=== PATIENT | female | born 1945 | race Caucasian/White ===

== ENCOUNTER 2023-04-07 12:11 | Emergency (ER) | payer OTHER, SELFPAY ==
[2023-04-07 12:13] VITALS: BP 185/74
[2023-04-07 12:50] VITALS: BMI 31.7
[2023-04-07 13:19] VITALS: BP 148/55
--- NOTE | 2023-04-07 13:20 | ED.GENMED ---
History of Present Illness
General
Chief Complaint: Breathing Problem
Source: patient, records and family
Time Seen by Provider: 04/07/23 13:03
Travel History
Have you had any contact with someone who has COVID-19?: No
Do you have any symptoms of coronavirus? Fever > 100 degrees, chills, cough, shortness of breath, sore throat, loss of taste or smell, muscle aches, or headache?: No
History of Present Illness
History of Present Illness:
77-year-old female with past medical history of hypertension, hyperlipidemia, diabetes, CAD status post drug-eluting stent placement proximal LAD as well as pacemaker placement for complete heart block in early February presenting to the emergency
department for evaluation after she developed transient shortness of breath last night that awoke her from sleep and lasted around 1 hour, was able to go back to sleep and awoke again this morning feeling persistently short of breath with symptoms
continuing vomiting her to come to the ER for further evaluation. Patient still endorses shortness of breath at rest, worsens with exertion, no other symptoms including chest pain, peripheral edema, cough, pleurisy, hemoptysis, lightheadedness,
headache, fevers or upper respiratory symptoms or any other concerns. Patient had follow-up visit at her ticket writer office on March 23 and reports that all her tests then were good and her ticket writer was happy with how she was recovering from
her recent hospitalization/treatments. Patient notes she has a Medtronic pacemaker. No other concerns at this time.
Past History
Past History
ED Past Medical History: CAD, HTN, Hypercholesterolemia, IDDM and Other (Diabetes, reflux, cataracts)
ED Past Surgical History: Cardiac and Gynecological
Social History
Tobacco: Non-smoker
Alcohol: Occasional
Drug: None
Personal:
Living: with family
Review of Systems
Review of Systems
All Other Systems: ROS reviewed and negative except as documented in HPI and ROS
Phy Exam
Physical Exam
Physical Exam:
GENERAL: Alert , in no apparent distress
EYE: conjunctiva clear
NECK: Supple
ENT: o/p clr, mmm.
CARDIAC: Regular rate and rhythm
LUNGS: Clear breath sounds bilaterally, occasional pursed lip breathing noted but no tachypnea, no wheezes/rales/rhonchi
Chest wall: Well-healed incision from pacemaker placement without any surrounding cellulitic changes
NEUROLOGICAL: Alert and oriented
SKIN: Warm and dry, skin intact.
MUSCULOSKELETAL: well perfused. No edema
PSYCH: Normal and appropriate interaction.
Scores
Heart Failure Risk
Heart Failure Risk Score: Not Applicable
Heart Score for Chest Pain Patients
STEMI patient?: Not applicable
Withdrawal Assessment of Alcohol
Withdrawal Assessment Completed?: Not applicable
Course
Orders/Labs/Results
Orders:
Orders
04/07/23 12:18
Electrocardiogram (*1) Urgent
Reason for Study: Chest Pain
EKG- Treatment ONCE
04/07/23 13:11
CR Chest - 2 Views Urgent
Comment:
Reason For Exam: SOB, recent NSTEMI, recent pacemaker
04/07/23 13:21
Complete Blood Count/With Diff Urgent
Comprehensive Metabolic Panel Urgent
D-Dimer Urgent
Magnesium Urgent
NT-proBNP Urgent
Troponin I Urgent
Abnormal Lab Results
04/07/23
13:21
RBC 3.97 L 10^6/uL
(4.20-5.40)
Hgb 11.8 L g/dL
(12.0-16.0)
Hct 35.1 L %
(37.0-47.0)
Absolute Monos (auto) 1.0 H 10^3/uL
(0.1-0.6)
Monocytes % 10.2 H %
(1.7-9.3)
D-Dimer 0.65 H ug/mlFEU
(0.00-0.50)
Sodium 133 L mmol/L
(135-145)
BUN 22 H mg/dl
(7-17)
Creatinine 1.1 H mg/dL
(0.6-1.0)
Glucose 157 H mg/dl
(70-99)
Magnesium 1.5 L mg/dl
(1.6-2.3)
04/07/23 13:21
04/07/23 13:21
Vital Signs
Initial and Last Documented VS:
Initial Vital Signs
Temp Pulse Resp BP Pulse Ox
98.1 F 71 20 185/74 98
04/07/23 12:13 04/07/23 12:13 04/07/23 12:13 04/07/23 12:13 04/07/23 12:13
Last Documented Vital Signs
Temp Pulse Resp BP Pulse Ox
98.1 F 74 14 147/109 97
04/07/23 12:13 04/07/23 15:08 04/07/23 15:08 04/07/23 15:08 04/07/23 15:08
Color Consultant consulted with Physician
Color Consultant consulted with physician?: Yes
Name of Physician Consulted: Noh
MDM/Problems Addressed
Differential Diagnosis Includes:
Cardiac dysrhythmia, CHF, valvular dysfunction, ACS, pleural effusion, less likely infectious etiology
MDM/Problems Addressed:
77-year-old female presenting to the emergency department for evaluation after an episode of orthopnea last night, resolved after 1 hour but then upon awakening today has had persistent symptoms this morning which continue. She is in no acute
respiratory distress however during exam will occasionally have some pursed lip breathing and appear little bit short of breath following completion of sentences. Will interrogate patient's Medtronic pacemaker device, labs and chest x-ray ordered.
Will discuss case with cardiology given recent hospitalization and cardiac treatments. Disposition pending.
Chronic conditions affecting care: CAD and Arrhythmia
Acute Exacerbation and/or Progression of Chronic Illness: CAD and Arrhythmia
*Pulse Oximetry
Patient hypoxic: no
*EKG
Interpreted by ED Provider?: Yes
Comparison EKG: no changes
Heart Rate: 63
Rate: normal
Rhythm: av sequential
*Manager Unit Interpretation
Rate: normal
Rhythm: av sequential
*Critical Care Note
Total Time (30-74mins, 75-104mins- exclusive of procedures): Not Applicable
Data Reviewed
Review of Other/Old Records Reveals: Labs, Records and Discharge Summary
Source: patient, records and family
Patient Management
Discussion with other providers: Labor Economics Professor
Escalation/DeEscalation of care consider admission/obs:
Patient's D-dimer was slightly elevated at 0.65 however when age-adjusted this D-dimer is within normal limits. Patient was seen by cardiology who does not feel there are any acute emergent pathologies ongoing at this time. Will attempt to
ambulate patient with pulse ox on to see if she becomes hypoxic. If patient is significantly symptomatic or has drop in her O2 sats will still order CTA to further evaluate.
Patient was able to ambulate around the emergency department without difficulty or symptoms. Her pulse ox remained 96% on room air during this time. She feels comfortable being discharged home. Aware of return precautions emergency department and
otherwise stable for discharge home.
ED Attending Note
-
Portions of this chart may have been created with voice recognition software.� Occasional wrong word or��sound alike� substitutions may have occurred due to the inherent limitations of voice recognition software.
Discharge Plan
Departure
Patient Disposition: Home (Routine Discharge)
Date of Disposition: 04/07/23
Time of Disposition: 15:00
Patient with high blood pressure during this ER visit?: Yes
Discharge Problem:
Shortness of breath
Instructions: Shortness of Breath (Dyspnea) (DC)
Prescriptions:
No Action
atorvastatin 20 mg Tablet
40 mg PO QPM Qty: 30 0RF
metoprolol succinate 50 mg Tablet Extended Release 24 Hr
50 mg PO BID Qty: 60 0RF
cyanocobalamin (vitamin B-12) 1,000 mcg Tablet
1,000 mcg PO DAILY Qty: 60 0RF
thiamine HCl (vitamin B1) 100 mg Tablet
100 mg PO BID Qty: 20 0RF
amlodipine 5 mg Tablet
5 mg PO BID Qty: 60 0RF
spironolactone 25 mg Tablet
12.5 mg PO DAILY Qty: 30 0RF
cetirizine [Zyrtec] 10 mg Tablet
10 mg PO QPM Qty: 0 0RF
aspirin 81 mg Tablet,Delayed Release (Dr/Ec)
81 mg PO QPM Qty: 0 0RF
pramipexole 0.5 mg tablet
0.5 mg PO HS Qty: 0 0RF
lysine [L-Lysine] 500 mg Tablet
500 mg PO QPM Qty: 0 0RF
insulin degludec [Tresiba FlexTouch U-100] 100 unit/mL (3 mL) Insulin Pen
24 unit SC HS Qty: 0 0RF
calcium carbonate-vitamin D3 [Calcium 500 + D] 500 mg-10 mcg (400 unit) Tablet
1 tab PO BID
ferrous sulfate 325 mg (65 mg iron) tablet
325 mg PO MOWEFR
metformin 500 mg tablet extended release 24 hr
1,000 mg PO BID@0800,1700
insulin aspart U-100 [Novolog PenFill U-100 Insulin] 100 unit/mL cartridge
1 sliding scale dose SC AC
furosemide 20 mg Tablet
20 mg PO DAILY Qty: 90 3RF
clopidogrel 75 mg Tablet
75 mg PO DAILY Qty: 90 3RF
hydralazine 25 mg Tablet
25 mg PO TID Qty: 270 3RF
Rx Instructions:
Take with 50mg for total of 75mg TID
hydralazine 50 mg tablet
50 mg PO TID Qty: 270 3RF
Rx Instructions:
Take with 25mg for a total of 75mg TID
Referrals:
Lino Stapleton MD [Active] -
Park Marley DO [Family Provider] -
Interventions
Interventions:
*Risk Screen - Suicide Last Done: 04/07/23 12:13
*General Assessment Last Done: 04/07/23 12:13
*Neglect/Abuse Screening Last Done: 04/07/23 12:13
ED- Fall Risk Assessment Last Done: 04/07/23 12:58
*ED COVID-19 Vaccine History Last Done: 04/07/23 12:50
*Nursing Disposition Last Done: 04/07/23 15:12
ED- Cardiac Assessment Last Done: 04/07/23 12:56
ED- Pulmonary Assessment Last Done: 04/07/23 12:57
Discharge Date and Time
Discharge Date/Time: 04/07/23 15:12
[2023-04-07 13:36] LABS: % Basophils 0.5 % (0-2); % Immature Granulocytes 0.3 % (0-0.5); % Lymphocytes 28.6 % (20.5-51.1); % Monocytes 10.2 % (1.7-9.3); % Neutrophils 58.4 % (42.2-75.2); Absolute Basophils 0.1 10^3/uL (0-0.2); Absolute Eosinophils 0.2 10^3/uL (0-0.7); Absolute Lymphocytes 2.7 10^3/uL (1.2-3.4); Absolute Neutrophils 5.6 10^3/uL (1.4-6.5); Hematocrit 35.1 % (37.0-47.0); Hemoglobin 11.8 g/dL (12.0-16.0); Mean Corp Hgb Conc. 33.6 g/dL (33.0-37.0); Mean Corpuscular Hgb 29.7 pg (27.0-31.0); Mean Corpuscular Volume 88.4 fL (81.0-99.0); Mean Platelet Volume 10.3 fL (7.4-10.4); Nucleated Red Blood Cells % 0 %; Platelet Count 355 10^3/uL (130-400); Red Blood Cell Count 3.97 10^6/uL (4.20-5.40); Red Cell Dist. Width 13.2 % (11.5-14.5); White Blood Cell Count 9.6 10^3/uL (4.8-10.8)
[2023-04-07 13:49] LABS: ALT (SGPT) 16 U/L (0-35); AST (SGOT) 31 U/L (14-36); Albumin 4.1 g/dl (3.5-5.0); Alkaline Phosphatase 89 U/L (38-126); Blood Urea Nitrogen 22 mg/dl (7-17); Calcium 9.2 mg/dl (8.4-10.2); Carbon Dioxide 27 mmol/L (22-30); Chloride 101 mmol/L (98-107); Estimated Creatinine Clearance 41 ml/min; Glucose 157 mg/dl (70-99); Magnesium 1.5 mg/dl (1.6-2.3); Potassium 4.2 mmol/L (3.5-5.1); Sodium 133 mmol/L (135-145); Total Bilirubin 0.4 mg/dl (0.2-1.3); Total Protein 6.9 g/dl (6.3-8.2); eGFR 51.43
[2023-04-07 13:59] LABS: NT-proBNP 1160 pg/ml; Troponin I < 0.012 ng/ml
[2023-04-07 14:33] LABS: D-Dimer 0.65 ug/mlFEU (0.00-0.50)
[2023-04-07 15:08] VITALS: BP 147/109
== END 2023-04-07 15:12 | disposition home or self-care (01) ==
LOC: EMR 12:11
PROVIDERS: Physician Assistant Medical; EMERGENCY PHYSICIAN Emergency Medicine; FAMILY PHYSICIAN Family Medicine
DX: R06.02 Shortness of breath (principal); I11.0 Hypertensive heart disease with heart failure; E78.00 Pure hypercholesterolemia, unspecified; I25.10 Atherosclerotic heart disease of native coronary artery without angina pectoris; Z95.0 Presence of cardiac pacemaker
CPT/HCPCS: 99285; 93288; 71046; 80053; 83735; 83880; 84484; 85025; 85379; 93005

== ENCOUNTER 2023-09-11 11:27 | Inpatient (IN) | payer OTHER, SELFPAY ==
[2023-09-08 20:57] VITALS: BP 166/61
[2023-09-08 21:08] VITALS: BMI 31.7
[2023-09-08 21:28] LABS: % Basophils 0.8 % (0-2); % Eosinophils 5.4 % (0-6); % Immature Granulocytes 0.5 % (0-0.5); % Lymphocytes 29.9 % (20.5-51.1); % Monocytes 8.9 % (1.7-9.3); % Neutrophils 54.5 % (42.2-75.2); Absolute Basophils 0.1 10^3/uL (0-0.2); Absolute Eosinophils 0.8 10^3/uL (0-0.7); Absolute Immature Granulocytes 0.1 10^3/uL (0-0.05); Absolute Lymphocytes 4.6 10^3/uL (1.2-3.4); Absolute Monocytes 1.4 10^3/uL (0.1-0.6); Absolute Neutrophils 8.4 10^3/uL (1.4-6.5); Hematocrit 33.9 % (37.0-47.0); Hemoglobin 11.8 g/dL (12.0-16.0); Mean Corp Hgb Conc. 34.8 g/dL (33.0-37.0); Mean Corpuscular Hgb 29.3 pg (27.0-31.0); Mean Corpuscular Volume 84.1 fL (81.0-99.0); Mean Platelet Volume 10.3 fL (7.4-10.4); Nucleated Red Blood Cells % 0 %; Platelet Count 362 10^3/uL (130-400); Red Blood Cell Count 4.03 10^6/uL (4.20-5.40); Red Cell Dist. Width 14.2 % (11.5-14.5); White Blood Cell Count 15.4 10^3/uL (4.8-10.8)
--- NOTE | 2023-09-08 21:33 | ED.GENMED ---
History of Present Illness
General
Chief Complaint: Chest Pain
Source: patient, spouse and family
Exam Limitations: none
Time Seen by Provider: 09/08/23 21:20
Nursing documentation reviewed up to this point in time: agreed with
History of Present Illness
History of Present Illness:
78-year-old female presents emergency department pain complaining of chest and jaw pain that began at 6 PM tonight. She took nitro and it relieved the pain. She went upstairs at 8:30 PM and the pain returned along with jaw pain. Nitroglycerin
again relieve the pain.
Past History
Past History
ED Past Medical History: CAD, HTN, Hypercholesterolemia, IDDM and Other (Diabetes, reflux, cataracts)
ED Past Surgical History: Cardiac (Pacemaker, cardiac stent) and Gynecological
Social History
Tobacco: Non-smoker
Alcohol: Occasional
Drug: None
Personal:
Living: with family
Review of Systems
Review of Systems
Allergies reviewed?: Yes
All Other Systems: Not applicable
Constitutional: Reports no symptoms
EENT: Reports mouth pain
Respiratory: Reports no symptoms
Cardiac: Reports chest pain
ABD/GI: Reports no symptoms
: Reports no symptoms
Musculoskeletal: Reports no symptoms
Skin: Reports no symptoms
Neurological: Reports no symptoms
Endocrine: Reports no symptoms
Hematologic/Lymphatic: Reports no symptoms
Psychiatric: Reports no symptoms
Phy Exam
Physical Exam
Physical Exam:
Physical Exam
General: no apparent distress, not acutely ill
Neck: supple. no meningeal signs. normal posterior pharynx
Heart: s1/s2 regular rate and rhythm, no murmur. equal radial
pulses. Pacemaker left upper chest
HEENT: Pupils equal round reactive to light, EOMI
Lungs: no acute respiratory distress. clear bilaterally
Abdomen: normal bowel sounds. not tender. no CVAT
Neuro: alert and oriented. no focal neurological deficits cranial nerves II through XII intact
Skin: no rash
Psychiatric: well kept. interactive and cooperative
Extremities: no edema. no calf tenderness. negative homans. good distal pulses
Scores
Heart Score for Chest Pain Patients
STEMI patient?: Yes
History: Moderately Suspicious
ECG: Nonspecific Repolarization
Age: >/= 65 years
Risk Factors: >/= 3 Risk Factors or History of CAD
Troponin: </= Normal Limit
Heart Score for Chest Pain Patients: 6
Heart Score Risk: 20.3% MACE over next 6 weeks
Course
Orders/Labs/Results
Orders:
Orders
09/08/23 20:53
Electrocardiogram (*1) Urgent
Reason for Study: Chest Pain
09/08/23 20:54
EKG- Treatment ONCE
09/08/23 21:05
Comprehensive Metabolic Panel Urgent
Troponin I Urgent
09/08/23 21:07
Complete Blood Count/With Diff Urgent
09/09/23 00:00
Troponin I Urgent
Abnormal Lab Results
09/08/23 09/08/23
21:05 21:07
WBC 15.4 H 10^3/uL
(4.8-10.8)
RBC 4.03 L 10^6/uL
(4.20-5.40)
Hgb 11.8 L g/dL
(12.0-16.0)
Hct 33.9 L %
(37.0-47.0)
Abs Immat Gran (auto) 0.1 H 10^3/uL
(0-0.05)
Absolute Neuts (auto) 8.4 H 10^3/uL
(1.4-6.5)
Absolute Lymphs (auto) 4.6 H 10^3/uL
(1.2-3.4)
Absolute Monos (auto) 1.4 H 10^3/uL
(0.1-0.6)
Absolute Eos (auto) 0.8 H 10^3/uL
(0-0.7)
BUN 21 H mg/dl
(7-17)
Glucose 155 H mg/dl
(70-99)
09/08/23 21:07
09/08/23 21:05
Vital Signs
Initial and Last Documented VS:
Initial Vital Signs
Temp Pulse Resp BP Pulse Ox
98.5 F 63 16 166/61 97
09/08/23 20:57 09/08/23 20:57 09/08/23 20:57 09/08/23 20:57 09/08/23 20:57
Last Documented Vital Signs
Temp Pulse Resp BP Pulse Ox
98.5 F 60 16 156/60 98
09/08/23 20:57 09/08/23 22:00 09/08/23 22:00 09/08/23 22:00 09/08/23 22:00
MDM/Problems Addressed
Differential Diagnosis Includes:
ACS, PE
MDM/Problems Addressed:
78-year-old female with chest pain rating to the jaw, relieved with nitroglycerin. Troponin negative. Concern for unstable angina. Troponin negative initially. Patient pain-free at this time.
Chronic conditions affecting care: CAD
Acute Exacerbation and/or Progression of Chronic Illness: CAD
*Pulse Oximetry
Patient hypoxic: no
*EKG
Interpreted by ED Provider?: Yes
EKG Intrepretation Date: 09/08/23
EKG Intrepretation Time: 20:58
Interpretation: abnormal
Comparison EKG: changes noted
Heart Rate: 71
Rate: normal
Rhythm: sinus and PVC's
[place]: normal axis
Interval: normal interval
QRS Pattern: normal QRS
Ischemia: no ischemia
*Bilingual Recruiter Interpretation
Rate: normal
Interpretation: abnormal
Heart Rate: 70
Rhythm: sinus
*Critical Care Note
Total Time (30-74mins, 75-104mins- exclusive of procedures): Not Applicable
Data Reviewed
Review of Other/Old Records Reveals: Operative Reports (Cardiac catheterization February 2023 LAD stent for 80% lesion by Dr. Lopez, pacemaker placed by Dr. Bauman)
Source: records
Patient Management
Social determinants of health affecting care: Living situation
Escalation/DeEscalation of care consider admission/obs:
admit indicated
ED Attending Note
-
Portions of this chart may have been created with voice recognition software.� Occasional wrong word or��sound alike� substitutions may have occurred due to the inherent limitations of voice recognition software.
Discharge Plan
Departure
Patient Disposition: Admit
Date of Disposition: 09/08/23
Time of Disposition: 22:20
Admit to: IVU
Presentation/result/management discussed w/ accepting MD/DO: Hospitalist
Patient with high blood pressure during this ER visit?: Yes
Condition: Good
Discharge Problem:
Unstable angina
Prescriptions:
No Action
metoprolol succinate 50 mg Tablet Extended Release 24 Hr
50 mg PO BID Qty: 60 0RF
cyanocobalamin (vitamin B-12) 1,000 mcg Tablet
1,000 mcg PO DAILY Qty: 60 0RF
thiamine HCl (vitamin B1) 100 mg Tablet
100 mg PO BID Qty: 20 0RF
amlodipine 5 mg Tablet
5 mg PO BID Qty: 60 0RF
spironolactone 25 mg Tablet
12.5 mg PO DAILY Qty: 30 0RF
cetirizine [Zyrtec] 10 mg Tablet
10 mg PO QPM Qty: 0 0RF
pramipexole 0.5 mg tablet
0.5 mg PO HS Qty: 0 0RF
lysine [L-Lysine] 500 mg Tablet
500 mg PO QPM Qty: 0 0RF
insulin degludec [Tresiba FlexTouch U-100] 100 unit/mL (3 mL) Insulin Pen
24 unit SC HS Qty: 0 0RF
calcium carbonate-vitamin D3 [Calcium 500 + D] 500 mg-10 mcg (400 unit) Tablet
1 tab PO BID
ferrous sulfate 325 mg (65 mg iron) tablet
325 mg PO MOWEFR
metformin 500 mg tablet extended release 24 hr
1,000 mg PO BID@0800,1700
insulin aspart U-100 [Novolog PenFill U-100 Insulin] 100 unit/mL cartridge
1 sliding scale dose SC AC
furosemide 20 mg Tablet
20 mg PO DAILY Qty: 90 3RF
clopidogrel 75 mg Tablet
75 mg PO DAILY Qty: 90 3RF
hydralazine 25 mg Tablet
25 mg PO TID Qty: 270 3RF
Rx Instructions:
Take with 50mg for total of 75mg TID
hydralazine 50 mg tablet
50 mg PO TID Qty: 270 3RF
Rx Instructions:
Take with 25mg for a total of 75mg TID
atorvastatin 40 mg tablet
40 mg PO QPM
betamethasone valerate 0.1 % ointment
1 applic TOPICAL WEEKLY PRN (Reason: itching)
Patient Comments:
09/08/2023: apply to vagina
isosorbide mononitrate 30 mg tablet extended release 24 hr
30 mg PO DAILY
nitroglycerin 0.4 mg tablet, sublingual
0.4 mg sublingual [id number] PRN (Reason: jaw pain)
aspirin 81 mg tablet,delayed release (DR/EC)
81 mg PO DAILY
Theragen Tablet
1 tab PO DAILY
Visbiome 112.5 billion cell Capsule
1 cap PO DAILY
omeprazole 20 mg Tablet,Delayed Release (Dr/Ec)
20 mg PO DAILY
Referrals:
Park Marley DO [Family Provider] -
Interventions
Interventions:
*Risk Screen - Suicide Last Done: 09/08/23 20:57
*General Assessment Last Done: 09/08/23 20:57
*Neglect/Abuse Screening Last Done: 09/08/23 20:57
ED- Fall Risk Assessment Last Done: 09/08/23 21:34
ED- Cardiac Assessment Last Done: 09/08/23 21:34
Discharge Date and Time
Print Language: ITALIAN
[2023-09-08 21:39] VITALS: BP 150/61
[2023-09-08 21:48] LABS: ALT (SGPT) 17 U/L (0-35); AST (SGOT) 35 U/L (14-36); Albumin 4.3 g/dl (3.5-5.0); Alkaline Phosphatase 113 U/L (38-126); Blood Urea Nitrogen 21 mg/dl (7-17); Calcium 9.8 mg/dl (8.4-10.2); Carbon Dioxide 22 mmol/L (22-30); Chloride 101 mmol/L (98-107); Estimated Creatinine Clearance 47 ml/min; Glucose 155 mg/dl (70-99); Potassium 4.1 mmol/L (3.5-5.1); Sodium 135 mmol/L (135-145); Total Bilirubin 0.4 mg/dl (0.2-1.3); Total Protein 7.1 g/dl (6.3-8.2); eGFR > 60.00
[2023-09-08 21:58] LABS: Troponin I < 0.012 ng/ml
[2023-09-08 22:00] VITALS: BP 156/60
--- NOTE | 2023-09-08 22:00 | EDRN ---
Updated patient on labs and plan to repeat troponin level at 0000, resting with family at bedside with no complaints will continue to monitor
--- NOTE | 2023-09-08 22:53 | HPS.HSE ---
Family Physician
-
Family Physician: Park Marley,
Chief Complaint
-
chest pain
History of Present Illness
78-year-old female past medical history of CAD with history of LAD stent in February, complete heart block status post dual-chamber permanent pacemaker February, chronic HFpEF, hypertension, hyperlipidemia, diabetes, GERD, chronic leukocytosis, CKD 3,
arthritis, obesity, presenting with chest pressure and jaw pain with radiation to left arm and shortness of breath that started at 6 PM today. She took nitro with resolution of pain. She went upstairs at 8:30 PM and the pain returned and took
nitroglycerin again with resolution of pain once again. Denies nausea or sweating.
She denies any pain at the current time.
She has been having intermittent jaw pain over the past few weeks intermittently even without exertion. She saw her assistant store manager sales 2 weeks ago and was started on nitroglycerin. She is scheduled for stress test in the near future.
She drinks alcohol occasionally but has not drank any recently. She denies smoking.
Medical History
Past Medical History
Past Medical History: Reports Other (CAD with history of LAD stent in February, complete heart block status post dual-chamber permanent pacemaker February, chronic HFpEF, hypertension, hyperlipidemia, diabetes, GERD, chronic leukocytosis, CKD 3,
arthritis, obesity,)
Past Surgical History: Reports Other (Cardiac (Pacemaker, cardiac stent) and Gynecological)
Social History
Tobacco: Non-smoker
Alcohol: Occasional
Drug: None
Family History
Family History: Not pertinent
Allergies / Home Medications
Allergies reflects when Allergies were last updated in [facility].
Home Medications with original date entered in [facility]
Allergy/Medication List:
Allergies
Allergy/AdvReac Type Severity Reaction Status Date / Time
lisinopril Allergy Unknown Verified 04/07/23 12:13
valsartan [From Diovan] Allergy Unknown Verified 04/07/23 12:13
Home Medications
amlodipine 5 mg tablet 5 mg PO BID Blood pressure #60 tabs 03/01/23
cetirizine 10 mg tablet (Zyrtec) 10 mg PO QPM Allergies #0 tabs 03/01/23
cyanocobalamin (vitamin B-12) 1,000 mcg tablet 1,000 mcg PO DAILY b12 defeciency #60 tabs 03/01/23
insulin degludec 100 unit/mL (3 mL) subcutaneous pen (Tresiba FlexTouch U-100 insulin) 24 unit (0.24 mL) SC HS Diabetes #0 mL 03/01/23
lysine 500 mg tablet (L-Lysine) 500 mg PO QPM Supplement #0 tabs 03/01/23
metoprolol succinate 50 mg tablet,extended release 24 hr 50 mg PO BID Blood pressure #60 tabs 03/01/23
pramipexole 0.5 mg tablet 0.5 mg PO HS other #0 tabs 03/01/23
spironolactone 25 mg tablet 12.5 mg (1/2 x 25 mg) PO DAILY Blood pressure #30 tabs 03/01/23
thiamine HCl (vitamin B1) 100 mg tablet 100 mg PO BID Supplement #20 tabs 03/01/23
calcium carbonate 500 mg-vitamin D3 10 mcg (400 unit) tablet (Calcium 500 + D) 1 tab PO BID 03/05/23
ferrous sulfate 325 mg (65 mg iron) tablet 325 mg PO MOWEFR anemia 03/05/23
insulin aspart U-100 100 unit/mL subcutaneous cartridge (Novolog PenFill U-100 Insulin aspart) 1 sliding scale dose SC AC 03/05/23
metformin 500 mg tablet,extended release 24 hr 1,000 mg PO BID@0800,1700 Diabetes 03/05/23
clopidogrel 75 mg tablet 75 mg PO DAILY #90 tabs 03/06/23
furosemide 20 mg tablet 20 mg PO DAILY #90 tabs 03/06/23
hydralazine 25 mg tablet 25 mg PO TID #270 tabs 03/06/23
hydralazine 50 mg tablet 50 mg PO TID #270 tabs 03/06/23
Lactobac no.2-Bifidobac no.1-S. thermo 112.5 billion cell capsule (Visbiome) 1 cap PO DAILY 09/08/23
aspirin 81 mg tablet,delayed release 81 mg PO DAILY Blood clot prevention/tx 09/08/23
atorvastatin 40 mg tablet 40 mg PO QPM 09/08/23
betamethasone valerate 0.1 % topical ointment 1 applic topical WEEKLY PRN itching 09/08/23
isosorbide mononitrate 30 mg tablet,extended release 24 hr 30 mg PO DAILY 09/08/23
nitroglycerin 0.4 mg sublingual tablet 0.4 mg sublingual [id number] PRN jaw pain 09/08/23
omeprazole 20 mg tablet,delayed release 20 mg PO DAILY 09/08/23
therapeutic multivitamin 1 tab PO DAILY 09/08/23
Review of Systems
-
History Source: Patient
A 12 point ROS was completed and negative except as noted: Yes
Constitutional: Reports No Symptoms
EENT: Reports No Symptoms
Respiratory: Reports No Symptoms
Cardiac: Reports See HPI
Abdomen/GI: Reports No Symptoms
: Reports No Symptoms
Musculoskeletal: Reports No Symptoms
Skin: Reports No Symptoms
Neurological: Reports No Symptoms
Endocrine: Reports No Symptoms
Hematologic/Lymphatic: Reports No Symptoms
Psych: Reports No Symptoms
Physical Exam
Vital Signs
Vital Signs
Temp Pulse Resp BP Pulse Ox
98.5 F 60 16 156/60 98
09/08/23 20:57 09/08/23 22:00 09/08/23 22:00 09/08/23 22:00 09/08/23 22:00
Physical Exam
General: Well Developed, Well Nourished and No Apparent Distress
HEENT: NormoCephalic, Moist mucous membranes and Atraumatic
Respiratory: Clear
Cardiac: S1/S2 and Regular Rhythm; No Murmur or Rub
GI: Soft, Non Tender, Non Distended and Normal Bowel Sounds; No Organomegaly
Rectal: Deferred by Provider
Musculoskeletal: No Clubbing, No Cyanosis and No Edema
Skin: No Rash
Neuro: Nonfocal/grossly intact
Laboratory Results
-
09/08/23 21:07
09/08/23 21:05
Laboratory Results
Total Bilirubin 0.4 mg/dl (0.2-1.3) 09/08/23 21:05
AST 35 U/L (14-36) 09/08/23 21:05
ALT 17 U/L (0-35) 09/08/23 21:05
Alkaline Phosphatase 113 U/L (38-126) 09/08/23 21:05
Troponin I < 0.012 ng/ml 09/08/23 21:05
Data Reviewed
-
Lab Data: Labs Reviewed by me
Old Records: Reviewed
Impression/Plan
-
IMPRESSION:
PLAN:
# Unstable angina
# History of CAD with history of LAD stent in February
-Currently no chest pain
-EKG shows sinus rhythm, paced rhythm, bifascicular block
-Troponin negative, continue to trend
-Continue aspirin, Plavix
-Continue isosorbide mononitrate
-Heparin drip if troponins rise
-N.p.o. postmidnight for potential stress test
-Cardiology consulted
Complete heart block status post dual-chamber pacemaker in February
Chronic HFpEF
-Continue Lasix
-Continue spironolactone
Essential hypertension
-Continue amlodipine, hydralazine
-Continue metoprolol
CKD 3
-Renal function at baseline
Hyperlipidemia
-Continue statin
Type 2 diabetes
-Continue Tresiba but decrease from 24 to 12 units
-Insulin sliding scale
-Hold metformin
GERD
-Continue omeprazole
Chronic leukocytosis
Chronic anemia
-Continue iron sulfate
Arthritis
Obesity
Former alcohol use disorder
-Continue thiamine
Possible restless leg syndrome
-Continue pramipexole
Full code
DVT prophylaxis�heparin
N.p.o. past midnight
[2023-09-08 23:00] VITALS: BP 167/64
[2023-09-08 23:34] LABS: Glucose - Point of Care 139 mg/dl (70-99)
[2023-09-08 23:55] VITALS: BP 158/43; BMI 32.7
--- NOTE | 2023-09-09 00:02 | PTCARENOTE ---
Patient received from the ED via stretcher. Patient ambulated into the room. No reports of any pain. No reports of SOB. AAOx3, VSS. Patient oriented to the room. Educated on medications. Call arreola is within reach.
[2023-09-09 00:34] LABS: Troponin I < 0.012 ng/ml
--- NOTE | 2023-09-09 02:58 | DOWNTIME ---
There was a [employer] Client Chair Maker Downtime on 09/09/2023 from 0100 to 09/09/2023 at 0255. Downtime documentation of patient's care, including medication administrations, has been reconciled in the electronic record per guidelines. Refer to the
patient's paper chart under the miscellaneous tab to see printed paper medication records and downtime forms.
[2023-09-09 03:40] VITALS: BP 150/55
[2023-09-09 06:13] LABS: Glucose - Point of Care 152 mg/dl (70-99)
[2023-09-09 07:45] VITALS: BP 135/59
[2023-09-09 07:45] LABS: ALT (SGPT) 16 U/L (0-35); AST (SGOT) 33 U/L (14-36); Alkaline Phosphatase 106 U/L (38-126); Blood Urea Nitrogen 18 mg/dl (7-17); Calcium 9.7 mg/dl (8.4-10.2); Carbon Dioxide 25 mmol/L (22-30); Chloride 102 mmol/L (98-107); Estimated Creatinine Clearance 54 ml/min; Glucose 140 mg/dl (70-99); Potassium 4.1 mmol/L (3.5-5.1); Sodium 137 mmol/L (135-145); Total Bilirubin 0.5 mg/dl (0.2-1.3); Total Protein 6.7 g/dl (6.3-8.2); Troponin I < 0.012 ng/ml; eGFR > 60.00
[2023-09-09 07:50] LABS: % Basophils 0.8 % (0-2); % Eosinophils 5.6 % (0-6); % Immature Granulocytes 0.3 % (0-0.5); % Lymphocytes 29.1 % (20.5-51.1); % Monocytes 10.1 % (1.7-9.3); % Neutrophils 54.1 % (42.2-75.2); Absolute Basophils 0.1 10^3/uL (0-0.2); Absolute Eosinophils 0.6 10^3/uL (0-0.7); Absolute Lymphocytes 3.3 10^3/uL (1.2-3.4); Absolute Monocytes 1.2 10^3/uL (0.1-0.6); Absolute Neutrophils 6.2 10^3/uL (1.4-6.5); Hematocrit 33.4 % (37.0-47.0); Hemoglobin 11.2 g/dL (12.0-16.0); Mean Corp Hgb Conc. 33.5 g/dL (33.0-37.0); Mean Corpuscular Hgb 29.2 pg (27.0-31.0); Mean Corpuscular Volume 87.2 fL (81.0-99.0); Mean Platelet Volume 10.9 fL (7.4-10.4); Nucleated Red Blood Cells % 0 %; Platelet Count 317 10^3/uL (130-400); Red Blood Cell Count 3.83 10^6/uL (4.20-5.40); Red Cell Dist. Width 14.2 % (11.5-14.5); White Blood Cell Count 11.5 10^3/uL (4.8-10.8)
[2023-09-09] MEDS: NOVOLOG FLEXPEN-LOW RESISTANCE SC ×2 (08:40→12:39)
[2023-09-09] MEDS: VITAMIN B1 100 MG PO ×2 (08:46→20:19)
[2023-09-09] MEDS: APRESOLINE 25 MG PO ×3 (08:46→22:29)
[2023-09-09] MEDS: PROTONIX 40 MG PO (08:46)
[2023-09-09] MEDS: VISBIOME 1 CAP PO (08:47)
[2023-09-09] MEDS: OSCAL 500 + D 500 MG PO ×2 (08:47→20:19)
[2023-09-09] MEDS: ASPIR LOW (ENTERIC COATED) 81 MG PO (08:47)
[2023-09-09] MEDS: APRESOLINE 50 MG PO ×3 (08:47→22:30)
[2023-09-09] MEDS: ALDACTONE 12.5 MG PO (08:47)
[2023-09-09] MEDS: VITAMIN B-12 1000 MCG PO (08:48)
[2023-09-09] MEDS: HEPARIN 5000 UNITS SC ×2 (08:50→20:19)
[2023-09-09] MEDS: THERAGRAN 1 TABLET PO (08:50)
[2023-09-09] MEDS: TOPROL XL 50 MG PO ×2 (08:50→20:21)
[2023-09-09] MEDS: LASIX 20 MG PO (08:50)
[2023-09-09] MEDS: PLAVIX 75 MG PO (08:50)
[2023-09-09] MEDS: IMDUR (EXTENDED RELEASE) 30 MG PO (08:50)
[2023-09-09] MEDS: FEOSOL 325 MG PO (08:51)
[2023-09-09] MEDS: NORVASC 5 MG PO ×2 (08:52→20:21)
--- NOTE | 2023-09-09 09:46 | CON.CAR ---
Addendum entered and electronically signed by Gordo Salter DO 09/09/23 13:04:
I saw and examined the patient.
The [employer]'s note was reviewed and I agree with the note.
Comment:
Plan:
Discussed with interventional cardiology. Lexiscan MIBI in AM to eval for ischemia to help better determine course of action with regards to cath pending ischemic burden.
Echo pending
Trop negative.
Discussed with primary service and nursing.
Fam has been updated
Original Note:
Consultation
Consultation Request
Date/Time Consultation Performed: 09/09/23
Requesting Provider: Dr. Taylor
Performing Provider: Shavon Sánchez PA-C for Dr. Salter
Reason for Consultation: CP
Medical History
-
Chief Complaint: CP
History of Present Illness:
Patient was admitted from 02/25 - 03/01 for complete heart block, acute CHF and bronchitis. She also complained of jaw pain and underwent cardiac catheterization showing 70 to 80% mid LAD lesion, but no lesion consistent with etiology of her CHB. She
underwent pacemaker placement on 02/27/2023. She then presented back with left upper extremity pain and underwent LAD PCI 03/05/23. She was noted to have residual 50 to 60% prox RCA disease and circ disease which were medically managed. She presented
back to office 08/25/23 with complaints of jaw pain and chest pressure, with L arm heaviness, mostly with exertion. She was started on imdur 30mg daily, prescribed SL nitro, and ordered a lexiscan stress test scheduled for 09/16. She has continued with
discomfort, occasionally taking a SL nitro with resolution of pain until last evening. She states she had pain with walking from 1 room to another and took a SL nitro x1 which eased the pain but it did not resolve. She then recurred with pain 2
hours later and took another SL nitro and came to ER. trops serially negative.
PMH:
CAD s/p LAD PCI 03/05/23, residual RCA and circ disease
CHB s/p Medtronic DC PPM 02/27/23
HTN, multidrug resistant
Dyslipidemia
Type 2 diabetes mellitus on insulin and metformin with freestyle noelle CGM
Chronic elevated white blood cell count, followed by Dr. Garrison, oncology
Past Medical History
Past Medical History: Other (in HPI)
Past Surgical History: Cardiac (s/p Medtronic DC PPM 02/27/23), Gynecological (hysterectomy) and Orthopedic
Social History
Tobacco: Non-Smoker
Alcohol: None
Drug: None
Personal:
Living: With Family
Family History
Family History: Reviewed & Not Pertinent
Allergies / Home Medications
Allergy/AdvReac Type Severity Reaction Status Date / Time
lisinopril Allergy Unknown Verified 04/07/23 12:13
valsartan [From Diovan] Allergy Unknown Verified 04/07/23 12:13
�Medication �Instructions �Recorded �Confirmed �Type
amlodipine 5 mg tablet 5 mg PO BID Blood pressure #60 tabs 03/01/23 09/08/23 Rx
cetirizine 10 mg tablet (Zyrtec) 10 mg PO QPM Allergies #0 tabs 03/01/23 09/08/23 Rx
cyanocobalamin (vitamin B-12) 1,000 mcg PO DAILY b12 defeciency 03/01/23 09/08/23 Rx
1,000 mcg tablet #60 tabs
insulin degludec 100 unit/mL (3 24 unit (0.24 mL) SC HS Diabetes 03/01/23 09/08/23 Rx
mL) subcutaneous pen (Tresiba #0 mL
FlexTouch U-100 insulin)
lysine 500 mg tablet (L-Lysine) 500 mg PO QPM Supplement #0 tabs 03/01/23 09/08/23 Rx
metoprolol succinate 50 mg 50 mg PO BID Blood pressure #60 03/01/23 09/08/23 Rx
tablet,extended release 24 hr tabs
pramipexole 0.5 mg tablet 0.5 mg PO HS other #0 tabs 03/01/23 09/08/23 Rx
spironolactone 25 mg tablet 12.5 mg (1/2 x 25 mg) PO DAILY 03/01/23 09/08/23 Rx
Blood pressure #30 tabs
thiamine HCl (vitamin B1) 100 mg 100 mg PO BID Supplement #20 tabs 03/01/23 09/08/23 Rx
tablet
calcium carbonate 500 mg-vitamin 1 tab PO BID 03/05/23 09/08/23 History
D3 10 mcg (400 unit) tablet
(Calcium 500 + D)
ferrous sulfate 325 mg (65 mg 325 mg PO MOWEFR anemia 03/05/23 09/08/23 History
iron) tablet
insulin aspart U-100 100 unit/mL 1 sliding scale dose SC AC 03/05/23 09/08/23 History
subcutaneous cartridge (Novolog
PenFill U-100 Insulin aspart)
metformin 500 mg tablet,extended 1,000 mg PO BID@0800,1700 Diabetes 03/05/23 09/08/23 History
release 24 hr
clopidogrel 75 mg tablet 75 mg PO DAILY #90 tabs 03/06/23 09/08/23 Rx
furosemide 20 mg tablet 20 mg PO DAILY #90 tabs 03/06/23 09/08/23 Rx
hydralazine 25 mg tablet 25 mg PO TID #270 tabs 03/06/23 09/08/23 Rx
hydralazine 50 mg tablet 50 mg PO TID #270 tabs 03/06/23 09/08/23 Rx
Lactobac no.2-Bifidobac no.1-S. 1 cap PO DAILY 09/08/23 09/08/23 History
thermo 112.5 billion cell capsule
(Visbiome)
aspirin 81 mg tablet,delayed 81 mg PO DAILY Blood clot 09/08/23 09/08/23 History
release prevention/tx
atorvastatin 40 mg tablet 40 mg PO QPM 09/08/23 09/08/23 History
betamethasone valerate 0.1 % 1 applic topical WEEKLY PRN itching 09/08/23 09/08/23 History
topical ointment
isosorbide mononitrate 30 mg 30 mg PO DAILY 09/08/23 09/08/23 History
tablet,extended release 24 hr
nitroglycerin 0.4 mg sublingual 0.4 mg sublingual [id number] PRN jaw 09/08/23 09/08/23 History
tablet pain
omeprazole 20 mg tablet,delayed 20 mg PO DAILY 09/08/23 09/08/23 History
release
therapeutic multivitamin 1 tab PO DAILY 09/08/23 09/08/23 History
Review of Systems
-
History Source: Patient and Family
All other systems: Negative unless noted
Physical Exam
Vital Signs
Temp Pulse Resp BP Pulse Ox
97.8 F 64 18 135/59 97
09/09/23 07:45 09/09/23 08:46 09/09/23 07:45 09/09/23 08:46 09/09/23 07:45
Lab Results
09/09/23 07:00
09/09/23 07:00
Troponin I < 0.012 ng/ml 09/09/23 07:00
Physical Exam
General: No Apparent Distress and Comfortable
HEENT: Normocephalic, Anicteric and Moist Mucous Membranes
Respiratory: Clear and Non Labored Respirations
Cardiac: S1/S2 and Regular Rhythm
GI: Soft, Non Tender, Non Distended and Normal Bowel Sounds
Musculoskeletal: No Clubbing, No Cyanosis and No Edema
Skin: Warm and Dry
Neuro: AO x 3
Impression / Plan
-
Primary Pants Presser: Dr. Stapleton
Assessment:
Presentation with CP, concern for USA
Serially negative troponins
CAD s/p LAD PCI 03/05/23, residual RCA and circ disease
CHB s/p Medtronic DC PPM 02/27/23
HTN, multidrug resistant
Dyslipidemia
Type 2 diabetes mellitus on insulin and metformin with freestyle noelle CGM
Chronic elevated white blood cell count, followed by Dr. Garrison, oncology
ECHO 01/01/23: EF 55-60%, stage 2 diastolic dysfunction, mod cLVH, MAC, mild MR, dilated LA, aortic sclerosis, normal right heart with mild pulm HTN
Plan:
-Patient presents with symptoms concerning for USA, although trops serially negative
-cath from 02/2023 resulting in LAD PCI with residual RCA and circ disease
-no present discomfort
-plan for lexiscan nuclear stress test in AM to determine area of active ischemia. for possible cath to follow tomorrow afternoon, will be groin access
-holding imdur and toprol tomorrow in preparation for stress in AM
-continue antianginal therapy including asa, statin, toprol, norvasc
-remains on OP lasix, hydralazine
-last echo from 12/2022 as above. will repeat
-she did not complete cardiac rehab post stent 02/2023. we discussed importance moving forward if she were to require additional stent.
-discussed with patient and family at bedside
Data Reviewed
-
EKG: Tracing Personally Visualized and interpreted
Medical Tests (Nuc Med, Echo etc): Report Reviewed by me
Labs: Labs Reviewed by me
Old Records: Reviewed
[2023-09-09 10:24] LABS: Glycohemoglobin (HgbA1c) 6.9 % (4.0-5.6)
[2023-09-09 11:20] VITALS: BP 130/59
[2023-09-09 11:52] LABS: Glucose - Point of Care 138 mg/dl (70-99)
[2023-09-09 11:52] LABS: Troponin I < 0.012 ng/ml
--- NOTE | 2023-09-09 13:36 | W.PN.HOSP.TC ---
Today's Communication/Plan
-
[facility] tomorrow
Assessment / Plan
Assessment / Plan
Physical Exam
General: Well Developed, Well Nourished and No Apparent Distress
HEENT: NormoCephalic, Moist mucous membranes and Atraumatic
Respiratory: Clear
Cardiac: S1/S2 and Regular Rhythm; No Murmur or Rub
GI: Soft, Non Tender, Non Distended and Normal Bowel Sounds; No Organomegaly
Rectal: Deferred by Provider
Musculoskeletal: No Clubbing, No Cyanosis and No Edema
Skin: No Rash
Neuro: Nonfocal/grossly intact
# Unstable angina
# History of CAD with history of LAD stent in February 24
-Currently no chest pain
-EKG shows sinus rhythm, paced rhythm, bifascicular block
-Troponin negatives
-Continue aspirin, Plavix
-Continue isosorbide mononitrate
-[facility] tomorrow
-Cardiology consulted
Complete heart block status post dual-chamber pacemaker in February
Chronic HFpEF
-Continue Lasix
-Continue spironolactone
Essential hypertension
-Continue amlodipine, hydralazine
-Continue metoprolol
CKD 3
-Renal function at baseline
Hyperlipidemia
-Continue statin
Type 2 diabetes
-Continue Tresiba but decrease from 24 to 12 units
-Insulin sliding scale
-Hold metformin
GERD
-Continue omeprazole
Chronic leukocytosis
Chronic anemia
-Continue iron sulfate
Arthritis
Obesity
Former alcohol use disorder
-Continue thiamine
Possible restless leg syndrome
-Continue pramipexole
Full code
DVT prophylaxis�heparin
N.p.o. past midnight
Anticipated Discharge: 24 - 48 hours
Subjective/Interval History
-
Date of Service: September 09, 2023
no acute events; anginal symptoms improved although still present
Objective Data
-
Labs:
Laboratory Results
09/09/23
07:00
WBC 11.5 H
Hgb 11.2 L
Hct 33.4 L
Plt Count 317
Sodium 137
Potassium 4.1
Chloride 102
Carbon Dioxide 25
BUN 18 H
Creatinine 0.8
Glucose 140 H
Calcium 9.7
Total Bilirubin 0.5
AST 33
ALT 16
Alkaline Phosphatase 106
Vital Signs:
Vital Signs
Temp Pulse Resp BP Pulse Ox
97.8 F 61 16 130/59 94
09/09/23 11:20 09/09/23 11:20 09/09/23 11:20 09/09/23 11:20 09/09/23 11:20
I&O
09/08/23 09/09/23 09/10/23
06:59 06:59 06:59
Intake Total 0 / 0
Balance 0 / 0
Review of Systems
-
History Source: Patient
All other systems: Not reviewed unless documented
Data Reviewed
-
Labs: Labs Reviewed by me
--- NOTE | 2023-09-09 15:08 | CM ---
Patient seen bedside, initial assessment completed. Patient resides with her in a multiple story home, five steps to enter. Patient denies the use of DME, VN, or SNF history. Patient confirms PCP [facility], pharmacy [facility],
confirms prescription coverage. Patient denies food, housing/utility, and transportation insecurities at home. SAMUEL reviewed, signed, placed in chart. Patient for [facility] tomorrow. CM will continue to follow for all discharge planning needs.
Plan; home no needs, watch for VN needs.
[2023-09-09 15:10] VITALS: BP 146/60
[2023-09-09 16:46] LABS: Glucose - Point of Care 217 mg/dl (70-99)
[2023-09-09] MEDS: LIPITOR 40 MG PO (16:46)
[2023-09-09] MEDS: ZYRTEC 10 MG PO (16:46)
[2023-09-09] MEDS: NOVOLOG FLEXPEN-LOW RESISTANCE 2 UNITS SC (16:47)
[2023-09-09 19:00] VITALS: BP 105/62
[2023-09-09 22:28] LABS: Glucose - Point of Care 183 mg/dl (70-99)
[2023-09-09] MEDS: MIRAPEX, GENERIC 0.5 MG PO (22:29)
[2023-09-09] MEDS: LANTUS 0.12 UNITS SC (22:30)
[2023-09-09] MEDS: MELATONIN 5 MG PO (22:48)
[2023-09-09 23:00] VITALS: BP 121/59
[2023-09-10] VITALS (13 sets, daily range): BP systolic 92–158; BP diastolic 40–86; BMI 32.0
[2023-09-10] MEDS: LEXISCAN 0.4 MG IV (09:30)
[2023-09-10] MEDS: NOVOLOG FLEXPEN-LOW RESISTANCE SC ×3 (11:01→18:06)
[2023-09-10] MEDS: PLAVIX 75 MG PO (11:35)
[2023-09-10] MEDS: PROTONIX 40 MG PO (11:35)
[2023-09-10] MEDS: HEPARIN 5000 UNITS SC ×2 (11:36→20:18)
[2023-09-10] MEDS: ASPIR LOW (ENTERIC COATED) 81 MG PO (11:36)
[2023-09-10] MEDS: OSCAL 500 + D 500 MG PO ×2 (11:36→20:18)
[2023-09-10] MEDS: THERAGRAN 1 TABLET PO (11:36)
[2023-09-10] MEDS: APRESOLINE 50 MG PO ×3 (11:36→22:11)
[2023-09-10] MEDS: VISBIOME 1 CAP PO (11:36)
[2023-09-10] MEDS: ALDACTONE 12.5 MG PO (11:36)
[2023-09-10] MEDS: VITAMIN B-12 1000 MCG PO (11:36)
[2023-09-10] MEDS: VITAMIN B1 100 MG PO ×2 (11:36→20:18)
[2023-09-10] MEDS: NORVASC 5 MG PO ×2 (11:36→20:18)
[2023-09-10] MEDS: LASIX 20 MG PO (11:36)
[2023-09-10] MEDS: APRESOLINE 25 MG PO ×2 (11:36→22:10)
[2023-09-10 11:38] LABS: Glucose - Point of Care 247 mg/dl (70-99)
[2023-09-10 12:27] LABS: Hemoglobin 12.1 g/dL (12.0-16.0); Mean Corp Hgb Conc. 32.7 g/dL (33.0-37.0); Mean Corpuscular Hgb 28.9 pg (27.0-31.0); Mean Corpuscular Volume 88.5 fL (81.0-99.0); Mean Platelet Volume 10.7 fL (7.4-10.4); Platelet Count 341 10^3/uL (130-400); Red Blood Cell Count 4.18 10^6/uL (4.20-5.40); Red Cell Dist. Width 14.3 % (11.5-14.5); White Blood Cell Count 11.8 10^3/uL (4.8-10.8)
--- NOTE | 2023-09-10 12:39 | W.PN.CARDCBS ---
Today's Communication / Plan
-
Stress test w/ inferior ischemia
Cath this afternoon
Impression / Plan
-
Primary Fruit Preserver: Dr. Stapleton
Assessment:
Presentation with CP, concern for USA
Serially negative troponins
CAD s/p LAD PCI 03/05/23, residual RCA and circ disease
CHB s/p Medtronic DC PPM 02/27/23
HTN, multidrug resistant
Dyslipidemia
Type 2 diabetes mellitus on insulin and metformin with Eqalixe CGM
Chronic elevated white blood cell count, followed by Dr. Garrison, oncology
ECHO 01/01/23: EF 55-60%, stage 2 diastolic dysfunction, mod cLVH, MAC, mild MR, dilated LA, aortic sclerosis, normal right heart with mild pulm HTN
Echo 09/09/2023: EF 55-*60%, mild cLVH, no RWMA, mild MR, mild AI
Nuclear stress test 09/10/2023: moderate inferior and inferoapical ischemia. EF 67%
[facility] 09/10/2023: Pending
Plan:
-Patient presented with symptoms concerning for USA. Troponin negative x4.
-Known CAD s/p LAD PCI 02/2023 w/ residual RCA and circ disease
-Echo 09/08 with preserved EF and no RWMA as noted above.
-s/p nuclear stress test 09/09 with inferior and inferoapical ischemia as noted above.
-Plan is for [facility] this afternoon for further evaluation.
-Continue aspirin, plavix. Continue lipitor 40mg daily
-Continue medical therapy with Imdur, norvasc, toprol, spironolactone, hydralazine, and lasix
-She did not complete cardiac rehab post stent 02/2023. we discussed importance moving forward if she were to require additional stent.
-Further recommendations to be made post cath
Progress Note - Fruit Preserver
Subjective
Date of Service: September 10, 2023
Feeling well currently.
Objective
Labs:
09/10/23 11:55
Labs
Hgb 12.1 g/dL (12.0-16.0) 09/10/23 11:55
Hct 37.0 % (37.0-47.0) 09/10/23 11:55
Plt Count 341 10^3/uL (130-400) 09/10/23 11:55
Sodium 137 mmol/L (135-145) 09/09/23 07:00
Potassium 4.1 mmol/L (3.5-5.1) 09/09/23 07:00
BUN 18 mg/dl (7-17) H 09/09/23 07:00
Creatinine 0.8 mg/dL (0.6-1.0) 09/09/23 07:00
Glucose 140 mg/dl (70-99) H 09/09/23 07:00
Troponins
09/08/23 09/09/23 09/09/23
21:05 00:00 07:00
Troponin I < 0.012 < 0.012 < 0.012
09/09/23
11:10
Troponin I < 0.012
Vital Signs and I&O:
Vital Signs
Temp Pulse Resp BP Pulse Ox
98 F 66 18 142/64 95
09/10/23 11:33 09/10/23 11:33 09/10/23 11:33 09/10/23 11:33 09/10/23 11:33
Vital Signs
Temp Pulse Resp BP Pulse Ox
98 F 66 18 142/64 95
09/10/23 11:33 09/10/23 11:33 09/10/23 11:33 09/10/23 11:33 09/10/23 11:33
Intake & Output
09/08/23 09/09/23 09/10/23 09/11/23
06:59 06:59 06:59 06:59
Intake Total 0 / 0 1440 / 1440
Balance 0 / 0 1440 / 1440
Physical Exam
Physical Exam
GEN: No distress, awake, alert, oriented x3
HEENT: supple, anicteric, mmm
LUNGS: CTA b/l, no wheezes/rales
CV: Reg, S1/S2, no murmur
EXT: No clubbing, cyanosis, or edema
NEURO: Gross non-focal
SKIN: Warm, dry, no rash
[2023-09-10 12:54] LABS: ALT (SGPT) 17 U/L (0-35); AST (SGOT) 32 U/L (14-36); Albumin 4.3 g/dl (3.5-5.0); Alkaline Phosphatase 121 U/L (38-126); Blood Urea Nitrogen 19 mg/dl (7-17); Calcium 9.8 mg/dl (8.4-10.2); Carbon Dioxide 28 mmol/L (22-30); Chloride 97 mmol/L (98-107); Estimated Creatinine Clearance 43 ml/min; Glucose 206 mg/dl (70-99); Potassium 4.5 mmol/L (3.5-5.1); Sodium 134 mmol/L (135-145); Total Bilirubin 0.6 mg/dl (0.2-1.3); Total Protein 7.2 g/dl (6.3-8.2); eGFR 57.31
--- NOTE | 2023-09-10 13:03 | W.PN.HOSP.TC ---
Today's Communication/Plan
-
[facility] today
asa, plavix
Assessment / Plan
Assessment / Plan
Physical Exam
General: Well Developed, Well Nourished and No Apparent Distress
HEENT: NormoCephalic, Moist mucous membranes and Atraumatic
Respiratory: Clear
Cardiac: S1/S2 and Regular Rhythm; No Murmur or Rub
GI: Soft, Non Tender, Non Distended and Normal Bowel Sounds; No Organomegaly
Rectal: Deferred by Provider
Musculoskeletal: No Clubbing, No Cyanosis and No Edema
Skin: No Rash
Neuro: Nonfocal/grossly intact
# Unstable angina
# History of CAD with history of LAD stent in February 24
--Positive stress test
-[facility] today
-Trops neg
-Continue aspirin, Plavix, statin
-Cardiology consulted
- Imdur, norvasc, toprol, spironolactone, hydralazine, and lasix
#Complete heart block status post dual-chamber pacemaker in February
#Hyponatremia
-mild
-ctm
Chronic HFpEF
-Continue Lasix
-Continue spironolactone
Essential hypertension
-Continue amlodipine, hydralazine
-Continue metoprolol
CKD 3
-Renal function at baseline
Hyperlipidemia
-Continue statin
Type 2 diabetes
-Continue Tresiba but decrease from 24 to 12 units
-Insulin sliding scale
-Hold metformin
GERD
-Continue omeprazole
Chronic leukocytosis
Chronic anemia
-Continue iron sulfate
Arthritis
Obesity
Former alcohol use disorder
-Continue thiamine
Possible restless leg syndrome
-Continue pramipexole
Full code
DVT prophylaxis�heparin
Total time spent on today's encounter was 50 minutes which included time spent in counseling the patient/family regarding diagnosis and treatment plan as listed above, goals of care, and symptom management. Case was discussed with nursing staff,
specialists, and care coordinators/case management. All labs and imaging personally reviewed by me. Remainder the time spent in detailed review of previous records, lab data, imaging, and other medical provider documentation.
Anticipated Discharge: Within 24 hours
Subjective/Interval History
-
Date of Service: September 10, 2023
angina this am
Objective Data
-
Labs:
Laboratory Results
09/10/23
11:55
WBC 11.8 H
Hgb 12.1
Hct 37.0
Plt Count 341
Sodium 134 L
Potassium 4.5
Chloride 97 L
Carbon Dioxide 28
BUN 19 H
Creatinine 1.0
Glucose 206 H
Calcium 9.8
Total Bilirubin 0.6
AST 32
ALT 17
Alkaline Phosphatase 121
Vital Signs:
Vital Signs
Temp Pulse Resp BP Pulse Ox
98 F 66 18 142/64 95
09/10/23 11:33 09/10/23 11:33 09/10/23 11:33 09/10/23 11:33 09/10/23 11:33
I&O
09/09/23 09/10/23 09/11/23
06:59 06:59 06:59
Intake Total 0 / 0 1440 / 1440
Balance 0 / 0 1440 / 1440
Review of Systems
-
History Source: Patient
All other systems: Not reviewed unless documented
Data Reviewed
-
Labs: Labs Reviewed by me
--- NOTE | 2023-09-10 14:53 | CM ---
Patient seen with spouse, reports no needs to CM at this time. Patient inquiring about inpatient status. Patient reports per [facility] CM, patient remains OBS appropriate at this time. CM will continue to follow for all discharge planning needs.
Plan; home no needs likely.
[2023-09-10 15:37] LABS: ACT-LR - POC 252 Seconds (116-155)
[2023-09-10 15:51] LABS: ACT-LR - POC 316 Seconds (116-155)
[2023-09-10 16:50] LABS: ACT-LR - POC 305 Seconds (116-155)
[2023-09-10] MEDS: NSS 1000 IV (17:15)
--- NOTE | 2023-09-10 17:17 | ITS.CL.CATH ---
[facility] - Catheterization
Cardiac Catheterization
Procedure Report:
LEFT HEART CATHETERIZATION
Date of Procedure: September 10, 2023
Referring: aMrco Garcia
PROCEDURES:
1. Left heart catheterization, coronary angiogram.
2. Ultrasound-guided access
3. Successful percutaneous coronary artery intervention of a 80 to 90% heavily calcified ostial to proximal RCA stenosis with a 3.5 x 15 mm Medtronic [place] regulating stent, postdilated using a 3.5 x 15 mm NC trek balloon at 18 hanna distally and 20
hanna ostially with an excellent angiographic result.
INDICATION: Ms Carter is a 77-year-old female with morbid obesity, poorly controlled hypertension, hyperlipidemia, insulin-dependent type 2 diabetes mellitus who presented this admission with progressively worsening dyspnea found to be in
high-grade AV block/complete heart block with junctional escape, was awaiting AV gio dre washout prior to getting her permanent pacemaker at which point she had sudden onset right-sided jaw pain in the setting of a coughing fit with more
pronounced ST-T wave changes concerning for global ischemia on EKG in the setting of LVH and is now being referred for a left heart catheterization prior to a permanent pacemaker. She had no associated chest discomfort and her jaw discomfort has
now resolved though she did get 1 sublingual nitroglycerin. Her outpatient nuclear stress test on December 23, 2022 showed a small, mild fixed apical and distal anterior perfusion defect likely represents breast attenuation.� EF by gated SPECT 65%.�
Patient had intermittent episodes of high degree AV block with escape beats during Lexiscan study that resolved following Lexiscan.her outpatient transthoracic echocardiogram was in January 01, 2023 showing normal LV size and systolic function with
moderate concentric left ventricular hypertrophy and grade 2 diastolic dysfunction with a EF 55-60%.� Mitral valve sclerosis with mean mitral valve gradient 4 mmHg and mild MR.� Calcified sclerotic aortic valve with mild AI.� Mean aortic valve
gradient 8 mmHg.� Mild tricuspid regurgitation.� Estimated pulmonary artery pressure 41 mmHg.� No pericardial effusion. Detailed informed consent reviewing the risk and benefits was obtained at bedside with her family around as well.
ACCESS: Right common femoral artery, 6 [place] sheath, under ultrasound guidance using a micropuncture kit.
HEMODYNAMICS : (mmHg)
AO (s/d) : 136/47
LV (s/d) : 137/9
LVEDP : 12
CORONARY FINDINGS
DOMINANCE: Right
LEFT MAIN: The left main artery is a large-caliber, short vessel which gives rise to the left anterior descending artery and the left circumflex artery. There is minimal luminal irregularities.
LEFT ANTERIOR DESCENDING: The left into descending artery is a medium to large caliber vessel which gives rise to 1 major diagonal branch as it courses through the anterior interventricular groove towards the apex. Previously placed LAD stents are
widely patent. Distal to apical LAD has diffuse atherosclerotic plaque.
CIRCUMFLEX: The left circumflex artery is a medium to large caliber vessel which gives rise to 1 major diagonal branch. OM1 has diffuse up to 23-30% stenosis. Just distal to the OM1 takeoff there is a 50% stenosis in the mid left circumflex
artery, where it becomes a small to medium caliber vessel.
RIGHT CORONARY ARTERY: The right coronary artery is a large-caliber, dominant vessel which has a high anterior takeoff and gives rise to a right posterior descending artery and the right posterolateral branch. It was extremely challenging
selectively engaging this vessel. There is a heavily calcified 80 to 90% ostial to proximal stenosis which has progressed compared to prior cath in February 2023. This lesion was intervened on as noted below.
CORONARY INTERVENTION:
SEDATION: 160 minutes of procedural sedation was utilized. An independent medical videographer was present to assist with and help manage the patient's level of consciousness and physiologic status.
RADIATION SUMMARY: Fluoro Time (min): 52.6 Dose (mGy): 1478.9, DAP (Gy.cm2) : 102.6
Closure Device: 6 [place] Angio-Seal over the right common femoral arterial access with successful hemostasis.
CONCLUSIONS
1. Successful percutaneous coronary artery intervention of a 80 to 90% heavily calcified ostial to proximal RCA stenosis with a 3.5 x 15 mm Medtronic [place] regulating stent, postdilated using a 3.5 x 15 mm NC trek balloon at 18 hanna distally and 20
hanna ostially with an excellent angiographic result.
2. Previously placed LAD stents are widely patent.
3. Significantly elevated LVEDP at 25 mmHg.
RECOMMENDATIONS
1. Continued uninterrupted dual antiplatelet therapy with daily baby aspirin and Plavix 75 mg along with high intensity statin and beta-dre as tolerated.
2. Bedrest per protocol post groin access.
3. Aggressive management of cardiovascular risk factors and nutrition consult.
4. Referral for outpatient cardiac rehab.
Elisabet Lopez MD, FACC, [facility]
[2023-09-10 18:04] LABS: Glucose - Point of Care 144 mg/dl (70-99)
[2023-09-10] MEDS: LIPITOR 80 MG PO (18:15)
[2023-09-10] MEDS: APRESOLINE PO (18:16)
[2023-09-10] MEDS: ZYRTEC 10 MG PO (18:16)
--- NOTE | 2023-09-10 18:35 | PTCARENOTE ---
Pt received post cardiac cath done via right femoral artery, dressing dry and intact, no sign of bleeding or hematoma. Pt denies any discomfort, quite tearful post procedure. Pt states she is worried jaw pain will return but none currently. Pt
voiding via purewick device. Telemetry shows AV paced rhythm with SBP @130's. Hydralazine 50mgs only given once post cardiac cath per . Will resume higher dose tonight of 75mg.
--- NOTE | 2023-09-10 19:14 | PTCARENOTE ---
At @19:00 pt reported new low back pain going up to her right shoulder, BP 92/61, right femoral site with small new drainage but no hematoma noted. Pt repositioned slightly, notified of new back pain. Will watch closely.
[2023-09-10 22:07] LABS: Glucose - Point of Care 190 mg/dl (70-99)
[2023-09-10] MEDS: MIRAPEX, GENERIC 0.5 MG PO (22:10)
[2023-09-10] MEDS: LANTUS 0.12 UNITS SC (22:11)
--- NOTE | 2023-09-10 22:56 | PTCARENOTE ---
Pt received start of shift, HR v-paced. R groin site soft, no hematoma. Dressing saturated w/ sanguineous drainage - dressing changed. Pt c/o back pain radiating into L shoulder, relieved entirely by repositioning. After ordered bedrest completed,
Pt ambulating to bathroom. New light pink drainage noted on new dressing - circled on dressing for future assessment. Pt denies any SOB, CP, jaw pain, or lightheadedness/dizziness. Informed to notify RN if any changes, call arreola within reach.
--- NOTE | 2023-09-10 23:30 | PTCARENOTE ---
2325 dressing saturated w/ sanguineous drainage. redressed w/ hemostat + new gauze + tegaderm. site soft, R dorsalis pedis pulse normal.
[2023-09-11 02:34] VITALS: BP 101/46
[2023-09-11 05:58] LABS: Blood Urea Nitrogen 20 mg/dl (7-17); Calcium 8.9 mg/dl (8.4-10.2); Carbon Dioxide 25 mmol/L (22-30); Chloride 99 mmol/L (98-107); Estimated Creatinine Clearance 39 ml/min; Glucose 161 mg/dl (70-99); Potassium 3.9 mmol/L (3.5-5.1); Sodium 132 mmol/L (135-145); eGFR 51.11
[2023-09-11 06:35] LABS: Hematocrit 33.4 % (37.0-47.0); Mean Corp Hgb Conc. 32.9 g/dL (33.0-37.0); Mean Corpuscular Hgb 28.9 pg (27.0-31.0); Mean Corpuscular Volume 87.9 fL (81.0-99.0); Platelet Count 338 10^3/uL (130-400); Red Cell Dist. Width 14.5 % (11.5-14.5); White Blood Cell Count 16.1 10^3/uL (4.8-10.8)
[2023-09-11 07:25] LABS: Glucose - Point of Care 181 mg/dl (70-99)
[2023-09-11 07:40] VITALS: BMI 32.3
[2023-09-11 07:43] VITALS: BP 146/46
--- NOTE | 2023-09-11 08:35 | W.PN.CARDCBS ---
Addendum entered and electronically signed by Lino Stapleton MD 09/11/23 13:29:
I saw and examined the patient.
The [employer] LABEL DESIGNER or PA's note was reviewed and I agree with the note.
Comment: General: Well developed, well nourished in NAD.
stable for d/c to home. d/w pt and questions answered. f/u arranged. d/w primary service
Original Note:
Today's Communication / Plan
-
Continue DAPT with aspirin and plavix
Lipitor increased
Cardiac Rehab consult
Follow up arranged
Impression / Plan
-
Primary Doctor Of Osteopathy: Dr. Stapleton
Assessment:
Presentation with CP, concern for USA
Serially negative troponins
CAD s/p LAD PCI 03/05/23, residual RCA and circ disease
CHB s/p Medtronic DC PPM 02/27/23
HTN, multidrug resistant
Dyslipidemia
Type 2 diabetes mellitus on insulin and metformin with freestyle noelle CGM
Chronic elevated white blood cell count, followed by Dr. Garrison, oncology
ECHO 01/01/23: EF 55-60%, stage 2 diastolic dysfunction, mod cLVH, MAC, mild MR, dilated LA, aortic sclerosis, normal right heart with mild pulm HTN
Echo 09/09/2023: EF 55-60%, mild cLVH, no RWMA, mild MR, mild AI
Nuclear stress test 09/10/2023: moderate inferior and inferoapical ischemia. EF 67%
LHC 09/10/2023:LM: Minimal luminal irregularities. LAD: Previously placed LAD stents widely patent. Distal to apical LAD has diffuse atherosclerotic plaque. LCx: OM1 has diffuse up to 23-30% stenosis. Just distal to the OM1 takeoff there is a 50%
stenosis in the mid LCx. RCA: Heavily calcified 80% to 90% proximal stenosis. Successful PCI of the RCA stenosis with a 3.5 x 15 mm Medtronic Riley stent. Significantly elevated LVEDP at 25 mmHg.
Plan:
-Patient presented with symptoms concerning for USA. Troponin negative x4, however patient had known CAD w/ residual RCA disease as noted on prior cath, so underwent stress testing to evaluate for ischemia.
-Stress test noted inferior and inferoapical ischemia, therefore referred for cardiac catheterization 09/10/2023.
-LHC 09/09 showed 80% to 90% stenosis of the RCA which was successfully stented.
-Echo 09/08 noted preserved EF.
-Continue aspirin 81mg daily, plavix 75mg daily.
-Continue Lipitor, dose increased to 80mg daily.
-Continue medical therapy with Imdur, Norvasc, Toprol, spironolactone, hydralazine, and Lasix.
-She did not complete cardiac rehab post stent 02/2023. We discussed importance moving forward.
-Follow up arranged.
Progress Note - Doctor Of Osteopathy
Subjective
Date of Service: September 11, 2023
Feeling well this AM. No further chest pain.
Objective
Labs:
09/11/23 02:25
09/11/23 02:25
Labs
Hgb 11.0 g/dL (12.0-16.0) L 09/11/23 02:25
Hct 33.4 % (37.0-47.0) L 09/11/23 02:25
Plt Count 338 10^3/uL (130-400) 09/11/23 02:25
Sodium 132 mmol/L (135-145) L 09/11/23 02:25
Potassium 3.9 mmol/L (3.5-5.1) 09/11/23 02:25
BUN 20 mg/dl (7-17) H 09/11/23 02:25
Creatinine 1.1 mg/dL (0.6-1.0) H 09/11/23 02:25
Glucose 161 mg/dl (70-99) H 09/11/23 02:25
Troponins
0709/09/23 09/09/23
21:05 00:00 07:00
Troponin I < 0.012 < 0.012 < 0.012
09/09/23
11:10
Troponin I < 0.012
Vital Signs and I&O:
Vital Signs
Temp Pulse Resp BP Pulse Ox
98.9 F 62 18 101/46 95
09/11/23 07:40 09/11/23 03:15 09/11/23 07:40 09/11/23 02:34 09/11/23 07:40
Vital Signs
Temp Pulse Resp BP Pulse Ox
98.9 F 62 18 101/46 95
09/11/23 07:40 09/11/23 03:15 09/11/23 07:40 09/11/23 02:34 09/11/23 07:40
Intake & Output
09/09/23 09/10/23 09/11/23 09/12/23
06:59 06:59 06:59 06:59
Intake Total 0 / 0 1440 / 1440 675 / 675
Output Total 500 / 500
Balance 0 / 0 1440 / 1440 175 / 175
Physical Exam
Physical Exam
GEN: No distress, awake, alert, oriented x3
HEENT: supple, anicteric, mmm
LUNGS: CTA b/l, no wheezes/rales
CV: Reg, S1/S2, no murmur
EXT: No clubbing, cyanosis, or edema
NEURO: Gross non-focal
SKIN: Warm, dry, no rash
[2023-09-11] MEDS: NOVOLOG FLEXPEN-LOW RESISTANCE 1 UNITS SC (09:08)
[2023-09-11] MEDS: APRESOLINE 25 MG PO (09:10)
[2023-09-11] MEDS: ASPIR LOW (ENTERIC COATED) 81 MG PO (09:10)
[2023-09-11] MEDS: OSCAL 500 + D 500 MG PO (09:10)
[2023-09-11] MEDS: PROTONIX 40 MG PO (09:11)
[2023-09-11] MEDS: APRESOLINE 50 MG PO (09:11)
[2023-09-11] MEDS: NORVASC 5 MG PO (09:11)
[2023-09-11] MEDS: VITAMIN B-12 1000 MCG PO (09:11)
[2023-09-11] MEDS: LASIX 20 MG PO (09:11)
[2023-09-11] MEDS: THERAGRAN 1 TABLET PO (09:11)
[2023-09-11] MEDS: VITAMIN B1 100 MG PO (09:11)
[2023-09-11] MEDS: ALDACTONE 12.5 MG PO (09:12)
[2023-09-11] MEDS: PLAVIX 75 MG PO (09:12)
[2023-09-11] MEDS: VISBIOME 1 CAP PO (09:13)
[2023-09-11] MEDS: IMDUR (EXTENDED RELEASE) 30 MG PO (09:14)
[2023-09-11] MEDS: HEPARIN 5000 UNITS SC (09:15)
[2023-09-11] MEDS: FEOSOL 325 MG PO (11:24)
[2023-09-11 11:28] VITALS: BP 126/49
--- NOTE | 2023-09-11 11:37 | W.PN.HOSP.TC ---
Addendum entered and electronically signed by Pierre Waldron MD 09/12/23 14:23:
[id number]
Original Note:
Today's Communication/Plan
-
increase statin
asa, plavix
f/u bmp, cbc outpatient
Assessment / Plan
Assessment / Plan
Physical Exam
General: Well Developed, Well Nourished and No Apparent Distress
HEENT: NormoCephalic, Moist mucous membranes and Atraumatic
Respiratory: Clear
Cardiac: S1/S2 and Regular Rhythm; No Murmur or Rub
GI: Soft, Non Tender, Non Distended and Normal Bowel Sounds; No Organomegaly
Rectal: Deferred by Provider
Musculoskeletal: No Clubbing, No Cyanosis and No Edema
Skin: No Rash
Neuro: Nonfocal/grossly intact
# Unstable angina
# History of CAD with history of LAD stent in February 24
--Positive stress test
-[facility] 09/10/2023:LM: Minimal luminal irregularities. LAD: Previously placed LAD stents widely patent. Distal to apical LAD has diffuse atherosclerotic plaque. LCx: OM1 has diffuse up to 23-30% stenosis. Just distal to the OM1 takeoff there is a 50%
stenosis in the mid LCx. RCA: Heavily calcified 80% to 90% proximal stenosis. Successful PCI of the RCA stenosis with a 3.5 x 15 mm Medtronic Riley stent. Significantly elevated LVEDP at 25 mmHg.
-Continue aspirin, Plavix, and increased statin
-Cardiology consulted - f/u outpatient
- Imdur, norvasc, toprol, spironolactone, hydralazine, and lasix
#Complete heart block status post dual-chamber pacemaker in February
#Hyponatremia
-mild
-ctm
-f/u bmp outpatient
Chronic HFpEF
-Continue Lasix
-Continue spironolactone
Leukocytosis
-f/u cbc outpatient
-most likely reactive 2/2 to [facility]
-no obvious signs of infection/no fever
Essential hypertension
-Continue amlodipine, hydralazine
-Continue metoprolol
CKD 3
-Renal function at baseline
Hyperlipidemia
-Continue statin
Type 2 diabetes
-Continue Tresiba but decrease from 24 to 12 units
-Insulin sliding scale
-Hold metformin
GERD
-Continue omeprazole
Chronic leukocytosis
Chronic anemia
-Continue iron sulfate
Arthritis
Obesity
Former alcohol use disorder
-Continue thiamine
Possible restless leg syndrome
-Continue pramipexole
Full code
DVT prophylaxis�heparin
More than 30 minutes spent in discharge including
Final examination of the patient
Summarizing hospital stay
Instructions for continuing care to all relevant caregivers
Preparation of discharge records, prescriptions, and referral forms
Total time spent (35 in minutes):
Anticipated Discharge: Today
Subjective/Interval History
-
Date of Service: September 11, 2023
no acute events
Objective Data
-
Labs:
Laboratory Results
09/11/23
02:25
WBC 16.1 H
Hgb 11.0 L
Hct 33.4 L
Plt Count 338
Sodium 132 L
Potassium 3.9
Chloride 99
Carbon Dioxide 25
BUN 20 H
Creatinine 1.1 H
Glucose 161 H
Calcium 8.9
Vital Signs:
Vital Signs
Temp Pulse Resp BP Pulse Ox
98.7 F 72 18 146/46 94
09/11/23 11:32 09/11/23 09:15 09/11/23 11:32 09/11/23 07:43 09/11/23 11:32
I&O
09/10/23 09/11/23 09/12/23
06:59 06:59 06:59
Intake Total 1440 / 1440 675 / 675
Output Total 500 / 500
Balance 1440 / 1440 175 / 175
Review of Systems
-
History Source: Patient
All other systems: Not reviewed unless documented
Data Reviewed
-
Labs: Labs Reviewed by me
--- NOTE | 2023-09-11 11:44 | W.DS.TRANS ---
DC Summary - Cardiothoracic Icu Rn
-
Discharge Instructions:
Discharge Diagnosis/Procedures Angioplasty with stent to RCA
Diet Low Cholesterol,Low Fat
Activity As tolerated
Driving Restrictions No driving for 24 hours
Other Services Cardiac Rehab
Instructions:
Stand-Alone Forms: DC Instructions- Cath/EP Lab
Changes to Home Medications: Yes
Discharge Medications:
DC Medications w/original date entered in [employer]
amlodipine 5 mg tablet 5 mg PO BID Blood pressure #60 tabs 03/01/23
cetirizine 10 mg tablet (Zyrtec) 10 mg PO QPM Allergies #0 tabs 03/01/23
cyanocobalamin (vitamin B-12) 1,000 mcg tablet 1,000 mcg PO DAILY b12 defeciency #60 tabs 03/01/23
insulin degludec 100 unit/mL (3 mL) subcutaneous pen (Tresiba FlexTouch U-100 insulin) 24 unit (0.24 mL) SC HS Diabetes #0 mL 03/01/23
lysine 500 mg tablet (L-Lysine) 500 mg PO QPM Supplement #0 tabs 03/01/23
metoprolol succinate 50 mg tablet,extended release 24 hr 50 mg PO BID Blood pressure #60 tabs 03/01/23
pramipexole 0.5 mg tablet 0.5 mg PO HS other #0 tabs 03/01/23
spironolactone 25 mg tablet 12.5 mg (1/2 x 25 mg) PO DAILY Blood pressure #30 tabs 03/01/23
thiamine HCl (vitamin B1) 100 mg tablet 100 mg PO BID Supplement #20 tabs 03/01/23
calcium carbonate 500 mg-vitamin D3 10 mcg (400 unit) tablet (Calcium 500 + D) 1 tab PO BID Supplement 03/05/23
ferrous sulfate 325 mg (65 mg iron) tablet 325 mg PO MOWEFR anemia 03/05/23
insulin aspart U-100 100 unit/mL subcutaneous cartridge (Novolog PenFill U-100 Insulin aspart) 1 sliding scale dose SC AC Diabetes 03/05/23
metformin 500 mg tablet,extended release 24 hr 1,000 mg PO BID@0800,1700 Diabetes 03/05/23
clopidogrel 75 mg tablet 75 mg PO DAILY #90 tabs 03/06/23
furosemide 20 mg tablet 20 mg PO DAILY #90 tabs 03/06/23
hydralazine 25 mg tablet 25 mg PO TID #270 tabs 03/06/23
hydralazine 50 mg tablet 50 mg PO TID #270 tabs 03/06/23
Lactobac no.2-Bifidobac no.1-S. thermo 112.5 billion cell capsule (Visbiome) 1 cap PO DAILY Supplement 09/08/23
aspirin 81 mg tablet,delayed release 81 mg PO DAILY Blood clot prevention/tx 09/08/23
betamethasone valerate 0.1 % topical ointment 1 applic topical WEEKLY PRN itching 09/08/23
isosorbide mononitrate 30 mg tablet,extended release 24 hr 30 mg PO DAILY Blood Pressure 09/08/23
nitroglycerin 0.4 mg sublingual tablet 0.4 mg sublingual [id number] PRN jaw pain 09/08/23
omeprazole 20 mg tablet,delayed release 20 mg PO DAILY Gastrointestinal Issue 09/08/23
therapeutic multivitamin 1 tab PO DAILY Supplement 09/08/23
atorvastatin 80 mg tablet 80 mg PO QPM #30 tabs 09/11/23
Home Medication Changes
atorvastatin 80 mg tablet 80 mg PO QPM #30 tabs 09/11/23
Pending Results: No
[2023-09-11 11:49] LABS: Glucose - Point of Care 362 mg/dl (70-99)
[2023-09-11] MEDS: NOVOLOG FLEXPEN-LOW RESISTANCE 5 UNITS SC (12:07)
--- NOTE | 2023-09-11 14:26 | PTCARENOTE ---
Pt seen by Carlos and Daya. Pt up walking in halls without discomfort. Telemetry and IV device removed. Discharge instructions reviewed with pt and her family regarding activity and driving guidelines, wound care, medications and their
possible side effects, outpatient lab work, reporting cares and concerns and follow up appointments. Very good understanding taught back to RN. Pt escorted out via wheelchair and discharged to home.
== END 2023-09-11 14:15 | disposition home or self-care (01) | DRG 322 ==
LOC: IVU 11:27
PROVIDERS: Internal Medicine Interventional Cardiology; Physician Assistant; ADMITTING PHYSICIAN Hospitalist; ATTENDING PHYSICIAN Internal Medicine; CONSULT PHYSICIAN Nuclear Medicine Nuclear Cardiology; EMERGENCY PHYSICIAN Emergency Medicine; FAMILY PHYSICIAN Family Medicine
PROC: B2111ZZ Fluoroscopy of Multiple Coronary Arteries using Low Osmolar Contrast (ICD-10-PCS; 2023-09-10)
PROC: 4A023N7 Measurement of Cardiac Sampling and Pressure, Left Heart, Percutaneous Approach (ICD-10-PCS; 2023-09-10)
PROC: 027034Z Dilation of Coronary Artery, One Artery with Drug-eluting Intraluminal Device, Percutaneous Approach (ICD-10-PCS; 2023-09-10)
DX: I25.110 Atherosclerotic heart disease of native coronary artery with unstable angina pectoris (principal); E87.1 Hypo-osmolality and hyponatremia; I13.0 Hypertensive heart and chronic kidney disease with heart failure and stage 1 through stage 4 chronic kidney disease, or unspecified chronic kidney disease; I45.2 Bifascicular block; D72.829 Elevated white blood cell count, unspecified; E66.01 Morbid (severe) obesity due to excess calories; N18.30 Chronic kidney disease, stage 3 unspecified; E11.22 Type 2 diabetes mellitus with diabetic chronic kidney disease; E78.00 Pure hypercholesterolemia, unspecified; K21.9 Gastro-esophageal reflux disease without esophagitis; Z68.32 Body mass index [BMI] 32.0-32.9, adult; Z79.4 Long term (current) use of insulin; Z79.82 Long term (current) use of aspirin; Z79.02 Long term (current) use of antithrombotics/antiplatelets; Z95.0 Presence of cardiac pacemaker
CPT/HCPCS: 78452; 80048; 80053; 82962; 83036; 84484; 85025; 85027; 93005; 93017; 93306; 99285; A9500; J2785

== ENCOUNTER 2023-10-23 13:38 | Outpatient (RCR) | payer OTHER, SELFPAY ==
[2023-10-21 10:45] LABS: Glucose - Point of Care 141 mg/dl (70-99)
[2023-10-21 11:43] LABS: Glucose - Point of Care 109 mg/dl (70-99)
[2023-10-23 13:13] LABS: Glucose - Point of Care 160 mg/dl (70-99)
[2023-10-23 14:09] LABS: Glucose - Point of Care 97 mg/dl (70-99)
[2023-10-23 14:33] LABS: Glucose - Point of Care 128 mg/dl (70-99)
== END 2023-10-23 23:59 | disposition home or self-care (01) ==
LOC: CRHB 13:38
PROVIDERS: ATTENDING PHYSICIAN Internal Medicine Cardiovascular Disease; FAMILY PHYSICIAN Family Medicine
DX: I25.10 Atherosclerotic heart disease of native coronary artery without angina pectoris (principal); Z95.5 Presence of coronary angioplasty implant and graft
CPT/HCPCS: 82962; G0422; G0423

== ENCOUNTER 2023-11-23 13:34 | Outpatient (RCR) | payer OTHER, SELFPAY ==
[2023-10-30 13:12] LABS: Glucose - Point of Care 141 mg/dl (70-99)
[2023-10-30 13:58] LABS: Glucose - Point of Care 71 mg/dl (70-99)
[2023-10-30 14:11] LABS: Glucose - Point of Care 84 mg/dl (70-99)
[2023-10-30 14:28] LABS: Glucose - Point of Care 137 mg/dl (70-99)
[2023-11-02 13:06] LABS: Glucose - Point of Care 181 mg/dl (70-99)
[2023-11-02 13:57] LABS: Glucose - Point of Care 135 mg/dl (70-99)
[2023-11-04 13:04] LABS: Glucose - Point of Care 160 mg/dl (70-99)
[2023-11-04 13:52] LABS: Glucose - Point of Care 117 mg/dl (70-99)
[2023-11-06 13:09] LABS: Glucose - Point of Care 201 mg/dl (70-99)
[2023-11-09 13:07] LABS: Glucose - Point of Care 141 mg/dl (70-99)
[2023-11-09 14:01] LABS: Glucose - Point of Care 73 mg/dl (70-99)
[2023-11-09 14:33] LABS: Glucose - Point of Care 178 mg/dl (70-99)
[2023-11-11 13:06] LABS: Glucose - Point of Care 105 mg/dl (70-99)
[2023-11-11 14:02] LABS: Glucose - Point of Care 56 mg/dl (70-99)
[2023-11-11 14:13] LABS: Glucose - Point of Care 71 mg/dl (70-99)
[2023-11-11 14:36] LABS: Glucose - Point of Care 172 mg/dl (70-99)
[2023-11-13 13:10] LABS: Glucose - Point of Care 150 mg/dl (70-99)
[2023-11-13 14:08] LABS: Glucose - Point of Care 50 mg/dl (70-99)
[2023-11-13 14:36] LABS: Glucose - Point of Care 148 mg/dl (70-99)
[2023-11-16 13:07] LABS: Glucose - Point of Care 185 mg/dl (70-99)
[2023-11-16 14:04] LABS: Glucose - Point of Care 63 mg/dl (70-99)
[2023-11-16 14:36] LABS: Glucose - Point of Care 142 mg/dl (70-99)
[2023-11-18 13:10] LABS: Glucose - Point of Care 220 mg/dl (70-99)
[2023-11-18 14:02] LABS: Glucose - Point of Care 101 mg/dl (70-99)
[2023-11-20 13:08] LABS: Glucose - Point of Care 217 mg/dl (70-99)
[2023-11-20 14:05] LABS: Glucose - Point of Care 97 mg/dl (70-99)
[2023-11-20 14:37] LABS: Glucose - Point of Care 170 mg/dl (70-99)
[2023-11-23 13:06] LABS: Glucose - Point of Care 247 mg/dl (70-99)
[2023-11-23 14:04] LABS: Glucose - Point of Care 158 mg/dl (70-99)
== END 2023-11-23 23:59 | disposition home or self-care (01) ==
LOC: CRHB 13:34
PROVIDERS: ATTENDING PHYSICIAN Internal Medicine Cardiovascular Disease; FAMILY PHYSICIAN Family Medicine
DX: I25.10 Atherosclerotic heart disease of native coronary artery without angina pectoris (principal); Z95.5 Presence of coronary angioplasty implant and graft
CPT/HCPCS: 82962; G0422; G0423

== ENCOUNTER 2023-12-23 13:37 | Outpatient (RCR) | payer OTHER, SELFPAY ==
[2023-11-25 13:06] LABS: Glucose - Point of Care 115 mg/dl (70-99)
[2023-11-25 13:58] LABS: Glucose - Point of Care 103 mg/dl (70-99)
[2023-11-25 14:08] LABS: Glucose - Point of Care 95 mg/dl (70-99)
[2023-11-25 14:23] LABS: Glucose - Point of Care 139 mg/dl (70-99)
[2023-11-30 13:08] LABS: Glucose - Point of Care 152 mg/dl (70-99)
[2023-11-30 14:00] LABS: Glucose - Point of Care 83 mg/dl (70-99)
[2023-11-30 14:29] LABS: Glucose - Point of Care 122 mg/dl (70-99)
[2023-12-09 13:04] LABS: Glucose - Point of Care 178 mg/dl (70-99)
[2023-12-09 13:58] LABS: Glucose - Point of Care 108 mg/dl (70-99)
[2023-12-21 13:07] LABS: Glucose - Point of Care 207 mg/dl (70-99)
[2023-12-21 14:03] LABS: Glucose - Point of Care 104 mg/dl (70-99)
[2023-12-23 13:04] LABS: Glucose - Point of Care 210 mg/dl (70-99)
[2023-12-23 14:03] LABS: Glucose - Point of Care 131 mg/dl (70-99)
== END 2023-12-23 23:59 | disposition home or self-care (01) ==
LOC: CRHB 13:37
PROVIDERS: ATTENDING PHYSICIAN Internal Medicine Cardiovascular Disease; FAMILY PHYSICIAN Family Medicine
DX: I25.10 Atherosclerotic heart disease of native coronary artery without angina pectoris (principal); Z95.5 Presence of coronary angioplasty implant and graft
CPT/HCPCS: 82962; G0422; G0423

== ENCOUNTER 2023-12-28 13:59 | Emergency (ER) | payer OTHER, SELFPAY ==
[2023-12-28 14:06] VITALS: BP 136/65
--- NOTE | 2023-12-28 14:29 | ED.GENMED ---
History of Present Illness
General
Chief Complaint: Chest Pain
Source: patient
Exam Limitations: none
Time Seen by Provider: 12/28/23 14:20
Nursing documentation reviewed up to this point in time: agreed with
History of Present Illness
History of Present Illness:
78 Y/O F with h/o HTN, HLD, DM, CAD with PCI 02/2023 AND 08/2023
PRIMARY DROP WIRE OPERATOR IS DR. ALEXANDRA
was on the treadmill today for about 7 min when she started having pain in her jaw and L arm/shoulder blade
she still walked the rest of the 8 min and then stopped and it resolved after about 2 minutes of rest. she has had this happen before with exertion. she does have nitro to use as needed
she did not use it today
pt did not have much chest pain but mild pressure
the RN called dr. alexandra to inform him and he recommended ER visit
no shortness of breath, fever, leg swelling, cough, dizziness, nausea, vomiting, sweatiness
Past History
Past History
ED Past Medical History: CAD, HTN, Hypercholesterolemia, IDDM and Other (Diabetes, reflux, cataracts)
ED Past Surgical History: Cardiac (Pacemaker, cardiac stent) and Gynecological
Social History
Tobacco: Non-smoker
Alcohol: Occasional
Drug: None
Personal:
Living: with family
Review of Systems
Review of Systems
Allergies reviewed?: Yes
All Other Systems: Not applicable
Phy Exam
Physical Exam
Physical Exam:
GENERAL: Alert , in no apparent distress
EYE: pupils equal and reactive
NECK: Supple
ENT: o/p clr, mmm.
CARDIAC: Regular rate and rhythm, no murmur
LUNGS: Clear breath sounds bilaterally, no acute respiratory distress, no wheezes/rales/rhonchi
ABDOMEN: Soft, without focal tenderness, no r/g, no cvat, normal bowel sounds
NEUROLOGICAL: Alert and oriented, no focal neuro deficits
SKIN: Warm and dry, skin intact.
MUSCULOSKELETAL: No edema, well perfused. neg dov's sign
PSYCH: Normal and appropriate interaction.
Scores
Heart Score for Chest Pain Patients
STEMI patient?: No
History: Highly Suspicious
ECG: Nonspecific Repolarization
Age: >/= 65 years
Risk Factors: >/= 3 Risk Factors or History of CAD
Troponin: </= Normal Limit
Heart Score for Chest Pain Patients: 7
Heart Score Risk: 72.7 % MACE over next 6 weeks
Course
Orders/Labs/Results
Orders:
Orders
12/28/23 14:00
Electrocardiogram (*1) Urgent
Reason for Study: Chest Pain
EKG- Treatment ONCE
12/28/23 14:45
CARDIOLOGY CONSULT Urgent
Consulting Provider: Josefina Gil
Was physician already notified: Yes
12/28/23 14:54
Complete Blood Count/With Diff Urgent
Comprehensive Metabolic Panel Urgent
NT-proBNP Urgent
Troponin I Urgent
12/28/23 18:06
Troponin I Urgent
Abnormal Lab Results
12/28/23
14:54
WBC 11.6 H 10^3/uL
(4.8-10.8)
RBC 4.07 L 10^6/uL
(4.20-5.40)
Hgb 11.9 L g/dL
(12.0-16.0)
Hct 34.6 L %
(37.0-47.0)
Abs Immat Gran (auto) 0.1 H 10^3/uL
(0-0.05)
Absolute Lymphs (auto) 4.0 H 10^3/uL
(1.2-3.4)
Absolute Monos (auto) 1.0 H 10^3/uL
(0.1-0.6)
Sodium 134 L mmol/L
(135-145)
Chloride 97 L mmol/L
(98-107)
BUN 25 H mg/dl
(7-17)
Creatinine 1.1 H mg/dL
(0.6-1.0)
Glucose 63 L mg/dl
(70-99)
12/28/23 14:54
12/28/23 14:54
Vital Signs
Initial and Last Documented VS:
Initial Vital Signs
Temp Pulse Resp BP Pulse Ox
98.1 F 61 18 136/65 97
12/28/23 14:06 12/28/23 14:06 12/28/23 14:06 12/28/23 14:06 12/28/23 14:06
Last Documented Vital Signs
Temp Pulse Resp BP Pulse Ox
98.1 F 67 15 140/51 93
12/28/23 14:06 12/28/23 18:45 12/28/23 18:45 12/28/23 18:00 12/28/23 18:45
MDM/Problems Addressed
Differential Diagnosis Includes:
ANGINA, ACS
MDM/Problems Addressed:
rona viera coming from rehab with chest pain while on the treadmill, starting 7 min in and resolving with rest for about 2 min
she didn't use nitro
she has had exertional CP with walking over the past few weeks
has previous PCI in 02/2023, and 08/2023; and has a pacer;
chest pain free on arrival
EKG paced rhythm
trop neg
awaiting cardiology consult
1645 - cards recommends 2nd trop at 6 pm and if neg, d/c home and they are arranging outpatient cath
pt was offered admission and cath tomorrow but declined unless 2nd trop neg
1830 - 2ND TROP NEG, D/C HOME
*Critical Care Note
Total Time (30-74mins, 75-104mins- exclusive of procedures): Not Applicable
ED Attending Note
-
Portions of this chart may have been created with voice recognition software.� Occasional wrong word or��sound alike� substitutions may have occurred due to the inherent limitations of voice recognition software.
Discharge Plan
Departure
Patient Disposition: Home (Routine Discharge)
Date of Disposition: 12/28/23
Time of Disposition: 18:42
Patient with high blood pressure during this ER visit?: No
Condition: Fair
Discharge Problem:
Angina of effort
Instructions: Angina (DC)
Prescriptions:
No Action
metoprolol succinate 50 mg Tablet Extended Release 24 Hr
50 mg PO BID Qty: 60 0RF
cyanocobalamin (vitamin B-12) 1,000 mcg Tablet
1,000 mcg PO DAILY Qty: 60 0RF
thiamine HCl (vitamin B1) 100 mg Tablet
100 mg PO BID Qty: 20 0RF
amlodipine 5 mg Tablet
5 mg PO BID Qty: 60 0RF
spironolactone 25 mg Tablet
12.5 mg PO DAILY Qty: 30 0RF
cetirizine [Zyrtec] 10 mg Tablet
10 mg PO QPM Qty: 0 0RF
pramipexole 0.5 mg tablet
0.5 mg PO HS Qty: 0 0RF
lysine [L-Lysine] 500 mg Tablet
500 mg PO QPM Qty: 0 0RF
insulin degludec [Tresiba FlexTouch U-100] 100 unit/mL (3 mL) Insulin Pen
24 unit SC HS Qty: 0 0RF
calcium carbonate-vitamin D3 [Calcium 500 + D] 500 mg-10 mcg (400 unit) Tablet
1 tab PO BID
ferrous sulfate 325 mg (65 mg iron) tablet
325 mg PO MOWEFR
metformin 500 mg tablet extended release 24 hr
1,000 mg PO BID@0800,1700
insulin aspart U-100 [Novolog PenFill U-100 Insulin] 100 unit/mL cartridge
1 sliding scale dose SC AC
furosemide 20 mg Tablet
20 mg PO DAILY Qty: 90 3RF
clopidogrel 75 mg Tablet
75 mg PO DAILY Qty: 90 3RF
hydralazine 25 mg Tablet
25 mg PO TID Qty: 270 3RF
Rx Instructions:
Take with 50mg for total of 75mg TID
hydralazine 50 mg tablet
50 mg PO TID Qty: 270 3RF
Rx Instructions:
Take with 25mg for a total of 75mg TID
betamethasone valerate 0.1 % ointment
1 applic TOPICAL WEEKLY PRN (Reason: itching)
Patient Comments:
09/08/2023: apply to vagina
isosorbide mononitrate 30 mg tablet extended release 24 hr
30 mg PO DAILY
nitroglycerin 0.4 mg tablet, sublingual
0.4 mg sublingual [id number] PRN (Reason: jaw pain)
aspirin 81 mg tablet,delayed release (DR/EC)
81 mg PO DAILY
therapeutic multivitamin Tablet
1 tab PO DAILY
Visbiome 112.5 billion cell Capsule
1 cap PO DAILY
atorvastatin 80 mg Tablet
80 mg PO QPM Qty: 30 0RF
pantoprazole 40 mg Tablet,Delayed Release (Dr/Ec)
40 mg PO DAILY Qty: 30 11RF
Referrals:
Park Marely, [Family Provider] -
Activity Restrictions/Additional Instructions:
DR. GUTHRIE WANTS YOU TO AVOID EXERCISE
YOU WILL HAVE AN OUTPATIENT CARDIAC CATHETERIZATION
RETURN SOONER FOR ANY PROBLEMS
Interventions
Interventions:
*Risk Screen - Suicide Last Done: 12/28/23 14:09
*General Assessment Last Done: 12/28/23 14:27
*Neglect/Abuse Screening Last Done: 12/28/23 14:09
ED- Fall Risk Assessment Last Done: 12/28/23 14:27
*ED COVID-19 Vaccine History Last Done: 12/28/23 14:09
*Nursing Disposition Last Done: 12/28/23 19:03
ED- Cardiac Assessment Last Done: 12/28/23 14:26
Discharge Date and Time
Discharge Date/Time: 12/28/23 19:04
Print Language: URUGUAYAN
[2023-12-28 15:01] LABS: % Basophils 0.5 % (0-2); % Eosinophils 1.8 % (0-6); % Immature Granulocytes 0.5 % (0-0.5); % Lymphocytes 34.1 % (20.5-51.1); % Monocytes 8.3 % (1.7-9.3); % Neutrophils 54.8 % (42.2-75.2); Absolute Basophils 0.1 10^3/uL (0-0.2); Absolute Eosinophils 0.2 10^3/uL (0-0.7); Absolute Immature Granulocytes 0.1 10^3/uL (0-0.05); Absolute Neutrophils 6.4 10^3/uL (1.4-6.5); Hematocrit 34.6 % (37.0-47.0); Hemoglobin 11.9 g/dL (12.0-16.0); Mean Corp Hgb Conc. 34.4 g/dL (33.0-37.0); Mean Corpuscular Hgb 29.2 pg (27.0-31.0); Mean Platelet Volume 10.3 fL (7.4-10.4); Nucleated Red Blood Cells % 0 %; Platelet Count 347 10^3/uL (130-400); Red Blood Cell Count 4.07 10^6/uL (4.20-5.40); White Blood Cell Count 11.6 10^3/uL (4.8-10.8)
--- NOTE | 2023-12-28 15:13 | CON.CAR ---
Addendum entered and electronically signed by Aldo Nguyễn MD 12/28/23 22:34:
Attending Addendum: Patient seen and examined. PA note reviewed and findings independently confirmed by me. Briefly, this is a 78 y/o female with a prior hx of CADz and stenting of the LAD 02/2023 and RCA 08/2023. I reviewed the angiogram and the
final angiographic outcome was excellent. She has experienced substernal chest discomfort typically during periods of heavy exertion. Today in cardiac rehab she experienced substernal chest discomfort after increasing the grade that she had been
exercising.
She has never experienced chest pain at rest. Always with exertion. She has been compliant on medications. Chest pain has been occurring more consistently over the past several weeks.
Troponin below 0.012 ng/ml and ECG is stable and free of dynamic ST-T changes
PE:
Gen: Awake, alert, comfortable. NAD
HEENT: NC/AT, sclera anicteric
Lungs: Clear to bases bilaterally
CV: RRR with normal S1 and S2. No murmur
Abd: Soft, Bowel sounds are present. Nontender, Nondistended
Ext: No pretibial edema.
RECOMMENDATIONS:
-I discussed stress testing vs invasive angiography either after overnight stay or as outpatient
-Ms Carter has NOT experienced any chest pain at low levels of exertion or at rest
-She should continue dual antiplatelet therapy
-Repeat troponin and ECG
-If troponin and ECG are stable then we can discharge with instructions to return for ANY recurrent chest pain. We will call and schedule coronary angiography for later this week.
-She would like to go vote and is truly not motivated to stay in the hospital over night.
-Likely stable for outpatient procedure unless she develops resting symptoms
Original Note:
Consultation
Consultation Request
Date/Time Consultation Requested: 12/28/23
Date/Time Consultation Performed: 12/28/23
Requesting Provider: SUN Herrera in the ER
Performing Provider: Dr. Gil
Reason for Consultation: Chest pain, CAD
Medical History
-
History of Present Illness:
Patient came to [facility] today with chest pain at cardiac rehab and cardiology has been consulted. Patient was at cardiac rehab today when she started with B/L jaw and LUE pain while walking on the treadmill that resolved with rest. The cardiac rehab
therapist called the cardiology office to report chest pain and patient was referred to [facility] for evaluation. Patient has a h/o CAD with jaw and chest pain in the setting of complete heart block 02/2023. Patient was found to have LAD disease that
admission and after PPM was placed on 02/27/23 the patient had a mid LAD stent placed as well. Patient then complained of ongoing jaw pain in 08/2023 and was sent for a Lexiscan stress test that was abnormal prompting cardiac cath the same day. Patient
then had INA to prox RCA on 09/10/23. Patient has reported at outpatient cardiology visits that she still has jaw pain with activity that is only present with long walks or on the treadmill at cardiac rehab. The pain usually resolves within 10
minutes of walking or with stopping and resting. Patient never completed cardiac rehab after her 02/2023 PCI, but did go to cardiac rehab starting in 08/2023. Patient had some time off from cardiac rehab during a vacation a couple of weeks ago, but
was walking on her vacation and had more chest/jaw pain than usual prompting her to use NTG SL twice which is much more than her once a month average for NTG SL use. Patient was back at rehab last week when she started with jaw pain and cardiology
office was called 12/21/23. Outpatient dose of Imdur ER 30 mg daily was increased to 60 mg daily. Patient was able to exercise in cardiac rehab 12/23/23 and 12/25/23, but today had chest and jaw pain again and was referred to [facility]. Patient says that
on her own she increased the speed of the treadmill and then she started with chest and jaw pain again. No resting pain. Initial Troponin undetectable.
PMH:
CAD
s/p 3 mm Xience to mid LAD 03/05/23
s/p 3.5 mm Riley DS to prox RCA 09/10/23
s/p Medtronic DC PPM for complete heart block 02/27/23
HTN, multidrug resistant
ORALIA/ARB allergy
Lisinopril caused itching, Diovan caused her to hallucinate seeing clocks running up the wall
Dyslipidemia
Type 2 diabetes mellitus on insulin and metformin with freestyle noelle CGM
Chronic elevated white blood cell count, followed by Dr. Garrison, oncology
Past Medical History
Past Medical History: Other (in HPI)
Past Surgical History: Cardiac (s/p Medtronic DC PPM 02/27/23), Gynecological (hysterectomy) and Orthopedic
Social History
Tobacco: Non-Smoker
Alcohol: None
Drug: None
Personal:
Living: With Family
Family History
Family History: Reviewed & Not Pertinent
Allergies / Home Medications
Allergy/AdvReac Type Severity Reaction Status Date / Time
lisinopril Allergy Unknown Verified 12/28/23 14:06
valsartan [From Diovan] Allergy Unknown Verified 12/28/23 14:06
�Medication �Instructions �Recorded �Confirmed �Type
amlodipine 5 mg tablet 5 mg PO BID Blood pressure #60 tabs 03/01/23 09/08/23 Rx
cetirizine 10 mg tablet (Zyrtec) 10 mg PO QPM Allergies #0 tabs 03/01/23 09/08/23 Rx
cyanocobalamin (vitamin B-12) 1,000 mcg PO DAILY b12 defeciency 03/01/23 09/08/23 Rx
1,000 mcg tablet #60 tabs
insulin degludec 100 unit/mL (3 24 unit (0.24 mL) SC HS Diabetes 03/01/23 09/08/23 Rx
mL) subcutaneous pen (Tresiba #0 mL
FlexTouch U-100 insulin)
lysine 500 mg tablet (L-Lysine) 500 mg PO QPM Supplement #0 tabs 03/01/23 09/08/23 Rx
metoprolol succinate 50 mg 50 mg PO BID Blood pressure #60 03/01/23 09/08/23 Rx
tablet,extended release 24 hr tabs
pramipexole 0.5 mg tablet 0.5 mg PO HS other #0 tabs 03/01/23 09/08/23 Rx
spironolactone 25 mg tablet 12.5 mg (1/2 x 25 mg) PO DAILY 03/01/23 09/08/23 Rx
Blood pressure #30 tabs
thiamine HCl (vitamin B1) 100 mg 100 mg PO BID Supplement #20 tabs 03/01/23 09/08/23 Rx
tablet
calcium 500 mg (as 1 tab PO BID Supplement 03/05/23 09/08/23 History
carbonate)-vitamin D3 10 mcg (400
unit) tablet (Calcium 500 + D)
ferrous sulfate 325 mg (65 mg 325 mg PO MOWEFR anemia 03/05/23 09/08/23 History
iron) tablet
insulin aspart U-100 100 unit/mL 1 sliding scale dose SC AC Diabetes 03/05/23 09/08/23 History
subcutaneous cartridge (Novolog
PenFill U-100 Insulin aspart)
metformin 500 mg tablet,extended 1,000 mg PO BID@0800,1700 Diabetes 03/05/23 09/08/23 History
release 24 hr
clopidogrel 75 mg tablet 75 mg PO DAILY #90 tabs 03/06/23 09/08/23 Rx
furosemide 20 mg tablet 20 mg PO DAILY #90 tabs 03/06/23 09/08/23 Rx
hydralazine 25 mg tablet 25 mg PO TID #270 tabs 03/06/23 09/08/23 Rx
hydralazine 50 mg tablet 50 mg PO TID #270 tabs 03/06/23 09/08/23 Rx
Lactobac no.2-Bifidobac no.1-S. 1 cap PO DAILY Supplement 09/08/23 09/08/23 History
thermo 112.5 billion cell capsule
(Visbiome)
aspirin 81 mg tablet,delayed 81 mg PO DAILY Blood clot 09/08/23 09/08/23 History
release prevention/tx
betamethasone valerate 0.1 % 1 applic topical WEEKLY PRN itching 09/08/23 09/08/23 History
topical ointment
isosorbide mononitrate 30 mg 30 mg PO DAILY Blood Pressure 09/08/23 09/08/23 History
tablet,extended release 24 hr
nitroglycerin 0.4 mg sublingual 0.4 mg sublingual [id number] PRN jaw 09/08/23 09/08/23 History
tablet pain
therapeutic multivitamin 1 tab PO DAILY Supplement 09/08/23 09/08/23 History
atorvastatin 80 mg tablet 80 mg PO QPM #30 tabs 09/11/23 Rx
pantoprazole 40 mg tablet,delayed 40 mg PO DAILY #30 tabs 09/11/23 Rx
release
Review of Systems
-
History Source: Patient
All other systems: Negative unless noted
Physical Exam
Vital Signs
Temp Pulse Resp BP Pulse Ox
98.1 F 65 17 136/65 95
12/28/23 14:06 12/28/23 14:15 12/28/23 14:15 12/28/23 14:06 12/28/23 14:15
GEN: No distress, AAOx3
HEENT: EOMI, MMM
LUNGS: CTA B/L, no wheezes or rales
CV: Reg, S1/S2, no murmur
ABD: soft, BS+, NT, ND
EXT: No clubbing, cyanosis, lesions or edema B/L
NEURO: Gross non-focal
SKIN: Warm, dry and pink. No rash
Lab Results
12/28/23 14:54
Impression / Plan
-
PCP: Dr. Park Marley
Primary Architectural Sales Consultant: Dr. Stapleton
Impression:
Chest pain, crescendo angina without resting angina, no angina at baseline activity levels
CAD
s/p 3 mm Xience to mid LAD 03/05/23
s/p 3.5 mm Riley DS to prox RCA 09/10/23
s/p Medtronic DC PPM for complete heart block 02/27/23
HTN, multidrug resistant
ORALIA/ARB allergy
Lisinopril caused itching, Diovan caused her to hallucinate seeing clocks running up the wall
Dyslipidemia
Type 2 diabetes mellitus on insulin and metformin with freestyle noelle CGM
Chronic elevated white blood cell count, followed by Dr. Garrison, oncology
Nuclear stress test 09/10/2023: moderate inferior and inferoapical ischemia. EF 67%
LHC 09/10/2023:LM: Minimal luminal irregularities. LAD: Previously placed LAD stents widely patent. Distal to apical LAD has diffuse atherosclerotic plaque. LCx: OM1 has diffuse up to 23-30% stenosis. Just distal to the OM1 takeoff there is a 50%
stenosis in the mid LCx. RCA: Heavily calcified 80% to 90% proximal stenosis. Successful PCI of the RCA stenosis with a 3.5 x 15 mm Medtronic Riley stent. Significantly elevated LVEDP at 25 mmHg.
ECHO 01/01/23: EF 55-60%, stage 2 diastolic dysfunction, mod cLVH, MAC, mild MR, dilated LA, aortic sclerosis, normal right heart with mild pulm HTN
Echo 09/09/2023: EF 55-60%, mild cLVH, no RWMA, mild MR, mild AI
Plan:
-Patient came to [facility] today with chest pain at cardiac rehab and cardiology has been consulted. Patient was at cardiac rehab today when she started with B/L jaw and LUE pain while walking on the treadmill that resolved with rest. The cardiac rehab
therapist called the cardiology office to report chest pain and patient was referred to [facility] for evaluation. Patient has a h/o CAD with jaw and chest pain in the setting of complete heart block 02/2023. Patient was found to have LAD disease that
admission and after PPM was placed on 02/27/23 the patient had a mid LAD stent placed as well. Patient then complained of ongoing jaw pain in 08/2023 and was sent for a Lexiscan stress test that was abnormal prompting cardiac cath the same day. Patient
then had NIA to prox RCA on 09/10/23. Patient has reported at outpatient cardiology visits that she still has jaw pain with activity that is only present with long walks or on the treadmill at cardiac rehab. The pain usually resolves within 10
minutes of walking or with stopping and resting. Patient never completed cardiac rehab after her 02/2023 PCI, but did go to cardiac rehab starting in 08/2023. Patient had some time off from cardiac rehab during a vacation a couple of weeks ago, but
was walking on her vacation and had more chest/jaw pain than usual prompting her to use NTG SL twice which is much more than her once a month average for NTG SL use. Patient was back at rehab last week when she started with jaw pain and cardiology
office was called 12/21/23. Outpatient dose of Imdur ER 30 mg daily was increased to 60 mg daily. Patient was able to exercise in cardiac rehab 12/23/23 and 12/25/23, but today had chest and jaw pain again and was referred to [facility]. Patient says that
on her own she increased the speed of the treadmill and then she started with chest and jaw pain again. No resting pain. Initial Troponin undetectable.
-Talked with patient, and 2 sons in the room. Reviewed labs thus far and options of observation level admission with cardiac cath in AM vs d/c to home and outpatient cardiac cath pending auth and scheduling availability.
-ECG reviewed by me and is paced.
-Initial Troponin undetectable.
-Patient with a h/o multidrug resistant HTN. Patient taking amlodipine 5 mg BID, hydralazine 75 mg TID, Imdur ER 60 mg daily, spironolactone 12.5 mg daily and Toprol XL 50 mg BID.
-Patient with previous allergies to lisinopril and Diovan.
-LDL 57 at [facility] on 10/19/23. Outpatient dose of atorvastatin 80 mg daily continued.
-Patient elects to go home and return for cath. Will arrange. Patient instructed to return to ER is she has resting pain or chest pain with lower levels of activity.
[2023-12-28 15:18] LABS: ALT (SGPT) 16 U/L (0-35); AST (SGOT) 32 U/L (14-36); Albumin 4.3 g/dl (3.5-5.0); Alkaline Phosphatase 73 U/L (38-126); Blood Urea Nitrogen 25 mg/dl (7-17); Calcium 9.9 mg/dl (8.4-10.2); Carbon Dioxide 24 mmol/L (22-30); Chloride 97 mmol/L (98-107); Glucose 63 mg/dl (70-99); Potassium 4.5 mmol/L (3.5-5.1); Sodium 134 mmol/L (135-145); Total Bilirubin 0.4 mg/dl (0.2-1.3); Total Protein 7.2 g/dl (6.3-8.2); eGFR 51.11
[2023-12-28 15:20] VITALS: BP 127/51
[2023-12-28 15:29] LABS: NT-proBNP 858 pg/ml; Troponin I < 0.012 ng/ml
[2023-12-28 16:01] VITALS: BP 142/52
[2023-12-28 17:00] VITALS: BP 159/71
[2023-12-28 18:00] VITALS: BP 140/51
[2023-12-28 18:37] LABS: Troponin I < 0.012 ng/ml
== END 2023-12-28 19:04 | disposition home or self-care (01) ==
LOC: EMR 13:59
PROVIDERS: Physician Assistant; CONSULT PHYSICIAN Internal Medicine Cardiovascular Disease; EMERGENCY PHYSICIAN Emergency Medicine; FAMILY PHYSICIAN Family Medicine
DX: I25.118 Atherosclerotic heart disease of native coronary artery with other forms of angina pectoris (principal); I10 Essential (primary) hypertension; E78.00 Pure hypercholesterolemia, unspecified
CPT/HCPCS: 99284; 80053; 83880; 84484; 85025; 93005

== ENCOUNTER 2023-12-30 07:22 | Day surgery (SDC) | payer OTHER, SELFPAY ==
[2023-12-30] VITALS (12 sets, daily range): BP systolic 118–159; BP diastolic 52–119; BMI 28.4
[2023-12-30 08:24] LABS: Glucose - Point of Care 81 mg/dl (70-99)
[2023-12-30 11:32] LABS: ACT-LR - POC 245 Seconds (116-155)
[2023-12-30 11:46] LABS: ACT-LR - POC 279 Seconds (116-155)
[2023-12-30 11:59] LABS: ACT-LR - POC 300 Seconds (116-155)
[2023-12-30 12:13] LABS: ACT-LR - POC 274 Seconds (116-155)
[2023-12-30 12:39] LABS: ACT-LR - POC 314 Seconds (116-155)
[2023-12-30 13:32] LABS: Glucose - Point of Care 100 mg/dl (70-99)
--- NOTE | 2023-12-30 13:51 | ITS.CL.CATH ---
Radiotelegraph Operator - Catheterization
Cardiac Catheterization
Procedure Report:
LEFT HEART CATHETERIZATION
Date of Procedure: December 30 2023
Referring: Dr. Aldo Nguyễn
PROCEDURES:
1. Left heart catheterization, coronary angiogram.
2. Ultrasound-guided access
3. Intravascular ultrasound (IVUS)
4. Successful percutaneous coronary artery intervention of a 80 to 90% ostial to proximal RCA in-stent restenosis using IV L shockwave and IVUS guidance with a 3.5 x 23 mm Xience [place] drug-eluting stent, postdilated with a 3.5 x 15 mm NC
balloon at 20 hanna distally and a 3.75 x 12 millimeter NC balloon at 24 hanna proximally with an excellent angiographic and IVUS based result.
5. IVL Shockwave
INDICATION: Ms Carter is a 77-year-old female with morbid obesity, poorly controlled hypertension, hyperlipidemia, insulin-dependent type 2 diabetes mellitus, CAD s/p proximal to mid LAD PCI in Feb 2023 and ostial to proximal RCA PCI with 3.5x15mm
Medtronic Riley INA in August 2023 who presented to the emergency department 2 days ago with exertional chest discomfort and jaw discomfort especially when she pushed herself at cardiac rehab with negative troponins and discharged home then as patient
wanted to be able to walk yesterday and scheduled outpatient heart catheterization today to rule out obstructive CAD
ACCESS: Right radial artery, 6 Georgian sheath, under ultrasound guidance.
HEMODYNAMICS : (mmHg)
AO (s/d) : 94/40
LV (s/d) : 99/1
LVEDP : 8
CORONARY FINDINGS
DOMINANCE: Right
LEFT MAIN: The left main artery is a large-caliber, short vessel which gives rise to the left anterior descending artery and the left circumflex artery. There is minimal luminal irregularities.
LEFT ANTERIOR DESCENDING: The left into descending artery is a medium to large caliber vessel which gives rise to 1 major diagonal branch as it courses through the anterior interventricular groove towards the apex. Previously placed LAD stents are
widely patent. Distal to apical LAD has diffuse atherosclerotic plaque.
CIRCUMFLEX: The left circumflex artery is a medium to large caliber vessel which gives rise to 1 major diagonal branch. OM1 has diffuse up to 23-30% stenosis. Just distal to the OM1 takeoff there is a 50% stenosis in the mid left circumflex
artery, where it becomes a small to medium caliber vessel.
RIGHT CORONARY ARTERY: The right coronary artery is a large-caliber, dominant vessel which has a high anterior takeoff and gives rise to a right posterior descending artery and the right posterolateral branch. There is a hazy 80 to 90% ostial to
proximal in-stent restenosis which is thought to be culprit of patient's symptoms with intervention as noted below. IVUS imaging showed two areas at the ostium and proximally of significant in-stent restenosis with significant vessel calcification
(270 degrees)
CORONARY INTERVENTION: Decision was made to proceed with percutaneous intervention of the ostial to proximal in-stent restenosis which is thought to be the culprit of patient's presenting symptoms. Additional heparin was given to maintain a
therapeutic ACT throughout the case. The right coronary artery was selectively engaged using a 6 Georgian JR4 guide catheter. With some difficulty we navigated a 190 cm 0.014' BMW coronary wire across the ostial to proximal RCA lesion into the
distal RCA. We predilated the lesion using a 3.0 x 12 mm semi-compliant balloon at 14 hanna with good expansion. Then we introduced a [employer] [place] eye IVUS catheter which showed 2 areas at the ostium and proximally of significant in-stent
restenosis with significant calcification out of underlying coronary artery at about 70 degrees. Given there was restenosis just after initial stents were placed on September 10, 2023, decision was made to modify the calcium to allow for more optimal
expansion of the stent and therefore we proceeded with IV L shockwave using a 3.5 x 12 mm shockwave balloon delivering all 12 pulses within the ostium and proximal portion of the prior stent. Post shockwave, we placed a second layer of stent using
a 3.5 x 23 mm Xience molina point drug-eluting stent and using IVUS guidance, we then postdilated the stent with a 3.5 x 15 mm NC balloon at 20 hanna distally and a 3.75 x 12 mm NC balloon at 24 hanna at the ostium with an excellent angiographic and IVUS
guided result. We will loaded Plavix with 300 mg at the end of the case. Patient tolerated the procedure well without acute complications.
SEDATION: 103 minutes of procedural sedation was utilized. An independent medical professionals was present to assist with and help manage the patient's level of consciousness and physiologic status.
RADIATION SUMMARY: Fluoro Time (min): 24, Dose (mGy): 827.54, DAP (Gy.cm2) : 39.16
Closure Device: Radial band over right radial artery, 10 cc of air
CONCLUSIONS
1. Successful percutaneous coronary artery intervention of a 80 to 90% ostial to proximal RCA in-stent restenosis using IV L shockwave and IVUS guidance with a 3.5 x 23 mm Xience mol[place] point drug-eluting stent, postdilated with a 3.5 x 15 mm NC
balloon at 20 hanna distally and a 3.75 x 12 millimeter NC balloon at 24 hanna proximally with an excellent angiographic and IVUS based result.
2. Previously placed LAD stents are widely patent.
3. Normal LVEDP.
RECOMMENDATIONS
1. Continued uninterrupted dual antiplatelet therapy with daily baby aspirin and Plavix 75 mg along with high intensity statin and beta-dre as tolerated.
2. Wean radial band per protocol
3. Aggressive management of cardiovascular risk factors.
4. Referral for outpatient cardiac rehab.
Copy: Dr. Lino Stapleton
Elisabet Lopez MD, [facility], [facility]
--- NOTE | 2023-12-30 15:09 | CM ---
CM following for DC planning needs.
Met w/ patient at bedside to complete initial assessment; spouse also present.
Pt. resides in a private, 2 story home w/ spouse. She is functionally indep. at baseline w/ ADLs, mobility without the use of any assisted device.
Pt. has Rx plan and uses [facility] in [facility] + [facility] in [place].
Anticipated DC plan is for home without needs.
Will remain avail.
[2023-12-30] MEDS: LIPITOR 80 MG PO (17:05)
[2023-12-30] MEDS: APRESOLINE 50 MG PO ×2 (17:05→22:30)
[2023-12-30] MEDS: APRESOLINE 25 MG PO ×2 (17:05→22:30)
[2023-12-30 17:20] LABS: Glucose - Point of Care 138 mg/dl (70-99)
[2023-12-30] MEDS: NOVOLOG FLEXPEN-MODERATE RESISTANCE SC (17:24)
[2023-12-30] MEDS: TOPROL XL 50 MG PO (19:33)
[2023-12-30] MEDS: NORVASC 5 MG PO (19:33)
[2023-12-30] MEDS: LANTUS 0.24 UNITS SC (22:30)
[2023-12-30 22:33] LABS: Glucose - Point of Care 188 mg/dl (70-99)
[2023-12-30] MEDS: MIRAPEX, GENERIC 0.5 MG PO (22:47)
--- NOTE | 2023-12-30 23:06 | PTCARENOTE ---
Pt received start of shift, HR AV paced. Neuro WNL. R radial site dressing CDI. Area aoft, no hematoma, slightly ecchymotic. Reinforced CAD education w pt. Pt states understanding from previous stays in hospital for CAD. Pt denies any CP or SOB.
Call arreola within reach.
[2023-12-31 04:18] VITALS: BP 143/47
[2023-12-31 04:49] VITALS: BMI 28.6
[2023-12-31 04:58] LABS: Hematocrit 32.2 % (37.0-47.0); Hemoglobin 10.9 g/dL (12.0-16.0); Mean Corp Hgb Conc. 33.9 g/dL (33.0-37.0); Mean Corpuscular Hgb 28.8 pg (27.0-31.0); Mean Corpuscular Volume 85.2 fL (81.0-99.0); Mean Platelet Volume 10.3 fL (7.4-10.4); Platelet Count 313 10^3/uL (130-400); Red Blood Cell Count 3.78 10^6/uL (4.20-5.40); Red Cell Dist. Width 14.1 % (11.5-14.5); White Blood Cell Count 11.1 10^3/uL (4.8-10.8)
[2023-12-31 05:25] LABS: Blood Urea Nitrogen 20 mg/dl (7-17); Calcium 9.1 mg/dl (8.4-10.2); Carbon Dioxide 22 mmol/L (22-30); Chloride 102 mmol/L (98-107); Estimated Creatinine Clearance 42 ml/min; Glucose 119 mg/dl (70-99); HDL Cholesterol 25 mg/dl; LDL Cholesterol, Calculated 73 mg/dl; Potassium 4.1 mmol/L (3.5-5.1); Sodium 136 mmol/L (135-145); Total Cholesterol 136 mg/dl (50-199); Triglyceride 193 mg/dl (10-149); Very Low Density Lipoprotein 38 mg/dl (0-30); eGFR 57.31
[2023-12-31 07:15] VITALS: BP 142/70
[2023-12-31] MEDS: NOVOLOG FLEXPEN-MODERATE RESISTANCE 5 UNITS SC (07:45)
[2023-12-31 07:46] LABS: Glucose - Point of Care 256 mg/dl (70-99)
[2023-12-31] MEDS: ALDACTONE 12.5 MG PO (07:47)
[2023-12-31] MEDS: PROTONIX 40 MG PO (07:48)
[2023-12-31] MEDS: ASPIR LOW (ENTERIC COATED) 81 MG PO (07:48)
[2023-12-31] MEDS: TOPROL XL 50 MG PO (07:48)
[2023-12-31] MEDS: IMDUR (EXTENDED RELEASE) 30 MG PO (07:48)
[2023-12-31] MEDS: PLAVIX 75 MG PO (07:48)
[2023-12-31] MEDS: APRESOLINE 50 MG PO (07:48)
[2023-12-31] MEDS: LASIX 20 MG PO (07:48)
[2023-12-31] MEDS: APRESOLINE 25 MG PO (07:48)
[2023-12-31] MEDS: NORVASC 5 MG PO (07:48)
--- NOTE | 2023-12-31 08:36 | W.PN.CARDCBS ---
Addendum entered and electronically signed by Elisabet Lopez MD 12/31/23 10:49:
I saw and examined the patient.
The Activity Assistant's note was reviewed and I agree with the note.
Comment: Overall patient is doing well and does not offer any significant complaints from overnight. No issues at the right radial access site. She has been out of bed ambulating without any chest discomfort or shortness of breath.
Vital signs and lab work reviewed. On exam patient is well-appearing, no acute distress, awake, alert and oriented x 3, abdomen is soft, nontender, nondistended with active bowel sounds, normal S1 and S2, no murmurs, rubs or gallops, lungs are
clear to auscultation bilaterally, no JVD, right radial access site has dressing in place which is clean, dry and intact without evidence of hematoma or bruit on auscultation, warm extremities without significant edema.
Recommendations:
1. Patient is status post PCI of 80 to 90% in-stent restenosis of ostial to proximal RCA PCI from August 2023 with calcium modification using IV L shockwave and optimization of stent with IVUS guidance.
2. Uninterrupted dual antiplatelet therapy with daily baby aspirin and Plavix for at least 1 year along with high intensity statin. Given last LDL was 73 with elevated triglycerides, will also add Zetia to optimize her lipids. Beta-dre as
tolerated.
3. Resume cardiac rehab in about 2 weeks as an outpatient if no acute issues.
4. Continued aggressive management of cardiovascular risk factors.
5. Outpatient cardiology follow-up.
Stable for discharge from a cardiac standpoint.
Discussed with patient, at bedside as well as nursing.
Elisabet Lopez MD, [facility], [facility]
Original Note:
Today's Communication / Plan
-
post ISR, shockwave and PCI x 1 INA
resume cardiac rehab in 2 weeks
DAPT
home today
Impression / Plan
-
PCP: Park Marley, DO
CDY: Lino Stapleton MD
77-year-old female with morbid obesity, poorly controlled hypertension, hyperlipidemia, insulin-dependent type 2 diabetes mellitus, CAD s/p proximal to mid LAD PCI in Feb 2023 and ostial to proximal RCA PCI with 3.5x15mm Medtronic [place] INA in August
2023 who presented to the emergency department 2 days ago with exertional chest discomfort and jaw discomfort especially when she pushed herself at cardiac rehab with negative troponins and discharged home then as patient wanted to be able to walk
yesterday and scheduled outpatient heart catheterization today to rule out obstructive CAD
Impression:
CAD - PCI LAD 02/2023
-PCI RCA 08/2023
-s/p shockwave and PCI ISR prox RCA 3.5 x 23 mm Xience [place] point INA 12/30/23
CHB post PPM 02/2023
HTN
HLD
DM2
Chronic leukocytosis
h/o TAA
Plan:
post PCI, denies cp
tele AV dual paced, no ST changes
Rad site stable
DAPT ASA/Plavix
continue isosorbide
LDL 73 continue atorvastatin 80mg
HTN - continue amlodipine, metoprolol, hydralazine, and spironolactone
Hold Metformin 48 hours post procedure
cardiac rehab OK to resume in 2 weeks
f/u DCA 2-4 weeks
home today
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
Subjective
Date of Service: December 31, 2023
no cp, sob, mild mid back musculoskeletal discomfort improved with positioning
Objective
Labs:
12/31/23 04:37
12/31/23 04:37
Labs
Hgb 10.9 g/dL (12.0-16.0) L 12/31/23 04:37
Hct 32.2 % (37.0-47.0) L 12/31/23 04:37
Plt Count 313 10^3/uL (130-400) 12/31/23 04:37
Sodium 136 mmol/L (135-145) 12/31/23 04:37
Potassium 4.1 mmol/L (3.5-5.1) 12/31/23 04:37
BUN 20 mg/dl (7-17) H 12/31/23 04:37
Creatinine 1.0 mg/dL (0.6-1.0) 12/31/23 04:37
Glucose 119 mg/dl (70-99) H 12/31/23 04:37
Vital Signs and I&O:
Vital Signs
Temp Pulse Resp BP Pulse Ox
97.8 F 64 20 143/47 97
12/31/23 07:13 12/31/23 04:45 12/31/23 07:13 12/31/23 04:18 12/31/23 07:13
Vital Signs
Temp Pulse Resp BP Pulse Ox
97.8 F 64 20 143/47 97
12/31/23 07:13 12/31/23 04:45 12/31/23 07:13 12/31/23 04:18 12/31/23 07:13
Intake & Output
12/29/23 12/30/23 12/31/23 01/01/24
06:59 06:59 06:59 06:59
Intake Total 1939 / 1939
Output Total 350 / 350
Balance 1590 / 1590
Physical Exam
Physical Exam
NAD, AOx3
S1, S2, RRR
CTAB, non labored, no wheeze
SNTND bsx4
R rad site c/d/i good pulse, small area ecchymosis
--- NOTE | 2023-12-31 09:15 | PTCARENOTE ---
Assumed care, patient denies pain, walking in hallway. SR, VSS, right wrist dressing CDI.
[2023-12-31 10:19] LABS: Glycohemoglobin (HgbA1c) 6.1 % (4.0-5.6)
[2023-12-31 11:18] VITALS: BP 118/57
--- NOTE | 2023-12-31 12:20 | PTCARENOTE ---
Patient discharged to home. IV and Telemetry removed. Instructions reviewed, verbalized understanding. Patient escorted to main lobby in wheelchair. Her is driving her home
--- NOTE | 2023-12-31 14:39 | CM ---
CM following for DC planning needs.
Met w/ patient at bedside.
Pt. ready for DC and offers no concerns or needs.
Plan is for home, no needs.
--- NOTE | 2023-12-31 15:36 | W.DS.TRANS ---
DC Summary - Rn School
-
Discharge Instructions:
Discharge Diagnosis/Procedures Angioplasty with lithotripsy and stent to RCA
Diet Low Cholesterol,Diabetic, Carb Controlled
Driving Restrictions No driving for 24 hours
Other Services Cardiac Rehab
Instructions:
Stand-Alone Forms: DC Inst - Same Day PCI
Changes to Home Medications: Yes
Discharge Medications:
DC Medications w/original date entered in [facility]
amlodipine 5 mg tablet 5 mg PO BID Blood pressure #60 tabs 03/01/23
cetirizine 10 mg tablet (Zyrtec) 10 mg PO QPM Allergies #0 tabs 03/01/23
cyanocobalamin (vitamin B-12) 1,000 mcg tablet 1,000 mcg PO DAILY b12 defeciency #60 tabs 03/01/23
insulin degludec 100 unit/mL (3 mL) subcutaneous pen (Tresiba FlexTouch U-100 insulin) 24 unit (0.24 mL) SC HS Diabetes #0 mL 03/01/23
lysine 500 mg tablet (L-Lysine) 500 mg PO QPM Supplement #0 tabs 03/01/23
pramipexole 0.5 mg tablet 0.5 mg PO HS other #0 tabs 03/01/23
spironolactone 25 mg tablet 12.5 mg (1/2 x 25 mg) PO DAILY Blood pressure #30 tabs 03/01/23
thiamine HCl (vitamin B1) 100 mg tablet 100 mg PO BID Supplement #20 tabs 03/01/23
calcium 500 mg (as carbonate)-vitamin D3 10 mcg (400 unit) tablet (Calcium 500 + D) 1 tab PO BID Supplement 03/05/23
ferrous sulfate 325 mg (65 mg iron) tablet 325 mg PO MOWEFR anemia 03/05/23
insulin aspart U-100 100 unit/mL subcutaneous cartridge (Novolog PenFill U-100 Insulin aspart) 1 sliding scale dose SC AC Diabetes 03/05/23
metformin 500 mg tablet,extended release 24 hr 1,000 mg PO BID@0800,1700 Diabetes 03/05/23
clopidogrel 75 mg tablet 75 mg PO DAILY #90 tabs 03/06/23
furosemide 20 mg tablet 20 mg PO DAILY #90 tabs 03/06/23
hydralazine 25 mg tablet 25 mg PO TID #270 tabs 03/06/23
hydralazine 50 mg tablet 50 mg PO TID #270 tabs 03/06/23
Lactobac no.2-Bifidobac no.1-S. thermo 112.5 billion cell capsule (Visbiome) 1 cap PO DAILY Supplement 09/08/23
aspirin 81 mg tablet,delayed release 81 mg PO DAILY Blood clot prevention/tx 09/08/23
betamethasone valerate 0.1 % topical ointment 1 applic topical WEEKLY PRN itching 09/08/23
isosorbide mononitrate 30 mg tablet,extended release 24 hr 60 mg PO DAILY Blood Pressure 09/08/23
nitroglycerin 0.4 mg sublingual tablet 0.4 mg sublingual [id number] PRN jaw pain 09/08/23
therapeutic multivitamin 1 tab PO DAILY Supplement 09/08/23
atorvastatin 80 mg tablet 80 mg PO QPM #30 tabs 09/11/23
pantoprazole 40 mg tablet,delayed release 40 mg PO DAILY #30 tabs 09/11/23
ezetimibe 10 mg tablet (Zetia) 10 mg PO DAILY #90 tabs 12/31/23
metoprolol succinate 100 mg tablet,extended release 24 hr 100 mg PO DAILY 12/31/23
Home Medication Changes
new to ezetimibe
Pending Results: No
== END 2023-12-31 12:14 | disposition home or self-care (01) ==
LOC: CATH 07:22
PROVIDERS: Nurse Practitioner Adult Health; ATTENDING PHYSICIAN Internal Medicine Interventional Cardiology; FAMILY PHYSICIAN Family Medicine; OTHER PHYSICIAN Internal Medicine Cardiovascular Disease
DX: I25.10 Atherosclerotic heart disease of native coronary artery without angina pectoris (principal); Z79.82 Long term (current) use of aspirin; Z79.02 Long term (current) use of antithrombotics/antiplatelets; Z79.899 Other long term (current) drug therapy
CPT/HCPCS: 92972; 92978; 99152; 99153; 80048; 80061; 82962; 83036; 85027; 85347; 93005; 93458; C1725; C1753; C1761; C1769; C1874; C1894; C9600; Q9967

== ENCOUNTER 2024-01-20 13:49 | Outpatient (RCR) | payer OTHER, SELFPAY ==
[2023-12-25 13:11] LABS: Glucose - Point of Care 185 mg/dl (70-99)
[2023-12-25 14:05] LABS: Glucose - Point of Care 101 mg/dl (70-99)
[2023-12-28 13:05] LABS: Glucose - Point of Care 129 mg/dl (70-99)
[2024-01-18 13:06] LABS: Glucose - Point of Care 270 mg/dl (70-99)
[2024-01-18 14:05] LABS: Glucose - Point of Care 166 mg/dl (70-99)
[2024-01-20 13:08] LABS: Glucose - Point of Care 252 mg/dl (70-99)
[2024-01-20 14:01] LABS: Glucose - Point of Care 130 mg/dl (70-99)
== END 2024-01-20 23:59 | disposition home or self-care (01) ==
LOC: CRHB 13:49
PROVIDERS: ATTENDING PHYSICIAN Internal Medicine Cardiovascular Disease; FAMILY PHYSICIAN Family Medicine
DX: I25.10 Atherosclerotic heart disease of native coronary artery without angina pectoris (principal); Z95.5 Presence of coronary angioplasty implant and graft
CPT/HCPCS: 82962; G0422; G0423

== ENCOUNTER 2024-02-23 09:54 | Outpatient (RCR) | payer OTHER, SELFPAY ==
[2024-02-01 13:15] LABS: Glucose - Point of Care 346 mg/dl (70-99)
[2024-02-01 14:04] LABS: Glucose - Point of Care 174 mg/dl (70-99)
[2024-02-05 13:05] LABS: Glucose - Point of Care 112 mg/dl (70-99)
[2024-02-05 14:02] LABS: Glucose - Point of Care 135 mg/dl (70-99)
[2024-02-08 13:06] LABS: Glucose - Point of Care 116 mg/dl (70-99)
[2024-02-08 14:01] LABS: Glucose - Point of Care 82 mg/dl (70-99)
[2024-02-08 14:18] LABS: Glucose - Point of Care 117 mg/dl (70-99)
[2024-02-10 13:54] LABS: Glucose - Point of Care 107 mg/dl (70-99)
[2024-02-15 13:02] LABS: Glucose - Point of Care 204 mg/dl (70-99)
[2024-02-15 14:00] LABS: Glucose - Point of Care 102 mg/dl (70-99)
[2024-02-22 13:06] LABS: Glucose - Point of Care 181 mg/dl (70-99)
[2024-02-22 14:00] LABS: Glucose - Point of Care 109 mg/dl (70-99)
[2024-02-23 12:56] LABS: Glucose - Point of Care 281 mg/dl (70-99)
[2024-02-23 14:02] LABS: Glucose - Point of Care 136 mg/dl (70-99)
== END 2024-02-23 23:59 | disposition home or self-care (01) ==
LOC: CRHB 09:54
PROVIDERS: ATTENDING PHYSICIAN Internal Medicine Cardiovascular Disease
DX: I25.10 Atherosclerotic heart disease of native coronary artery without angina pectoris (principal); Z95.5 Presence of coronary angioplasty implant and graft
CPT/HCPCS: 82962; G0422; G0423

== ENCOUNTER 2024-04-03 16:23 | Inpatient (IN) | payer OTHER, SELFPAY ==
[2024-04-03] VITALS (10 sets, daily range): BP systolic 118–166; BP diastolic 41–80; BMI 28.5; BMI 29.4
[2024-04-03 13:39] LABS: % Basophils 0.4 % (0-2); % Eosinophils 1.2 % (0-6); % Immature Granulocytes 0.6 % (0-0.5); % Lymphocytes 36.6 % (20.5-51.1); % Monocytes 8.3 % (1.7-9.3); % Neutrophils 52.9 % (42.2-75.2); Absolute Basophils 0.1 10^3/uL (0-0.2); Absolute Eosinophils 0.2 10^3/uL (0-0.7); Absolute Immature Granulocytes 0.1 10^3/uL (0-0.05); Absolute Lymphocytes 4.8 10^3/uL (1.2-3.4); Absolute Monocytes 1.1 10^3/uL (0.1-0.6); Hematocrit 34.2 % (37.0-47.0); Hemoglobin 11.3 g/dL (12.0-16.0); Mean Corpuscular Hgb 29.4 pg (27.0-31.0); Mean Corpuscular Volume 89.1 fL (81.0-99.0); Mean Platelet Volume 10.3 fL (7.4-10.4); Nucleated Red Blood Cells % 0 %; Platelet Count 307 10^3/uL (130-400); Red Blood Cell Count 3.84 10^6/uL (4.20-5.40); Red Cell Dist. Width 13.5 % (11.5-14.5); White Blood Cell Count 13.2 10^3/uL (4.8-10.8)
[2024-04-03] MEDS: NITRO-BID 1 INCH TOPICAL (13:45)
[2024-04-03 13:55] LABS: ALT (SGPT) 20 U/L (0-35); AST (SGOT) 32 U/L (14-36); Albumin 3.8 g/dl (3.5-5.0); Alkaline Phosphatase 98 U/L (38-126); Blood Urea Nitrogen 24 mg/dl (7-17); Calcium 8.8 mg/dl (8.4-10.2); Carbon Dioxide 26 mmol/L (22-30); Chloride 99 mmol/L (98-107); Glucose 347 mg/dl (70-99); Sodium 132 mmol/L (135-145); Total Bilirubin 0.3 mg/dl (0.2-1.3); Total Protein 6.7 g/dl (6.3-8.2); eGFR 57.31
[2024-04-03 14:05] LABS: Troponin I < 0.012 ng/ml
--- NOTE | 2024-04-03 14:13 | ED.GENMED ---
History of Present Illness
General
Chief Complaint: Chest Pain
Source: patient
Exam Limitations: none
Time Seen by Provider: 04/03/24 13:00
History of Present Illness
History of Present Illness:
This is 78-year-old female presents after she had jaw pain. The patient states she had similar symptoms in the past when she got stented due to ACS patient states that in addition she developed about a 4 out of 10 chest pressure. Both of which
have resolved. She took a nitro and it went away. Jaw pain has been off and on for the last few days. Patient denies any nausea or vomiting. No shortness of breath. No palpitations. Patient was here in December with same symptoms and got
stented.
Past History
Past History
ED Past Medical History: CAD, HTN, Hypercholesterolemia, IDDM and Other (Diabetes, reflux, cataracts)
ED Past Surgical History: Cardiac (Pacemaker, cardiac stent) and Gynecological
Social History
Tobacco: Non-smoker
Alcohol: Occasional
Drug: None
Personal:
Living: with family
Phy Exam
Physical Exam
Physical Exam:
CONSTITUTIONAL Patient alert and oriented to person, place and time. Well-appearing. Vital signs reviewed.
HEAD atraumatic, normocephalic.
EYES eyelids normal to inspection, Extraocular muscles intact, Conjunctiva normal, Sclera normal.
NECK normal range of motion, Trachea midline, no jugular venous distention.
RESPIRATORY CHEST No respiratory distress noted, Chest expansion equal, Bilateral breath sounds clear.
CARDIOVASCULAR regular rate and rhythm, Heart sounds normal.
ABDOMEN abdomen nontender, Bowel sounds normal. No distention.
BACK normal inspection, no obvious deformities
UPPER EXTREMITY range of motion normal, Motor strength normal, no cyanosis, no edema.
LOWER EXTREMITY range of motion normal, Motor strength normal, no cyanosis, no edema.
NEURO Speech normal, No focal motor deficits, Calion coma scale 15, Memory normal, Cranial Nerves intact to screening exam.
SKIN skin warm, dry, and normal in color.
Scores
Heart Score for Chest Pain Patients
STEMI patient?: Not applicable
Course
Orders/Labs/Results
Orders:
Orders
04/03/24 12:41
Electrocardiogram (*1) Urgent
Reason for Study: Chest Pain
04/03/24 13:12
CR Chest - 2 Views Urgent
Comment:
Reason For Exam: cp
04/03/24 13:28
Cardiovascular Evaluation Urgent
Comment: ADD ON
Complete Blood Count/With Diff Urgent
Comprehensive Metabolic Panel Urgent
Glycohemoglobin (HgbA1c) Urgent
TSH Reflex To Free T4 Routine
Comment: ADD ON
Troponin I Urgent
04/03/24 13:43
Nitroglycerin Ointment [Nitro-Bid] 1 inch TOPICAL NOW STA
04/03/24 13:45
Nitroglycerin Ointment [Nitro-Bid] 1 inch .ROUTE .STK-MED ONE
04/03/24 14:45
CARDIOLOGY CONSULT Routine
Consulting Provider: Neftaly Holland
Was physician already notified: Yes
Reason for consult: CP
04/03/24 Dinner
2000 calorie (17 carb) Diabetic
At Your Request: Full Participation
Regular
At Your Request: Full Participation
04/03/24 15:02
0.9% Sodium Chloride 500 ml [Nss] 500 ml IV BOLUS
04/03/24 15:54
Add On- LAB Routine
Tests Added?: lipids, Hgba1c, TSH with reflex FT4
04/03/24 15:56
COVID-19 Antigen Stat
Source: Nasal Swab
Influenza A+B Rapid Molecular Stat
JAREK Source: Nasal Swab
Specimen Description:
04/03/24 15:58
Admit/Transfer Patient As Directed
Co-Sign Provider:
Level of Care: Inpatient admission
Assign to:: IVU
Physician / Group: Hospitalist
Diagnosis: Unstable angina
Reason for Hospitalization: Unstable angina
Expected length of stay greater than two midnights?: Yes
ELOS- Estimated Length of Stay in days: 3
I certify the patient meets the requirements for IP care: Yes
04/03/24 16:00
Code Status As Directed
Resuscitation Status: Do not resuscitate
Reached after discussion with pt or family/Healthcare POA: Yes
04/03/24 16:01
DNR Bracelet Application ONCE
04/03/24 16:03
Heparin Protocol- PTT Orders As Directed
PTT per Heparin protocol: -Obtain CBC and baseline PTT - if not already collected.
-Obtain PTT 6 hours from start of infusion. Then, every 6 hours until 2 consecutive
PTT's are therapeutic. Then, PTT Daily.
-With each rate change, obtain PTT every 6 hours until 2 consecutive PTT's are
therapeutic. Then, PTT Daily.
Notify MD As Directed
Notify physician if: PTT is greater than or equal to 200.
PRN Pain Medication Management As Directed
May give lesser potent ordered pain med per pt: Yes
preference::
Protocol:: Medication orders for pain may be administered in a
manner that supports deferring to patient preference
when the pt is:
- Requesting an ordered lesser potent pain medication.
Least to most potent pain medications are defined
as: acetaminophen < NSAID < tramadol < opioids
(morphine, oxycodone, hydromorphone).
- Requesting a lesser dose of the same medication IF
ORDERED.
- Requesting a less intrusive route of administration
if both routes are prescribed by the provider (PO <
IV).
04/03/24 16:04
Aspirin 325 mg PO NOW STA
Clopidogrel Bisulfate [Plavix] 300 mg PO NOW STA
04/03/24 16:15
Heparin 54660 Units/250 ml 25,000 units in 250 ml IV PER PROTOCOL
Weight to be used for heparin protocol in kilograms (kg):: 68.492
Protocol:: Cardiac Tx/Acute Coronary
PTT Goal Range to be used:: PTT 73 to 111 seconds
Order type:: Initial
INITIAL Infusion Dose (UNITS/KG/hr) & then follow protocol:: 12 units/kg/hr
Infusion Dose in UNITS/hr & then follow protocol (UNITS/hr):: 800
INFUSION RATE in mL/hr & then follow protocol (mL/hr):: 8
PTT less than or equal to 64 seconds:: Increase rate by 200 units/hr (+ 2 mL/hr)
PTT 64.1 to 72.9 seconds:: Increase rate by 100 units/hr (+ 1 mL/hr)
PTT 73 to 111 seconds:: Target Range. No change in rate.
PTT 111.1 to 130.9 seconds:: Decrease rate by 100 units/hr (- 1 mL/hr)
PTT 131 to 199.9 seconds:: HOLD for 1 hr. Then decrease rate by 200 units/hr (- 2 mL/hr)
PTT greater than or equal to 200 seconds:: HOLD for 2 hrs & Notify Provider. Then decrease by 200 units/hr (-
2 mL/hr)
Lab follow-up:: Each change, PTT q6h until 2 consecutive are therapeutic. Then PTT
daily.
04/03/24 16:29
PTT Urgent
Prothrombin Time Urgent
04/03/24 18:36
Acetaminophen [Tylenol] 650 mg PO Q4HPRN PRN
Atorvastatin [Lipitor] 80 mg PO QPM
Bisacodyl [Dulcolax] 10 mg RECTAL [id number] PRN
Dextrose 50%-Water [Dextrose 50% Syringe] 12.5 grams IV [id number] PRN
Docusate W/Senna [Senokot-S] 1 tablet PO BIDPRN PRN
Glucagon [GlucaGen] 1 mg IM PRN PRN
HydrALAZINE [Apresoline] 25 mg PO TID
Insulin Aspart Corrective Mod [Novolog Flexpen-Moderate Resistance] See Protocol SC AC
Nitroglycerin Sublingual [Nitrostat (Sublingual)] 0.4 mg SL [id number] PRN
Ondansetron Injectable [Zofran] 4 mg IV Q8HPRN PRN
Polyethylene Glycol Powder [Miralax] 17 grams PO DAILYPRN PRN
04/03/24 18:36
Activity As Directed
Activity Level: Out of Bed-Early Mobility
Bedside Glucose Monitoring As Directed
Frequency: AC&HS
Additional Instructions:: Change to q6h if pt on TPN, tube feeding or not eating
Pneumatic Compression Sleeves As Directed
Type: Knee high
Vital Signs As Directed
Frequency: Per unit guidelines
DX Deep Vein Thrombosis Video Routine
04/03/24 20:00
Amlodipine [Norvasc] 5 mg PO BID
04/03/24 20:05
Troponin I Q6H
04/03/24 22:00
HydrALAZINE [Apresoline] 50 mg PO TID
Pramipexole [Mirapex, Generic] 0.5 mg PO HS
04/04/24 04:06
Complete Blood Count/With Diff IN AM
Comprehensive Metabolic Panel IN AM
Magnesium IN AM
Troponin I Q6H
04/04/24 Breakfast
NPO
Allow oral meds: Yes
Allow clear liquids: No
NPO with Ice Chips: Yes
04/04/24 08:00
Aspirin Low Dose EC [Aspir Low (Enteric Coated)] 81 mg PO DAILY
Clopidogrel Bisulfate [Plavix] 75 mg PO DAILY
Ezetimibe [Zetia] 10 mg PO DAILY
Furosemide [Lasix] 20 mg PO DAILY
ISOSORBIDE MONOnitrate ER [Imdur (Extended Release)] 60 mg PO DAILY
Metoprolol Xl [Toprol Xl] 100 mg PO DAILY
Pantoprazole [Protonix] 40 mg PO DAILY
Spironolactone [Aldactone] 12.5 mg PO DAILY
04/04/24 22:00
Insulin Glargine Lantus [Lantus] 18 units Subcutaneous Insulin Syringe [Syringe-Insulin] 0 unit SC HS
04/05/24 06:00
Complete Blood Count/No Diff Q2D
Comment: Notify MD if platelet count is <130,000 or decreases by 50% from baseline
04/07/24 06:00
Complete Blood Count/No Diff Q2D
Comment: Notify MD if platelet count is <130,000 or decreases by 50% from baseline
04/09/24 06:00
Complete Blood Count/No Diff Q2D
Comment: Notify MD if platelet count is <130,000 or decreases by 50% from baseline
04/11/24 06:00
Complete Blood Count/No Diff Q2D
Comment: Notify MD if platelet count is <130,000 or decreases by 50% from baseline
04/13/24 06:00
Complete Blood Count/No Diff Q2D
Comment: Notify MD if platelet count is <130,000 or decreases by 50% from baseline
04/15/24 06:00
Complete Blood Count/No Diff Q2D
Comment: Notify MD if platelet count is <130,000 or decreases by 50% from baseline
04/17/24 06:00
Complete Blood Count/No Diff Q2D
Comment: Notify MD if platelet count is <130,000 or decreases by 50% from baseline
04/19/24 06:00
Complete Blood Count/No Diff Q2D
Comment: Notify MD if platelet count is <130,000 or decreases by 50% from baseline
Abnormal Lab Results
04/03/24
13:28
WBC 13.2 H 10^3/uL
(4.8-10.8)
RBC 3.84 L 10^6/uL
(4.20-5.40)
Hgb 11.3 L g/dL
(12.0-16.0)
Hct 34.2 L %
(37.0-47.0)
Abs Immat Gran (auto) 0.1 H 10^3/uL
(0-0.05)
Absolute Neuts (auto) 7.0 H 10^3/uL
(1.4-6.5)
Absolute Lymphs (auto) 4.8 H 10^3/uL
(1.2-3.4)
Absolute Monos (auto) 1.1 H 10^3/uL
(0.1-0.6)
Immature Gran % 0.6 H %
(0-0.5)
Sodium 132 L mmol/L
(135-145)
BUN 24 H mg/dl
(7-17)
Glucose 347 H mg/dl
(70-99)
Hemoglobin A1c 6.7 H %
(4.0-5.6)
Triglycerides 383 H mg/dl
(10-149)
VLDL Cholesterol, Calc 76 H mg/dl
(0-30)
04/03/24 13:28
04/03/24 13:28
Vital Signs
Initial and Last Documented VS:
Initial Vital Signs
Temp Pulse Resp BP Pulse Ox
97.6 F 73 20 140/70 98
04/03/24 12:47 04/03/24 12:47 04/03/24 12:47 04/03/24 12:47 04/03/24 12:47
Last Documented Vital Signs
Temp Pulse Resp BP Pulse Ox
98.2 F 63 20 127/80 97
04/04/24 19:47 04/04/24 19:51 04/04/24 19:47 04/04/24 19:51 04/04/24 19:47
MDM/Problems Addressed
MDM/Problems Addressed:
Angina, chest pain
*Pulse Oximetry
Patient hypoxic: no
*EKG
Interpreted by ED Provider?: Yes
Interpretation: abnormal
Rate: normal
Rhythm: av sequential
Ischemia: non-specific ST changes
*Rail Car Driver Interpretation
Rate: normal
Interpretation: abnormal
Rhythm: av sequential
*Critical Care Note
Total Time (30-74mins, 75-104mins- exclusive of procedures): Not Applicable
Data Reviewed
Source: patient
Prescriptions/Medications Considered But Not Given:
Considered heparin but troponin negative
Patient Management
Discussion with other providers: National Account Representative (Case discussed with cardiology who will evaluate.)
Escalation/DeEscalation of care consider admission/obs:
Patient with similar symptoms to previous stenting. Discussed with cardiology who will evaluate
1521 seen by cards. recommends admit
ED Attending Note
-
Portions of this chart may have been created with voice recognition software.� Occasional wrong word or��sound alike� substitutions may have occurred due to the inherent limitations of voice recognition software.
Discharge Plan
Departure
Patient Disposition: Admit
Date of Disposition: 04/03/24
Time of Disposition: 15:21
Admit to: Telemetry
Presentation/result/management discussed w/ accepting MD/DO: Hospitalist
Discharge Problem:
Unstable angina
Interventions
Interventions:
*Risk Screen - Suicide Last Done: 04/03/24 12:47
*General Assessment Last Done: 04/03/24 13:39
*Neglect/Abuse Screening Last Done: 04/03/24 13:39
ED- Fall Risk Assessment Last Done: 04/03/24 18:24
*ED COVID-19 Vaccine History Last Done: 04/03/24 18:30
*Nursing Disposition Last Done: 04/03/24 18:24
ED- Cardiac Assessment Last Done: 04/03/24 13:39
Discharge Date and Time
Discharge Date/Time: 04/03/24 18:26
[2024-04-03] MEDS: NSS 500 IV (15:06)
--- NOTE | 2024-04-03 15:42 | CON.CAR ---
Consultation
Consultation Request
Date/Time Consultation Requested: 04/03/24
Date/Time Consultation Performed: 04/03/24
Requesting Provider: Jaylen
Performing Provider: Skyler
Reason for Consultation: CP
Medical History
-
Chief Complaint: CP
History of Present Illness:
78-year-old woman past medical history of CAD with multiple stents in the past who presents with jaw and chest discomfort which she identifies as being similar to her prior episodes of angina and cardiology is consulted for further evaluation.
Patient reports intermittent jaw pain over the last few days to weeks which she identifies as her anginal equivalent. Then earlier today she developed substernal chest pressure. This came on at rest and she took sublingual nitroglycerin at home
and chest pressure resolved. She subsequently came to [place] emergency department for evaluation. Tells me she had recurrence of symptoms but they were more mild and she was treated with Nitropaste. Symptoms she is currently resting chest and
jaw pain-free. Tells me her breathing has been comfortable. No lower extremity edema.
Initial troponin was undetectable. ECG is difficult to interpret given paced rhythm but not overtly ischemic. Chest x-ray was clear.
PMHx:
CAD
-PCI LAD 02/2023
-PCI RCA 08/2023
-s/p shockwave and PCI ISR prox RCA 3.5 x 23 mm Xience [place] point INA 12/30/23
CHB post PPM 02/2023
HTN
HLD
DM2
Chronic leukocytosis
h/o TAA
Past Medical History
Past Medical History: Other (As above)
Past Surgical History: Other (As above)
Social History
Tobacco: Non-Smoker
Personal:
Living: With Family
Family History
Family History: Reviewed & Not Pertinent
Allergies / Home Medications
Allergy/AdvReac Type Severity Reaction Status Date / Time
lisinopril Allergy Severe Unknown Verified 04/03/24 12:47
valsartan [From Flynnvan] Allergy Severe Unknown Verified 04/03/24 12:47
�Medication �Instructions �Recorded �Confirmed �Type
amlodipine 5 mg tablet 5 mg PO BID Blood pressure #60 tabs 03/01/23 12/30/23 Rx
cetirizine 10 mg tablet (Zyrtec) 10 mg PO QPM Allergies #0 tabs 03/01/23 12/30/23 Rx
cyanocobalamin (vitamin B-12) 1,000 mcg PO DAILY b12 defeciency 03/01/23 12/30/23 Rx
1,000 mcg tablet #60 tabs
insulin degludec 100 unit/mL (3 24 unit (0.24 mL) SC HS Diabetes 03/01/23 12/30/23 Rx
mL) subcutaneous pen (Tresiba #0 mL
FlexTouch U-100 insulin)
lysine 500 mg tablet (L-Lysine) 500 mg PO QPM Supplement #0 tabs 03/01/23 12/30/23 Rx
pramipexole 0.5 mg tablet 0.5 mg PO HS other #0 tabs 03/01/23 12/30/23 Rx
spironolactone 25 mg tablet 12.5 mg (1/2 x 25 mg) PO DAILY 03/01/23 12/30/23 Rx
Blood pressure #30 tabs
thiamine HCl (vitamin B1) 100 mg 100 mg PO BID Supplement #20 tabs 03/01/23 12/30/23 Rx
tablet
calcium 500 mg (as 1 tab PO BID Supplement 03/05/23 12/30/23 History
carbonate)-vitamin D3 10 mcg (400
unit) tablet (Calcium 500 + D)
ferrous sulfate 325 mg (65 mg 325 mg PO MOWEFR anemia 03/05/23 12/30/23 History
iron) tablet
insulin aspart U-100 100 unit/mL 1 sliding scale dose SC AC Diabetes 03/05/23 12/30/23 History
subcutaneous cartridge (Novolog
PenFill U-100 Insulin aspart)
metformin 500 mg tablet,extended 1,000 mg PO BID@0800,1700 Diabetes 03/05/23 12/30/23 History
release 24 hr
clopidogrel 75 mg tablet 75 mg PO DAILY #90 tabs 03/06/23 12/30/23 Rx
furosemide 20 mg tablet 20 mg PO DAILY #90 tabs 03/06/23 12/30/23 Rx
hydralazine 25 mg tablet 25 mg PO TID #270 tabs 03/06/23 12/30/23 Rx
hydralazine 50 mg tablet 50 mg PO TID #270 tabs 03/06/23 12/30/23 Rx
Lactobac no.2-Bifidobac no.1-S. 1 cap PO DAILY Supplement 09/08/23 12/30/23 History
thermo 112.5 billion cell capsule
(Visbiome)
aspirin 81 mg tablet,delayed 81 mg PO DAILY Blood clot 09/08/23 12/30/23 History
release prevention/tx
betamethasone valerate 0.1 % 1 applic topical WEEKLY PRN itching 09/08/23 12/30/23 History
topical ointment
isosorbide mononitrate 30 mg 60 mg PO DAILY Blood Pressure 09/08/23 12/31/23 History
tablet,extended release 24 hr
nitroglycerin 0.4 mg sublingual 0.4 mg sublingual [id number] PRN jaw 09/08/23 12/30/23 History
tablet pain
therapeutic multivitamin 1 tab PO DAILY Supplement 09/08/23 12/30/23 History
atorvastatin 80 mg tablet 80 mg PO QPM #30 tabs 09/11/23 12/30/23 Rx
pantoprazole 40 mg tablet,delayed 40 mg PO DAILY #30 tabs 09/11/23 12/30/23 Rx
release
ezetimibe 10 mg tablet (Zetia) 10 mg PO DAILY #90 tabs 12/31/23 Rx
metoprolol succinate 100 mg 100 mg PO DAILY 12/31/23 12/31/23 History
tablet,extended release 24 hr
Review of Systems
-
All other systems: Negative unless noted
Physical Exam
Vital Signs
Temp Pulse Resp BP Pulse Ox
97.6 F 62 16 157/68 96
04/03/24 12:47 04/03/24 14:30 04/03/24 14:30 04/03/24 13:28 04/03/24 14:30
Lab Results
04/03/24 13:28
04/03/24 13:28
Troponin I < 0.012 ng/ml 04/03/24 13:28
Physical Exam
General: Well Developed
HEENT: Normocephalic
Respiratory: Clear and Non Labored Respirations
Cardiac: S1/S2 and Regular Rhythm
Breast: Deferred by me
GI: Soft
Musculoskeletal: No Edema
Skin: Warm and Dry
Neuro: Awake and Alert
Psych: Calm
Impression / Plan
-
PCP: Dr. Park Marley
Primary Radio Tester: Dr. Stapleton
Impression:
Chest pain
CAD
s/p 3 mm Xience to mid LAD 03/05/23
s/p 3.5 mm Riley DS to prox RCA 09/10/23s/p Medtronic DC PPM for complete heart block 02/27/23
HTN, multidrug resistant
ORALIA/ARB allergy
Lisinopril caused itching, Diovan caused her to hallucinate seeing clocks running up the wallNamshislipidemia
Type 2 diabetes mellitus on insulin and metformin with freestyle noelle CGM
Chronic elevated white blood cell count, followed by Dr. Garrison, oncology
Nuclear stress test 09/10/2023: moderate inferior and inferoapical ischemia. EF 67%
LHC 09/10/2023:LM: Minimal luminal irregularities. LAD: Previously placed LAD stents widely patent. Distal to apical LAD has diffuse atherosclerotic plaque. LCx: OM1 has diffuse up to 23-30% stenosis. Just distal to the OM1 takeoff there is a 50%
stenosis in the mid LCx. RCA: Heavily calcified 80% to 90% proximal stenosis. Successful PCI of the RCA stenosis with a 3.5 x 15 mm Medtronic [place] stent. Significantly elevated LVEDP at 25 mmHg.
ECHO 01/01/23: EF 55-60%, stage 2 diastolic dysfunction, mod cLVH, MAC, mild MR, dilated LA, aortic sclerosis, normal right heart with mild pulm HTN
Echo 09/09/2023: EF 55-60%, mild cLVH, no RWMA, mild MR, mild AI
Plan:
-Patient came to [facility] today with chest pain which came on at home at rest. She describes this as substernal pressure which resolved with sublingual nitroglycerin concern for unstable angina. Has also had intermittent jaw pain leading up to this
which she identifies as an anginal equivalent.
-ECG reviewed by me and is paced with no obvious ischemic changes.
-Initial Troponin undetectable. Recommend serial troponin.
-Not reporting any chest discomfort at this time with Nitropaste in place, if chest pain recurs would start nitro drip
-Medical management of suspected unstable angina with aspirin/plavix, high intensity statin, heparin drip, beta-dre
-Recommended that she stay overnight with plan for coronary angiography tomorrow
-Tentative plan to check echo in a.m., previously LVEF was preserved
-Patient with a h/o multidrug resistant HTN
-Cont outpatient amlodipine, hydralazine, Imdur, spironolactone, Toprol XL, lasix.
Discussed with ED attending, hospitalist and family at bedside
Data Reviewed
-
EKG: Tracing Personally Visualized and interpreted
Radiology: Image Personally Visualized and interpreted
Medical Tests (Nuc Med, Echo etc): Report Reviewed by me
Labs: Labs Reviewed by me
Old Records: Reviewed
--- NOTE | 2024-04-03 16:04 | HPS.HSE ---
Family Physician
-
Family Physician: Park Marley,
Chief Complaint
-
chest pain
History of Present Illness
78yo M with PMHx of HLD, , HTN, atopic d/o, MIKEY, chronic leukocytosis followed by [facility] in [facility], DM, GERD, RLS, complete AVB s/p PPM, Hx TAA came with 1 day of chest pressure, relieved by nitro and couple of days of L jaw pain appearing at
rest similar to the one she had when she was admitted for UA.
Patient has significant cardiac HX with PCI to LAD in Feb 2023, then PCI to RCA in August 2023 that in-stent restenosis s/p V L shockwave and optimization of stent with IVUS guidance in december 2023.
Medical History
Past Medical History
Past Medical History: Reports Other
Additional Past Medical History:
see HPI
Past Surgical History: Reports Other
Additional Past Surgical History:
see HPI
Social History
Tobacco: Non-smoker
Alcohol: Occasional
Drug: None
Family History
Family History: Not pertinent
Allergies / Home Medications
Allergies reflects when Allergies were last updated in [facility].
Home Medications with original date entered in [facility]
Allergy/Medication List:
Allergies
Allergy/AdvReac Type Severity Reaction Status Date / Time
lisinopril Allergy Severe Unknown Verified 04/03/24 12:47
valsartan [From Diovan] Allergy Severe Unknown Verified 04/03/24 12:47
Home Medications
amlodipine 5 mg tablet 5 mg PO BID Blood pressure #60 tabs 03/01/23
cetirizine 10 mg tablet (Zyrtec) 10 mg PO QPM Allergies #0 tabs 03/01/23
cyanocobalamin (vitamin B-12) 1,000 mcg tablet 1,000 mcg PO DAILY b12 defeciency #60 tabs 03/01/23
insulin degludec 100 unit/mL (3 mL) subcutaneous pen (Tresiba FlexTouch U-100 insulin) 24 unit (0.24 mL) SC HS Diabetes #0 mL 03/01/23
lysine 500 mg tablet (L-Lysine) 500 mg PO QPM Supplement #0 tabs 03/01/23
pramipexole 0.5 mg tablet 0.5 mg PO HS other #0 tabs 03/01/23
spironolactone 25 mg tablet 12.5 mg (1/2 x 25 mg) PO DAILY Blood pressure #30 tabs 03/01/23
thiamine HCl (vitamin B1) 100 mg tablet 100 mg PO BID Supplement #20 tabs 03/01/23
calcium 500 mg (as carbonate)-vitamin D3 10 mcg (400 unit) tablet (Calcium 500 + D) 1 tab PO BID Supplement 03/05/23
ferrous sulfate 325 mg (65 mg iron) tablet 325 mg PO MOWEFR anemia 03/05/23
insulin aspart U-100 100 unit/mL subcutaneous cartridge (Novolog PenFill U-100 Insulin aspart) 1 sliding scale dose SC AC Diabetes 03/05/23
metformin 500 mg tablet,extended release 24 hr 1,000 mg PO BID@0800,1700 Diabetes 03/05/23
clopidogrel 75 mg tablet 75 mg PO DAILY #90 tabs 03/06/23
furosemide 20 mg tablet 20 mg PO DAILY #90 tabs 03/06/23
hydralazine 25 mg tablet 25 mg PO TID #270 tabs 03/06/23
hydralazine 50 mg tablet 50 mg PO TID #270 tabs 03/06/23
Lactobac no.2-Bifidobac no.1-S. thermo 112.5 billion cell capsule (Visbiome) 1 cap PO DAILY Supplement 09/08/23
aspirin 81 mg tablet,delayed release 81 mg PO DAILY Blood clot prevention/tx 09/08/23
betamethasone valerate 0.1 % topical ointment 1 applic topical WEEKLY PRN itching 09/08/23
isosorbide mononitrate 30 mg tablet,extended release 24 hr 60 mg PO DAILY Blood Pressure 09/08/23
nitroglycerin 0.4 mg sublingual tablet 0.4 mg sublingual [id number] PRN jaw pain 09/08/23
therapeutic multivitamin 1 tab PO DAILY Supplement 09/08/23
atorvastatin 80 mg tablet 80 mg PO QPM #30 tabs 09/11/23
pantoprazole 40 mg tablet,delayed release 40 mg PO DAILY #30 tabs 09/11/23
ezetimibe 10 mg tablet (Zetia) 10 mg PO DAILY #90 tabs 12/31/23
metoprolol succinate 100 mg tablet,extended release 24 hr 100 mg PO DAILY 12/31/23
Review of Systems
-
History Source: Patient
A 12 point ROS was completed and negative except as noted: Yes
Respiratory: Reports Cough
Cardiac: Reports Chest Pain
Physical Exam
Vital Signs
Vital Signs
Temp Pulse Resp BP Pulse Ox
97.6 F 62 13 128/43 95
04/03/24 12:47 04/03/24 15:45 04/03/24 15:45 04/03/24 15:08 04/03/24 15:45
Physical Exam
General: Well Developed, Well Nourished and No Apparent Distress
HEENT: NormoCephalic, Anicteric and Moist mucous membranes
Respiratory: Clear; No Wheezes or Rales
Cardiac: S1/S2 and Regular Rhythm; No Murmur
GI: Soft, Non Tender and Non Distended
Genito-urinary: No costovertebral tender
Musculoskeletal: No Clubbing, No Cyanosis and No Edema
Skin: Warm; No Dry or Jaundice
Neuro: Awake, Alert, Oriented and AO x 3
Psych: Calm
Laboratory Results
-
04/03/24 13:28
04/03/24 13:28
Laboratory Results
Total Bilirubin 0.3 mg/dl (0.2-1.3) 04/03/24 13:28
AST 32 U/L (14-36) 04/03/24 13:28
ALT 20 U/L (0-35) 04/03/24 13:28
Alkaline Phosphatase 98 U/L (38-126) 04/03/24 13:28
Troponin I < 0.012 ng/ml 04/03/24 13:28
Data Reviewed
-
Lab Data: Labs Reviewed by me
Impression/Plan
-
A/P:
#Concern for unstable angina
#complete AVB s/p PPM
#Essential HTN
cont serial troponin
COnt DAPT
Start heparin drip
Nitro PRN
Cardio consult
telemetry
EKG with dual paced rhythm, no ST elevations seen
check TSH, lipids, HgbA1c
NPO starting MN for cath
Echo
#Recent cough
started 1 week ago
Chest XR without signs of pneumonia
check COVID-19 and influenza PCR
#Mild hyponatremia
monitor
#DM type 2 with circulatory complications
Insulin basal - decrease by 30%, hold if will need to be NPO
Accucheks, Insulin SS, DM diet
hold metformin
#Chronic leukocytosis
#GERD
#HLD
#RLS
cont home meds
DVT ppx hep drip
DNR/DNI - discussed in details with patient, family bedside
I have spent at least 78min reviewing chart, test results, communication with consultants and direct patient care
[2024-04-03 16:31] LABS: COVID-19 Antigen Negative (Negative)
[2024-04-03 16:31] LABS: HDL Cholesterol 26 mg/dl; LDL Cholesterol, Calculated -11 mg/dl; Total Cholesterol 91 mg/dl (50-199); Triglyceride 383 mg/dl (10-149); Very Low Density Lipoprotein 76 mg/dl (0-30)
[2024-04-03 16:46] LABS: INR 0.91; PT 12.6 Sec (11.4-14.6)
[2024-04-03 16:47] LABS: APTT 27.5 Sec (23.4-35.0)
--- NOTE | 2024-04-03 17:02 | W.PN.UPDATE ---
Update Note
Progress Note Update
cough for past week - not a candidate for tamiflu
[2024-04-03] MEDS: PLAVIX 300 MG PO (17:03)
[2024-04-03] MEDS: HEPARIN 25000 UNITS/250 ML IV (17:03)
[2024-04-03] MEDS: ASPIRIN 325 MG PO (17:03)
--- NOTE | 2024-04-03 20:00 | PTCARENOTE ---
Received pt from [facility]. pt is recent transfer from ED. Pt's chief complaint was chest pain, plain is cardiac cath 04/04. AV paced on monitor. VSS. heart sounds audible, radial and DP pulses palpable. lungs diminished throughout, spo2 96% on RA, pt
has a non productive cough and is Flu +. + BS x4 quadrants, abdomen, soft non tender, pt is NPO at 0000. pt voiding clear yellow urine. skin is intact. PIV maintained. heparin gtt infusing. remaining admission questions answered and home medication
list confirmed. call arreola within reach. will continue to monitor.
[2024-04-03 20:51] LABS: Troponin I < 0.012 ng/ml
[2024-04-03] MEDS: LIPITOR 80 MG PO (21:09)
[2024-04-03] MEDS: NORVASC 5 MG PO (21:09)
[2024-04-03] MEDS: NOVOLOG FLEXPEN-MODERATE RESISTANCE SC (21:10)
[2024-04-03] MEDS: MIRAPEX, GENERIC 0.5 MG PO (22:22)
[2024-04-03] MEDS: APRESOLINE 50 MG PO (22:22)
[2024-04-03] MEDS: APRESOLINE 25 MG PO (22:23)
[2024-04-03 23:20] LABS: Glucose - Point of Care 175 mg/dl (70-99)
[2024-04-03 23:22] LABS: APTT 65.8 Sec (23.4-35.0)
[2024-04-04] VITALS (18 sets, daily range): BP systolic 112–166; BP diastolic 39–80
--- NOTE | 2024-04-04 | PTCARENOTE ---
Pt assessment unchanged. AV paced on monitor. VSS. labs for PTT drawn and resulted. Heparin gtt adjusted per protocol, see worklist
--- NOTE | 2024-04-04 04:00 | PTCARENOTE ---
Pt assessment unchanged. AV paced on monitor. VSS. labs drawn and sent. will continue to monitor.
[2024-04-04 04:26] LABS: % Basophils 0.5 % (0-2); % Eosinophils 1.2 % (0-6); % Immature Granulocytes 0.7 % (0-0.5); % Monocytes 8.2 % (1.7-9.3); % Neutrophils 51.4 % (42.2-75.2); Absolute Basophils 0.1 10^3/uL (0-0.2); Absolute Eosinophils 0.2 10^3/uL (0-0.7); Absolute Immature Granulocytes 0.1 10^3/uL (0-0.05); Absolute Monocytes 1.1 10^3/uL (0.1-0.6); Absolute Neutrophils 6.7 10^3/uL (1.4-6.5); Hematocrit 34.9 % (37.0-47.0); Hemoglobin 11.6 g/dL (12.0-16.0); Mean Corp Hgb Conc. 33.2 g/dL (33.0-37.0); Mean Corpuscular Hgb 29.5 pg (27.0-31.0); Mean Corpuscular Volume 88.8 fL (81.0-99.0); Mean Platelet Volume 10.3 fL (7.4-10.4); Nucleated Red Blood Cells % 0 %; Platelet Count 288 10^3/uL (130-400); Red Blood Cell Count 3.93 10^6/uL (4.20-5.40); Red Cell Dist. Width 13.3 % (11.5-14.5)
[2024-04-04 04:47] LABS: APTT 118.3 Sec (23.4-35.0)
[2024-04-04 05:04] LABS: Troponin I < 0.012 ng/ml
[2024-04-04 05:23] LABS: Carbon Dioxide 25 mmol/L (22-30)
[2024-04-04 05:44] LABS: ALT (SGPT) 20 U/L (0-35); AST (SGOT) 31 U/L (14-36); Albumin 3.9 g/dl (3.5-5.0); Alkaline Phosphatase 94 U/L (38-126); Blood Urea Nitrogen 16 mg/dl (7-17); Calcium 8.9 mg/dl (8.4-10.2); Chloride 103 mmol/L (98-107); Estimated Creatinine Clearance 51 ml/min; Glucose 142 mg/dl (70-99); Magnesium 1.9 mg/dl (1.6-2.3); Potassium 3.7 mmol/L (3.5-5.1); Sodium 136 mmol/L (135-145); Total Bilirubin 0.6 mg/dl (0.2-1.3); Total Protein 6.4 g/dl (6.3-8.2); eGFR > 60.00
[2024-04-04 07:36] LABS: Glucose - Point of Care 191 mg/dl (70-99)
--- NOTE | 2024-04-04 08:05 | PTCARENOTE ---
Assumed care of pt from prev nsg shift; Pt AAOx3 w/no c/o CP or SOB. Pt's VSS w/HR in the 60's & BP 146/57 this AM. Pt is AV paced on telemetry monitoring. Pt w/Heparin IV infusing as ordered through patent IV line. Pt NPO since midnight, awaiting
poss cardiac cath today. Pt w/call arreola within reach & plan of care ongoing.
[2024-04-04] MEDS: NOVOLOG FLEXPEN-MODERATE RESISTANCE SC ×3 (08:32→16:48)
--- NOTE | 2024-04-04 09:31 | W.PN.HOSP.TC ---
Today's Communication/Plan
-
IV heparin.
Catheterization
Assessment / Plan
Assessment / Plan
Impression:
Presentation with chest pain and concern for unstable angina
Influenza A positive
Conditions prior to admission:
CAD.
� Status post Xience stent to mid LAD 03/18.
� Status post stent to proximal RCA 09/15,
Complete heart block status post pacer 03/18.
Hypertension.
ORALIA/ARB's allergy.
Type II IDDM chronic leukocytosis
ECHO 01/01/23: EF 55-60%, stage 2 diastolic dysfunction, mod cLVH, MAC, mild MR, dilated LA, aortic sclerosis, normal right heart with mild pulm HTN
Plan:
Persistent pressure-like chest pain with concern for unstable angina
CAD with stent to LAD/RCA.
Negative troponin.
ECG with no ischemia/paced rhythm.
Has been on DAPT
Given high risk for in-stent stenosis plan is for cardiac cath
Continue IV heparin.
Remains on Toprol, Norvasc hydralazine/Imdur
Continue high intensity statin and Zetia
No evidence for volume overload. Hold Lasix and spironolactone prior to cardiac catheterization.
Influenza A positive. Family reports symptoms for over 7 days.
Currently afebrile
Stable respiratory status.
Chest x-ray with no acute abnormalities.
Given duration of symptoms, no indication for Tamiflu.
Type 2 diabetes/IDDM.
Currently n.p.o.
Most recent hemoglobin A1c at 6.
Continue reduced dose of basal insulin
Hold metformin prior to catheterization
Anticipated Discharge: 24 - 48 hours
Subjective/Interval History
-
Date of Service: April 04, 2024
Objective Data
-
Labs:
Laboratory Results
04/03/24 04/04/24 04/04/24
22:50 04:06 11:00
WBC 13.0 H
Hgb 11.6 L
Hct 34.9 L
Plt Count 288
APTT 65.8 H 118.3 H Pending
Sodium 136
Potassium 3.7
Chloride 103
Carbon Dioxide 25
BUN 16
Creatinine 0.8
Glucose 142 H
Calcium 8.9
Total Bilirubin 0.6
AST 31
ALT 20
Alkaline Phosphatase 94
Vital Signs:
Vital Signs
Temp Pulse Resp BP Pulse Ox
97.7 F 64 18 146/57 96
04/04/24 07:11 04/04/24 08:15 04/04/24 07:11 04/04/24 07:12 04/04/24 07:11
I&O
04/03/24 04/04/24 04/05/24
06:59 06:59 06:59
Intake Total 60 / 60
Balance 60 / 60
Physical Exam
-
General: Well Developed and No Apparent Distress
HEENT: Normocephalic, Atraumatic and Moist Mucous Membranes
Respiratory: Clear to Auscultation
Cardiac: Regular Rhythm and S1/S2; Negative Murmur, Rub or Gallop
GI: Soft, Nontender, Nondistended and Normal Bowel Sounds; Negative Organomegaly
Rectal: Deferred by Provider
Musculoskeletal: No Clubbing, No Cyanosis and No Edema
Skin: Negative Rash
Neuro: Nonfocal/Grossly Intact
[2024-04-04 09:33] LABS: Glycohemoglobin (HgbA1c) 6.7 % (4.0-5.6)
[2024-04-04] MEDS: IMDUR (EXTENDED RELEASE) 60 MG PO (09:49)
[2024-04-04] MEDS: ASPIR LOW (ENTERIC COATED) 81 MG PO (09:49)
[2024-04-04] MEDS: ZETIA 10 MG PO (09:49)
[2024-04-04] MEDS: TOPROL XL 100 MG PO (09:50)
[2024-04-04] MEDS: PLAVIX 75 MG PO (09:50)
[2024-04-04] MEDS: APRESOLINE 50 MG PO ×3 (09:50→21:43)
[2024-04-04] MEDS: APRESOLINE 25 MG PO ×3 (09:51→21:43)
[2024-04-04] MEDS: PROTONIX 40 MG PO (09:51)
[2024-04-04] MEDS: NORVASC 5 MG PO ×2 (09:52→19:51)
--- NOTE | 2024-04-04 10:11 | W.PN.CARDCBS ---
Addendum entered and electronically signed by Lino Stapleton MD 04/04/24 11:12:
I saw and examined the patient.
The CREATIVE/ART DIRECTOR or PA's note was reviewed and I agree with the note.
Comment: General: Well developed, well nourished in NAD.
Neck: Supple, no JVD, HJR, carotids +2 B/L, no bruits bilaterally.
Heart: Non displaced PMI, RRR, no murmurs, No S3, S4, no rubs.
Lungs: Clear to auscultation bilaterally, no wheeze, rhonchi, rubs bilaterally,
normal expiratory phase.
Extremities: No clubbing, cyanosis or edema bilaterally.
Neuro: Grossly nonfocal, awake, alert and oriented x3.
She has had several episodes of jaw pain with and without exertion over the past week relieved with nitroglycerin. She did have relief of jaw pain after her stent in December 2023. She is on good medical treatment with Norvasc, Imdur, Toprol.
Will do catheterization to exclude in-stent restenosis after explaining the risk and benefits in detail to patient and family at bedside.
Original Note:
Today's Communication / Plan
-
cath today
Impression / Plan
-
PCP: Dr. Park Marley
Primary Design Cell Engineer: Dr. Stapleton
Impression:
Chest pain
CAD
s/p 3 mm Xience to mid LAD 03/05/23
s/p 3.5 mm [place] DS to prox RCA 09/10/23s/p Medtronic DC PPM for complete heart block 02/27/23
HTN, multidrug resistant
ORALIA/ARB allergy
Lisinopril caused itching, Diovan caused her to hallucinate seeing clocks running up the wallDyslipidemia
Type 2 diabetes mellitus on insulin and metformin with freestyle noelle CGM
Chronic elevated white blood cell count, followed by Dr. Garrison, oncology
Nuclear stress test 09/10/2023: moderate inferior and inferoapical ischemia. EF 67%
[facility] 12/30/2023: LM: Minimal LI's. LAD: Previously placed LAD stents widely patent, distal to apical LAD diffuse atherosclerotic plaque. Circumflex: OM1 23- 30% stenosis, distal to OM 1 takeoff there is a 50% stenosis in the mid circumflex. RCA:
Hazy 8090% ostial to proximal in-stent restenosis. IVUS imaging showed 2 areas at ostium and proximal of significant ISR, status post PCI using IV L shockwave and IVUS guidance with a Xience drug-eluting stent with excellent angiographic and IVUS
result. Previously placed LAD stents are widely patent. Normal LVEDP.
[facility] 09/10/2023:LM: Minimal luminal irregularities. LAD: Previously placed LAD stents widely patent. Distal to apical LAD has diffuse atherosclerotic plaque. LCx: OM1 has diffuse up to 23-30% stenosis. Just distal to the OM1 takeoff there is a 50%
stenosis in the mid LCx. RCA: Heavily calcified 80% to 90% proximal stenosis. Successful PCI of the RCA stenosis with a 3.5 x 15 mm Medtronic Riley stent. Significantly elevated LVEDP at 25 mmHg.
ECHO 01/01/23: EF 55-60%, stage 2 diastolic dysfunction, mod cLVH, MAC, mild MR, dilated LA, aortic sclerosis, normal right heart with mild pulm HTN
Echo 09/09/2023: EF 55-60%, mild cLVH, no RWMA, mild MR, mild AI
Plan:
-[facility] with chest pain at rest, describes this as substernal pressure, resolved with sublingual nitroglycerin. Also w/ intermittent jaw pain leading up to this which she identifies as an anginal equivalent.
-ECG 04/03/2024 paced with no obvious ischemic changes.
-telem personally reviewed, AV paced
- initial and serial troponins undetectable
-pt with undetectable troponins in 12/2023 at time of CP and found to have in-stent restenosis of RCA
- Concern for unstable angina
-currently CP free
-Medical management of suspected unstable angina with aspirin/plavix, high intensity statin, heparin drip, beta-dre
-coronary angiography today
-check echo today, previously LVEF was preserved
-Patient with a h/o multidrug resistant HTN
-Cont outpatient amlodipine, hydralazine, Imdur, spironolactone, Toprol XL, lasix.
Discussed with family at bedside
Progress Note - Design Cell Engineer
Subjective
Date of Service: April 04, 2024
chest pain resolved
for cath today
Objective
Labs:
04/04/24 04:06
04/04/24 04:06
Labs
Hgb 11.6 g/dL (12.0-16.0) L 04/04/24 04:06
Hct 34.9 % (37.0-47.0) L 04/04/24 04:06
Plt Count 288 10^3/uL (130-400) 04/04/24 04:06
PT 12.6 Sec (11.4-14.6) 04/03/24 16:29
INR 0.91 04/03/24 16:29
APTT 118.3 Sec (23.4-35.0) H 04/04/24 04:06
Sodium 136 mmol/L (135-145) 04/04/24 04:06
Potassium 3.7 mmol/L (3.5-5.1) 04/04/24 04:06
BUN 16 mg/dl (7-17) 04/04/24 04:06
Creatinine 0.8 mg/dL (0.6-1.0) 04/04/24 04:06
Glucose 142 mg/dl (70-99) H 04/04/24 04:06
Troponins
04/03/24 04/03/24 04/04/24
13:28 20:05 00:36
Troponin I < 0.012 < 0.012 Cancelled
04/04/24
04:06
Troponin I < 0.012
Vital Signs and I&O:
Vital Signs
Temp Pulse Resp BP Pulse Ox
97.7 F 64 18 146/57 96
04/04/24 07:11 04/04/24 08:15 04/04/24 07:11 04/04/24 07:12 04/04/24 07:11
Vital Signs
Temp Pulse Resp BP Pulse Ox
97.7 F 64 18 146/57 96
04/04/24 07:11 04/04/24 08:15 04/04/24 07:11 04/04/24 07:12 04/04/24 07:11
Intake & Output
04/02/24 04/03/24 04/04/24 04/05/24
06:59 06:59 06:59 06:59
Intake Total 60 / 60
Balance 60 / 60
Physical Exam
Physical Exam
GEN: No distress, awake, Ox3
HEENT: supple, anicteric, mmm
LUNGS: CTA, no wheezes/rales
CV: Reg, S1/S2, no murmur
ABD: soft, BS+, NT/ND
EXT: No edema
NEURO: Gross non-focal
SKIN: No rash
[2024-04-04 12:03] LABS: Glucose - Point of Care 143 mg/dl (70-99)
[2024-04-04 12:26] LABS: APTT 85.7 Sec (23.4-35.0)
--- NOTE | 2024-04-04 15:10 | CM ---
Chart reviewed. Patient is independent of ADLS, lives with her in a 2 STH, 6 WOOD, 0 DME. Plan is for the patient to return home. CM to follow
[2024-04-04 16:43] LABS: Glucose - Point of Care 124 mg/dl (70-99)
--- NOTE | 2024-04-04 16:47 | PTCARENOTE ---
Report given to Vicky in the lab technician; pt taken in her bed to lab technician. Hep drip off on transport.
[2024-04-04 17:33] LABS: ACT-LR - POC 219 Seconds (116-155)
[2024-04-04 17:42] LABS: ACT-LR - POC 287 Seconds (116-155)
--- NOTE | 2024-04-04 18:15 | PTCARENOTE ---
Received report from Dedra in the chemical lab supervisor; Rec'd pt back AAOx3 w/no c/o CP or SOB. Pt w/ (2) side by side R radial bands due to heavy oozing from first band. Pt w/ warm fingertips, but hand does appear slightly cyanotic. Pt's SpO2 on that hand
96% on RA. No signs or symptoms of active bleeding or hematoma. Pt assisted w/calling for dinner. VS stable. Call arreola within reach & no addtl needs at this time.
[2024-04-04] MEDS: LIPITOR 80 MG PO (18:47)
[2024-04-04] MEDS: ROBITUSSIN DM 10 ML PO (19:55)
--- NOTE | 2024-04-04 20:06 | ITS.CL.CATH ---
Director Of People - Catheterization
Cardiac Catheterization
Procedure Report:
LEFT HEART CATHETERIZATION
Date of Procedure: April 04, 2024
Referring: Dr. Lino Stapleton
PROCEDURES:
1. Left heart catheterization with coronary and low volume single-plane left ventriculography
2. Hemodynamic assessment of LAD with a Bristol Omni wire. The iFR in the LAD measured just below the ischemic threshold
INDICATION: This is a 78-year-old female who presented to [facility] on 09/10/2023 with unstable anginal symptoms and was referred for coronary angiography. She was found to have a high-grade 80-90% heavily calcified ostial to proximal RCA
stenosis that was treated with placement of a 3.5 x 15 mm [place] stent that was implanted at nominal pressures then postdilated with a 3.5 mm noncompliant balloon between 18 and 20 hanna with an excellent angiographic result. She felt well for several
weeks but then developed recurring exertional jaw discomfort similar to her prior anginal symptoms. She was referred for repeat coronary angiography on 12/30/2023 and was found to have 80 to 90% ostial to proximal in-stent restenosis. Intravascular
ultrasound imaging of the area revealed heavy calcification at the ostium and proximally with a 207 degree arc of calcium noted around the stent. The lesion was treated with intravascular lithotripsy using a Shockwave 3.5 x 12 mm balloon delivering
therapy to the ostium and proximal RCA. This was followed by placement of a 3.5 x 23 mm Xience stent and postdilated distally with a 3.5 mm noncompliant balloon to 20 hanna and proximally with a 3.75 mm noncompliant balloon to 24 hanna. Intravascular
ultrasound imaging revealed an excellent result corresponding to the angiographic findings. She did well but developed recurring jaw discomfort and presents for evaluation. Her troponin was serially undetectable but the decision is made to refer
for repeat coronary angiography given the aggressive nature of her coronary disease.
ACCESS: Right radial artery, 6 Cam[place]onian sheath
HEMODYNAMICS : (mmHg)
AO (s/d) : 156/44, 48
LV (s/d) : 149/4
LVEDP : 15
CORONARY FINDINGS
DOMINANCE: Right
LEFT MAIN: Short and unobstructed
LEFT ANTERIOR DESCENDING: The LAD is a medium caliber vessel giving rise to a single major diagonal branch. The previously placed stent in the LAD remains patent and is positioned at or just beyond the origin of the only sizable diagonal branch.
The mid LAD beyond the stented segment has a long 50% atherosclerotic segment in the mid vessel. The distal LAD tapers to a small caliber vessel with moderate diffuse atherosclerotic plaque. The iFR in the mid LAD measures just below the ischemic
threshold at 0.85, 0.85, and 0.85 with a wire in the distal LAD. The IFR wire was retracted and repeat IFR measurements were performed measuring just at the ischemic threshold at 0.89, 0.89, and 0.88. The origin of the only sizable diagonal branch
is somewhat hazy with at least a 50% proximal stenosis noted
CIRCUMFLEX: The circumflex is a medium to large caliber nondominant vessel supplying a large OM1 with a 40% proximal stenosis and terminating in a small OM 2
RIGHT CORONARY ARTERY: Diffuse 50-60% ostial to proximal in-stent restenosis and focal 80% in-stent restenosis within the midportion of the previously implanted stents. The mid to distal right coronary artery is otherwise free of significant
atherosclerotic disease. The PDA is patent.
VENTRICULOGRAPHY: Low volume and injected contrast was of limited value to assess for regional wall motion abnormality
HEMODYNAMIC ASSESSMENT OF THE LAD WITH A V[place] OMNI WIRE: The origin of the left main was cannulated with a 6 Fr 3.5 guide catheter. Intravenous heparin was administered and the ACT was followed during the procedure. Two hundred micrograms of
intracoronary nitroglycerin was given through the guide catheter. A Bristol Omni wire was advanced to the guide catheter tip and normalized to guide catheter pressure. The Omni wire was then carefully manipulated across the stenosis in the mid to
distal LAD. The iFR with the Omni wire in the distal LAD measured 0.85, 0.85, and 0.85. The Omni wire was withdrawn to the mid LAD and the repeat IFR measurements remained just below the ischemic threshold at 0.89, 0.89, and 0.88. A slow pullback
was performed with step up noted on the proximal edge of the LAD stent back to a Pd/Pa of 1.0 in the proximal LAD
RADIATION SUMMARY: Fluoro Time (min): 8.9, Dose (mGy): 376, DAP (Gy.cm2) : 27.3
Closure Device: TR band x 2
CONCLUSIONS
1. Recurring in-stent restenosis of ostial to proximal RCA. The vessel was well prepped and treated last procedure using intravascular lithotripsy/shockwave device and intravascular ultrasound to appropriately size the ostial and proximal RCA
stents. Within 3 months there is been recurring in-stent restenosis within the 2 previously placed stents. The LAD has moderate diffuse atherosclerosis with the iFR measuring below the ischemic threshold and the origin of the diagonal branch is
jailed by the stent and modestly hazy although angiographically not critical.
RECOMMENDATIONS
1. Will discuss with CT surgery as coronary artery bypass grafting of the LAD, diagonal, and RCA seems most appropriate.
Copy to: Dr. Lino Stapleton
--- NOTE | 2024-04-04 21:14 | PTCARENOTE ---
pt received at change of shift, pt seen and assessed in room. Pt AOx3, tele reading AV paced. 2 TR bands placed on R arm, started taking air out at 7:30pm this evening, continuing to take air out per protocol. no signs of oozing at both sites, pulse
ox remaining on patient's right hand, satting 94-97%. this RN discussed POC, pt verbalizes understanding. call arreola within reach. continuing to monitor at this time.
[2024-04-04 21:25] LABS: Glucose - Point of Care 236 mg/dl (70-99)
[2024-04-04] MEDS: LANTUS 0.18 UNITS SC (21:43)
[2024-04-04] MEDS: TYLENOL 650 MG PO (21:43)
[2024-04-04] MEDS: MIRAPEX, GENERIC 0.5 MG PO (21:44)
[2024-04-05] VITALS (8 sets, daily range): BP systolic 100–134; BP diastolic 41–60
[2024-04-05 03:45] LABS: Hematocrit 31.7 % (37.0-47.0); Hemoglobin 10.6 g/dL (12.0-16.0); Mean Corp Hgb Conc. 33.4 g/dL (33.0-37.0); Mean Corpuscular Hgb 29.9 pg (27.0-31.0); Mean Corpuscular Volume 89.5 fL (81.0-99.0); Mean Platelet Volume 10.3 fL (7.4-10.4); Platelet Count 278 10^3/uL (130-400); Red Blood Cell Count 3.54 10^6/uL (4.20-5.40); Red Cell Dist. Width 13.6 % (11.5-14.5); White Blood Cell Count 13.4 10^3/uL (4.8-10.8)
[2024-04-05 04:08] LABS: Blood Urea Nitrogen 20 mg/dl (7-17); Carbon Dioxide 21 mmol/L (22-30); Chloride 102 mmol/L (98-107); Estimated Creatinine Clearance 46 ml/min; Glucose 152 mg/dl (70-99); Potassium 3.7 mmol/L (3.5-5.1); Sodium 134 mmol/L (135-145); eGFR > 60.00
[2024-04-05] MEDS: ZETIA 10 MG PO (07:36)
[2024-04-05] MEDS: APRESOLINE 50 MG PO ×3 (07:36→22:13)
[2024-04-05] MEDS: ASPIR LOW (ENTERIC COATED) 81 MG PO (07:36)
[2024-04-05] MEDS: NORVASC 5 MG PO ×2 (07:37→20:23)
[2024-04-05] MEDS: PROTONIX 40 MG PO (07:37)
[2024-04-05] MEDS: TOPROL XL 100 MG PO (07:37)
[2024-04-05] MEDS: APRESOLINE 25 MG PO ×3 (07:37→22:13)
[2024-04-05 07:38] LABS: Glucose - Point of Care 137 mg/dl (70-99)
[2024-04-05] MEDS: IMDUR (EXTENDED RELEASE) 60 MG PO ×2 (07:39→10:22)
[2024-04-05] MEDS: NOVOLOG FLEXPEN-MODERATE RESISTANCE SC ×2 (07:43→16:57)
--- NOTE | 2024-04-05 09:42 | W.PN.CARDCBS ---
Addendum entered and electronically signed by Lino Stapleton MD 04/05/24 10:27:
I saw and examined the patient.
The POWER ORIGINATOR or PA's note was reviewed and I agree with the note.
Comment: General: Well developed, well nourished in NAD.
Neck: Supple, no JVD, HJR, carotids +2 B/L, no bruits bilaterally.
Heart: Non displaced PMI, RRR, no murmurs, No S3, S4, no rubs.
Lungs: Clear to auscultation bilaterally, no wheeze, rhonchi, rubs bilaterally,
normal expiratory phase.
Extremities: No clubbing, cyanosis or edema bilaterally.
Neuro: Grossly nonfocal, awake, alert and oriented x3.
She had jaw pain at rest last night. Will increase Imdur. Consider IV heparin if jaw pain recurs. Await CT surgery input. Discussed with patient and family at bedside in detail.
Original Note:
Today's Communication / Plan
-
Check direct LDL
Increase Imdur ER to 120 mg daily
51 min in face to face and coordination of care
Impression / Plan
-
PCP: Dr. Park Marley
Primary Tail End Rider: Dr. Stapleton
Impression:
Chest pain
CAD
s/p 3 mm Xience to mid LAD 03/05/23
s/p 3.5 mm [place] DS to prox RCA 09/10/23
cath with prox RCA in-stent restenosis treated with shockwave and 3.5 mm Xience INA with postdilation up to 24 hanna and excellent angiographic result at end of case 12/30/23
recurrent in-stent restenosis of ostial to proximal RCA 04/04/24
s/p Medtronic DC PPM for complete heart block 02/27/23
HTN, multidrug resistant
ORALIA/ARB allergy
Lisinopril caused itching, Diovan caused her to hallucinate seeing clocks running up the wall
Dyslipidemia
Type 2 diabetes mellitus on insulin and metformin with freestyle noelle CGM
Chronic elevated white blood cell count, followed by Dr. Garrison, oncology
Nuclear stress test 09/10/23: moderate inferior and inferoapical ischemia. EF 67%
[facility] 12/30/2023: LM: Minimal LI's. LAD: Previously placed LAD stents widely patent, distal to apical LAD diffuse atherosclerotic plaque. Circumflex: OM1 23- 30% stenosis, distal to OM 1 takeoff there is a 50% stenosis in the mid circumflex. RCA:
Hazy 8090% ostial to proximal in-stent restenosis. IVUS imaging showed 2 areas at ostium and proximal of significant ISR, status post PCI using IV L shockwave and IVUS guidance with a Xience drug-eluting stent with excellent angiographic and IVUS
result. Previously placed LAD stents are widely patent. Normal LVEDP.
[facility] 09/10/2023:LM: Minimal luminal irregularities. LAD: Previously placed LAD stents widely patent. Distal to apical LAD has diffuse atherosclerotic plaque. LCx: OM1 has diffuse up to 23-30% stenosis. Just distal to the OM1 takeoff there is a 50%
stenosis in the mid LCx. RCA: Heavily calcified 80% to 90% proximal stenosis. Successful PCI of the RCA stenosis with a 3.5 x 15 mm Medtronic [place] stent. Significantly elevated LVEDP at 25 mmHg.
ECHO 01/01/23: EF 55-60%, stage 2 diastolic dysfunction, mod cLVH, MAC, mild MR, dilated LA, aortic sclerosis, normal right heart with mild pulm HTN
Echo 09/09/23: EF 55-60%, mild cLVH, no RWMA, mild MR, mild AI
Echo 04/04/24: EF 55 to 60%, mild MS with peak/mean 9/4 mmHg and MVA 2.3 cm SQ, trace MR, aortic sclerosis without stenosis, trace AR
Plan:
-Patient with recurrent in-stent restenosis of her ostial-prox RCA. Plan is for CABG evaluation.
-Troponin serially undetectable despite chest pain on admission
-Cont outpatient dose of amlodipine 5 mg BID
-Increase dose of Imdur ER to 120 mg daily
-Cont aspirin 81 mg daily
-Patient with a h/o multidrug resistant HTN. Patient taking amlodipine 5 mg BID, hydralazine 75 mg TID, Imdur ER 60 mg daily, spironolactone 12.5 mg daily and Toprol XL 100 mg daily.
-Patient with previous allergies to lisinopril and Diovan.
-Calculated LDL is -11 due to TG of 383. Check direct LDL, ordered by me 04/05/24. Outpatient doses of atorvastatin 80 mg daily and Zetia 10 mg daily continued.
Progress Note - Tail End Rider
Subjective
Date of Service: April 05, 2024
Feels well, no chest pain at rest
Objective
Labs:
04/05/24 03:23
04/05/24 03:23
Labs
Hgb 10.6 g/dL (12.0-16.0) L 04/05/24 03:23
Hct 31.7 % (37.0-47.0) L 04/05/24 03:23
Plt Count 278 10^3/uL (130-400) 04/05/24 03:23
PT 12.6 Sec (11.4-14.6) 04/03/24 16:29
INR 0.91 04/03/24 16:29
APTT Cancelled 04/04/24 18:00
Sodium 134 mmol/L (135-145) L 04/05/24 03:23
Potassium 3.7 mmol/L (3.5-5.1) 04/05/24 03:23
BUN 20 mg/dl (7-17) H 04/05/24 03:23
Creatinine 0.9 mg/dL (0.6-1.0) 04/05/24 03:23
Glucose 152 mg/dl (70-99) H 04/05/24 03:23
Troponins
04/03/24 04/03/24 04/04/24
13:28 20:05 00:36
Troponin I < 0.012 < 0.012 Cancelled
04/04/24
04:06
Troponin I < 0.012
Vital Signs and I&O:
Vital Signs
Temp Pulse Resp BP Pulse Ox
97.5 F 62 18 119/41 98
04/05/24 07:42 04/05/24 07:42 04/05/24 07:42 04/05/24 03:16 04/05/24 07:42
Vital Signs
Temp Pulse Resp BP Pulse Ox
97.5 F 62 18 119/41 98
04/05/24 07:42 04/05/24 07:42 04/05/24 07:42 04/05/24 03:16 04/05/24 07:42
Intake & Output
04/03/24 04/04/24 04/05/24 04/06/24
06:59 06:59 06:59 06:59
Intake Total 270 / 270
Balance 270 / 270
Physical Exam
Physical Exam
GEN: AAOx3
HEENT: MMM
LUNGS: RA. No audible wheeze
CV: SR on tele.
ABD: ND
EXT: No edema B/L
NEURO: Gross non-focal
SKIN: No rash
--- NOTE | 2024-04-05 10:33 | CONSULT.CT ---
Addendum entered and electronically signed by Celso Plummer MD 04/05/24 15:36:
CARDIAC SURGERY ATTENDING:
It was my pleasure to meet with Mrs. Savi Carter and her family at bedside this afternoon. I agree with the consultation note as written below. I have reviewed her available imaging and preoperative studies. I believe she will benefit from
surgical coronary revascularization I anticipate TRIPATHI to LAD, greater saphenous vein to distal RCA/PDA, and potential/likely greater saphenous vein to D1. Her left circumflex disease is present, but is not of the severity to warrant surgical
bypass. Her last dose of Plavix was on 04/04/2024. If the patient opts to or requires remaining as an inpatient, I will plan to check a P2Y12 level on to hopefully move forward with surgical intervention on Thursday. If she has not cleared
her Plavix by , we will plan for operative intervention next Thursday.
I had a long conversation with Mrs. Carter and her family at bedside. We discussed her coronary pathology, reviewed the proposed operative interventions, discussed the periprocedural risks (including, but not limited to, , stroke, MS,
arrhythmia, PNA, DARIUS/F, bleeding, and infection), reviewed the expected in-hospital postprocedural course, and discussed expected outpatient recovery. All questions were answered to the best of my abilities. The patient was agreeable to proceed.
We will calculate her STS risk percentages and add them to her medical record.
Thank you for the opportunity participate in the care of this kind patient.
Please call if you have any questions or concerns.
Celso Plummer MD
[phone]
Original Note:
Consultation
-
Date/Time Consultation Requested: 04/05/24
Date/Time Consultation Performed: 04/05/24
Requesting Provider: Aldo Nguyễn
Performing Provider: Fany TOVAR for Celso Plummer MD
Reason for Consultation: CABG evaluation
Patient History
Physicians
Family Physician: Park Marley
Outpatient Wire Loop Machine Operator: Lino Stapleton
Inpatient Wire Loop Machine Operator: [facility]
History of Present Illness
78-year-old female with known coronary disease with multiple stents was admitted to [place] emergency room on 04/04/2024 with complaint of intermittent jaw pressure primarily and occasional substernal chest pain that has been present
since 03/23/2024. Pain occurs with and without activity. Initial troponin was less than 0.012 and patient was started on IV heparin. Patient tested positive for influenza A and is largely asymptomatic with only a slight nonproductive cough.
Patient was taken for left heart cath which reported in-stent restenosis of her most recent right coronary INA that was placed in December 2023. In addition there is a 50% mid and 50% proximal diagonal lesion. Patient's last dose of Plavix was
04/04/2024. Patient did experience mild jaw pressure while ambulating in halls this morning with family.
Pertinent negatives:
Denies CVA/TIA, dysphagia, asthma/wheezing, hepatitis/fatty liver, bowel/bladder issues, cancer, intervention for varicose veins, radiation treatment, diabetic neuropathy
Past Medical History
Past Medical History: CAD (LAD stent (03/18), RCA stent (09/15), RCA shockwave and stent (01/16)), HTN, Hypercholesterolemia, NIDDM (Diagnosed approximately 20 years ago-treated with insulin and oral agents) and Other (Chronic leukocytosis due to
smoldering myeloma diagnosed 4 years ago (followed by Dr. Garrison-oncology); uterine fibroids; complete heart block; fractured left humerus)
Past Surgical History
Past Surgical History: Other (Medtronic pacer (2009); RONNY/BSO (1993); pinning of left humerus (2012))
Family History
Mother: N/A
Father: N/A
Family Medical History: Diabetes (brother) and Other (PAD-brother)
Social History
Alcohol: None
Drug: None
Tobacco: Non-Smoker
Personal:
Living: With Spouse
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
Allergies
Allergy/AdvReac Type Severity Reaction Status Date / Time
lisinopril Allergy Severe Itching Verified 04/05/24 09:56
valsartan [From Diovan] Allergy Severe hallucinati Verified 04/05/24 09:56
ons
Home Medications
�Medication �Instructions �Recorded �Confirmed �Type
amlodipine 5 mg tablet 5 mg PO BID Blood pressure #60 tabs 03/01/23 04/03/24 Rx
cetirizine 10 mg tablet (Zyrtec) 10 mg PO QPM Allergies #0 tabs 03/01/23 04/03/24 Rx
cyanocobalamin (vitamin B-12) 1,000 mcg PO DAILY b12 defeciency 03/01/23 04/03/24 Rx
1,000 mcg tablet #60 tabs
insulin degludec 100 unit/mL (3 24 unit (0.24 mL) SC HS Diabetes 03/01/23 04/03/24 Rx
mL) subcutaneous pen (Tresiba #0 mL
FlexTouch U-100 insulin)
pramipexole 0.5 mg tablet 0.5 mg PO HS other #0 tabs 03/01/23 04/03/24 Rx
spironolactone 25 mg tablet 12.5 mg (1/2 x 25 mg) PO DAILY 03/01/23 04/03/24 Rx
Blood pressure #30 tabs
thiamine HCl (vitamin B1) 100 mg 100 mg PO BID Supplement #20 tabs 03/01/23 04/03/24 Rx
tablet
calcium 500 mg (as 1 tab PO BID Supplement 03/05/23 04/03/24 History
carbonate)-vitamin D3 10 mcg (400
unit) tablet (Calcium 500 + D)
ferrous sulfate 325 mg (65 mg 325 mg PO MOWEFR anemia 03/05/23 04/03/24 History
iron) tablet
insulin aspart U-100 100 unit/mL 1 sliding scale dose SC AC Diabetes 03/05/23 04/03/24 History
subcutaneous cartridge (Novolog
PenFill U-100 Insulin aspart)
metformin 500 mg tablet,extended 1,000 mg PO BID@0800,1700 Diabetes 03/05/23 04/03/24 History
release 24 hr
clopidogrel 75 mg tablet 75 mg PO DAILY #90 tabs 03/06/23 04/03/24 Rx
furosemide 20 mg tablet 20 mg PO DAILY #90 tabs 03/06/23 04/03/24 Rx
hydralazine 25 mg tablet 25 mg PO TID #270 tabs 03/06/23 04/03/24 Rx
hydralazine 50 mg tablet 50 mg PO TID #270 tabs 03/06/23 04/03/24 Rx
Lactobac no.2-Bifidobac no.1-S. 1 cap PO DAILY Supplement 09/08/23 04/03/24 History
thermo 112.5 billion cell capsule
(Visbiome)
aspirin 81 mg tablet,delayed 81 mg PO QPM Blood clot 09/08/23 04/04/24 History
release prevention/tx
betamethasone valerate 0.1 % 1 applic topical WEEKLY PRN itching 09/08/23 04/03/24 History
topical ointment
isosorbide mononitrate 30 mg 60 mg PO DAILY Blood Pressure 09/08/23 04/03/24 History
tablet,extended release 24 hr
nitroglycerin 0.4 mg sublingual 0.4 mg sublingual [id number] PRN jaw 09/08/23 04/03/24 History
tablet pain
therapeutic multivitamin 1 tab PO DAILY Supplement 09/08/23 04/03/24 History
atorvastatin 80 mg tablet 80 mg PO QPM #30 tabs 09/11/23 04/03/24 Rx
pantoprazole 40 mg tablet,delayed 40 mg PO DAILY #30 tabs 09/11/23 04/03/24 Rx
release
ezetimibe 10 mg tablet (Zetia) 10 mg PO DAILY #90 tabs 12/31/23 04/03/24 Rx
metoprolol succinate 100 mg 100 mg PO QPM 12/31/23 04/04/24 History
tablet,extended release 24 hr
lysine 500 mg tablet (L-Lysine) 1,000 mg PO QPM Supplement 04/03/24 04/03/24 History
Review of Systems
-
History Source: Patient
General: Reports No Symptoms
HEENT: Reports No Symptoms
Respiratory: Reports No Symptoms
Cardiac: Reports Chest Pain (Intermittent jaw pain unrelated to activity)
Abdomen/GI: Reports No Symptoms
: Reports No Symptoms
Musculoskeletal: Reports Other (Chronic left hand paresthesias since pinning of left humerus)
Skin: Reports No Symptoms
Neurological: Reports No Symptoms
Vascular: Reports No Symptoms
Physical Exam
Vital Signs
Temp 97.5 F 04/05/24 07:42
Temp route: Oral 04/05/24 07:42
Pulse 62 04/05/24 08:15
Rhythm: A-V paced atrial/venticul 04/04/24 21:12
Resp Rate 18 04/05/24 07:42
Blood pressure 125/53 04/05/24 07:41
Blood pressure extremity used: Left upper arm 04/05/24 07:42
Position: Sitting 04/05/24 07:42
MAP (cuff-Sara Monitor) 74 04/05/24 07:41
SaO2 98 04/05/24 07:42
Oxygen Mode of Delivery Room air 04/05/24 07:42
Can the patient verbally communicate their pain? Yes 04/04/24 22:43
Pain scale ratin 04/04/24 22:43
Actual Weight 70.6 kg 04/03/24 18:39
Body Mass Index (BMI) 29.4 04/03/24 18:39
Labs
04/05/24 03:23
04/05/24 03:23
PT 12.6 Sec (11.4-14.6) 04/03/24 16:29
APTT Cancelled 04/04/24 18:00
Hemoglobin A1c 6.7 % (4.0-5.6) H 04/03/24 13:28
Troponin I < 0.012 ng/ml 04/04/24 04:06
Diagnostic Studies
Summary [facility] (04/04-right radial by Dr. Nguyễn):
LEFT MAIN: ok
LEFT ANTERIOR DESCENDING: Patent LAD stent. Long 50% mid LAD beyond the stented segment. Moderate diffuse disease of distal LAD. iFR just at the ischemic threshold at 0.89, 0.89, and 0.88. 50% proximal diagonal.
CIRCUMFLEX: 40% proximal OM1
RIGHT CORONARY ARTERY: Diffuse 50-60% ostial to proximal in-stent restenosis and focal 80% in-stent restenosis within the midportion of the previously implanted stents. The mid to distal right coronary artery is otherwise free of significant
atherosclerotic disease. The PDA is patent.
TTE (04/04/24):
EF 55-60%
Mild mitral stenosis with peak/mean gradients across the mitral valve of 9/4 mmHg, and mitral valve area of 2.3 cm2. Trace mitral regurgitation. Aortic sclerosis without stenosis. Trace aortic regurgitation.
Exam
General: Well Developed, Well Nourished and Comfortable
HEENT: Normocephalic, Anicteric, Moist Mucous Membranes and PERRLA
Neck: Trachea Midline
Respiratory: Clear
Cardiac: S1/S2 and Regular Rhythm
GI: Soft, Non Tender and Non Distended
Rectal: Deferred by Provider
Skin: Warm and Dry
Neuro: AO x 3 and Other (L hand lacquerer +4/5 (chronic))
Extremities: Pulses (+2/4 DP pulses B/L)
Lymph: No Lymphadenopathy
Psych: Calm
Assessment / Plan
-
78-year-old female with two-vessel CAD and in-stent restenosis of recent RCA stent with preserved LVEF
� Last Plavix dose 04/04/2024>need 5 day washout. T/C P2Y12 testing
� Dr. Plummer to review imaging and discuss risk-benefit of CABG with patient
- pre-op diagnostics ordered
Data Reviewed
-
EKG: Report Reviewed by me and Discussed with Physician
Economics Consultant: Report Reviewed by me and Discussed with Physician
Echo: Report Reviewed by me and Discussed with Physician
Radiology: Report Reviewed by me and Discussed with Physician
Labs: Labs Reviewed by me and Discussed with Physician
[2024-04-05] MEDS: NOVOLOG FLEXPEN-MODERATE RESISTANCE 5 UNITS SC (11:33)
[2024-04-05 11:38] LABS: Glucose - Point of Care 253 mg/dl (70-99)
--- NOTE | 2024-04-05 13:10 | CM ---
Chart reviewed. Patient is independent of ADLS, lives with her in a 2 STH, 6 WOOD, 0 DME. [facility] recommending CABG. CT Surgery consulted. CM to follow
--- NOTE | 2024-04-05 15:10 | W.PN.HOSP.TC ---
Today's Communication/Plan
-
CT surgery evaluation
Assessment / Plan
Assessment / Plan
Impression:
Presentation with chest pain and concern for unstable angina
Influenza A positive
Conditions prior to admission:
CAD.
� Status post Xience stent to mid LAD 03/18.
� Status post stent to proximal RCA 09/15,
Complete heart block status post pacer 03/18.
Hypertension.
ORALIA/ARB's allergy.
Type II IDDM chronic leukocytosis
ECHO 01/01/23: EF 55-60%, stage 2 diastolic dysfunction, mod cLVH, MAC, mild MR, dilated LA, aortic sclerosis, normal right heart with mild pulm HTN
Plan:
Persistent pressure-like chest pain with concern for unstable angina
CAD with stent to LAD/RCA.
Negative troponin.
ECG with no ischemia/paced rhythm.
Has been on DAPT
Left heart cath on 04/04 consistent with recurrent RCA in-stent stenosis
Echocardiogram on 04/04 with no abnormalities since prior study and preserved LVEF at 55 to 60%
Off Plavix
Off heparin.
CT surgery evaluation
Remains on Toprol, Norvasc hydralazine/Imdur
Continue high intensity statin and Zetia
No evidence for volume overload. Hold Lasix and spironolactone
Influenza A positive. Family reports symptoms for over 7 days.
Currently afebrile
Stable respiratory status.
Chest x-ray with no acute abnormalities.
Given duration of symptoms, no indication for Tamiflu.
Type 2 diabetes/IDDM.
Currently n.p.o.
Most recent hemoglobin A1c at 6.
Continue reduced dose of basal insulin
Hold metformin prior to catheterization
Anticipated Discharge: > 48 hours
Subjective/Interval History
-
Date of Service: April 05, 2024
Objective Data
-
Labs:
Laboratory Results
04/05/24
03:23
WBC 13.4 H
Hgb 10.6 L
Hct 31.7 L
Plt Count 278
Sodium 134 L
Potassium 3.7
Chloride 102
Carbon Dioxide 21 L
BUN 20 H
Creatinine 0.9
Glucose 152 H
Calcium 9.0
Vital Signs:
Vital Signs
Temp Pulse Resp BP Pulse Ox
98 F 61 18 127/47 98
04/05/24 11:47 04/05/24 12:15 04/05/24 11:47 04/05/24 11:52 04/05/24 11:47
I&O
04/04/24 04/05/24 04/06/24
06:59 06:59 06:59
Intake Total 270 / 270
Balance 270 / 270
Physical Exam
-
General: Well Developed and No Apparent Distress
HEENT: Normocephalic, Atraumatic and Moist Mucous Membranes
Respiratory: Clear to Auscultation
Cardiac: Regular Rhythm and S1/S2; Negative Murmur, Rub or Gallop
GI: Soft, Nontender, Nondistended and Normal Bowel Sounds; Negative Organomegaly
Rectal: Deferred by Provider
Musculoskeletal: No Clubbing, No Cyanosis and No Edema
Skin: Negative Rash
Neuro: Nonfocal/Grossly Intact
[2024-04-05 15:56] LABS: Urine Albumin 2+ (Neg - Trace); Urine Bilirubin Negative (Negative); Urine Character Clear (Clear); Urine Color Yellow; Urine Glucose 1+ (Negative); Urine Ketone Negative (Negative); Urine Leukocyte Negative (Negative); Urine Nitrite Negative (Negative); Urine Occult Blood Negative (Negative); Urine Specific Gravity 1.005 (<1.030); Urine Urobilinogen Negative (Neg - 1+)
[2024-04-05 16:45] LABS: Glucose - Point of Care 146 mg/dl (70-99)
[2024-04-05 16:57] LABS: Urine Red Blood Cell 0-2 /HPF (0-2); Urine Squamous Cell 21-25 /LPF (Few); Urine White Cell 0-2 /HPF (0-5)
[2024-04-05] MEDS: LIPITOR 80 MG PO (17:05)
[2024-04-05 17:25] LABS: LDL Cholesterol, Direct < 30 mg/dl
--- NOTE | 2024-04-05 18:00 | PTCARENOTE ---
Pt received this am with no c/o of any chest pain or sob. OOB ad arcelia, gait steady.
[2024-04-05 19:27] LABS: Hepatitis C Antibody Negative (Negative)
[2024-04-05 22:09] LABS: Glucose - Point of Care 226 mg/dl (70-99)
[2024-04-05] MEDS: MIRAPEX, GENERIC 0.5 MG PO (22:13)
[2024-04-05] MEDS: LANTUS 0.18 UNITS SC (22:13)
[2024-04-05] MEDS: TYLENOL 650 MG PO (22:56)
--- NOTE | 2024-04-06 00:01 | PTCARENOTE ---
Received patient at change of shift. AV paced on the monitor, HR in the 60s. Droplet precautions. Pt complains of jaw pain and requests Tylenol and reports that it helped her with the same thing yesterday. PRN Tylenol administered as per APR. Call
arreola within reach.
[2024-04-06 04:42] VITALS: BP 102/49
[2024-04-06 07:25] LABS: Glucose - Point of Care 170 mg/dl (70-99)
[2024-04-06] MEDS: ZETIA 10 MG PO (07:40)
[2024-04-06 07:41] VITALS: BP 131/56
[2024-04-06] MEDS: ASPIR LOW (ENTERIC COATED) 81 MG PO (07:41)
[2024-04-06] MEDS: IMDUR (EXTENDED RELEASE) 120 MG PO (07:41)
[2024-04-06] MEDS: TOPROL XL 100 MG PO (07:41)
[2024-04-06] MEDS: APRESOLINE 25 MG PO ×3 (07:41→22:22)
[2024-04-06] MEDS: NORVASC 5 MG PO ×2 (07:41→19:37)
[2024-04-06] MEDS: APRESOLINE 50 MG PO ×3 (07:41→22:21)
[2024-04-06] MEDS: PROTONIX 40 MG PO (07:41)
[2024-04-06] MEDS: NOVOLOG FLEXPEN-MODERATE RESISTANCE 1 UNITS SC (07:42)
[2024-04-06] MEDS: ROBITUSSIN DM 10 ML PO ×2 (07:47→20:48)
--- NOTE | 2024-04-06 09:04 | W.PN.CARDCBS ---
Addendum entered and electronically signed by Lino Stapleton MD 04/06/24 09:41:
I saw and examined the patient.
The AUTOMOTIVE REFINISH TECHNICIAN or PA's note was reviewed and I agree with the note.
Comment: General: Well developed, well nourished in NAD.
Neck: Supple, no JVD, HJR, carotids +2 B/L, no bruits bilaterally.
Heart: Non displaced PMI, RRR, no murmurs, No S3, S4, no rubs.
Lungs: Clear to auscultation bilaterally, no wheeze, rhonchi, rubs bilaterally,
normal expiratory phase.
Extremities: No clubbing, cyanosis or edema bilaterally.
Neuro: Grossly nonfocal, awake, alert and oriented x3.
She had another episode of jaw pain relieved by Tylenol last night. Will restart IV heparin. Continue isosorbide. Await timing of CABG. Discussed with patient and family at bedside in detail.
Original Note:
Today's Communication / Plan
-
Start Heparin gtt due to chest pain
Face to face and coordination of care 51 min
Impression / Plan
-
PCP: Dr. Park Marley
Primary Cash Applications Associate: Dr. Stapleton
Impression:
Chest pain
CAD
s/p 3 mm Xience to mid LAD 03/05/23
s/p 3.5 mm [place] DS to prox RCA 09/10/23
cath with prox RCA in-stent restenosis treated with shockwave and 3.5 mm Xience INA with postdilation up to 24 hanna and excellent angiographic result at end of case 12/30/23
recurrent in-stent restenosis of ostial to proximal RCA 04/04/24
s/p Medtronic DC PPM for complete heart block 02/27/23
HTN, multidrug resistant
ORALIA/ARB allergy
Lisinopril caused itching, Diovan caused her to hallucinate seeing clocks running up the wall
Dyslipidemia
Type 2 diabetes mellitus on insulin and metformin with freestyle noelle CGM
Chronic elevated white blood cell count, followed by Dr. Garrison, oncology
Nuclear stress test 09/10/23: moderate inferior and inferoapical ischemia. EF 67%
[facility] 12/30/2023: LM: Minimal LI's. LAD: Previously placed LAD stents widely patent, distal to apical LAD diffuse atherosclerotic plaque. Circumflex: OM1 23- 30% stenosis, distal to OM 1 takeoff there is a 50% stenosis in the mid circumflex. RCA:
Hazy 8090% ostial to proximal in-stent restenosis. IVUS imaging showed 2 areas at ostium and proximal of significant ISR, status post PCI using IV L shockwave and IVUS guidance with a Xience drug-eluting stent with excellent angiographic and IVUS
result. Previously placed LAD stents are widely patent. Normal LVEDP.
[facility] 09/10/2023:LM: Minimal luminal irregularities. LAD: Previously placed LAD stents widely patent. Distal to apical LAD has diffuse atherosclerotic plaque. LCx: OM1 has diffuse up to 23-30% stenosis. Just distal to the OM1 takeoff there is a 50%
stenosis in the mid LCx. RCA: Heavily calcified 80% to 90% proximal stenosis. Successful PCI of the RCA stenosis with a 3.5 x 15 mm Medtronic [place] stent. Significantly elevated LVEDP at 25 mmHg.
ECHO 01/01/23: EF 55-60%, stage 2 diastolic dysfunction, mod cLVH, MAC, mild MR, dilated LA, aortic sclerosis, normal right heart with mild pulm HTN
Echo 09/09/23: EF 55-60%, mild cLVH, no RWMA, mild MR, mild AI
Echo 04/04/24: EF 55 to 60%, mild MS with peak/mean 9/4 mmHg and MVA 2.3 cm SQ, trace MR, aortic sclerosis without stenosis, trace AR
Plan:
-Recurrent chest pain overnight despite increasing dose of Imdur ER to 120 mg daily on 04/05/24. Will start Heparin gtt 04/06/24, ordered by me.
-Patient with recurrent in-stent restenosis of her ostial-prox RCA. Plan is for CABG following Plavix washout
-Troponin serially undetectable despite chest pain on admission
-Cont outpatient dose of amlodipine 5 mg BID
-Cont higher dose of Imdur ER 120 mg daily
-Cont aspirin 81 mg daily
-Last dose of Plavix was 04/04/24
-Patient with a h/o multidrug resistant HTN.
-Cont amlodipine as above
-Cont Imdur ER as above
-Cont hydralazine 75 mg TID
-Cont spironolactone 12.5 mg daily
-Cont Toprol XL 100 mg daily.
-Patient with previous allergies to lisinopril and Diovan.
-Direct LDL is less than 30. TG of 383. Outpatient doses of atorvastatin 80 mg daily and Zetia 10 mg daily continued. Consider stopping Zetia and starting Tricor eventually.
-Hgb A1c 6.7%. Metformin on hold. Insulin continued.
Progress Note - Cash Applications Associate
Subjective
Date of Service: April 06, 2024
No chest pain at rest currently
Objective
Labs:
04/05/24 03:23
04/05/24 03:23
Labs
Hgb 10.6 g/dL (12.0-16.0) L 04/05/24 03:23
Hct 31.7 % (37.0-47.0) L 04/05/24 03:23
Plt Count 278 10^3/uL (130-400) 04/05/24 03:23
PT 12.6 Sec (11.4-14.6) 04/03/24 16:29
INR 0.91 04/03/24 16:29
APTT Cancelled 04/04/24 18:00
Sodium 134 mmol/L (135-145) L 04/05/24 03:23
Potassium 3.7 mmol/L (3.5-5.1) 04/05/24 03:23
BUN 20 mg/dl (7-17) H 04/05/24 03:23
Creatinine 0.9 mg/dL (0.6-1.0) 04/05/24 03:23
Glucose 152 mg/dl (70-99) H 04/05/24 03:23
Troponins
04/03/24 04/03/24 04/04/24
13:28 20:05 00:36
Troponin I < 0.012 < 0.012 Cancelled
04/04/24
04:06
Troponin I < 0.012
Vital Signs and I&O:
Vital Signs
Temp Pulse Resp BP Pulse Ox
98.9 F 61 20 131/56 98
04/06/24 07:40 04/06/24 07:45 04/06/24 07:40 04/06/24 07:41 04/06/24 07:40
Vital Signs
Temp Pulse Resp BP Pulse Ox
98.9 F 61 20 131/56 98
04/06/24 07:40 04/06/24 07:45 04/06/24 07:40 04/06/24 07:41 04/06/24 07:40
Intake & Output
04/04/24 04/05/24 04/06/24 04/07/24
06:59 06:59 06:59 06:59
Intake Total 270 / 270
Balance 270 / 270
Physical Exam
Physical Exam
GEN: AAOx3
HEENT: MMM
LUNGS: RA. No audible wheeze
CV: SR on tele.
ABD: ND
EXT: No edema B/L
NEURO: Gross non-focal
SKIN: No rash
--- NOTE | 2024-04-06 09:12 | W.PN.UPDATE ---
Update Note
Progress Note Update
Procedure Type:�Isolated CABG
Perioperative Outcome Estimate %
Operative Mortality 3.85%
Morbidity & Mortality 10.5%
Stroke 1.25%
Renal Failure 2.45%
Reoperation 2.04%
Prolonged Ventilation 5.62%
Deep Sternal Wound Infection 0.463%
Long Hospital Stay (>14 days) 10.8%
Short Hospital Stay (<6 days)* 24.7%
Clinical Summary
Planned Surgery: Isolated CABG, Urgent, First cardiovascular surgery
Demographics: 78 year old, female, 70.6kg, 155cm, BMI: 29.4 kg/m�
Lab Values: Creatinine: 0.9 mg/dL, Hematocrit: 31.7%, WBC Count: 13.4 10�/�L, Platelet Count: 928106 cells/�L
PreOp Medications: Insulin diabetes control
Substance Abuse: Never smoker
Risk Factors / Comorbidities: Insulin-dependent Diabetes Mellitus, Cancer <=5 yrs, Hypertension
Cardiac Status: Ejection Fraction = 55%
Coronary Artery Disease: 2 vessels diseased, Unstable Angina, OR: > 21 Days
Valve Disease: Trivial/Trace AR, Mitral Stenosis, Trivial/Trace MR, Trivial/Trace TR
Arrhythmia: Remote 3?? Degree Block
[2024-04-06] MEDS: HEPARIN 25000 UNITS/250 ML IV (11:17)
[2024-04-06 11:31] VITALS: BP 105/50
[2024-04-06] MEDS: NOVOLOG FLEXPEN-MODERATE RESISTANCE 5 UNITS SC (12:16)
[2024-04-06 12:18] LABS: Glucose - Point of Care 272 mg/dl (70-99)
--- NOTE | 2024-04-06 13:41 | CM ---
Preoperative and postoperative instructions and restrictions, along with showering guidelines taught with the patient. Cardiac Surgery Book provided. Patient is agreeable to a home visit by CT Transitional RN. Plan is for the patient to return
home with CT Transitional RN. CM to follow
--- NOTE | 2024-04-06 15:00 | W.PN.HOSP.TC ---
Today's Communication/Plan
-
Resumed on heparin for recurrent chest pain.
Awaiting CT surgery evaluation
Resume preadmission basal insulin. Continue basal bolus protocol with serial Accu-Cheks
Has been off Lasix and spironolactone
Assessment / Plan
Assessment / Plan
Impression:
Presentation with chest pain and concern for unstable angina
Influenza A positive
Conditions prior to admission:
CAD.
� Status post Xience stent to mid LAD 03/18.
� Status post stent to proximal RCA 09/15,
Complete heart block status post pacer 03/18.
Hypertension.
ORALIA/ARB's allergy.
Type II IDDM chronic leukocytosis
ECHO 01/01/23: EF 55-60%, stage 2 diastolic dysfunction, mod cLVH, MAC, mild MR, dilated LA, aortic sclerosis, normal right heart with mild pulm HTN
Plan:
Persistent pressure-like chest pain with concern for unstable angina
CAD with stent to LAD/RCA.
Negative troponin.
ECG with no ischemia/paced rhythm.
Has been on DAPT
Left heart cath on 04/04 consistent with recurrent RCA in-stent stenosis
Echocardiogram on 04/04 with no abnormalities since prior study and preserved LVEF at 55 to 60%
Off Plavix
Had recurrent episode of chest pain overnight 04/05. Resumed on heparin
CT surgery evaluation
Remains on Toprol, Norvasc hydralazine/Imdur
Continue high intensity statin and Zetia
No evidence for volume overload. Hold Lasix and spironolactone
Influenza A positive. Family reports symptoms for over 7 days.
Currently afebrile
Stable respiratory status.
Chest x-ray with no acute abnormalities.
Given duration of symptoms, no indication for Tamiflu.
Type 2 diabetes/IDDM.
Most recent hemoglobin A1c at 6.
Carb controlled diet
Continue long-acting insulin
Basal bolus protocol
Hold metformin.
Anticipated Discharge: > 48 hours
Subjective/Interval History
-
Date of Service: April 06, 2024
Objective Data
-
Labs:
Laboratory Results
04/06/24 04/06/24
10:42 17:15
APTT 27.0 Pending
Vital Signs:
Vital Signs
Temp Pulse Resp BP Pulse Ox
97.6 F 61 18 105/50 98
04/06/24 11:43 04/06/24 12:30 04/06/24 11:43 04/06/24 11:31 04/06/24 11:43
I&O
04/05/24 04/06/24 04/07/24
06:59 06:59 06:59
Intake Total 270 / 270
Balance 270 / 270
Physical Exam
-
General: Well Developed and No Apparent Distress
HEENT: Normocephalic, Atraumatic and Moist Mucous Membranes
Respiratory: Clear to Auscultation
Cardiac: Regular Rhythm and S1/S2; Negative Murmur, Rub or Gallop
GI: Soft, Nontender, Nondistended and Normal Bowel Sounds; Negative Organomegaly
Rectal: Deferred by Provider
Musculoskeletal: No Clubbing, No Cyanosis and No Edema
Skin: Negative Rash
Neuro: Nonfocal/Grossly Intact
[2024-04-06 15:58] LABS: Glucose - Point of Care 224 mg/dl (70-99)
[2024-04-06] MEDS: NOVOLOG FLEXPEN-MODERATE RESISTANCE 3 UNITS SC (16:08)
[2024-04-06] MEDS: LIPITOR 80 MG PO (16:45)
[2024-04-06 19:05] LABS: APTT 42.3 Sec (23.4-35.0)
[2024-04-06 19:22] VITALS: BP 111/71
[2024-04-06 19:40] VITALS: BP 121/47
--- NOTE | 2024-04-06 20:25 | PTCARENOTE ---
Patient received at change of shift out of bed to the chair. Heparin gtt infusing at 800units/hr, increased per order/protocol, see worklist intervention. Patient denies chest pain and/or jaw pain, offers no complaints at this time. AV paced on
net applications developer. Oxygen saturation 95% on room air. Right radial cath site with gauze and tegaderm C/D/I, surrounding area soft to palpation, bilateral radial pulses palpable. Plan of care discussed with patient. Call arreola within reach. Bed in
lowest position, wheels locked. Droplet precautions maintained. Care ongoing.
[2024-04-06] MEDS: TYLENOL 650 MG PO (20:47)
[2024-04-06 21:21] LABS: Glucose - Point of Care 197 mg/dl (70-99)
[2024-04-06 22:21] VITALS: BP 123/49
[2024-04-06] MEDS: LANTUS 0.24 UNITS SC (22:21)
[2024-04-06] MEDS: MIRAPEX, GENERIC 0.5 MG PO (22:21)
[2024-04-06] MEDS: MELATONIN 5 MG PO (22:36)
[2024-04-07] VITALS (7 sets, daily range): BP systolic 99–133; BP diastolic 49–72
[2024-04-07 02:36] LABS: Hematocrit 31.4 % (37.0-47.0); Hemoglobin 10.5 g/dL (12.0-16.0); Mean Corp Hgb Conc. 33.4 g/dL (33.0-37.0); Mean Corpuscular Hgb 29.7 pg (27.0-31.0); Mean Platelet Volume 10.1 fL (7.4-10.4); Platelet Count 295 10^3/uL (130-400); Red Blood Cell Count 3.53 10^6/uL (4.20-5.40); Red Cell Dist. Width 13.4 % (11.5-14.5); White Blood Cell Count 13.6 10^3/uL (4.8-10.8)
[2024-04-07 02:42] LABS: APTT 124.3 Sec (23.4-35.0)
[2024-04-07 03:04] LABS: VerifyNow PRU 200 PRU (180-376)
[2024-04-07 07:56] LABS: Glucose - Point of Care 165 mg/dl (70-99)
[2024-04-07] MEDS: NOVOLOG FLEXPEN-MODERATE RESISTANCE 300 UNITS SC (09:24)
[2024-04-07] MEDS: ZETIA 10 MG PO (09:26)
[2024-04-07] MEDS: PROTONIX 40 MG PO (09:27)
[2024-04-07] MEDS: NORVASC 5 MG PO ×2 (09:27→19:52)
[2024-04-07] MEDS: IMDUR (EXTENDED RELEASE) 120 MG PO (09:27)
[2024-04-07] MEDS: TOPROL XL 100 MG PO (09:28)
[2024-04-07] MEDS: ASPIR LOW (ENTERIC COATED) 81 MG PO (09:28)
[2024-04-07] MEDS: APRESOLINE 50 MG PO ×3 (09:29→23:04)
--- NOTE | 2024-04-07 09:31 | W.PN.CARDCBS ---
Addendum entered and electronically signed by Josefina Gil DO 04/07/24 14:47:
I saw and examined the patient.
The Tattooer's note was reviewed and I agree with the note.
Comment: Patient seen and examined with family in her room. She is out of bed to chair denies any further chest pain or pressure. No shortness of breath. No palpitations or dizziness. She spoke with CT surgery this morning with tentative plan
for CABG on April 12.
Plan:
78-year-old female with known multivessel coronary artery disease and multiple stents presents with unstable angina with plan for CABG for recurrent in-stent restenosis of ostial/proximal RCA after Plavix washout
-Requires inpatient stabilization prior to CABG
-Chest pain-free since starting IV heparin 04/06/2024; continue IV heparin drip until CABG
-Serial troponin undetectable
-P2Y12 assay is 200 suggesting evidence of active P2Y12 effect. Last dose of Plavix 04/04/24
-Cont aspirin 81 mg daily
-Continue aggressive and hypertensive regimen for multidrug resistant hypertension [Patient with previous allergies to lisinopril and Diovan].
-Direct LDL is less than 30. TG of 383. Outpatient doses of atorvastatin 80 mg daily and Zetia 10 mg daily continued.
-Hgb A1c 6.7%. Metformin on hold for anticipated CT surgery. Continue diabetic control; insulin
Original Note:
Today's Communication / Plan
-
Heparin gtt renewed
Follow BP and reduce dose of hydralazine if hypotensive
CABG tentatively scheduled for 04/12/24
Impression / Plan
-
PCP: Dr. Park Marley
Primary Commission Clerk: Dr. Stapleton
Impression:
Chest pain
CAD
s/p 3 mm Xience to mid LAD 03/05/23
s/p 3.5 mm [place] DS to prox RCA 09/10/23
cath with prox RCA in-stent restenosis treated with shockwave and 3.5 mm Xience INA with postdilation up to 24 hanna and excellent angiographic result at end of case 12/30/23
recurrent in-stent restenosis of ostial to proximal RCA 04/04/24
s/p Medtronic DC PPM for complete heart block 02/27/23
HTN, multidrug resistant
ORALIA/ARB allergy
Lisinopril caused itching, Diovan caused her to hallucinate seeing clocks running up the wall
Dyslipidemia
Type 2 diabetes mellitus on insulin and metformin with freestyle noelle CGM
Chronic elevated white blood cell count, followed by Dr. Garrison, oncology
Nuclear stress test 09/10/23: moderate inferior and inferoapical ischemia. EF 67%
[facility] 12/30/2023: LM: Minimal LI's. LAD: Previously placed LAD stents widely patent, distal to apical LAD diffuse atherosclerotic plaque. Circumflex: OM1 23- 30% stenosis, distal to OM 1 takeoff there is a 50% stenosis in the mid circumflex. RCA:
Hazy 8090% ostial to proximal in-stent restenosis. IVUS imaging showed 2 areas at ostium and proximal of significant ISR, status post PCI using IV L shockwave and IVUS guidance with a Xience drug-eluting stent with excellent angiographic and IVUS
result. Previously placed LAD stents are widely patent. Normal LVEDP.
[facility] 09/10/2023:LM: Minimal luminal irregularities. LAD: Previously placed LAD stents widely patent. Distal to apical LAD has diffuse atherosclerotic plaque. LCx: OM1 has diffuse up to 23-30% stenosis. Just distal to the OM1 takeoff there is a 50%
stenosis in the mid LCx. RCA: Heavily calcified 80% to 90% proximal stenosis. Successful PCI of the RCA stenosis with a 3.5 x 15 mm Medtronic [place] stent. Significantly elevated LVEDP at 25 mmHg.
ECHO 01/01/23: EF 55-60%, stage 2 diastolic dysfunction, mod cLVH, MAC, mild MR, dilated LA, aortic sclerosis, normal right heart with mild pulm HTN
Echo 09/09/23: EF 55-60%, mild cLVH, no RWMA, mild MR, mild AI
Echo 04/04/24: EF 55 to 60%, mild MS with peak/mean 9/4 mmHg and MVA 2.3 cm SQ, trace MR, aortic sclerosis without stenosis, trace AR
Plan:
-No recurrence of chest pain overnight after Heparin gtt was started 04/06/24. Heparin gtt renewed and would continue until CABG
-P2Y12 assay is 200 suggesting evidence of active P2Y12 effect. Last dose of Plavix 04/04/24
-Patient with recurrent in-stent restenosis of her ostial-prox RCA. Plan is for CABG following Plavix washout
-Troponin serially undetectable despite chest pain on admission
-Cont outpatient dose of amlodipine 5 mg BID
-Cont higher dose of Imdur ER 120 mg daily
-Cont aspirin 81 mg daily
-Patient with a h/o multidrug resistant HTN. 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
-Cont amlodipine as above
-Cont Imdur ER as above
-Cont hydralazine 75 mg TID
-Cont spironolactone 12.5 mg daily
-Cont Toprol XL 100 mg daily.
-Patient with previous allergies to lisinopril and Diovan.
-Direct LDL is less than 30. TG of 383. Outpatient doses of atorvastatin 80 mg daily and Zetia 10 mg daily continued. Consider stopping Zetia and starting Tricor eventually.
-Hgb A1c 6.7%. Metformin on hold. Insulin continued.
Progress Note - Commission Clerk
Subjective
Date of Service: April 07, 2024
No jaw pain overnight
Objective
Labs:
04/07/24 02:04
04/05/24 03:23
Labs
Hgb 10.5 g/dL (12.0-16.0) L 04/07/24 02:04
Hct 31.4 % (37.0-47.0) L 04/07/24 02:04
Plt Count 295 10^3/uL (130-400) 04/07/24 02:04
PT 12.6 Sec (11.4-14.6) 04/03/24 16:29
INR 0.91 04/03/24 16:29
APTT 124.3 Sec (23.4-35.0) H 04/07/24 02:04
Sodium 134 mmol/L (135-145) L 04/05/24 03:23
Potassium 3.7 mmol/L (3.5-5.1) 04/05/24 03:23
BUN 20 mg/dl (7-17) H 04/05/24 03:23
Creatinine 0.9 mg/dL (0.6-1.0) 04/05/24 03:23
Glucose 152 mg/dl (70-99) H 04/05/24 03:23
Vital Signs and I&O:
Vital Signs
Temp Pulse Resp BP Pulse Ox
98.0 F 61 18 113/68 97
04/07/24 07:58 04/07/24 07:52 04/07/24 07:58 04/07/24 07:52 04/07/24 07:59
Vital Signs
Temp Pulse Resp BP Pulse Ox
98.0 F 61 18 113/68 97
04/07/24 07:58 04/07/24 07:52 04/07/24 07:58 04/07/24 07:52 04/07/24 07:59
Intake & Output
04/05/24 04/06/24 04/07/24 04/08/24
06:59 06:59 06:59 06:59
Intake Total 270 / 270 480 / 480
Balance 270 / 270 480 / 480
Physical Exam
Physical Exam
GEN: AAOx3
HEENT: MMM
LUNGS: RA. No audible wheeze
CV: SR on tele.
ABD: ND
EXT: No edema B/L
NEURO: Gross non-focal
SKIN: No rash
[2024-04-07] MEDS: APRESOLINE 25 MG PO ×3 (09:32→23:05)
--- NOTE | 2024-04-07 10:21 | W.PN.UPDATE ---
Update Note
Progress Note Update
P2y12 level was 200 this am. Patient new tentative surgery date with Dr. Plummer is Thursday04/12/2024.
[2024-04-07 10:38] LABS: APTT 130.5 Sec (23.4-35.0)
[2024-04-07 11:59] LABS: Glucose - Point of Care 196 mg/dl (70-99)
--- NOTE | 2024-04-07 13:13 | CM ---
Chart reviewed. Patient is independent of ADLS, lives with her in a 2 STH, 6 WOOD, 0 DME. Patient is going for a CABG 04/12. Plan is for the patient to return home with CT Transitional RN. CM to follow
[2024-04-07] MEDS: HEPARIN 25000 UNITS/250 ML IV (13:20)
[2024-04-07] MEDS: NOVOLOG FLEXPEN-MODERATE RESISTANCE 1 UNITS SC (13:20)
--- NOTE | 2024-04-07 16:09 | W.PN.HOSP.TC ---
Today's Communication/Plan
-
Continue IV heparin
Pending bypass scheduled for 04/12 with clopidogrel aware of.
Euglycemic on current regimen.
Assessment / Plan
Assessment / Plan
Impression:
Presentation with chest pain and concern for unstable angina
Influenza A positive
Conditions prior to admission:
CAD.
� Status post Xience stent to mid LAD 03/18.
� Status post stent to proximal RCA 09/15,
Complete heart block status post pacer 03/18.
Hypertension.
ORALIA/ARB's allergy.
Type II IDDM chronic leukocytosis
ECHO 01/01/23: EF 55-60%, stage 2 diastolic dysfunction, mod cLVH, MAC, mild MR, dilated LA, aortic sclerosis, normal right heart with mild pulm HTN
Plan:
Persistent pressure-like chest pain with concern for unstable angina
CAD with stent to LAD/RCA.
Negative troponin.
ECG with no ischemia/paced rhythm.
Has been on DAPT
Left heart cath on 04/04 consistent with recurrent RCA in-stent stenosis
Echocardiogram on 04/04 with no abnormalities since prior study and preserved LVEF at 55 to 60%
Off Plavix
Had recurrent episode of chest pain overnight 04/05. Resumed on heparin
CT surgery evaluation
Remains on Toprol, Norvasc hydralazine/Imdur
Continue high intensity statin and Zetia
No evidence for volume overload. Hold Lasix and spironolactone
Influenza A positive. Family reports symptoms for over 7 days.
Currently afebrile
Stable respiratory status.
Chest x-ray with no acute abnormalities.
Given duration of symptoms, no indication for Tamiflu.
Type 2 diabetes/IDDM.
Most recent hemoglobin A1c at 6.
Carb controlled diet
Continue long-acting insulin
Basal bolus protocol
Hold metformin.
Anticipated Discharge: > 48 hours
Subjective/Interval History
-
Date of Service: April 07, 2024
Objective Data
-
Labs:
Laboratory Results
04/07/24 04/07/24
10:09 17:00
APTT 130.5 H Pending
Vital Signs:
Vital Signs
Temp Pulse Resp BP Pulse Ox
98 F 62 18 112/72 97
04/07/24 14:40 04/07/24 16:00 04/07/24 14:40 04/07/24 11:34 04/07/24 14:40
I&O
04/06/24 04/07/24 04/08/24
06:59 06:59 06:59
Intake Total 480 / 480
Balance 480 / 480
Physical Exam
-
General: Well Developed and No Apparent Distress
HEENT: Normocephalic, Atraumatic and Moist Mucous Membranes
Respiratory: Clear to Auscultation
Cardiac: Regular Rhythm and S1/S2; Negative Murmur, Rub or Gallop
GI: Soft, Nontender, Nondistended and Normal Bowel Sounds; Negative Organomegaly
Rectal: Deferred by Provider
Musculoskeletal: No Clubbing, No Cyanosis and No Edema
Skin: Negative Rash
Neuro: Nonfocal/Grossly Intact
[2024-04-07 16:25] LABS: Glucose - Point of Care 268 mg/dl (70-99)
[2024-04-07] MEDS: NOVOLOG FLEXPEN-MODERATE RESISTANCE 5 UNITS SC (16:26)
[2024-04-07] MEDS: LIPITOR 80 MG PO (16:37)
[2024-04-07 17:43] LABS: APTT 90.9 Sec (23.4-35.0)
--- NOTE | 2024-04-07 18:29 | PTCARENOTE ---
Pt denies any discomfort, up walking in halls. Telemetry shows AV paced rhythm. Heparin infusion continues.
--- NOTE | 2024-04-07 21:23 | PTCARENOTE ---
Patient received at change of shift resting in the bed. Heparin infusing at 800units/hr. Patient is without complaints, denies chest or jaw pain. Right radial site open to air, area soft to palpation, bilateral radial pulses present. AV paced on
abrasive grader. Remains on room air, oxygen saturation 97%. Plan of care discussed with patient. Call arreola within reach. Droplet precautions maintained. Care ongoing.
[2024-04-07] MEDS: SENOKOT-S 1 TABLET PO (23:04)
[2024-04-07 23:05] LABS: Glucose - Point of Care 197 mg/dl (70-99)
[2024-04-07] MEDS: LANTUS 0.24 UNITS SC (23:05)
[2024-04-07] MEDS: MELATONIN 5 MG PO (23:05)
[2024-04-07] MEDS: MIRAPEX, GENERIC 0.5 MG PO (23:05)
[2024-04-07 23:51] LABS: APTT 88.8 Sec (23.4-35.0)
[2024-04-08] VITALS (11 sets, daily range): BP systolic 89–142; BP diastolic 49–85
[2024-04-08] MEDS: TYLENOL 650 MG PO (04:14)
[2024-04-08 05:10] LABS: APTT 90.5 Sec (23.4-35.0)
[2024-04-08 05:27] LABS: Blood Urea Nitrogen 17 mg/dl (7-17); Calcium 9.1 mg/dl (8.4-10.2); Carbon Dioxide 24 mmol/L (22-30); Chloride 102 mmol/L (98-107); Estimated Creatinine Clearance 46 ml/min; Glucose 163 mg/dl (70-99); Potassium 4.1 mmol/L (3.5-5.1); Sodium 134 mmol/L (135-145); eGFR > 60.00
[2024-04-08 07:15] LABS: Glucose - Point of Care 159 mg/dl (70-99)
[2024-04-08] MEDS: NOVOLOG FLEXPEN-MODERATE RESISTANCE 1 UNITS SC ×3 (08:11→17:23)
[2024-04-08] MEDS: PROTONIX 40 MG PO (08:13)
[2024-04-08] MEDS: TOPROL XL 100 MG PO (08:13)
[2024-04-08] MEDS: NORVASC 5 MG PO ×2 (08:13→20:41)
[2024-04-08] MEDS: APRESOLINE 50 MG PO ×3 (08:13→22:50)
[2024-04-08] MEDS: APRESOLINE 25 MG PO ×3 (08:13→22:56)
[2024-04-08] MEDS: ZETIA 10 MG PO (08:13)
[2024-04-08] MEDS: ASPIR LOW (ENTERIC COATED) 81 MG PO (08:13)
[2024-04-08] MEDS: IMDUR (EXTENDED RELEASE) 120 MG PO (08:16)
--- NOTE | 2024-04-08 08:39 | W.PN.CARDCBS ---
Addendum entered and electronically signed by Aldo Dimas MD 04/08/24 12:20:
Okay to continue to hold spironolactone and furosemide at present
Addendum entered and electronically signed by Aldo Dimas MD 04/08/24 12:19:
Pleasant 78-year-old woman with history of heart block and Medtronic pacemaker, CAD with PCI to LAD February 2023, PCI to proximal RCA August 2023, follow-up PCI with shockwave for in-stent RCA restenosis 12/2023 with recurrent in-stent restenosis of
RCA by cardiac catheterization March 2024, now for CABG following Plavix washout
PMH: As above, plus diabetes, hypertension, ORALIA and ARB allergy, hyperlipidemia, chronic leukocytosis
Current meds reviewed
129/57, pulse 66, respiratory 20, lungs are clear regular rate and rhythm, right radial site with small hematoma pulse intact
Echo 04/04/2024 EF 55-60%, mean mitral valve gradient 4, aortic sclerosis
Impression: See below
Plan:
Plavix washout with CABG on Thursday
Heparin is ordered
Right radial artery looks okay, small hematoma pulse intact, no discomfort we can order ultrasound if changes
Original Note:
Today's Communication / Plan
-
Follow swelling of R radial site
Continue heparin
Tentative plan for CABG 04/12 after Plavix washout
Impression / Plan
-
PCP: Dr. Park Marley
Primary Assessment Analyst: Dr. Stapleton
Impression:
Chest pain
Influenza A
CAD
s/p 3 mm Xience to mid LAD 03/05/23
s/p 3.5 mm [place] DS to prox RCA 09/10/23
cath with prox RCA in-stent restenosis treated with shockwave and 3.5 mm Xience INA with postdilation up to 24 hanna and excellent angiographic result at end of case 12/30/23
recurrent in-stent restenosis of ostial to proximal RCA 04/04/24
s/p Medtronic DC PPM for complete heart block 02/27/23
HTN, multidrug resistant
ORALIA/ARB allergy
Lisinopril caused itching, Diovan caused her to hallucinate seeing clocks running up the wall
Dyslipidemia
Type 2 diabetes mellitus on insulin and metformin with freestyle noelle CGM
Chronic elevated white blood cell count, followed by Dr. Garrison, oncology
Nuclear stress test 09/10/23: moderate inferior and inferoapical ischemia. EF 67%
[facility] 09/10/2023:LM: Minimal luminal irregularities. LAD: Previously placed LAD stents widely patent. Distal to apical LAD has diffuse atherosclerotic plaque. LCx: OM1 has diffuse up to 23-30% stenosis. Just distal to the OM1 takeoff there is a 50%
stenosis in the mid LCx. RCA: Heavily calcified 80% to 90% proximal stenosis. Successful PCI of the RCA stenosis with a 3.5 x 15 mm Medtronic [place] stent. Significantly elevated LVEDP at 25 mmHg.
[facility] 12/30/2023: LM: Minimal LI's. LAD: Previously placed LAD stents widely patent, distal to apical LAD diffuse atherosclerotic plaque. Circumflex: OM1 23- 30% stenosis, distal to OM 1 takeoff there is a 50% stenosis in the mid circumflex. RCA:
Hazy 8090% ostial to proximal in-stent restenosis. IVUS imaging showed 2 areas at ostium and proximal of significant ISR, status post PCI using IV L shockwave and IVUS guidance with a Xience drug-eluting stent with excellent angiographic and IVUS
result. Previously placed LAD stents are widely patent. Normal LVEDP.
[facility] 04/04/2024: LM: Short and unobstructed. LAD: Mid LAD beyond the stented segment has a long 50% atherosclerotic segment in the mid vessel. Distal LAD tapers to a small caliber vessel with moderate diffuse atherosclerotic plaque. iFR in mid LAD
measures just below the ischemic threshold at 0.085. The origin of the only sizable diagonal branch is somewhat hazy with at least a 50% proximal stenosis noted. LCx: Medium to large caliber nondominant vessel supplying a large OM1 with 40%
proximal stenosis terminating in a small OM 2. RCA: Diffuse 50 to 60% ostial to proximal in-stent restenosis and focal 80% in-stent restenosis within the midportion of the previously implanted stents. Mid to distal RCA is otherwise free of
significant atherosclerotic plaque. PDA is patent.
ECHO 01/01/23: EF 55-60%, stage 2 diastolic dysfunction, mod cLVH, MAC, mild MR, dilated LA, aortic sclerosis, normal right heart with mild pulm HTN
Echo 09/09/23: EF 55-60%, mild cLVH, no RWMA, mild MR, mild AI
Echo 04/04/24: EF 55 to 60%, mild MS with peak/mean 9/4 mmHg and MVA 2.3 cm SQ, trace MR, aortic sclerosis without stenosis, trace AR
Plan:
-Presented with chest and jaw pain which was consistent with prior angina.
-Underwent LHC 04/04 and was noted to have recurring in-stent restenosis of the ostial to proximal RCA as well as moderate diffuse atherosclerosis of the LAD.
-CT surgery following and plan is for CABG on 04/12/2024 after Plavix washout.
-Last dose of Plavix 04/04/2024. P2Y12 assay is 200 suggesting evidence of active P2Y12 effect.
-She has been chest pain free on heparin gtt. Would continue until CABG.
-Troponin serially undetectable despite chest pain on admission.
-Continue medical therapy with amlodipine, Imdur, hydralazine, and Toprol. Spironolactone and lasix on hold.
-She does have a h/o multidrug resistant HTN, but has had some AM hypotension.
-Patient with previous allergies to lisinopril and Diovan.
-Direct LDL is less than 30. TG of 383. Outpatient doses of atorvastatin 80 mg daily and Zetia 10 mg daily continued. Consider stopping Zetia and starting Tricor eventually.
-Hgb A1c 6.7%. Metformin on hold. Insulin continued.
-Influenza A positive on 04/04. Minimally symptomatic.
-R radial site w/ slight swelling. Soft, nontender. No ecchymosis. Follow and if worsens, consider US.
HPI: 78-year-old woman past medical history of CAD with multiple stents in the past who presents with jaw and chest discomfort which she identifies as being similar to her prior episodes of angina and cardiology is consulted for further evaluation.
Patient reports intermittent jaw pain over the last few days to weeks which she identifies as her anginal equivalent. Then earlier today she developed substernal chest pressure. This came on at rest and she took sublingual nitroglycerin at home
and chest pressure resolved. She subsequently came to [place] emergency department for evaluation. Tells me she had recurrence of symptoms but they were more mild and she was treated with Nitropaste. Symptoms she is currently resting chest and
jaw pain-free. Tells me her breathing has been comfortable. No lower extremity edema. Initial troponin was undetectable. ECG is difficult to interpret given paced rhythm but not overtly ischemic. Chest x-ray was clear.
Progress Note - Assessment Analyst
Subjective
Date of Service: April 08, 2024
No complaints. Denies recurrent chest pain.
Objective
Labs:
04/07/24 02:04
04/08/24 04:36
Labs
Hgb 10.5 g/dL (12.0-16.0) L 04/07/24 02:04
Hct 31.4 % (37.0-47.0) L 04/07/24 02:04
Plt Count 295 10^3/uL (130-400) 04/07/24 02:04
PT 12.6 Sec (11.4-14.6) 04/03/24 16:29
INR 0.91 04/03/24 16:29
APTT 90.5 Sec (23.4-35.0) H 04/08/24 04:36
Sodium 134 mmol/L (135-145) L 04/08/24 04:36
Potassium 4.1 mmol/L (3.5-5.1) 04/08/24 04:36
BUN 17 mg/dl (7-17) 04/08/24 04:36
Creatinine 0.9 mg/dL (0.6-1.0) 04/08/24 04:36
Glucose 163 mg/dl (70-99) H 04/08/24 04:36
Vital Signs and I&O:
Vital Signs
Temp Pulse Resp BP Pulse Ox
99.2 F 64 20 139/61 97
04/08/24 07:22 04/08/24 07:21 04/08/24 07:22 04/08/24 08:13 04/08/24 08:22
Vital Signs
Temp Pulse Resp BP Pulse Ox
99.2 F 64 20 139/61 97
04/08/24 07:22 04/08/24 07:21 04/08/24 07:22 04/08/24 08:13 04/08/24 08:22
Intake & Output
04/06/24 04/07/24 04/08/24 04/09/24
06:59 06:59 06:59 06:59
Intake Total 480 / 480 276 / 276
Balance 480 / 480 276 / 276
Physical Exam
Physical Exam
GEN: No distress, awake, alert, oriented x3
HEENT: supple, anicteric, mmm
LUNGS: CTA b/l, no wheezes/rales
CV: Reg, S1/S2, no murmur
EXT: No clubbing, cyanosis, or edema
NEURO: Gross non-focal
SKIN: Warm, dry, no rash
[2024-04-08 11:28] LABS: Glucose - Point of Care 189 mg/dl (70-99)
--- NOTE | 2024-04-08 13:24 | CM ---
Chart reviewed. Patient is independent of ADLS, lives with her n a 2 STH, 6 WOOD, 0 DME. Patient is planned CABG on 04/12. Plan is for the patient to return home with CT Transitional RN. CM to follow
--- NOTE | 2024-04-08 15:11 | W.PN.HOSP.TC ---
Today's Communication/Plan
-
Chest pain-free while on heparin drip.
Awaiting for bypass surgery tentatively on 04/12
Assessment / Plan
Assessment / Plan
Impression:
Presentation with chest pain and concern for unstable angina
Influenza A positive
Conditions prior to admission:
CAD.
� Status post Xience stent to mid LAD 03/18.
� Status post stent to proximal RCA 09/15,
Complete heart block status post pacer 03/18.
Hypertension.
ORALIA/ARB's allergy.
Type II IDDM chronic leukocytosis
ECHO 01/01/23: EF 55-60%, stage 2 diastolic dysfunction, mod cLVH, MAC, mild MR, dilated LA, aortic sclerosis, normal right heart with mild pulm HTN
Plan:
Persistent pressure-like chest pain with concern for unstable angina
CAD with stent to LAD/RCA.
Negative troponin.
ECG with no ischemia/paced rhythm.
Has been on DAPT
Left heart cath on 04/04 consistent with recurrent RCA in-stent stenosis
Echocardiogram on 04/04 with no abnormalities since prior study and preserved LVEF at 55 to 60%
Off Plavix
Had recurrent episode of chest pain overnight 04/05. Resumed on heparin
CT surgery evaluation
Remains on Toprol, Norvasc hydralazine/Imdur
Continue high intensity statin and Zetia
No evidence for volume overload. Hold Lasix and spironolactone
Influenza A positive. Family reports symptoms for over 7 days.
Currently afebrile
Stable respiratory status.
Chest x-ray with no acute abnormalities.
Given duration of symptoms, no indication for Tamiflu.
Type 2 diabetes/IDDM.
Most recent hemoglobin A1c at 6.
Carb controlled diet
Continue long-acting insulin
Basal bolus protocol
Hold metformin.
Anticipated Discharge: > 48 hours
Subjective/Interval History
-
Date of Service: April 08, 2024
Objective Data
-
Labs:
Laboratory Results
04/08/24
04:36
APTT 90.5 H
Sodium 134 L
Potassium 4.1
Chloride 102
Carbon Dioxide 24
BUN 17
Creatinine 0.9
Glucose 163 H
Calcium 9.1
Vital Signs:
Vital Signs
Temp Pulse Resp BP Pulse Ox
98.4 F 66 20 129/57 97
04/08/24 11:13 04/08/24 11:14 04/08/24 11:13 04/08/24 11:14 04/08/24 11:13
I&O
04/07/24 04/08/24 04/09/24
06:59 06:59 06:59
Intake Total 480 / 480 276 / 276
Balance 480 / 480 276 / 276
Physical Exam
-
General: Well Developed and No Apparent Distress
HEENT: Normocephalic, Atraumatic and Moist Mucous Membranes
Respiratory: Clear to Auscultation
Cardiac: Regular Rhythm and S1/S2; Negative Murmur, Rub or Gallop
GI: Soft, Nontender, Nondistended and Normal Bowel Sounds; Negative Organomegaly
Rectal: Deferred by Provider
Musculoskeletal: No Clubbing, No Cyanosis and No Edema
Skin: Negative Rash
Neuro: Nonfocal/Grossly Intact
[2024-04-08] MEDS: LIPITOR 80 MG PO (17:15)
[2024-04-08] MEDS: HEPARIN 25000 UNITS/250 ML IV (17:16)
[2024-04-08 17:21] LABS: Glucose - Point of Care 194 mg/dl (70-99)
--- NOTE | 2024-04-08 18:18 | PTCARENOTE ---
Pt up walking in halls, denies any discomfort. Heparin infusion at therapeutic level. Right radial site with 1cm diameter swelling, not ecchymotic or painful, cortes Trejo NP aware. Telemetry shows AV paced rhythm.
[2024-04-08 22:47] LABS: Glucose - Point of Care 183 mg/dl (70-99)
[2024-04-08] MEDS: MELATONIN 5 MG PO (22:50)
[2024-04-08] MEDS: MIRAPEX, GENERIC 0.5 MG PO (22:50)
[2024-04-08] MEDS: LANTUS 0.24 UNITS SC (22:56)
--- NOTE | 2024-04-08 23:18 | PTCARENOTE ---
Assumed care of the pt @1900 Pt AAOx3 denies pain. A/V paced on the monitor VSS. Rt wrist cath site ecchymotic soft + pulse. Plan of care discussed with pt. Call arreola within reach.
[2024-04-09] VITALS (13 sets, daily range): BP systolic 112–157; BP diastolic 41–71
[2024-04-09] MEDS: NITROSTAT (SUBLINGUAL) 0.4 MG SL (00:40)
--- NOTE | 2024-04-09 00:44 | PTCARENOTE ---
at approx 0040 pt called nursing to room c/o new onset jaw pain after going to the bathroom. Spoke with PA, ok given to give SL ntg. Pain after resting down to 1 within 2 mins before getting sl ntg. pain 0 after 1 SL.b/p 119/46
[2024-04-09 03:47] LABS: Hemoglobin 10.2 g/dL (12.0-16.0); Mean Corp Hgb Conc. 32.9 g/dL (33.0-37.0); Mean Corpuscular Hgb 29.8 pg (27.0-31.0); Mean Corpuscular Volume 90.6 fL (81.0-99.0); Mean Platelet Volume 10.3 fL (7.4-10.4); Platelet Count 268 10^3/uL (130-400); Red Blood Cell Count 3.42 10^6/uL (4.20-5.40); Red Cell Dist. Width 13.3 % (11.5-14.5); White Blood Cell Count 14.2 10^3/uL (4.8-10.8)
[2024-04-09 04:16] LABS: Blood Urea Nitrogen 20 mg/dl (7-17); Calcium 9.3 mg/dl (8.4-10.2); Carbon Dioxide 26 mmol/L (22-30); Chloride 102 mmol/L (98-107); Estimated Creatinine Clearance 41 ml/min; Glucose 175 mg/dl (70-99); Magnesium 1.9 mg/dl (1.6-2.3); Potassium 4.5 mmol/L (3.5-5.1); Sodium 135 mmol/L (135-145); eGFR 57.31
[2024-04-09] MEDS: ROBITUSSIN DM 10 ML PO ×2 (04:41→22:27)
[2024-04-09 06:53] LABS: Glucose - Point of Care 148 mg/dl (70-99)
--- NOTE | 2024-04-09 09:26 | W.PN.CARDCBS ---
Addendum entered and electronically signed by Aldo Dimas MD 04/09/24 11:20:
She is comfortable at present. Had an episode of jaw pain last night, which is her anginal equivalents. Family at bedside.
Current medications: Amlodipine 5 mg twice daily, aspirin 81 mg a day, atorvastatin 80 mg a day, ezetimibe 10 mg a day, furosemide 20 mg a day, metoprolol ER 100 mg a day, pantoprazole 40 mg a day, Mirapex, spironolactone 12.5 mg daily, insulin as
needed, hydralazine 75 mg 3 times daily, isosorbide mononitrate 120 mg a day, Lantus, IV heparin
114/71, pulse 66, head neck exam unremarkable, lungs are clear, regular rate and rhythm without murmurs extremities without edema, neuro, integumentary musculoskeletal all intact
White count 14.2, hemoglobin 10.2, platelets 268, potassium 4.5, BUN/creatinine 20 and 1.0
Impression:
Influenza A
CAD with Xience stent to mid LAD in-stent restenosis of [place] RCA stent with subsequent Xience stent in RCA and recurrent restenosis
Medtronic pacemaker
Diabetes
Hyperlipidemia
Leukocytosis
Hypertension
Plan:
Despite recurrent jaw pain she looks reasonably well.
Continue IV heparin
Add IV nitroglycerin if symptoms recur
Await Plavix washout, CABG on Thursday provided she remains stable
Original Note:
Today's Communication / Plan
-
Heparin gtt renewed
If recurrent chest pain could consider switching Imdur ER to a Nitro gtt
51 min in face to face with patient and daughter and coordination of care including d/w nursing and CT surgery team
Impression / Plan
-
PCP: Dr. Park Marley
Primary Registration Rep: Dr. Stapleton
Impression:
Chest pain
Influenza A
CAD
s/p 3 mm Xience to mid LAD 03/05/23
s/p 3.5 mm Riley DS to prox RCA 09/10/23
cath with prox RCA in-stent restenosis treated with shockwave and 3.5 mm Xience INA with postdilation up to 24 hanna and excellent angiographic result at end of case 12/30/23
recurrent in-stent restenosis of ostial to proximal RCA 04/04/24
s/p Medtronic DC PPM for complete heart block 02/27/23
HTN, multidrug resistant
ORALIA/ARB allergy
Lisinopril caused itching, Diovan caused her to hallucinate seeing clocks running up the wall
Dyslipidemia
Type 2 diabetes mellitus on insulin and metformin with [employer] CGM
Chronic elevated white blood cell count, followed by Dr. Garrison, oncology
ECHO 01/01/23: EF 55-60%, stage 2 diastolic dysfunction, mod cLVH, MAC, mild MR, dilated LA, aortic sclerosis, normal right heart with mild pulm HTN
Echo 09/09/23: EF 55-60%, mild cLVH, no RWMA, mild MR, mild AI
Echo 04/04/24: EF 55 to 60%, mild MS with peak/mean 9/4 mmHg and MVA 2.3 cm SQ, trace MR, aortic sclerosis without stenosis, trace AR
Plan:
-Patient with jaw pain overnight. Patient describes getting up and ambulating independently to bathroom and then tried to make up her bed before laying back down and then started with jaw pain. Nursing reports that HTN started after jaw pain and
then patient given NTG SL x1 with complete resolution of pain. No recurrence of jaw pain with ambulation 04/09/24 AM.
-Cont Heparin gtt, renewed by me.
-Outpatient dose of Imdur ER was double to 120 mg daily on 04/05/24. If recurrent chest pain could consider switching Imdur ER to a Nitro gtt
-Patient with recurrent in-stent restenosis of her ostial-prox RCA. Plan is for CABG 04/12/24 following Plavix washout. Last dose of Plavix 04/04/2024. P2Y12 assay is 200 suggesting active P2Y12 effect.
-Troponin serially undetectable despite chest pain on admission.
-Cont outpatient dose of amlodipine 5 mg BID
-Cont higher dose of Imdur ER 120 mg daily
-Cont aspirin 81 mg daily
-Patient with a h/o multidrug resistant HTN. quarter inspector hypotension noted and would reduce dose of hydralazine if recurrent hypotension
-Cont amlodipine as above
-Cont Imdur ER as above
-Cont hydralazine 75 mg TID
-Outpatient dose of spironolactone 12.5 mg daily is on hold in anticipation of surgery
-Outpatient dose of Lasix 20 mg PO daily is on hold in anticipation of surgery
-Cont Toprol XL 100 mg daily.
-Patient with previous allergies to lisinopril and Diovan.
-Direct LDL is less than 30. TG of 383. Outpatient doses of atorvastatin 80 mg daily and Zetia 10 mg daily continued. Consider stopping Zetia and starting Tricor eventually.
-Hgb A1c 6.7%. Metformin on hold. Insulin continued.
-Influenza A positive on 04/03/24. Minimally symptomatic.
HPI: 78-year-old woman past medical history of CAD with multiple stents in the past who presents with jaw and chest discomfort which she identifies as being similar to her prior episodes of angina and cardiology is consulted for further evaluation.
Patient reports intermittent jaw pain over the last few days to weeks which she identifies as her anginal equivalent. Then earlier today she developed substernal chest pressure. This came on at rest and she took sublingual nitroglycerin at home
and chest pressure resolved. She subsequently came to [place] emergency department for evaluation. Tells me she had recurrence of symptoms but they were more mild and she was treated with Nitropaste. Symptoms she is currently resting chest and
jaw pain-free. Tells me her breathing has been comfortable. No lower extremity edema. Initial troponin was undetectable. ECG is difficult to interpret given paced rhythm but not overtly ischemic. Chest x-ray was clear.
Progress Note - Registration Rep
Subjective
Date of Service: April 09, 2024
Chest pain while making her bed last night, no pain ambulating this morning
Objective
Labs:
04/09/24 03:37
04/09/24 03:37
Labs
Hgb 10.2 g/dL (12.0-16.0) L 04/09/24 03:37
Hct 31.0 % (37.0-47.0) L 04/09/24 03:37
Plt Count 268 10^3/uL (130-400) 04/09/24 03:37
PT 12.6 Sec (11.4-14.6) 04/03/24 16:29
INR 0.91 04/03/24 16:29
APTT 105.0 Sec (23.4-35.0) H 04/09/24 03:37
Sodium 135 mmol/L (135-145) 04/09/24 03:37
Potassium 4.5 mmol/L (3.5-5.1) 04/09/24 03:37
BUN 20 mg/dl (7-17) H 04/09/24 03:37
Creatinine 1.0 mg/dL (0.6-1.0) 04/09/24 03:37
Glucose 175 mg/dl (70-99) H 04/09/24 03:37
Vital Signs and I&O:
Vital Signs
Temp Pulse Resp BP Pulse Ox
97.9 F 62 16 144/52 95
04/09/24 07:22 04/09/24 07:22 04/09/24 07:22 04/09/24 07:22 04/09/24 07:22
Vital Signs
Temp Pulse Resp BP Pulse Ox
97.9 F 62 16 144/52 95
04/09/24 07:22 04/09/24 07:22 04/09/24 07:22 04/09/24 07:22 04/09/24 07:22
Intake & Output
04/07/24 04/08/24 04/09/24 04/10/24
06:59 06:59 06:59 06:59
Intake Total 480 / 480 276 / 276 456 / 456
Balance 480 / 480 276 / 276 456 / 456
Physical Exam
Physical Exam
GEN: AAOx3
HEENT: MMM
LUNGS: RA. No audible wheeze
CV: SR on tele.
ABD: ND
EXT: No edema B/L
NEURO: Gross non-focal
SKIN: No rash
[2024-04-09] MEDS: NOVOLOG FLEXPEN-MODERATE RESISTANCE SC (09:38)
[2024-04-09] MEDS: ASPIR LOW (ENTERIC COATED) 81 MG PO (09:39)
[2024-04-09] MEDS: IMDUR (EXTENDED RELEASE) 120 MG PO (09:40)
[2024-04-09] MEDS: PROTONIX 40 MG PO (09:40)
[2024-04-09] MEDS: TOPROL XL 100 MG PO (10:06)
[2024-04-09] MEDS: ZETIA 10 MG PO (10:06)
[2024-04-09] MEDS: NORVASC 5 MG PO ×2 (10:07→20:02)
[2024-04-09] MEDS: APRESOLINE 25 MG PO ×3 (10:07→22:21)
[2024-04-09] MEDS: APRESOLINE 50 MG PO ×3 (10:08→22:21)
[2024-04-09 11:41] LABS: Glucose - Point of Care 235 mg/dl (70-99)
[2024-04-09] MEDS: NOVOLOG FLEXPEN-MODERATE RESISTANCE 3 UNITS SC (11:41)
--- NOTE | 2024-04-09 12:03 | W.PN.UPDATE ---
Update Note
Progress Note Update
Patient had complaints of 7/10 jaw pain overnight and was given SL NTG. Currently CP free. Will continue with tentative surgery date on thursday. If jaw pain continues may need iv Nitro infusion.
--- NOTE | 2024-04-09 13:01 | W.PN.HOSP.TC ---
Today's Communication/Plan
-
monitor vitals
see plan
cw hep gtt
plan for surgery thursday
Assessment / Plan
Assessment / Plan
Impression:
Presentation with chest pain and concern for unstable angina
Influenza A positive
Conditions prior to admission:
CAD.
� Status post Xience stent to mid LAD 03/18.
� Status post stent to proximal RCA 09/15,
Complete heart block status post pacer 03/18.
Hypertension.
ORALIA/ARB's allergy.
Type II IDDM chronic leukocytosis
ECHO 01/01/23: EF 55-60%, stage 2 diastolic dysfunction, mod cLVH, MAC, mild MR, dilated LA, aortic sclerosis, normal right heart with mild pulm HTN
Plan:
Persistent pressure-like chest pain with concern for unstable angina
CAD with stent to LAD/RCA.
Negative troponin.
ECG with no ischemia/paced rhythm.
Has been on DAPT
Left heart cath on 04/04 consistent with recurrent RCA in-stent stenosis
Echocardiogram on 04/04 with no abnormalities since prior study and preserved LVEF at 55 to 60%
Off Plavix
Jaw pain overnight 04/08, on IV heparin. If continues to have pain then will likely need nitro drip
CT surgery evaluation
Remains on Toprol, Norvasc hydralazine/Imdur
Continue high intensity statin and Zetia
No evidence for volume overload. Hold Lasix and spironolactone
Influenza A positive. Family reports symptoms for over 7 days.
Currently afebrile
Stable respiratory status.
Chest x-ray with no acute abnormalities.
Given duration of symptoms, no indication for Tamiflu.
Type 2 diabetes/IDDM.
Most recent hemoglobin A1c at 6.
Carb controlled diet
Continue long-acting insulin
Basal bolus protocol
Hold metformin.
General: Well Developed and No Apparent Distress
HEENT: Normocephalic, Atraumatic and Moist Mucous Membranes
Respiratory: Clear to Auscultation
Cardiac: Regular Rhythm and S1/S2; Negative Murmur, Rub or Gallop
GI: Soft, Nontender, Nondistended and Normal Bowel Sounds
Musculoskeletal:No Edema
Neuro: Nonfocal/Grossly Intact
Anticipated Discharge: > 48 hours
Subjective/Interval History
-
Date of Service: April 09, 2024
Jaw pain overnight
Objective Data
-
Labs:
Laboratory Results
04/09/24
03:37
WBC 14.2 H
Hgb 10.2 L
Hct 31.0 L
Plt Count 268
APTT 105.0 H
Sodium 135
Potassium 4.5
Chloride 102
Carbon Dioxide 26
BUN 20 H
Creatinine 1.0
Glucose 175 H
Calcium 9.3
Vital Signs:
Vital Signs
Temp Pulse Resp BP Pulse Ox
97.4 F 62 16 139/47 96
04/09/24 12:23 04/09/24 12:23 04/09/24 12:23 04/09/24 12:23 04/09/24 12:23
I&O
04/08/24 04/09/24 04/10/24
06:59 06:59 06:59
Intake Total 276 / 276 456 / 456 240 / 240
Balance 276 / 276 456 / 456 240 / 240
[2024-04-09 16:21] LABS: Glucose - Point of Care 190 mg/dl (70-99)
[2024-04-09] MEDS: NOVOLOG FLEXPEN-MODERATE RESISTANCE 1 UNITS SC (16:21)
[2024-04-09] MEDS: LIPITOR 80 MG PO (17:47)
[2024-04-09] MEDS: HEPARIN 25000 UNITS/250 ML IV (17:47)
--- NOTE | 2024-04-09 18:06 | PTCARENOTE ---
pt continues to be av paced on the monitor, hr in the 60s, vss. pt offers no complaints throughout the day. pt has been ambulating the halls and tolerating well. heparin gtt running per documentation. pt educated on plan of care and verbalized
understanding. call arreola within reach.
[2024-04-09 21:39] LABS: Glucose - Point of Care 236 mg/dl (70-99)
[2024-04-09] MEDS: MELATONIN 5 MG PO (22:22)
[2024-04-09] MEDS: MIRAPEX, GENERIC 0.5 MG PO (22:22)
[2024-04-09] MEDS: LANTUS 0.24 UNITS SC (22:24)
--- NOTE | 2024-04-09 23:26 | PTCARENOTE ---
Pt rec'd at beginning of shift feeling a little anxious about upcoming surgery. Emotional support provided. Heparin gtt continued at 800 units/hr. CASE MANAGEMENT SPECIALIST on telemetry. AT 2305 pt went to bathroom to void. Came back to bed and straightened out her
covers then called nursing to report she had developed jaw pain with that activity. Pt states jaw pain was slightly less then previous night. pain rated 3 out of 10 but resolved within 2-3 mins on its own. Robitussin given at HS for occ non
productive harsh cough.
[2024-04-10] VITALS (8 sets, daily range): BP systolic 107–141; BP diastolic 50–91; BMI 28.8
--- NOTE | 2024-04-10 05:31 | W.PN.CT ---
Today's Communication / Plan
-
Plan:
-Cont. current medical management per primary team
-Cont. current meds (ASA, heparin gtt, Zetia, Lipitor, Toprol XL, Imdur)
-Will place hold on CCB (Norvasc) in preparation for OR, hold 2 days prior to CABG
-Plavix washout, last dose 04/04/24
-For CABG by Dr. Plummer on 04/12/24
-Will stop heparin gtt armature connector to OR
-Will cont. to closely monitor
Assessment / Plan
-
Assessment:
-Multivessel CAD
-[place]
Hx of CAD with multiple PCI's and in-stent restenosis
-S/p PCI with INA to mid LAD, 03/05/23; INA to ostial/prox RCA, 09/10/23
-Plavix washout
-LVEF 55-60% per TTE 04/04/24
-T2DM x 20 years (hgb A1C 6.7, on insulin and oral regimen)
-Class 1 obesity (BMI 30)
-HTN (Lisinopril and Diovan allergies)
-HLD
-Chronic leukocytosis d/t smoldering myeloma diagnosed 4 years ago
-Chronic anemia
-Influenza A+ on 04/03/24
-CHB S/p Medtronic dual chamber PPM placement, 02/27/23
-S/p Repair of L humerus fx, 2012
-S/p RONNY/BSO, 1993
Discussed patient care with: Cardiology, Nursing, Pharmacy and Care Team
Subjective
-
Date of Service: April 10, 2024
No major issues overnight. Denies chest or jaw pain, said felt jaw tingle
Objective Data
-
Lab Results
04/09/24 03:37
04/09/24 03:37
PT 12.6 Sec (11.4-14.6) 04/03/24 16:29
INR 0.91 04/03/24 16:29
APTT 105.0 Sec (23.4-35.0) H 04/09/24 03:37
Vital Signs
Vital Signs
Temp Pulse Resp BP Pulse Ox
98.4 F 73 18 128/51 96
04/10/24 05:03 04/10/24 05:03 04/10/24 05:03 04/10/24 05:03 04/10/24 05:03
CT Intake/Output/Weight
04/09/24 04/09/24 04/10/24
06:59 18:59 06:59
Intake Total 240 / 240
Balance 240 / 240
SaO2: 96 (RA)
Physical Exam
-
General: Awake, Oriented and AOx3
Respiratory: Clear
Extremities: No Edema
Data Reviewed
-
Lab Results: Results Reviewed
Medications: Active Meds Reviewed
Chest X-Ray: Report Reviewed and Image Reviewed
ECG: Report Reviewed and Image Reviewed
[2024-04-10 05:42] LABS: APTT 108.4 Sec (23.4-35.0)
[2024-04-10 07:25] LABS: Glucose - Point of Care 151 mg/dl (70-99)
[2024-04-10] MEDS: NOVOLOG FLEXPEN-MODERATE RESISTANCE 1 UNITS SC (08:50)
[2024-04-10] MEDS: APRESOLINE 25 MG PO (08:52)
[2024-04-10] MEDS: ZETIA 10 MG PO (08:52)
[2024-04-10] MEDS: APRESOLINE 50 MG PO (08:53)
[2024-04-10] MEDS: PROTONIX 40 MG PO (08:53)
[2024-04-10] MEDS: IMDUR (EXTENDED RELEASE) 120 MG PO (08:53)
[2024-04-10] MEDS: ASPIR LOW (ENTERIC COATED) 81 MG PO (08:54)
[2024-04-10] MEDS: TOPROL XL 100 MG PO (08:55)
--- NOTE | 2024-04-10 11:40 | W.PN.CARDCBS ---
Today's Communication / Plan
-
Change nitrates
Stop hydralazine
Restart amlodipine
Continue heparin
Impression / Plan
-
PCP: Dr. Park Marley
Primary Tax Evaluator: Dr. Stapleton
Impression:
Influenza A
CAD
s/p 3 mm Xience to mid LAD 03/05/23
s/p 3.5 mm Riley DS to prox RCA 09/10/23
cath with prox RCA in-stent restenosis treated with shockwave and 3.5 mm Xience INA with postdilation up to 24 hanna and excellent angiographic result at end of case 12/30/23
recurrent in-stent restenosis of ostial to proximal RCA 04/04/24
s/p Medtronic DC PPM for complete heart block 02/27/23
HTN, multidrug resistant
ORALIA/ARB allergy
Lisinopril caused itching, Diovan caused her to hallucinate seeing clocks running up the wall
Dyslipidemia
Type 2 diabetes mellitus on insulin and metformin with [employer] CGM
Chronic elevated white blood cell count, followed by Dr. Garrison, oncology
ECHO 01/01/23: EF 55-60%, stage 2 diastolic dysfunction, mod cLVH, MAC, mild MR, dilated LA, aortic sclerosis, normal right heart with mild pulm HTN
Echo 09/09/23: EF 55-60%, mild cLVH, no RWMA, mild MR, mild AI
Echo 04/04/24: EF 55 to 60%, mild MS with peak/mean 9/4 mmHg and MVA 2.3 cm SQ, trace MR, aortic sclerosis without stenosis, trace AR
Plan:
She had vague jaw symptoms last night, feels well now.
Nitrates have been increased. Patient now both on topical and oral nitrates. May make more sense to switch nitrate preparation.
Amlodipine has been held, hydralazine has been continued, would likely be better to continue amlodipine and hold hydralazine given potential for steal phenomena.
Continue IV heparin
If symptoms persist, will simply start IV nitroglycerin.
HPI: 78-year-old woman past medical history of CAD with multiple stents in the past who presents with jaw and chest discomfort which she identifies as being similar to her prior episodes of angina and cardiology is consulted for further evaluation.
Patient reports intermittent jaw pain over the last few days to weeks which she identifies as her anginal equivalent. Then earlier today she developed substernal chest pressure. This came on at rest and she took sublingual nitroglycerin at home
and chest pressure resolved. She subsequently came to [place] emergency department for evaluation. Tells me she had recurrence of symptoms but they were more mild and she was treated with Nitropaste. Symptoms she is currently resting chest and
jaw pain-free. Tells me her breathing has been comfortable. No lower extremity edema. Initial troponin was undetectable. ECG is difficult to interpret given paced rhythm but not overtly ischemic. Chest x-ray was clear.
Progress Note - Tax Evaluator
Subjective
Date of Service: April 10, 2024:
Amlodipine currently on hold, aspirin 81 mg a day, atorvastatin 80 mg at bedtime, ezetimibe 10 mg daily, furosemide 20 mg daily on hold, metoprolol ER 100 mg a day, pantoprazole 40 mg a day, Mirapex, spironolactone 12.5 mg on hold, hydralazine 50 3
times daily and 25 3 times daily for total of 75 3 times daily, isosorbide mononitrate, Lantus, IV heparin, nitroglycerin paste 0.5Q6
132/51, pulse 62, weight is 69.2 kg, down 1.6 kg, some rhonchi in lungs, regular rate and rhythm, soft systolic murmur, JVD okay, not much edema
Hemoglobin was 10.2 on the , and 14.2, BUN and creatinine were 20 and 1.0 on the
Objective
Labs:
04/09/24 03:37
04/09/24 03:37
Labs
Hgb 10.2 g/dL (12.0-16.0) L 04/09/24 03:37
Hct 31.0 % (37.0-47.0) L 04/09/24 03:37
Plt Count 268 10^3/uL (130-400) 04/09/24 03:37
PT 12.6 Sec (11.4-14.6) 04/03/24 16:29
INR 0.91 04/03/24 16:29
APTT 108.4 Sec (23.4-35.0) H 04/10/24 05:20
Sodium 135 mmol/L (135-145) 04/09/24 03:37
Potassium 4.5 mmol/L (3.5-5.1) 04/09/24 03:37
BUN 20 mg/dl (7-17) H 04/09/24 03:37
Creatinine 1.0 mg/dL (0.6-1.0) 04/09/24 03:37
Glucose 175 mg/dl (70-99) H 04/09/24 03:37
Vital Signs and I&O:
Vital Signs
Temp Pulse Resp BP Pulse Ox
36.9 C 62 20 132/51 93
04/10/24 07:30 04/10/24 09:00 04/10/24 07:30 04/10/24 08:52 04/10/24 07:43
Vital Signs
Temp Pulse Resp BP Pulse Ox
36.9 C 62 20 132/51 93
04/10/24 07:30 04/10/24 09:00 04/10/24 07:30 04/10/24 08:52 04/10/24 07:43
Intake & Output
04/08/24 04/09/24 04/10/24 04/11/24
07:59 07:59 07:59 07:59
Intake Total 276 / 276 696 / 696 480 / 480
Balance 276 / 276 696 / 696 480 / 480
Physical Exam
Physical Exam
See above
--- NOTE | 2024-04-10 11:55 | W.PN.HOSP.TC ---
Today's Communication/Plan
-
Monitor vital signs
see plan
Continue with heparin drip
Tentative plan for bypass Thursday
Assessment / Plan
Assessment / Plan
Impression:
Presentation with chest pain and concern for unstable angina
Influenza A positive
Conditions prior to admission:
CAD.
� Status post Xience stent to mid LAD 03/18.
� Status post stent to proximal RCA 09/15,
Complete heart block status post pacer 03/18.
Hypertension.
ORALIA/ARB's allergy.
Type II IDDM chronic leukocytosis
ECHO 01/01/23: EF 55-60%, stage 2 diastolic dysfunction, mod cLVH, MAC, mild MR, dilated LA, aortic sclerosis, normal right heart with mild pulm HTN
Plan:
Persistent pressure-like chest pain with concern for unstable angina
CAD with stent to LAD/RCA.
Negative troponin.
ECG with no ischemia/paced rhythm.
Has been on DAPT
Left heart cath on 04/04 consistent with recurrent RCA in-stent stenosis
Echocardiogram on 04/04 with no abnormalities since prior study and preserved LVEF at 55 to 60%
Off Plavix
Jaw pain overnight 04/08, on IV heparin. If continues to have pain then will likely need nitro drip
CT surgery evaluation
Remains on Toprol, Norvasc hydralazine/Imdur
Continue high intensity statin and Zetia
No evidence for volume overload. Hold Lasix and spironolactone
Influenza A positive. Family reports symptoms for over 7 days.
Currently afebrile
Stable respiratory status.
Chest x-ray with no acute abnormalities.
Given duration of symptoms, no indication for Tamiflu.
Type 2 diabetes/IDDM.
Most recent hemoglobin A1c at 6.
Carb controlled diet
Continue long-acting insulin
Basal bolus protocol
Hold metformin.
General: Well Developed and No Apparent Distress
HEENT: Normocephalic, Atraumatic and Moist Mucous Membranes
Respiratory: Clear to Auscultation
Cardiac: Regular Rhythm and S1/S2; Negative Murmur, Rub or Gallop
GI: Soft, Nontender, Nondistended and Normal Bowel Sounds
Musculoskeletal:No Edema
Neuro: Nonfocal/Grossly Intact
Anticipated Discharge: > 48 hours
Subjective/Interval History
-
Date of Service: April 10, 2024
Denies pain
Objective Data
-
Labs:
Laboratory Results
04/10/24
05:20
APTT 108.4 H
Vital Signs:
Vital Signs
Temp Pulse Resp BP Pulse Ox
97.6 F 62 20 132/51 97
04/10/24 11:31 04/10/24 09:00 04/10/24 11:31 04/10/24 08:52 04/10/24 11:31
I&O
04/09/24 04/10/24 04/11/24
06:59 06:59 06:59
Intake Total 456 / 456 240 / 240 480 / 480
Balance 456 / 456 240 / 240 480 / 480
[2024-04-10 11:56] LABS: Glucose - Point of Care 145 mg/dl (70-99)
[2024-04-10] MEDS: NOVOLOG FLEXPEN-MODERATE RESISTANCE SC (11:59)
[2024-04-10 16:34] LABS: Glucose - Point of Care 262 mg/dl (70-99)
[2024-04-10] MEDS: NOVOLOG FLEXPEN-MODERATE RESISTANCE 5 UNITS SC (16:55)
[2024-04-10] MEDS: LIPITOR 80 MG PO (16:56)
[2024-04-10] MEDS: ISMO 20 MG PO (16:56)
[2024-04-10] MEDS: MIRALAX 17 GRAMS PO (16:59)
--- NOTE | 2024-04-10 18:33 | PTCARENOTE ---
pt continues to be paced on the monitor, hr in the 80s, vss. pt offers no complaints at this time. pt ambulating through the halls and tolerating well. heparin gtt running per protocol, see documentation. call arreola within reach.
[2024-04-10] MEDS: NITROSTAT (SUBLINGUAL) 0.4 MG SL (18:43)
--- NOTE | 2024-04-10 18:44 | PTCARENOTE ---
pt rang call maxwell to tell rn her 'jaw ache.' pt was in br when pain started. vss hr 88, bp 141/91. sublingual nitro x1 given and pt found relief. pt resting in chair. pt educated on taking it easy this evening. pt verbalized understanding. call maxwell
within reach.
--- NOTE | 2024-04-10 20:05 | PTCARENOTE ---
Assumed care of pt from prev nsg shift; Pt AAOx3 w/no c/o CP or SOB. Pt's jaw pain reported to prev nsg shift has resolved since receiving 1 SL nitro. Pt's VSS w/HR 60 & BP 139/55 this evening. Pt is AV paced on telemetry monitoring. Pt's IV Heparin
drip infusing through patent IV line as ordered. Pt's amlodipine D/C'd by cardiology this evening prior to CABG 04/12. pt anxious re: upcoming surgery, questions answered & emotional support provided. Pt w/call arreola within reach & plan of care
ongoing.
[2024-04-10] MEDS: NITROGLYCERIN PREMIX 250 IV (20:48)
[2024-04-10] MEDS: NORVASC PO (20:56)
[2024-04-10 21:35] LABS: Glucose - Point of Care 246 mg/dl (70-99)
[2024-04-10] MEDS: HEPARIN 25000 UNITS/250 ML IV (22:25)
[2024-04-10] MEDS: MELATONIN 5 MG PO (22:25)
[2024-04-10] MEDS: MIRAPEX, GENERIC 0.5 MG PO (22:25)
[2024-04-10] MEDS: LANTUS 0.24 UNITS SC (22:25)
[2024-04-11] VITALS (10 sets, daily range): BP systolic 121–170; BP diastolic 48–100; BMI 29.0
[2024-04-11] MEDS: ROBITUSSIN DM 10 ML PO (05:03)
[2024-04-11] MEDS: TYLENOL 650 MG PO (05:54)
--- NOTE | 2024-04-11 05:57 | W.PN.CT ---
Today's Communication / Plan
-
Plan:
-Cont. current medical management per primary team
-Cont. current meds (ASA, heparin gtt, Zetia, Lipitor, Toprol XL, Imdur d/c'd 04/10)
-Cardiology started NTG gtt and d/c'd Imdur yesterday 04/10, given ongoing intermittent jaw pain. No jaw pain since initiation of NTG gtt
-Placed hold on CCB (Norvasc) in preparation for OR, hold 2 days prior to CABG
-Plavix washout, last dose 04/04/24
-For CABG by Dr. Plummer on 04/12/24
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
-Will cont. to closely monitor
Assessment / Plan
-
Assessment:
-Multivessel CAD
-[place]
Hx of CAD with multiple PCI's and in-stent restenosis
-S/p PCI with INA to mid LAD, 03/05/23; INA to ostial/prox RCA, 09/10/23
-Plavix washout
-LVEF 55-60% per TTE 04/04/24
-T2DM x 20 years (hgb A1C 6.7, on insulin and oral regimen)
-Class 1 obesity (BMI 30)
-HTN (Lisinopril and Diovan allergies)
-HLD
-Chronic leukocytosis d/t smoldering myeloma diagnosed 4 years ago
-Chronic anemia
-Influenza A+ on 04/03/24
-CHB S/p Medtronic dual chamber PPM placement, 02/27/23
-S/p Repair of L humerus fx, 2012
-S/p RONNY/BSO, 1993
Discussed patient care with: Cardiology, Nursing, Pharmacy and Care Team
Subjective
-
Date of Service: April 11, 2024
Pt had jaw pain yesterday, none overnight. Started on NTG gtt per Cardiology
Objective Data
-
Lab Results
04/09/24 03:37
PT 12.6 Sec (11.4-14.6) 04/03/24 16:29
INR 0.91 04/03/24 16:29
APTT 108.4 Sec (23.4-35.0) H 04/10/24 05:20
Vital Signs
Vital Signs
Temp Pulse Resp BP Pulse Ox
98.2 F 66 20 155/100 96
04/11/24 04:45 04/11/24 05:00 04/11/24 04:45 04/11/24 04:49 04/11/24 04:45
CT Intake/Output/Weight
04/10/24 04/10/24 04/11/24
06:59 18:59 06:59
Intake Total 480 / 960 480 / 960
Balance 480 / 960 480 / 960
SaO2: 96 (RA)
Physical Exam
-
General: Awake, Oriented and AOx3
Cardiovascular: Regular rate & rhythm (A/V paced)
Respiratory: Clear
Extremities: No Edema
Data Reviewed
-
Lab Results: Results Reviewed
Medications: Active Meds Reviewed
Chest X-Ray: Report Reviewed and Image Reviewed
ECG: Report Reviewed and Image Reviewed
[2024-04-11 06:11] LABS: Hematocrit 33.5 % (37.0-47.0); Hemoglobin 10.8 g/dL (12.0-16.0); Mean Corp Hgb Conc. 32.2 g/dL (33.0-37.0); Mean Corpuscular Hgb 29.3 pg (27.0-31.0); Mean Platelet Volume 10.9 fL (7.4-10.4); Platelet Count 285 10^3/uL (130-400); Red Blood Cell Count 3.68 10^6/uL (4.20-5.40); Red Cell Dist. Width 13.6 % (11.5-14.5)
[2024-04-11 06:29] LABS: APTT 63.6 Sec (23.4-35.0)
[2024-04-11 07:36] LABS: Glucose - Point of Care 159 mg/dl (70-99)
--- NOTE | 2024-04-11 08:23 | W.PN.CARDCBS ---
Addendum entered and electronically signed by Aldo Dimas MD 04/11/24 10:58:
Angina while ambulating in hallway, better with nitrates, now comfortable in bed
Current meds: IV nitroglycerin, IV heparin, aspirin 81 mg a day, atorvastatin 80 mg a day, ezetimibe 10 mg a day, furosemide on hold, metoprolol ER 100 mg daily, pantoprazole 40 mg a day, Mirapex, spironolactone on hold, Lantus, Ancef, pantoprazole,
metoprolol 25 as needed, magnesium
155/61, pulse 66, respiratory rate 18, afebrile,,weight is 69.5 kg, lungs are clear, soft systolic murmur, no obvious murmurs, no edema, abdomen benign neck veins okay
White count 15, hemoglobin is 10.83
EKG, AV paced
Impression/Plan:
See below for full details. Agree with findings, assessments, and recommendations as listed below by WE.
She continues with exertional angina, and occasionally has rest pain at night. However at present she is now on IV nitro and comfortable.
Continue IV heparin and IV nitroglycerin, continue metoprolol.
Plan is for CABG in a.m.
Original Note:
Today's Communication / Plan
-
Nitro gtt running at 10 mcg/min
Tylenol PRN CHILDS
Plan is for CABG in AM
Impression / Plan
-
PCP: Dr. Park Marley
Primary Harness Puller: Dr. Stapleton
Impression:
Recurrent chest and jaw pain 04/03/24
Influenza A
CAD
s/p 3 mm Xience to mid LAD 03/05/23
s/p 3.5 mm [place] DS to prox RCA 09/10/23
cath with prox RCA in-stent restenosis treated with shockwave and 3.5 mm Xience INA with postdilation up to 24 hanna and excellent angiographic result at end of case 12/30/23
recurrent in-stent restenosis of ostial to proximal RCA 04/04/24
s/p Medtronic DC PPM for complete heart block 02/27/23
HTN, multidrug resistant
ORALIA/ARB allergy
Lisinopril caused itching, Diovan caused her to hallucinate seeing clocks running up the wall
Dyslipidemia
Type 2 diabetes mellitus on insulin and metformin with freestyle noelle CGM
Chronic elevated white blood cell count, followed by Dr. Garrison, oncology
ECHO 01/01/23: EF 55-60%, stage 2 diastolic dysfunction, mod cLVH, MAC, mild MR, dilated LA, aortic sclerosis, normal right heart with mild pulm HTN
Echo 09/09/23: EF 55-60%, mild cLVH, no RWMA, mild MR, mild AI
Echo 04/04/24: EF 55 to 60%, mild MS with peak/mean 9/4 mmHg and MVA 2.3 cm SQ, trace MR, aortic sclerosis without stenosis, trace AR
Plan:
-Increased jaw and chest pain overnight and patient was started on Nitro gtt. Now with slight CHILDS and neck discomfort, will order Tylenol PRN.
-Cont Heparin gtt
-Patient with recurrent in-stent restenosis of her ostial-prox RCA. Plan is for CABG 04/12/24 following Plavix washout. Last dose of Plavix 04/04/2024. P2Y12 assay is 200 suggesting active P2Y12 effect.
-Troponin serially undetectable despite chest pain on admission.
-Outpatient dose of Toprol XL 100 mg daily has been continued.
-Outpatient dose of amlodipine 5 mg BID was stopped 04/10/24
-Outpatient dose of Imdur ER is on hold while on Nitro gtt
-Cont aspirin 81 mg daily
-Outpatient dose of Plavix is on hold in anticipation of surgery, but plan on restarting post-op due to RCA PCI 12/30/23
-Outpatient dose of hydralazine 75 mg TID is on hold
-Outpatient dose of spironolactone 12.5 mg daily is on hold in anticipation of surgery
-Outpatient dose of Lasix 20 mg PO daily is on hold in anticipation of surgery
-Patient with previous allergies to lisinopril and Diovan.
-Direct LDL is less than 30. TG of 383. Outpatient doses of atorvastatin 80 mg daily and Zetia 10 mg daily continued. Consider stopping Zetia and starting Tricor eventually.
-Hgb A1c 6.7%. Metformin on hold. Insulin continued.
-Influenza A positive on 04/03/24. Minimally symptomatic.
HPI: 78-year-old woman past medical history of CAD with multiple stents in the past who presents with jaw and chest discomfort which she identifies as being similar to her prior episodes of angina and cardiology is consulted for further evaluation.
Patient reports intermittent jaw pain over the last few days to weeks which she identifies as her anginal equivalent. Then earlier today she developed substernal chest pressure. This came on at rest and she took sublingual nitroglycerin at home
and chest pressure resolved. She subsequently came to [place] emergency department for evaluation. Tells me she had recurrence of symptoms but they were more mild and she was treated with Nitropaste. Symptoms she is currently resting chest and
jaw pain-free. Tells me her breathing has been comfortable. No lower extremity edema. Initial troponin was undetectable. ECG is difficult to interpret given paced rhythm but not overtly ischemic. Chest x-ray was clear.
Progress Note - Harness Puller
Subjective
Date of Service: April 11, 2024
Jaw pain again overnight
Objective
Labs:
04/11/24 05:11
04/09/24 03:37
Labs
Hgb 10.8 g/dL (12.0-16.0) L 04/11/24 05:11
Hct 33.5 % (37.0-47.0) L 04/11/24 05:11
Plt Count 285 10^3/uL (130-400) 04/11/24 05:11
PT 12.6 Sec (11.4-14.6) 04/03/24 16:29
INR 0.91 04/03/24 16:29
APTT 63.6 Sec (23.4-35.0) H 04/11/24 05:11
Sodium 135 mmol/L (135-145) 04/09/24 03:37
Potassium 4.5 mmol/L (3.5-5.1) 04/09/24 03:37
BUN 20 mg/dl (7-17) H 04/09/24 03:37
Creatinine 1.0 mg/dL (0.6-1.0) 04/09/24 03:37
Glucose 175 mg/dl (70-99) H 04/09/24 03:37
Vital Signs and I&O:
Vital Signs
Temp Pulse Resp BP Pulse Ox
97.6 F 68 18 133/64 98
04/11/24 07:59 04/11/24 07:59 04/11/24 07:59 04/11/24 06:57 04/11/24 07:59
Vital Signs
Temp Pulse Resp BP Pulse Ox
97.6 F 68 18 133/64 98
04/11/24 07:59 04/11/24 07:59 04/11/24 07:59 04/11/24 06:57 04/11/24 07:59
Intake & Output
04/09/24 04/10/24 04/11/24 04/12/24
06:59 06:59 06:59 06:59
Intake Total 456 / 456 240 / 240 960 / 960
Balance 456 / 456 240 / 240 960 / 960
Physical Exam
Physical Exam
GEN: AAOx3
HEENT: MMM
LUNGS: RA. No audible wheeze
CV: SR on tele.
ABD: ND
EXT: No edema B/L
NEURO: Gross non-focal
SKIN: No rash
--- NOTE | 2024-04-11 09:22 | W.PN.UPDATE ---
Update Note
Progress Note Update
CTSP for chest pain while ambulating. Patient with chest pain last night and Nitro gtt was started and patient was pain free at 10 mcg. Patient then ambulated to CVICU to explore the unit and started with chest pain. Patient returned to IVU room and
nursing increased Nitro gtt to 20 mcg and patient is pain free again. Urgent bedside ECG performed by nursing with assistance from myself. ECG reviewed by me is SR without acute ST elevations or other changes. BP 155/61. BP meds adjusted yesterday
[2024-04-11] MEDS: ASPIR LOW (ENTERIC COATED) 81 MG PO (09:27)
[2024-04-11] MEDS: PROTONIX 40 MG PO (09:27)
[2024-04-11] MEDS: ZETIA 10 MG PO (09:27)
[2024-04-11] MEDS: TOPROL XL 100 MG PO (09:28)
[2024-04-11] MEDS: NOVOLOG FLEXPEN-HIGH RESISTANCE 1 UNITS SC (09:29)
--- NOTE | 2024-04-11 09:37 | PTCARENOTE ---
pt walking the halls stated 'jaw pain and crushing chest pain 11/02.' Pt put back into bed, nitro gtt titrated for CP. Notified Karen Lopez and Aldo Dimas at bedside. EKG completed. pt was paced on the monitor, hr in the 80s, bp 170/70. Pain
resolved w/in a few minutes and repeated bp was 155/61. Pt now resting w/ at bedside visiting. pt educated on need to take it easy today. call arreola within reach.
--- NOTE | 2024-04-11 10:51 | W.PN.HOSP.TC ---
Today's Communication/Plan
-
For CABG in a.m. 04/12
Currently on IV heparin, nitro, aspirin and beta-dre
Has been off Plavix
Assessment / Plan
Assessment / Plan
Impression:
Presentation with chest pain and concern for unstable angina
Influenza A positive
Conditions prior to admission:
CAD.
� Status post Xience stent to mid LAD 03/18.
� Status post stent to proximal RCA 09/15,
Complete heart block status post pacer 03/18.
Hypertension.
ORALIA/ARB's allergy.
Type II IDDM chronic leukocytosis
ECHO 01/01/23: EF 55-60%, stage 2 diastolic dysfunction, mod cLVH, MAC, mild MR, dilated LA, aortic sclerosis, normal right heart with mild pulm HTN
Plan:
Persistent pressure-like chest pain with concern for unstable angina
CAD with stent to LAD/RCA.
Negative troponin.
ECG with no ischemia/paced rhythm.
Has been on DAPT
Left heart cath on 04/04 consistent with recurrent RCA in-stent stenosis
Echocardiogram on 04/04 with no abnormalities since prior study and preserved LVEF at 55 to 60%
Off Plavix
Jaw pain overnight 04/08, on IV heparin. If continues to have pain then will likely need nitro drip
With persistent chest pain initiated on nitrate drip on 04/11
CT surgery evaluation
Remains on Toprol, Norvasc hydralazine/Imdur
Continue high intensity statin and Zetia
No evidence for volume overload. Hold Lasix and spironolactone
Influenza A positive. Family reports symptoms for over 7 days.
Currently afebrile
Stable respiratory status.
Chest x-ray with no acute abnormalities.
Given duration of symptoms, no indication for Tamiflu.
Type 2 diabetes/IDDM.
Most recent hemoglobin A1c at 6.
Carb controlled diet
Hold long-acting insulin prior to surgery
Basal bolus protocol
Hold metformin.
Anticipated Discharge: > 48 hours
Subjective/Interval History
-
Date of Service: April 11, 2024
Objective Data
-
Labs:
Laboratory Results
04/11/24 04/11/24
05:11 13:00
WBC 15.0 H
Hgb 10.8 L
Hct 33.5 L
Plt Count 285
APTT 63.6 H Pending
Vital Signs:
Vital Signs
Temp Pulse Resp BP Pulse Ox
97.6 F 66 18 155/61 98
04/11/24 07:59 04/11/24 09:28 04/11/24 07:59 04/11/24 09:28 04/11/24 07:59
I&O
04/10/24 04/11/24 04/12/24
06:59 06:59 06:59
Intake Total 240 / 240 960 / 960
Balance 240 / 240 960 / 960
Physical Exam
-
General: Well Developed and No Apparent Distress
HEENT: Normocephalic, Atraumatic and Moist Mucous Membranes
Respiratory: Clear to Auscultation
Cardiac: Regular Rhythm and S1/S2; Negative Murmur, Rub or Gallop
GI: Soft, Nontender, Nondistended and Normal Bowel Sounds; Negative Organomegaly
Rectal: Deferred by Provider
Musculoskeletal: No Clubbing, No Cyanosis and No Edema
Skin: Negative Rash
Neuro: Nonfocal/Grossly Intact
--- NOTE | 2024-04-11 11:11 | PTCARENOTE ---
pt taken off of droplet precautions per infection prevention.
[2024-04-11 11:49] LABS: Glucose - Point of Care 202 mg/dl (70-99)
[2024-04-11] MEDS: NOVOLOG FLEXPEN-HIGH RESISTANCE 4 UNITS SC ×2 (12:02→16:03)
[2024-04-11] MEDS: DESENEX/MITRAZOL/ZEASORB 1 APPLIC TOPICAL ×2 (12:04→22:09)
[2024-04-11 15:54] LABS: Glucose - Point of Care 214 mg/dl (70-99)
[2024-04-11] MEDS: LIPITOR 80 MG PO (17:14)
--- NOTE | 2024-04-11 19:07 | PTCARENOTE ---
pt continues to be paced on the monitor, hr in the 60s, vss. pt has no complaints of pain at this time. heparin and nitro gtt running per protocol, see documentation. pt resting comfortably. call arreola within reach.
[2024-04-11 21:08] LABS: APTT 94.6 Sec (23.4-35.0)
[2024-04-11 21:42] LABS: Glucose - Point of Care 229 mg/dl (70-99)
[2024-04-11] MEDS: MIRAPEX, GENERIC 0.5 MG PO (22:09)
[2024-04-11] MEDS: MELATONIN 5 MG PO (22:10)
[2024-04-12] VITALS (14 sets, daily range): BP systolic 82–121; BP diastolic 39–62
--- NOTE | 2024-04-12 03:31 | PTCARENOTE ---
Assumed care of the pt @1900. Pt AAOx3 denies CP a/v paced on the monitor. VSS Heparin gtt infusing @ 800 units /HR PTT @ 2030. Nitro gtt @ 20 mcg/min. Pt was bathed with 4% CHG and shaved per order. Pt c/o jaw pain 03/04 @ 2230 NTG gtt was titrated
to 30 mcg/min. Pain was 0/10. NTG gtt changed back to 20 mcg/min @ 0330.
[2024-04-12 03:36] LABS: Hematocrit 30.1 % (37.0-47.0); Hemoglobin 10.2 g/dL (12.0-16.0); Mean Corp Hgb Conc. 33.9 g/dL (33.0-37.0); Mean Corpuscular Hgb 30.4 pg (27.0-31.0); Mean Corpuscular Volume 89.9 fL (81.0-99.0); Mean Platelet Volume 11.3 fL (7.4-10.4); Platelet Count 267 10^3/uL (130-400); Red Blood Cell Count 3.35 10^6/uL (4.20-5.40); Red Cell Dist. Width 13.6 % (11.5-14.5); White Blood Cell Count 14.6 10^3/uL (4.8-10.8)
[2024-04-12 03:49] LABS: APTT 88.5 Sec (23.4-35.0)
[2024-04-12 03:53] LABS: Blood Urea Nitrogen 17 mg/dl (7-17); Carbon Dioxide 23 mmol/L (22-30); Chloride 102 mmol/L (98-107); Estimated Creatinine Clearance 51 ml/min; Glucose 215 mg/dl (70-99); Magnesium 1.9 mg/dl (1.6-2.3); Potassium 4.1 mmol/L (3.5-5.1); Sodium 132 mmol/L (135-145); eGFR > 60.00
[2024-04-12] MEDS: LOPRESSOR 25 MG PO (05:07)
[2024-04-12] MEDS: MAGNESIUM OXIDE 500 MG PO (05:07)
[2024-04-12] MEDS: BACTROBAN 2% OINTMENT 1 APPLIC NASAL ×2 (05:07→22:03)
[2024-04-12] MEDS: PROTONIX 40 MG PO (05:07)
--- NOTE | 2024-04-12 06:06 | W.CVOR.SURPR ---
CVOR Surgeon Immed Pre Op
-
I have examined this patient prior to performance of the scheduled procedure.
The patient's condition is unchanged from the time of the dictated/written History and
Physical and the patient is able to undergo the scheduled procedure.
[2024-04-12 07:13] LABS: Urine Albumin 2+ (Neg - Trace); Urine Bilirubin Negative (Negative); Urine Character Clear (Clear); Urine Color Yellow; Urine Glucose Negative (Negative); Urine Ketone Negative (Negative); Urine Leukocyte 1+ (Negative); Urine Nitrite Negative (Negative); Urine Occult Blood Negative (Negative); Urine Urobilinogen Negative (Neg - 1+); Urine pH 6.5 (5.0-9.0)
[2024-04-12 07:27] LABS: ACT+ - POC 87 Seconds (82-134)
[2024-04-12 07:51] LABS: Urine Red Blood Cell 0-2 /HPF (0-2)
[2024-04-12 09:04] LABS: B.E. - POC -0.6 mmol/L; Glucose - POC 191 mg/dl (70-99); HCO3 - POC 24 mmol/L (21-28); Hematocrit - POC 28 % PCV (37-47); Hemodilution- POC No; Hemoglobin Calculated - POC 9.6; Ionized Calcium - POC 1.24 mmol/L (1.15-1.33); O2 Saturation %Calculated-POC 99.5 % (94-98); PCO2 - POC 36 mmHg (35-48); PO2 - POC 158 mmHg (83-108); POC Comment PRE; Potassium - POC 3.8 mmol/L (3.5-5.1); Sodium - POC 136 mmol/L (136-145); Specimen Type - POC Arterial; pH - POC 7.43 (7.35-7.45)
[2024-04-12 09:16] LABS: ACT+ - POC 608 Seconds (82-134)
[2024-04-12 09:42] LABS: B.E. - POC -1.3 mmol/L; Glucose - POC 158 mg/dl (70-99); HCO3 - POC 23 mmol/L (21-28); Hematocrit - POC 27 % PCV (37-47); Hemodilution- POC Yes; Hemoglobin Calculated - POC 9.3; O2 Saturation %Calculated-POC 99.8 % (94-98); PCO2 - POC 36 mmHg (35-48); PO2 - POC 218 mmHg (83-108); POC Comment POST HEPARIN; Potassium - POC 3.6 mmol/L (3.5-5.1); Sodium - POC 136 mmol/L (136-145); Specimen Type - POC Arterial; pH - POC 7.41 (7.35-7.45)
[2024-04-12 09:52] LABS: ACT+ - POC 623 Seconds (82-134)
[2024-04-12 10:14] LABS: B.E. - POC 2.5 mmol/L; Glucose - POC 124 mg/dl (70-99); HCO3 - POC 26 mmol/L (21-28); Hematocrit - POC 23 % PCV (37-47); Hemodilution- POC Yes; Hemoglobin Calculated - POC 7.8; PCO2 - POC 32 mmHg (35-48); PO2 - POC 394 mmHg (83-108); POC Comment CPB; Sodium - POC 134 mmol/L (136-145); Specimen Type - POC Arterial; pH - POC 7.51 (7.35-7.45)
[2024-04-12 10:23] LABS: ACT+ - POC 520 Seconds (82-134)
[2024-04-12 10:36] LABS: ACT+ - POC 527 Seconds (82-134)
[2024-04-12 10:37] LABS: B.E. - POC 0.9 mmol/L; Glucose - POC 163 mg/dl (70-99); HCO3 - POC 25 mmol/L (21-28); Hematocrit - POC 26 % PCV (37-47); Hemodilution- POC Yes; Hemoglobin Calculated - POC 8.8; Ionized Calcium - POC 1.06 mmol/L (1.15-1.33); O2 Saturation %Calculated-POC 99.9 % (94-98); PCO2 - POC 36 mmHg (35-48); PO2 - POC 299 mmHg (83-108); POC Comment CPB; Potassium - POC 4.9 mmol/L (3.5-5.1); Sodium - POC 135 mmol/L (136-145); Specimen Type - POC Arterial; pH - POC 7.44 (7.35-7.45)
[2024-04-12 10:46] LABS: ACT+ - POC 483 Seconds (82-134)
[2024-04-12 10:58] LABS: ACT+ - POC 512 Seconds (82-134)
[2024-04-12 11:01] LABS: B.E. - POC -1.1 mmol/L; Glucose - POC 143 mg/dl (70-99); HCO3 - POC 23 mmol/L (21-28); Hematocrit - POC 26 % PCV (37-47); Hemodilution- POC Yes; Hemoglobin Calculated - POC 8.7; Ionized Calcium - POC 1.09 mmol/L (1.15-1.33); O2 Saturation %Calculated-POC 99.9 % (94-98); PCO2 - POC 36 mmHg (35-48); PO2 - POC 250 mmHg (83-108); POC Comment WARM; Potassium - POC 4.3 mmol/L (3.5-5.1); Sodium - POC 137 mmol/L (136-145); Specimen Type - POC Arterial; pH - POC 7.42 (7.35-7.45)
[2024-04-12 11:07] LABS: ACT+ - POC 457 Seconds (82-134)
--- NOTE | 2024-04-12 11:14 | CM ---
Reviewed chart. Mrs. Carter is in the operating room today. Prior to admission she resides with her spouse in a two story home with six steps to enter. Prior to admission she was independent with adls. She does not have any DME in the home.
Medical work-up in progress. The discharge plan is to return home with her spouse and a home visit by the transitional Care Nurse when medically stable.
[2024-04-12 11:27] LABS: B.E. - POC 2.4 mmol/L; Glucose - POC 131 mg/dl (70-99); HCO3 - POC 28 mmol/L (21-28); Hematocrit - POC 26 % PCV (37-47); Hemodilution- POC Yes; Hemoglobin Calculated - POC 8.9; Ionized Calcium - POC 1.12 mmol/L (1.15-1.33); O2 Saturation %Calculated-POC 99.8 % (94-98); PCO2 - POC 45 mmHg (35-48); PO2 - POC 251 mmHg (83-108); POC Comment WARM; Potassium - POC 4.6 mmol/L (3.5-5.1); Sodium - POC 138 mmol/L (136-145); Specimen Type - POC Arterial
[2024-04-12 11:31] LABS: ACT+ - POC 98 Seconds (82-134)
[2024-04-12] MEDS: NOVOLOG FLEXPEN-HIGH RESISTANCE SC ×2 (11:41→13:22)
[2024-04-12] MEDS: ZETIA PO (11:41)
[2024-04-12] MEDS: DESENEX/MITRAZOL/ZEASORB TOPICAL (11:41)
[2024-04-12] MEDS: ASPIR LOW (ENTERIC COATED) PO (11:41)
[2024-04-12] MEDS: TOPROL XL PO (11:41)
[2024-04-12] MEDS: PROTONIX PO (11:41)
[2024-04-12 12:01] LABS: B.E. - POC -1.2 mmol/L; Glucose - POC 122 mg/dl (70-99); HCO3 - POC 22 mmol/L (21-28); Hematocrit - POC 24 % PCV (37-47); Hemodilution- POC Yes; Hemoglobin Calculated - POC 8.1; Ionized Calcium - POC 1.49 mmol/L (1.15-1.33); O2 Saturation %Calculated-POC 99.9 % (94-98); PCO2 - POC 31 mmHg (35-48); PO2 - POC 290 mmHg (83-108); POC Comment POST; Sodium - POC 138 mmol/L (136-145); Specimen Type - POC Arterial; pH - POC 7.47 (7.35-7.45)
--- NOTE | 2024-04-12 12:16 | W.IMMPOSTOP ---
Addendum entered and electronically signed by Celso Plummer MD 04/12/24 13:13:
[id number]
Original Note:
Surgical Immed Post Op Note
-
CARDIAC SURGERY OPERATIVE NOTE:
Preoperative Dx:
MVCAD w/ unstable angina
Postoperative Dx:
Same
Procedures:
1) Median sternotomy
2) Takedown of ANKUR (narrow pedicle)
3) Endoscopic harvest/prep of RLE GSV
4) CABG x 3 (ANKUR to LAD, GSV to D1, GSV to RPDA)
Surgeon:
Celso Plummer M.D.
Flat Knitter Helper:
Shivani Irwin PManjuAManju-CManju - endoscopic harvest/prep of RLE GSV; respiratory equipment assistant throughout
Aldo Eric P.A.-C.; closure of RLE GSV sites; [id number] sternotomy closure
Anesthesia:
Bernardino Padilla M.D. and Emily JusticeRManjuN.A.
Perfusion:
Emily TriplettCManjuPManju; CPB: 99min, XC: 62min
Findings:
ANKUR was healthy vessel w/ ELD 2.5mm w/ extremely brisk blood flow
GSV was healthy conduit w/ ELD 3.5-4.0mm
LAD was visible on the epicardial surface, scattered calcifications, ELD 2.25mm
D1 was visible on the epicardial surface, scattered calcifications, ELD 1.25mm (anastomosis performed over 1.0mm shunt)
RPDA was visible on the epicardial surface, scattered calcifications, ELD 2.50mm
Excellent flow in all grafts on transit-time U/S flow probe assessment
Epiaortic U/S assessment performed prior to aortic manipulation
Ascending aorta was non-aneurysmal, but thin walled and slightly friable
Post-SERENITY: Normal biventricular function, LVEF: 55%, no RWMA, mild TR, trace MR, trace AI, pacing wire noted deep in intraventricular septum, significant sessile atheroma of aortic arch
Complications:
None
Transfusions:
1U PRBC
Implants:
CT x 3
Sternal wires x 7
Sternal 'Extended square' plate w/ 8 - 10mm screws
Sternal 'Square' plate w/ 4 - 10mm screws
Condition:
62 A-V paced; 110/52; CVP 13; 96%
GTTS: levophed 3, precedex 0.5, insulin 1
Stable/guarded to CVICU
[2024-04-12 13:04] LABS: Glucose - Point of Care 175 mg/dl (70-99)
[2024-04-12 13:15] LABS: B.E. -0.3 mmol/L; HCO3 23.9 mmol/L (21-28); Ionized Calcium 1.28 mMOL/L (1.15-1.33); PCO2 36 mmHg (32-35); PO2 135 mmHg (83-108); Sodium 135 mMOL/L (136-145); pH 7.43 (7.35-7.45)
[2024-04-12 13:16] LABS: O2 Therapy VENT
[2024-04-12] MEDS: ANCEF 10 IV ×2 (13:17→13:18)
[2024-04-12] MEDS: NEURONTIN PO ×2 (13:18→15:09)
[2024-04-12] MEDS: NSS 500 IV (13:18)
[2024-04-12] MEDS: NOVOLOG FLEXPEN SC ×2 (13:18→15:09)
[2024-04-12] MEDS: LR 250 ML IV ×2 (13:19→13:31)
[2024-04-12] MEDS: TYLENOL PO ×2 (13:22→22:04)
[2024-04-12 13:25] LABS: Blood Urea Nitrogen 14 mg/dl (7-17); Estimated Creatinine Clearance 51 ml/min; Glucose 160 mg/dl (70-99); Magnesium 2.7 mg/dl (1.6-2.3)
--- NOTE | 2024-04-12 13:32 | W.PN.CARDCBS ---
Addendum entered and electronically signed by Elisabet Lopez MD 04/12/24 15:03:
I saw and examined the patient.
The Shear Operator's note was reviewed and I agree with the note.
Comment: Patient is postop day 0 status post three-vessel CABG with Dr. Celso Plummer with TRIPATHI to LAD, saphenous vein graft to D1 and saphenous vein graft to RPDA, doing well
3 mcg/kg/min of Levophed, insulin drip and Precedex
Vital signs and lab work reviewed. Patient is starting to wake up, responds to voice, following commands, intubated sedated, regular rate, normal S1 and S2, no murmurs, rubs or gallops, sternotomy wound is clean, dry and intact, lungs clear to
auscultation anteriorly, abdomen is soft, nontender, nondistended, warm extremities
EKG with a sensed V paced rhythm
Recommendations:
1. As wean sedation and ventilator as tolerated with goal to extubate this evening.
2. Wean pressor support as tolerated.
3. Continue to monitor heart rhythm postoperatively along with blood counts and renal function.
4. Continue postoperative supportive care.
Elisabet Lopez MD, [facility], [facility]
Original Note:
Today's Communication / Plan
-
Wean Levophed as tolerated
Wean sedation with anticipation of extubation this evening
Postop EKG stable
Monitor hemoglobin and electrolytes
Impression / Plan
-
PCP: Dr. Park Marley
Primary Punch Press Operator: Dr. Stapleton
Impression:
Recurrent chest and jaw pain 04/03/24
Influenza A
CAD
s/p 3 mm Xience to mid LAD 03/05/23
s/p 3.5 mm [place] DS to prox RCA 09/10/23
cath with prox RCA in-stent restenosis treated with shockwave and 3.5 mm Xience INA with postdilation up to 24 hanna and excellent angiographic result at end of case 12/30/23
recurrent in-stent restenosis of ostial to proximal RCA 04/04/24
s/p CABG x 3 (TRIPATHI-LAD, SVG-D1, SVG-RPDA) 04/12/2024
s/p Medtronic DC PPM for complete heart block 02/27/23
HTN, multidrug resistant
ORALIA/ARB allergy
Lisinopril caused itching, Diovan caused her to hallucinate seeing clocks running up the wall
Dyslipidemia
Type 2 diabetes mellitus on insulin and metformin with Fuzee CGM
Chronic elevated white blood cell count, followed by Dr. Garrison, oncology
ECHO 01/01/23: EF 55-60%, stage 2 diastolic dysfunction, mod cLVH, MAC, mild MR, dilated LA, aortic sclerosis, normal right heart with mild pulm HTN
Echo 09/09/23: EF 55-60%, mild cLVH, no RWMA, mild MR, mild AI
Echo 04/04/24: EF 55 to 60%, mild MS with peak/mean 9/4 mmHg and MVA 2.3 cm SQ, trace MR, aortic sclerosis without stenosis, trace AR
Postop SERENITY 04/12/2024: EF 55% with no new regional wall motion abnormality. Normal RV and LV function. Mild TR.
Cardiac catheterization 04/04/2024: LM: Normal but short. LAD: Patent mid stent. Beyond stent long 50% mid stenosis with distal diffuse plaque. Circumflex: Patent with large OM with 40% proximal stenosis. RCA diffuse 50 to 60% ostial to proximal
in-stent restenosis and focal 80% in-stent restenosis within midportion of previously implanted stents. PDA is patent.
Plan:
-Presented 04/03/2024 with recurrent chest and jaw pain. Troponin undetectable however given previous history of multivessel coronary artery disease patient underwent cardiac catheterization on 04/04/2024 which demonstrated recurrent in-stent
restenosis of her ostial-prox RCA. Plan for CT surgery after Plavix washout
-POD#0 s/p CABG x 3 (TRIPATHI-LAD, SVG-D1, SVG-RPDA) 04/12/[address] Plummer
-Patient seen and examined immediate postop. Remains intubated and sedated. Plan to wean sedation with extubation this evening.
-Currently requiring Levophed at 3 mcg/min. Wean as tolerated. Overall remains hemodynamically stable.
-Postop EKG shows a sensed V paced rhythm. Postop chest x-ray pending. Postop SERENITY with EF 55% and no regional wall motion.
-Preop hemoglobin 10.2. Continue to monitor and trend postop hemoglobin patient did receive 1 unit of packed RBCs intraoperatively. Repeat pending
-Plan is to restart Plavix post-op due to RCA PCI 12/30/[address] appropriate [address] CT surgery.
-Patient with previous allergies to lisinopril and Diovan. AVOID
-Direct LDL is less than 30. TG of 383. Outpatient doses of atorvastatin 80 mg daily and Zetia 10 mg daily continued. Consider stopping Zetia and starting Tricor eventually.
-Hgb A1c 6.7%. Metformin on hold. Insulin continued. Resume once cleared by CT surgery
-Influenza A positive on 04/03/24. Minimally symptomatic.
HPI: 78-year-old woman past medical history of CAD with multiple stents in the past who presents with jaw and chest discomfort which she identifies as being similar to her prior episodes of angina and cardiology is consulted for further evaluation.
Patient reports intermittent jaw pain over the last few days to weeks which she identifies as her anginal equivalent. Then earlier today she developed substernal chest pressure. This came on at rest and she took sublingual nitroglycerin at home
and chest pressure resolved. She subsequently came to [place] emergency department for evaluation. Tells me she had recurrence of symptoms but they were more mild and she was treated with Nitropaste. Symptoms she is currently resting chest and
jaw pain-free. Tells me her breathing has been comfortable. No lower extremity edema. Initial troponin was undetectable. ECG is difficult to interpret given paced rhythm but not overtly ischemic. Chest x-ray was clear.
Progress Note - Punch Press Operator
Subjective
Date of Service: April 12, 2024
Patient seen and examined immediately postoperative. Patient remains intubated and sedated currently on 3 mcg/min of Levophed.
Objective
Labs:
04/12/24 13:00
Labs
Hgb 10.2 g/dL (12.0-16.0) L 04/12/24 03:02
Hct 30.1 % (37.0-47.0) L 04/12/24 03:02
Plt Count 267 10^3/uL (130-400) 04/12/24 03:02
PT 12.6 Sec (11.4-14.6) 04/03/24 16:29
INR 0.91 04/03/24 16:29
APTT 88.5 Sec (23.4-35.0) H 04/12/24 03:02
Sodium 132 mmol/L (135-145) L 04/12/24 03:02
Potassium 4.1 mmol/L (3.5-5.1) 04/12/24 03:02
BUN 14 mg/dl (7-17) 04/12/24 13:00
Creatinine 0.8 mg/dL (0.6-1.0) 04/12/24 13:00
Glucose 160 mg/dl (70-99) H 04/12/24 13:00
Vital Signs and I&O:
Vital Signs
Temp Pulse Resp BP Pulse Ox
98.9 F 70 0 121/62 98
04/12/24 12:50 04/12/24 13:10 04/12/24 13:10 04/12/24 13:03 04/12/24 13:13
Vital Signs
Temp Pulse Resp BP Pulse Ox
98.9 F 70 0 121/62 98
04/12/24 12:50 04/12/24 13:10 04/12/24 13:10 04/12/24 13:03 04/12/24 13:13
Intake & Output
04/10/24 04/11/24 04/12/24 04/13/24
06:59 06:59 06:59 06:59
Intake Total 240 / 240 960 / 960 600 / 600 70.9 / 70.9
Output Total 145 / 145
Balance 240 / 240 960 / 960 600 / 600 -74.1 / -74.1
Physical Exam
Physical Exam
GEN: Intubated and sedated
HEENT: supple, anicteric, mmm
LUNGS: CTA, no wheezes/rales
CV: Reg, S1/S2, no murmur, rub or gallop
ABD: soft, BS+, NT/ND
EXT: No edema, clubbing or cyanosis
NEURO: Intubated and sedated
SKIN: No rash, warm, dry, pale
--- NOTE | 2024-04-12 13:39 | W.PN.UPDATE ---
Update Note
Progress Note Update
78-year-old female with known coronary disease with multiple stents, was admitted to [place] ER on 04/04/2024 with complaint of intermittent jaw pressure and occasional substernal chest pain,(unrelated to activity) that has been present since
03/23/2024. Initial troponin < 0.012 and IV heparin started. Patient tested positive for influenza A and is largely asymptomatic with only a slight nonproductive cough. Underwent left heart cath which reported in-stent restenosis of most recent
RCA- INA form 12/2023. In addition there is a 50% mid and 50% proximal diagonal lesion. Surgery delayed for Plavix washout (last dose of Plavix 04/04/2024).
IV fluids: 1000
U.O.:� 500
Blood:� none
Wires:� none
Infusions: Levo @ 3, Insulin @ 4, Precedex @ 0.5
�
NEURO: sedated on Precedex, pupils +2mm B/L
RESP: #8OT @22cm> 540/40%/01/27. Lungs clear B/L. 2 mediastinal (5cc on arrival) and L pleural (5cc on arrival) chest tubes to -20cm suction. Sanguineous drainage
CV: RRR +S1, S2, no S3, no�rub, no murmur. Aquacell to median sternotomy. RIJ w/slick. Surgical bra intact
ABD: obese, round, soft, no BS
EXT: no edema, +2/4 DP pulses B/L, no femoral bruit, RLE ORALIA wrap intact; left radial A-line intact
: [place] with clear yellow urine
�
A/P: POD #0 s/p CABG x 3 (ANKUR to LAD, GSV to D1, GSV to RPDA)
SERENITY: EF�55%, tr MR, mild TR
- wean and extubate
- vanita Levophed (maintain SBP<130)
# CAD
- will require ASA/Plavix, statin, Zetia, beta-dre
�
# acute surgical blood loss anemia-expected
- trend CBC
# HTN
- on amlodioine, Hydralazine, Lasix, spironlactone at home
- assess need to resume
�
# T2DM (A1C 6.7)
- insulin infusion x 48h
- diabetes REIMBURSEMENT AUDITOR consulted
- on Tresiba, MFM , Novolog SSI at home
�
# CHB s/p MDT PPM (2009)
- PPM interrogated at beginning of OR case>no changes made
- 100% V-paced at 60BPM
--- NOTE | 2024-04-12 13:40 | PTCARENOTE ---
pt received from [facility], sedated on Precedex gtt, RASS -5. pt has PPM, 100% V/AV paced on the monitor, HR 60-70s, no epicardial wires. CVP~1, CHEMICAL PROCESS EQUIPMENT OPERATOR aware, 500ml LR given per CHEMICAL PROCESS EQUIPMENT OPERATOR. SBP 90-120s, Levophed gtt titrated as ordered. pt mechanically ventilated,
ETT #8.0, 22cm@lip. SIMV 12, TV 540, PEEP 5, PS 5, FIO2 40%. POX 100%. suctioned for thin clear secretions. CTx3, no air leak or crepitus noted. pt abdomen round, hypoactive BS. Juarez in place, clear yellow urine, sternal incision intact, chest tube
sites c/d/i R groin puncture TIMBER KILLER. RLE ORALIA bandage in place. RIJ cordis w/ slick in place. L radial rafaela flushed, zeroed, and calibrated. PIVx2. insulin gtt running as ordered. lab work drawn, EKG performed, CXR completed. see worklist for VS, I&O,
and assessment.
[2024-04-12 13:44] LABS: INR 1.33; PT 16.8 Sec (11.4-14.6)
[2024-04-12 14:08] LABS: Glucose - Point of Care 159 mg/dl (70-99)
[2024-04-12 14:22] LABS: Hematocrit 24.4 % (37.0-47.0); Hemoglobin 8.2 g/dL (12.0-16.0); Platelet Count 194 10^3/uL (130-400)
[2024-04-12 15:05] LABS: Glucose - Point of Care 137 mg/dl (70-99)
[2024-04-12] MEDS: PACERONE PO (15:09)
--- NOTE | 2024-04-12 15:26 | CON.INTV ---
Consultation
Consultation Request
Date/Time Consultation Requested: 04/12/24
Date/Time Consultation Performed: 04/12/24
Performing Provider: Leta
Reason for Consultation: CVICU
Medical History
-
History of Present Illness:
Patient is a 78-year-old female with previous history of hypertension, iron deficiency anemia, chronic leukocytosis, AVB status post PPM, presenting to ER with chest pain radiating to the left jaw. Was admitted on 04/03/2024 for unstable angina.
She has a prior history of cardiac stents underwent catheterization on 04/04/2024 with in-stent restenosis of RCA. CT surgery was consulted, with plan for tentative surgery date on 04/12/2024.
Underwent CABG x 3 on 04/12/2024 and postoperatively transferred to CVICU for further management.
Past Medical History
Past Medical History: Other
Social History
Tobacco: Non-smoker
Alcohol: None
Drug: None
Family History
Family History: Reviewed & Not Pertinent
Allergies / Home Medications
Allergies
Allergy/AdvReac Type Severity Reaction Status Date / Time
lisinopril Allergy Itching Verified 04/06/24 22:34
valsartan [From Diovan] Allergy hallucinati Verified 04/06/24 22:34
ons
Home Medications
�Medication �Instructions �Recorded �Confirmed �Last Taken �Type
amlodipine 5 mg tablet 5 mg PO BID Blood pressure #60 tabs 03/01/23 04/03/24 04/03/24 08:00 Rx
cetirizine 10 mg tablet (Zyrtec) 10 mg PO QPM Allergies #0 tabs 03/01/23 04/03/24 04/02/24 20:00 Rx
cyanocobalamin (vitamin B-12) 1,000 mcg PO DAILY b12 defeciency 03/01/23 04/03/24 04/03/24 08:00 Rx
1,000 mcg tablet #60 tabs
insulin degludec 100 unit/mL (3 24 unit (0.24 mL) SC HS Diabetes 03/01/23 04/03/24 04/02/24 20:00 Rx
mL) subcutaneous pen (Tresiba #0 mL
FlexTouch U-100 insulin)
pramipexole 0.5 mg tablet 0.5 mg PO HS other #0 tabs 03/01/23 04/03/24 03/31/24 20:00 Rx
spironolactone 25 mg tablet 12.5 mg (1/2 x 25 mg) PO DAILY 03/01/23 04/03/24 04/03/24 08:00 Rx
Blood pressure #30 tabs
thiamine HCl (vitamin B1) 100 mg 100 mg PO BID Supplement #20 tabs 03/01/23 04/03/24 04/03/24 08:00 Rx
tablet
calcium 500 mg (as 1 tab PO BID Supplement 03/05/23 04/03/24 04/03/24 08:00 History
carbonate)-vitamin D3 10 mcg (400
unit) tablet (Calcium 500 + D)
ferrous sulfate 325 mg (65 mg 325 mg PO MOWEFR anemia 03/05/23 04/03/24 04/01/24 08:00 History
iron) tablet
insulin aspart U-100 100 unit/mL 1 sliding scale dose SC AC Diabetes 03/05/23 04/03/24 04/03/24 08:00 History
subcutaneous cartridge (Novolog
PenFill U-100 Insulin aspart)
metformin 500 mg tablet,extended 1,000 mg PO BID@0800,1700 Diabetes 03/05/23 04/03/24 04/03/24 08:00 History
release 24 hr
clopidogrel 75 mg tablet 75 mg PO DAILY #90 tabs 03/06/23 04/03/24 04/03/24 17:00 Rx
furosemide 20 mg tablet 20 mg PO DAILY #90 tabs 03/06/23 04/03/24 04/03/24 08:00 Rx
hydralazine 25 mg tablet 25 mg PO TID #270 tabs 03/06/23 04/03/24 04/03/24 08:00 Rx
hydralazine 50 mg tablet 50 mg PO TID #270 tabs 03/06/23 04/03/24 04/03/24 08:00 Rx
Lactobac no.2-Bifidobac no.1-S. 1 cap PO DAILY Supplement 09/08/23 04/03/24 04/03/24 08:00 History
thermo 112.5 billion cell capsule
(Visbiome)
aspirin 81 mg tablet,delayed 81 mg PO QPM Blood clot 09/08/23 04/04/24 04/03/24 17:00 History
release prevention/tx
betamethasone valerate 0.1 % 1 applic topical WEEKLY PRN itching 09/08/23 04/03/24 02/24/24 History
topical ointment
isosorbide mononitrate 30 mg 60 mg PO DAILY Blood Pressure 09/08/23 04/03/24 04/03/24 08:00 History
tablet,extended release 24 hr
nitroglycerin 0.4 mg sublingual 0.4 mg sublingual [id number] PRN jaw 09/08/23 04/03/24 04/03/24 12:00 History
tablet pain
therapeutic multivitamin 1 tab PO DAILY Supplement 09/08/23 04/03/24 04/03/24 08:00 History
atorvastatin 80 mg tablet 80 mg PO QPM #30 tabs 09/11/23 04/03/24 04/02/24 20:00 Rx
pantoprazole 40 mg tablet,delayed 40 mg PO DAILY #30 tabs 09/11/23 04/03/24 04/02/24 20:00 Rx
release
ezetimibe 10 mg tablet (Zetia) 10 mg PO DAILY #90 tabs 12/31/23 04/03/24 04/02/24 20:00 Rx
metoprolol succinate 100 mg 100 mg PO QPM 12/31/23 04/04/24 04/02/24 20:00 History
tablet,extended release 24 hr
lysine 500 mg tablet (L-Lysine) 1,000 mg PO QPM Supplement 04/03/24 04/03/24 04/02/24 20:00 History
Review of Systems
-
Unable to Obtain full review of systems at this time due to: Patient Intubation
Vitals / Labs / Diagnostic Testing
Vital Signs
Temp Pulse Resp BP Pulse Ox
98.7 F 63 12 82/41 100
04/12/24 15:00 04/12/24 15:00 04/12/24 15:00 04/12/24 15:00 04/12/24 15:00
Lab Data
04/12/24 13:00
Laboratory Results
04/11/24 04/12/24 04/12/24
20:45 03:02 13:00
PT 16.8 H
INR 1.33
APTT 94.6 H 88.5 H 34.0
pH 7.43
pCO2 36 H
pO2 135 H
HCO3 23.9
O2 Delivery Level Vent
Diagnostic Testing:
Physical Exam
-
HEENT: Normocephalic, Anicteric and Moist Mucous Membranes
Cardiovascular: S1/S2 and Regular Rhythm
Respiratory: Clear, Non-Labored Respirations and Other (ETT)
GI: Soft, Non Distended and Non Tender
Neurology: Other (sedated/intubated)
Skin: Warm, Dry and Good Color
General: Comfortable and Other (NAD)
Assessment
-
Patient is a 78-year-old female with previous history of hypertension, iron deficiency anemia, chronic leukocytosis, AVB status post PPM, presenting to ER with chest pain radiating to the left jaw. Was admitted on 04/03/2024 for unstable angina.
She has a prior history of cardiac stents underwent catheterization on 04/04/2024 with in-stent restenosis of RCA. CT surgery was consulted, with plan for tentative surgery date on 04/12/2024.
Underwent CABG x 3 on 04/12/2024 and postoperatively transferred to CVICU for further management.
MVCAD s/p CAB x 3 04/12/24
Perioperative mechanical ventilation
Postop anemia
Hyponatremia, mild
Hyperglycemia
Leukocytosis
Conditions present AUTHORIZATION COORDINATOR
Heart block s/p PPM 02/25/23
Hypercholesteremia
Anxiety and depression
Diabetes
Hypertension
RONNY/BSO - fibroids -1993
Cataract - bilateral
Arm fracture w/ plate - left - 2012
Plan
S/p MVCAD POD #0
Titrate off pressors per protocol
ECHO reviewed with normal function
Management of chest tubes per primary service
Intubated/sedated, initiate SAT when able
Pain control
RASS goal of 0 to -1
Intubated for procedure, SBT trial when patient able to spontaneously breath
Current vent settings: PS 5
ABG(s) reviewed/adequate
CXR with low lung volumes, ETT in good position, lines/tubes in place
Extubate per protocol
Maintain supplement oxygen as needed
No prior history of pulmonary disease, nonsmoker
No prior PFTs for review
Can add nebulizers if needed
Aspiration precautions
Encouraged incentive spirometry, OOB/ambulation/early mobility
Advance diet as tolerated following extubation
GI prophylaxis if indicated for mechanical ventilation >48 hours
Monitor critical I/O's
Juarez/chest tube output
Hb/platelets postoperatively stable
Trend CBC for now
Can transfuse if indicated for Hb <7, plt <50 in surgical patients
DVT prophylaxis including SCDs
Insulin protocol initiated and ongoing
Transition to SQ/off as indicated per team
We will follow
Diagnostic Data
Chest X-Ray: 04/12/24- Mild left lower lobe atelectasis. Mild cardiomegaly.
CT Scan: CHEST 04/05/24- 1. Mediastinal and bilateral axillary lymphadenopathy for which clinical correlation is recommended.
2. Severe coronary artery calcifications.
3. Moderate calcifications of the aortic valve and thoracic aorta.
Echo: 04/12/24- Overall LVEF is approximately 55% with no RWMA. Mild concentric left ventricular hypertrophy. Stage I Diastolic dysfunction. Moderately dilated left atrium. Mild mitral regurgitation. MV annulus is calcified, especially posterior.
MV leaflets are calcified with mildly restricted motion. Mild mitral stenosis. Mean MV gradient measures 2 mmHg. Trace tricuspid regurgitation. Aortic sclerosis without stenosis. [place] calculates to 2.3 cm2 by continuity equation. Mid ascending
aorta is mildly dilated measuring 3.5 cm at the level of the RPA. Moderate calcified sessile atheroma seen in the distal aortic arch. Mild sessile atheroma seen in the descending aorta.
Proximal ascending aorta is significantly calcified from the AV to barely above the ST junction.
PFT's:
Reports and relevant images were personally reviewed.
Critical Care time 51 mins -- The patient is admitted for acute critical illness for the treatment of vital organ failure and/or prevention of further life-threatening conditions. Total care includes time spent in review of history, physical exam,
medications, hemodynamic/ventilator parameters, laboratory data, imaging and discussion with house staff, pharmacy, respiratory therapy, neon glass bender, and nursing.
--- NOTE | 2024-04-12 16:00 | PTCARENOTE ---
1unit PRBC ordered and transfusing. pt nods appropriately to voice, ORTIZ. follows commands. drowsy. oral hygiene performed.
[2024-04-12 16:07] LABS: Glucose - Point of Care 112 mg/dl (70-99)
[2024-04-12] MEDS: OFIRMEV 100 IV (16:49)
[2024-04-12 16:59] LABS: Glucose - Point of Care 94 mg/dl (70-99)
[2024-04-12] MEDS: LIPITOR PO (17:26)
--- NOTE | 2024-04-12 17:34 | PTCARENOTE ---
pt placed on CPAP trial @1640, tolerating well. POX 98-99% POX. Ofirmev given for pain @1048. pt washed w/ CHG wipes, gown and linens changed, face washed. H&H and CPAP ABG sent.
[2024-04-12 17:36] LABS: B.E. -1.5 mmol/L; HCO3 23.7 mmol/L (21-28); Hematocrit 28.6 % (37.0-47.0); O2 Saturation % 98.9 % (94-98); PCO2 41 mmHg (32-35); PO2 104 mmHg (83-108); Platelet Count 221 10^3/uL (130-400); Potassium 4.3 mMOL/L (3.5-5.1); pH 7.37 (7.35-7.45)
--- NOTE | 2024-04-12 17:46 | PTCARENOTE ---
INCIDENT RESPONSE CONSULTANT aware of ABG results, pt extubated @1742 to 6LNC, oriented x4. ORTIZ. follows commands. IS 1000ml.
[2024-04-12] MEDS: LOW STRENGTH ASPIRIN 81 MG PO (18:04)
[2024-04-12] MEDS: ANCEF 5 IV (18:04)
[2024-04-12] MEDS: TORADOL 15 MG IV (18:28)
[2024-04-12 19:11] LABS: Glucose - Point of Care 137 mg/dl (70-99)
[2024-04-12] MEDS: SODIUM BICARBONATE 50 MEQ IV (19:56)
--- NOTE | 2024-04-12 20:00 | PTCARENOTE ---
Received pt from [facility]. pt is s/p CABGx3. pt resting comfortably in bed. pt is AAOx4. AV paced via PPM, VSS, Heart sounds audible but distant, radial and DP pulses audible by doppler. lungs diminished throughout, spo2 98% on 6 LNC, x2 MS and x1
left Pleural CT to -20 wall suction, no air leaks, no tidaling, no crepitus. hypoactive BS x4 quadrants, abdomen soft non tender. pt voiding clear yellow urine vis lynn catheter. surgical sites maintained. right IJ cordis/slick, left radial [place],
and PIV, all maintained, leveled, and zeroed. insulin and levophed gtt infusing. call arreola within reach. will continue monitor.
[2024-04-12 20:03] LABS: Glucose - Point of Care 144 mg/dl (70-99)
[2024-04-12 20:59] LABS: Glucose - Point of Care 116 mg/dl (70-99)
[2024-04-12] MEDS: SENOKOT-S PO (21:38)
[2024-04-12] MEDS: MIRAPEX, GENERIC 0.5 MG PO (22:04)
[2024-04-12] MEDS: PACERONE 200 MG PO (22:04)
[2024-04-12] MEDS: NEURONTIN 100 MG PO (22:04)
--- NOTE | 2024-04-12 22:36 | W.PN.CT ---
Assessment / Plan
-
Assessment:
-Multivessel CAD
-[place]
Hx of CAD with multiple PCI's and in-stent restenosis
-S/p PCI with INA to mid LAD, 03/05/23; INA to ostial/prox RCA, 09/10/23
-Plavix washout
-LVEF 55-60% per TTE 04/04/24, LVEF 55% per intraop SERENITY
-Mild MR/MS
-Trace TR
-Mildly dilated mid asc. aorta (3.5 cm)
-Significantly calcified proximal asc. aorta
-T2DM x 20 years (hgb A1C 6.7, on insulin and oral regimen)
-Class 1 obesity (BMI 30)
-HTN (Lisinopril and Diovan allergies)
-HLD
-Chronic leukocytosis d/t smoldering myeloma diagnosed 4 years ago
-Chronic anemia
-Influenza A+ on 04/03/24
-CHB S/p Medtronic dual chamber PPM placement, 02/27/23
-S/p Repair of L humerus fx, 2012
-S/p RONNY/BSO, 1993
-Acute postop blood loss/Anemia (transfused 1u PRBC)
-Acute postop atelectasis
-Acute postop hypovolemia with subsequent hypervolemia
Plan:
-No major issues overnight. Hemodynamically and neurologically stable
-Successfully extubated yesterday 04/12 @ 1742
-Weaned off Levophed gtt overnight, remains on insulin gtt per protocol
-No swan, U/O since OR mL
-Monitor chest tube output: 2meds , R/L pleurals 120/225. CXR this AM looks clear
-BP soft postop, placed AM dose of BB on hold
-Cont. current meds (ASA, Plavix, Crestor, Amiodarone, BB if BP permits)
-D/C'd benja and a-line @ 0430
-Will d/c lynn @ 0600
-Will transition to tele phase tomorrow once off insulin gtt. Will consult diabetes education/management given hgb A1C of 6.7, on insulin at home
-Maintain cordis
-Maintain temporary PW (will cut before d/c home)
-Encourage use of IS
-Wean off of O2 as tolerated
-OOB into chair/Ambulate
Subjective
-
Date of Service: April 12, 2024
Objective Data
-
Lab Results
04/12/24 17:15
04/12/24 13:00
PT 16.8 Sec (11.4-14.6) H 04/12/24 13:00
INR 1.33 04/12/24 13:00
APTT 34.0 Sec (23.4-35.0) 04/12/24 13:00
Vital Signs
Vital Signs
Temp Pulse Resp BP Pulse Ox
100.1 F 61 17 111/56 99
04/12/24 22:00 04/12/24 20:50 04/12/24 22:00 04/12/24 20:49 04/12/24 22:00
CT Intake/Output/Weight
04/12/24 04/12/24 04/13/24
06:59 18:59 06:59
Intake Total 120 / 600 1078.1 / 1195.0 116.9 / 1195.0
Output Total 535 / 695 160 / 695
Balance 120 / 600 543.1 / 500.0 -43.1 / 500.0
SaO2: 99
[2024-04-12 22:58] LABS: Glucose - Point of Care 108 mg/dl (70-99)
[2024-04-12] MEDS: CALCIUM GLUCONATE 100 IV (23:01)
[2024-04-13] VITALS (109 sets, daily range): BP systolic 65–142; BP diastolic 25–95; PULSE 60; O2SAT 91–92; BMI 30.6
--- NOTE | 2024-04-13 | PTCARENOTE ---
Pt assessment unchanged. AV paced on monitor. VSS. Pt attempting to wean levophed. pt's BP remains labile. IVBP calcium gluconate given. call arreola within reach. will continue to monitor.
[2024-04-13 00:55] LABS: Glucose - Point of Care 91 mg/dl (70-99)
[2024-04-13] MEDS: ROXICODONE 5 MG PO (02:15)
[2024-04-13] MEDS: ANCEF 5 IV ×2 (02:15→12:01)
--- NOTE | 2024-04-13 02:35 | DOWNTIME ---
There was a [employer] Client [employer] Downtime on 04/13/2024 from 0100 to 04/13/2023 at 0235 . Downtime documentation of patient's care, including medication administrations, has been reconciled in the electronic record per guidelines. Refer to the
patient's paper chart under the miscellaneous tab to see printed paper medication records and downtime forms.
--- NOTE | 2024-04-13 03:00 | PTCARENOTE ---
pt received 5mg at oxycodone at 0215, documented on meditech down time MAR and also reconciled in the meditech MAR.
[2024-04-13 03:16] LABS: Glucose - Point of Care 115 mg/dl (70-99)
[2024-04-13 03:51] LABS: Hemoglobin 8.4 g/dL (12.0-16.0); Mean Corp Hgb Conc. 33.6 g/dL (33.0-37.0); Mean Corpuscular Hgb 29.4 pg (27.0-31.0); Mean Corpuscular Volume 87.4 fL (81.0-99.0); Mean Platelet Volume 11.6 fL (7.4-10.4); Platelet Count 195 10^3/uL (130-400); Red Blood Cell Count 2.86 10^6/uL (4.20-5.40); Red Cell Dist. Width 15.3 % (11.5-14.5); White Blood Cell Count 18.5 10^3/uL (4.8-10.8)
--- NOTE | 2024-04-13 04:00 | PTCARENOTE ---
Pt assessment unchanged. AV paced on monitor. VSS. Still weaning levophed. Labs drawn and sent. EKG obtained. CHG wipes, new tele leads and gown provided. call arreola within reach. will continue to monitor.
[2024-04-13 04:08] LABS: Blood Urea Nitrogen 21 mg/dl (7-17); Calcium 9.2 mg/dl (8.4-10.2); Carbon Dioxide 24 mmol/L (22-30); Chloride 105 mmol/L (98-107); Estimated Creatinine Clearance 41 ml/min; Glucose 119 mg/dl (70-99); Magnesium 2.4 mg/dl (1.6-2.3); Potassium 4.5 mmol/L (3.5-5.1); Sodium 135 mmol/L (135-145); eGFR 57.31
--- NOTE | 2024-04-13 04:09 | W.PN.CT ---
Today's Communication / Plan
-
Plan:
-No major issues overnight. Hemodynamically and neurologically stable
-Successfully extubated yesterday 04/12 @ 1742
-BP labile postop, received 1u PRBC postop. Weaned off Levophed this AM @ 0430. Consider additional 1u PRBC as BP remains soft with h/h of 8.06/17
-On insulin gtt per protocol
-No swan, U/O since 630 mL
-A/V paced with her own PPM @ 60 bpm
-Monitor chest tube output: 2meds 45/140, L pl 35/100. CXR this AM looks clear
-BP soft postop, placed AM dose of BB on hold
-Cont. current meds (ASA, Plavix, Crestor, Amiodarone, BB if BP permits)
-D/C a-line and SLIC later today
-Will d/c lynn later today
-Will transition to tele phase tomorrow once off insulin gtt. Will consult diabetes education/management given hgb A1C of 6.7, on insulin at home
-Maintain cordis
-Maintain temporary PW (will cut before d/c home)
-Encourage use of IS
-Wean off of O2 as tolerated
-OOB into chair/Ambulate
Assessment / Plan
-
Assessment:
-S/P Median sternotomy/CABG x 3 (ANKUR to LAD, GSV to D1, GSV to RPDA)/Endoscopic harvest/prep of RLE GSV, by Dr. Plummer, 04/12/24, pod#1
-Multivessel CAD
-[place]
Hx of CAD with multiple PCI's and in-stent restenosis
-S/p PCI with INA to mid LAD, 03/05/23; INA to ostial/prox RCA, 09/10/23
-Plavix washout
-LVEF 55-60% per TTE 04/04/24, LVEF 55% per intraop SERENITY
-Mild MR/MS
-Trace TR
-Mildly dilated mid asc. aorta (3.5 cm)
-Significantly calcified proximal asc. aorta
-T2DM x 20 years (hgb A1C 6.7, on insulin and oral regimen)
-Class 1 obesity (BMI 30)
-HTN (Lisinopril and Diovan allergies)
-HLD
-Chronic leukocytosis d/t smoldering myeloma diagnosed 4 years ago
-Chronic anemia
-Influenza A+ on 04/03/24
-CHB S/p Medtronic dual chamber PPM placement, 02/27/23
-S/p Repair of L humerus fx, 2012
-S/p RONNY/BSO, 1993
-Acute postop blood loss/Anemia (transfused 1u PRBC)
-Acute postop atelectasis
-Acute postop hypovolemia with subsequent hypervolemia
Discussed patient care with: Cardiology, Nursing, Respiratory Therapy, Pharmacy and Care Team
Subjective
Procedure
-S/P Median sternotomy/CABG x 3 (ANKUR to LAD, GSV to D1, GSV to RPDA)/Endoscopic harvest/prep of RLE GSV, by Dr. Plummer, 04/12/24
-
Date of Service: April 13, 2024
Pt c/o incisional pain, otherwise feels well
Objective Data
-
Lab Results
04/13/24 03:13
04/13/24 03:13
PT 16.8 Sec (11.4-14.6) H 04/12/24 13:00
INR 1.33 04/12/24 13:00
APTT 34.0 Sec (23.4-35.0) 04/12/24 13:00
Vital Signs
Vital Signs
Temp Pulse Resp BP Pulse Ox
99.3 F 60 20 105/37 92
04/13/24 03:00 04/13/24 03:10 04/13/24 03:10 04/13/24 03:10 04/13/24 03:10
CT Intake/Output/Weight
04/12/24 04/12/24 04/13/24
06:59 18:59 06:59
Intake Total 149.5 / 629.5 1078.1 / 1306.9 228.8 / 1306.9
Output Total 535 / 825 290 / 825
Balance 129.5 / 609.5 543.1 / 481.9 -61.2 / 481.9
SaO2: 92 (2L)
Physical Exam
-
General: Awake, Oriented and AOx3
Cardiovascular: Regular rate & rhythm, No Murmurs, No Rub and No Gallop
Respiratory: Decreased Breath Sounds (at bases, otherwise clear)
Sternum: Stable
Incision: Clean, Dry, Intact and Dressing Intact
Extremities: Other (+trace edema)
Data Reviewed
-
Lab Results: Results Reviewed
Medications: Active Meds Reviewed
Chest X-Ray: Report Reviewed and Image Reviewed
ECG: Report Reviewed and Image Reviewed
[2024-04-13] MEDS: LR 250 ML IV ×3 (04:13→10:00)
[2024-04-13 04:55] LABS: Glucose - Point of Care 106 mg/dl (70-99)
[2024-04-13] MEDS: TYLENOL 1000 MG PO ×3 (06:37→21:08)
--- NOTE | 2024-04-13 07:22 | PN.DE.MGMTRT ---
Insulin Management
- -
04/13/2024 Diabetes Management Consult
Patient admitted 04/03 with jaw and chest pain. PMH multivessel CAD with stenting 03/18 and 09/15, HTN, HCL, type 2 diabetes, chronic leukocytosis, GERD. Prior to admission was taking novolog ss AC, Tresiba 24 units @ hs and metformin 1000 BID. A1C
on admission 6.7. Patient had Cardiac cath 04/04; OR for CABG x 3 04/12.
Patient is awake alert and oriented, resting in bed,able to discuss diabetes management. States she has had diabetes 20 years, follows with chipper feeder routinely. Has a Martha, currently off, but has supply at home.
POD 1 patient currently on glycemic protocol insulin infusion, requiring .6 to 2 units of insulin per hour. Will continue glycemic protocol insulin infusion today and assess in AM for readiness to transition to home regimen. Will check with CM
for pricing for SGLT2.
Discussed with nurse,
Will follow
Diabetes History
- -
Type of Diabetes: 2 requiring insulin
Pre-Admission Diabetes Regimen
04/12/24 04/13/24
13:00 03:13
Creatinine 0.8 1.0
Lab Results
Hemoglobin A1c 6.7 % (4.0-5.6) H 04/03/24 13:28
Insulin Pump Settings
IP Diabetes Regimen
04/12/24 04/12/24 04/12/24
13:00 13:01 14:06
Glucose 160 H
POC Glucose 175 H 159 H
04/12/24 04/12/24 04/12/24
15:04 16:06 16:58
Glucose
POC Glucose 137 H 112 H 94
04/12/24 04/12/24 04/12/24
19:09 20:00 20:57
Glucose
POC Glucose 137 H 144 H 116 H
04/12/24 04/13/24 04/13/24
22:56 00:54 03:13
Glucose 119 H
POC Glucose 108 H 91
04/13/24 04/13/24
03:15 04:53
Glucose
POC Glucose 115 H 106 H
Patient Education
[2024-04-13 07:30] LABS: Glucose - Point of Care 87 mg/dl (70-99)
--- NOTE | 2024-04-13 07:55 | W.PN.ANS.POP ---
Anesthesia Post Operative
- Anesthesia Post Op Note
Vital Signs Stable-See Nursing Note: Yes
Airway Patent: Yes
Adequate Pain Control: Yes
Change in Mental Status: No
Current Postoperative Nausea & Vomiting: No
Anesthesia Complications: No
General Anesthetic Recall: No
Unplanned Admission: No
Post Op Hydration Adequate: Yes
--- NOTE | 2024-04-13 08:00 | PTCARENOTE ---
pt received from previous RN, oriented, drowsy. PPM. 100% AV paced on the monitor, HR 60s. SBP 90-110s. CVP ~7-9. Doppler pedal pulses, palpable radial pulses. no edema. pt on 2LNC, 91-96%. lungs diminished. IS encouraged, 500-750ml. CTx3, no air
leak or crepitus noted. pt abdomen round, s/n. hypoactive BS. tolerating clears. Juarez in place, BRIDGE TEACHER aware of UO. sternal incision c/d/i. chest tube site c/d/i. R groin puncture CLERICAL CLERK. RLE ORALIA bandage in place. RIJ cordis maintained w/ CVP monitoring.
L radial Linda flushed, zeroed, and calibrated. PIV x2. insulin gtt running as ordered. see worklist for VS, I&O, and assessment.
[2024-04-13] MEDS: NOVOLOG FLEXPEN SC (08:35)
[2024-04-13] MEDS: LOW STRENGTH ASPIRIN 81 MG PO (09:21)
[2024-04-13] MEDS: FEOSOL 325 MG PO (09:21)
[2024-04-13] MEDS: VITAMIN C 500 MG PO (09:21)
[2024-04-13] MEDS: PROTONIX 40 MG PO (09:21)
[2024-04-13] MEDS: PLAVIX 75 MG PO (09:21)
[2024-04-13] MEDS: SENOKOT-S 1 TABLET PO ×2 (09:21→20:01)
[2024-04-13] MEDS: LIDOCAINE 4% PATCH 1 PATCH TOPICAL (09:22)
[2024-04-13] MEDS: TORADOL 15 MG IV (09:22)
[2024-04-13] MEDS: MAGNESIUM OXIDE 500 MG PO ×2 (09:22→20:01)
[2024-04-13] MEDS: ZETIA 10 MG PO (09:22)
[2024-04-13] MEDS: BACTROBAN 2% OINTMENT 1 APPLIC NASAL ×2 (09:22→20:01)
[2024-04-13] MEDS: NOVOLIN R INSULIN INFUSION 100 IV (09:23)
[2024-04-13 09:39] LABS: Glucose - Point of Care 142 mg/dl (70-99)
--- NOTE | 2024-04-13 09:59 | PTCARENOTE ---
1 unit PRBC transfused as ordered. 500ml LR bolus given as ordered.
[2024-04-13 11:54] LABS: Glucose - Point of Care 145 mg/dl (70-99)
--- NOTE | 2024-04-13 12:05 | PTCARENOTE ---
pt VSS. RH PIV leaking, discontinued. L radial [place] dc'd as ordered, dressing c/d/i. RIAditya bangura dc'd per INFORMATION SECURITY ASSOCIATE, RITO cordedgardo maintained. chest tube dressing changed, sites cleaned w/ CHG swabs. lynn care performed. pt OOB to chair x2 assist. IS
encouraged.
[2024-04-13] MEDS: NSS IV (12:08)
[2024-04-13] MEDS: NOVOLOG FLEXPEN 4 UNITS SC ×2 (13:08→17:35)
--- NOTE | 2024-04-13 13:42 | W.PN.INTV ---
Today's Communication / Plan
Recommendations
Doing well post extubation
Pain control, encouraged OOB/PT/IS
Chest tubes remain in place
Transition insulin to SQ per protocol
Further postop management per team
Assessment
-
Patient is a 78-year-old female with previous history of hypertension, iron deficiency anemia, chronic leukocytosis, AVB status post PPM, presenting to ER with chest pain radiating to the left jaw. Was admitted on 04/03/2024 for unstable angina.
She has a prior history of cardiac stents underwent catheterization on 04/04/2024 with in-stent restenosis of RCA. CT surgery was consulted, with plan for tentative surgery date on 04/12/2024.
Underwent CABG x 3 on 04/12/2024 and postoperatively transferred to CVICU for further management.
MVCAD s/p CAB x 3 04/12/24
Perioperative mechanical ventilation
Postop anemia
Hyponatremia, mild
Hyperglycemia
Leukocytosis
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
Heart block s/p PPM 02/25/23
Hypercholesteremia
Anxiety and depression
Diabetes
Hypertension
RONNY/BSO - fibroids -1993
Cataract - bilateral
Arm fracture w/ plate - left - 2012
Plan
S/p MVCAD POD #1
Titrated off pressors per protocol
ECHO reviewed with normal function
Management of chest tubes per primary service
Pain control
RASS goal of 0 to -1
Intubated for procedure, extubated and doing well
ABG(s) reviewed/adequate
CXR with stable postop changes
Maintain supplement oxygen as needed
No prior history of pulmonary disease, nonsmoker
No prior PFTs for review
Can add nebulizers if needed
Aspiration precautions
Encouraged incentive spirometry, OOB/ambulation/early mobility
Advance diet as tolerated following extubation
GI prophylaxis if indicated for mechanical ventilation >48 hours
Monitor critical I/O's
Juarez/chest tube output
Hb/platelets postoperatively stable
Trend CBC for now
Can transfuse if indicated for Hb <7, plt <50 in surgical patients
DVT prophylaxis including SCDs
Insulin protocol initiated and ongoing
Transition to SQ/off as indicated per team
Diagnostic Data
Chest X-Ray: 04/12/24- Mild left lower lobe atelectasis. Mild cardiomegaly.
CT Scan: CHEST 04/05/24- 1. Mediastinal and bilateral axillary lymphadenopathy for which clinical correlation is recommended.
2. Severe coronary artery calcifications.
3. Moderate calcifications of the aortic valve and thoracic aorta.
Echo: 04/12/24- Overall LVEF is approximately 55% with no RWMA. Mild concentric left ventricular hypertrophy. Stage I Diastolic dysfunction. Moderately dilated left atrium. Mild mitral regurgitation. MV annulus is calcified, especially posterior.
MV leaflets are calcified with mildly restricted motion. Mild mitral stenosis. Mean MV gradient measures 2 mmHg. Trace tricuspid regurgitation. Aortic sclerosis without stenosis. CHARLOTTE calculates to 2.3 cm2 by continuity equation. Mid ascending
aorta is mildly dilated measuring 3.5 cm at the level of the RPA. Moderate calcified sessile atheroma seen in the distal aortic arch. Mild sessile atheroma seen in the descending aorta.
Proximal ascending aorta is significantly calcified from the AV to barely above the ST junction.
PFT's:
Reports and relevant images were personally reviewed.
Critical Care time 31 mins -- The patient is admitted for acute critical illness for the treatment of vital organ failure and/or prevention of further life-threatening conditions. Total care includes time spent in review of history, physical exam,
medications, hemodynamic/ventilator parameters, laboratory data, imaging and discussion with house staff, pharmacy, respiratory therapy, bean sorter, and nursing.
Subjective Dataa
Subjective Data
Date of Service:
Date of Service: April 13, 2024
Chief Complaint: Soil Science Technical Officer Follow Up
Subjective:
Doing well post extubation
No complaints
Objective Data
Data Reviewed
Vital Signs / I&O / Oxygen:
Vital Signs
Temp Pulse Resp BP Pulse Ox
99.6 F 61 20 106/43 92
04/13/24 13:00 04/13/24 12:30 04/13/24 13:00 04/13/24 12:30 04/13/24 13:00
Intake and Output
04/12/24 04/13/24 04/14/24
06:59 06:59 06:59
Intake Total 629.5 / 629.5 1377.0 / 1377.0 862.3 / 862.3
Output Total 885 / 885 180 / 180
Balance 609.5 / 609.5 492.0 / 492.0 682.3 / 682.3
SaO2 [CPAP] 99
SaO2 [SIMV] 100
SaO2 92
Nasal Cannula flow liters per 3
minute
Physical Exam
General: Comfortable and Other (NAD)
HEENT: Normocephalic, Anicteric and Moist Mucous Membranes
Cardiovascular: S1-S2 and Regular Rhythm
Respiratory: Clear, Non-Labored Respirations and Chest Tube
GI: Soft, Non Distended and Non Tender
Neurology: Awake, Alert, Oriented and No Motor Deficits
Skin: Warm, Dry and Good Color
Labs/Micro/Reports
Lab Data
04/13/24 03:13
Laboratory Results
04/12/24 04/12/24
13:00 17:15
PT 16.8 H
INR 1.33
APTT 34.0
pH 7.37
pCO2 41 H
pO2 104
HCO3 23.7
O2 Delivery Level Not Reportable
Microbiology
04/12/24 07:00 Urine Urine Culture - Final
NO GROWTH
[2024-04-13 14:05] LABS: Glucose - Point of Care 135 mg/dl (70-99)
[2024-04-13] MEDS: ProAmatine 10 MG PO ×2 (14:23→17:35)
[2024-04-13 14:29] LABS: Hematocrit 24.9 % (37.0-47.0); Hemoglobin 8.4 g/dL (12.0-16.0); Mean Corp Hgb Conc. 33.7 g/dL (33.0-37.0); Mean Corpuscular Hgb 29.4 pg (27.0-31.0); Mean Corpuscular Volume 87.1 fL (81.0-99.0); Platelet Count 157 10^3/uL (130-400); Red Blood Cell Count 2.86 10^6/uL (4.20-5.40)
--- NOTE | 2024-04-13 14:46 | PTCARENOTE ---
Addendum entered by Deena Vidales RN 04/13/24 15:07:
CXR completed.
Original Note:
pt rang for assistance, c/o feeling tired. SBP 70-80s. placed back to bed, VOCATIONAL TECHNICAL EDUCATION TEACHER aware. pt states feels better but sees 'pink spots in ceiling'. ORTIZ, follows commands, strength equal throughout. VOCATIONAL TECHNICAL EDUCATION TEACHER aware. Midodrine dose given as ordered. CBC drawn, VOCATIONAL TECHNICAL EDUCATION TEACHER
aware of results.
--- NOTE | 2024-04-13 14:53 | CM ---
Reviewed chart. Asked to check- co-pay for Farxiga and Jardiance. Telephone call to [facility] to check on co-pay. Farxiga first script would be $462.24 due to her deductible. After her deductible has been met her co-pay would be $145.08 until she
meets her $2000.00 total out of pocket. Then her medications would have a zero co-pay. Jardiance co-pay for the first script would be $469.43 until her deductible has been met. Then her co-pay would be $152.27 a month until her $2000.00 total out
of pocket has been met then it would be a zero co-pay. Will review co-pays with her.
[2024-04-13 16:11] LABS: Glucose - Point of Care 99 mg/dl (70-99)
--- NOTE | 2024-04-13 16:30 | PTCARENOTE ---
pt VS completed, remains in bed. no c/o pain. resting between care, son at bedside. IS encouraged. RLE ORALIA bandage removed.
--- NOTE | 2024-04-13 16:53 | W.PN.CARDCBS ---
Addendum entered and electronically signed by Aldo Nguyễn MD 04/13/24 17:22:
Attending addendum: Patient seen and examined. PA note reviewed and findings confirmed by me.
-Post op day 1 and feeling exhausted and weak.
-Continue aspirin and clopidogrel resumed.
-Will follow
Original Note:
Today's Communication / Plan
-
Levophed weaned, midodrine started, s/p transfusion
Follow BP and restart meds as able
Plavix restarted today
Impression / Plan
-
PCP: Dr. Park Marley
Primary Pre Certification Specialist: Dr. Stapleton
Impression:
Recurrent chest and jaw pain 04/03/24
Influenza A
CAD
s/p 3 mm Xience to mid LAD 03/05/23
s/p 3.5 mm Riley DS to prox RCA 09/10/23
cath with prox RCA in-stent restenosis treated with shockwave and 3.5 mm Xience INA with postdilation up to 24 hanna and excellent angiographic result at end of case 12/30/23
recurrent in-stent restenosis of ostial to proximal RCA 04/04/24
s/p CABG x 3 (TRIPATHI-LAD, SVG-D1, SVG-RPDA) 04/12/2024
s/p Medtronic DC PPM for complete heart block 02/27/23
HTN, multidrug resistant
ORALIA/ARB allergy
Lisinopril caused itching, Diovan caused her to hallucinate seeing clocks running up the wall
Dyslipidemia
Type 2 diabetes mellitus on insulin and metformin with freestyle noelle CGM
Chronic elevated white blood cell count, followed by Dr. Garrison, oncology
ECHO 01/01/23: EF 55-60%, stage 2 diastolic dysfunction, mod cLVH, MAC, mild MR, dilated LA, aortic sclerosis, normal right heart with mild pulm HTN
Echo 09/09/23: EF 55-60%, mild cLVH, no RWMA, mild MR, mild AI
Echo 04/04/24: EF 55 to 60%, mild MS with peak/mean 9/4 mmHg and MVA 2.3 cm SQ, trace MR, aortic sclerosis without stenosis, trace AR
Postop SERENITY 04/12/2024: EF 55% with no new regional wall motion abnormality. Normal RV and LV function. Mild TR.
Plan:
-Patient is s/p CABG with TRIPATHI-LAD, SVG-D1, SVG-RPDA 04/12/24.
-CT surgery note reviewed and Levophed gtt weaned 04/13/24 early AM.
-Patient has had 3 units PRBCs
-Midodrine 10 mg TID ordered 04/13/24
-Outpatient dose of Toprol XL 100 mg daily is on hold postop.
-Outpatient dose of amlodipine 5 mg BID was stopped 04/10/24
-Outpatient dose of Imdur ER has been stopped.
-Cont aspirin 81 mg daily
-Outpatient dose of Plavix was held for surgery, but resumed 04/13/24 due to RCA PCI 12/30/23
-Outpatient dose of hydralazine 75 mg TID is on hold
-Outpatient dose of spironolactone 12.5 mg daily is on hold
-Outpatient dose of Lasix 20 mg PO daily is on hold
-Patient with previous allergies to lisinopril and Diovan.
-Direct LDL is less than 30. TG of 383. Outpatient doses of atorvastatin 80 mg daily and Zetia 10 mg daily continued. Consider stopping Zetia and starting Tricor eventually.
-Hgb A1c 6.7%. Metformin on hold. Insulin continued. Resume once cleared by CT surgery
HPI: 78-year-old woman past medical history of CAD with multiple stents in the past who presents with jaw and chest discomfort which she identifies as being similar to her prior episodes of angina and cardiology is consulted for further evaluation.
Patient reports intermittent jaw pain over the last few days to weeks which she identifies as her anginal equivalent. Then earlier today she developed substernal chest pressure. This came on at rest and she took sublingual nitroglycerin at home
and chest pressure resolved. She subsequently came to [facility] emergency department for evaluation. Tells me she had recurrence of symptoms but they were more mild and she was treated with Nitropaste. Symptoms she is currently resting chest and
jaw pain-free. Tells me her breathing has been comfortable. No lower extremity edema. Initial troponin was undetectable. ECG is difficult to interpret given paced rhythm but not overtly ischemic. Chest x-ray was clear.
Progress Note - Pre Certification Specialist
Subjective
Date of Service: April 13, 2024
Feels tired, then lightheaded with changes in position
Objective
Labs:
04/13/24 14:17
04/13/24 03:13
Labs
Hgb 8.4 g/dL (12.0-16.0) L 04/13/24 14:17
Hct 24.9 % (37.0-47.0) L 04/13/24 14:17
Plt Count 157 10^3/uL (130-400) 04/13/24 14:17
PT 16.8 Sec (11.4-14.6) H 04/12/24 13:00
INR 1.33 04/12/24 13:00
APTT 34.0 Sec (23.4-35.0) 04/12/24 13:00
Sodium 135 mmol/L (135-145) 04/13/24 03:13
Potassium 4.5 mmol/L (3.5-5.1) 04/13/24 03:13
BUN 21 mg/dl (7-17) H 04/13/24 03:13
Creatinine 1.0 mg/dL (0.6-1.0) 04/13/24 03:13
Glucose 119 mg/dl (70-99) H 04/13/24 03:13
Vital Signs and I&O:
Vital Signs
Temp Pulse Resp BP Pulse Ox
99.4 F 60 26 126/42 93
04/13/24 16:00 04/13/24 16:30 04/13/24 16:30 04/13/24 16:30 04/13/24 16:30
Vital Signs
Temp Pulse Resp BP Pulse Ox
99.4 F 60 26 126/42 93
04/13/24 16:00 04/13/24 16:30 04/13/24 16:30 04/13/24 16:30 04/13/24 16:30
Intake & Output
04/11/24 04/12/24 04/13/24 04/14/24
06:59 06:59 06:59 06:59
Intake Total 960 / 960 629.5 / 629.5 1377.0 / 1377.0 905.6 / 905.6
Output Total 885 / 885 285 / 285
Balance 960 / 960 609.5 / 609.5 492.0 / 492.0 620.6 / 620.6
Physical Exam
Physical Exam
GEN: NAD
HEENT: EOMI
LUNGS: 3 L NC. No audible wheeze
CV: SR on tele
ABD: ND
EXT: No edema B/L
SKIN: No rash
[2024-04-13] MEDS: LIPITOR 80 MG PO (17:35)
[2024-04-13 18:17] LABS: Glucose - Point of Care 109 mg/dl (70-99)
--- NOTE | 2024-04-13 20:00 | PTCARENOTE ---
Assumed care of patient at 1900. Patient found resting in bed at time of assessment. Patient is AOx4, follows commands appropriately, moves all extremities. Patient noticeably drowsy. Lung sounds are diminished throughout, saO2 91% on 3L, IS at 500,
and CTx3: L pleural and medsx2 draining red sanguineous to to their respective atriums. Heart sounds are audible, patient is 100% AV paced with PPM on L side. Patient has no observable edema, normal palpable radial pulses, and pedal pulses present
with doppler. Patient has active BS in all four quadrants and has indwelling lynn catheter draining clear yellow patient noted to be oliguric during day. Patient has sternal incision with aquacell dressing that is CDI, ABD dresssing over CT wounds
that is CDI, R groin puncture that is approx with surg adhesive CUSTOMER CARE PROFESSIONAL, and RLE incision approx with surg adhesive CUSTOMER CARE PROFESSIONAL. Patient has R IJ cordis with KVO and R AC PIV receiving insulin gtt column 2. Patient has no complaints at this time. Call arreola
within reach.
[2024-04-13 20:12] LABS: Glucose - Point of Care 114 mg/dl (70-99)
[2024-04-13] MEDS: MIRAPEX, GENERIC 0.5 MG PO (21:08)
[2024-04-13] MEDS: MUCINEX 600 MG PO (22:09)
[2024-04-13] MEDS: ROXICODONE 2.5 MG PO (22:10)
[2024-04-13 22:16] LABS: Glucose - Point of Care 84 mg/dl (70-99)
[2024-04-13] MEDS: LASIX 20 MG IV (23:47)
[2024-04-13] MEDS: FLEXBUMIN 100 IV (23:48)
[2024-04-14] VITALS (54 sets, daily range): BP systolic 83–180; BP diastolic 27–102; PULSE 68; O2SAT 91–97; BMI 30.8
[2024-04-14 00:08] LABS: Glucose - Point of Care 112 mg/dl (70-99)
--- NOTE | 2024-04-14 00:08 | PTCARENOTE ---
Patient reassessed. Remains in 100% av paced on the monitor. Patient c/o mild pain at HS unrelieved by tyelnol. Given 2.5 Michelle per parameters. UOP remains low. CT PA notified. Received orders and administered 20 IV Lasix and 1xFlexbumin.
[2024-04-14 02:12] LABS: Glucose - Point of Care 92 mg/dl (70-99)
[2024-04-14 03:39] LABS: Hematocrit 24.4 % (37.0-47.0); Hemoglobin 8.1 g/dL (12.0-16.0); Mean Corp Hgb Conc. 33.2 g/dL (33.0-37.0); Mean Corpuscular Hgb 29.5 pg (27.0-31.0); Mean Corpuscular Volume 88.7 fL (81.0-99.0); Mean Platelet Volume 11.3 fL (7.4-10.4); Platelet Count 150 10^3/uL (130-400); Red Blood Cell Count 2.75 10^6/uL (4.20-5.40); Red Cell Dist. Width 16.4 % (11.5-14.5); White Blood Cell Count 19.3 10^3/uL (4.8-10.8)
[2024-04-14 03:44] LABS: Blood Urea Nitrogen 28 mg/dl (7-17); Calcium 8.2 mg/dl (8.4-10.2); Carbon Dioxide 26 mmol/L (22-30); Chloride 100 mmol/L (98-107); Estimated Creatinine Clearance 38 ml/min; Glucose 87 mg/dl (70-99); Magnesium 2.4 mg/dl (1.6-2.3); Sodium 133 mmol/L (135-145); eGFR 51.11
[2024-04-14 04:13] LABS: Glucose - Point of Care 97 mg/dl (70-99)
--- NOTE | 2024-04-14 04:25 | W.PN.CT ---
Today's Communication / Plan
-
-No major issues overnight. Hemodynamically stable
-BP labile postop, off Levophed, started midodrine yesterday. BP's better overnight
-H&H stable at 8.1/24.4
-On insulin gtt per protocol
-U/O 1055mL overnight after SPA and lasix, 1285ml for 24hrs.
-A/V paced with her own PPM @ 60 bpm
-Monitor chest tube output: 2meds 40/130, L pl 5/35. discontinue today
-Cont. current meds (ASA, Plavix, Crestor, Amiodarone, BB if BP permits)
-Will transition to tele phase once off insulin gtt.
-Maintain cordis
-Maintain temporary PW (will cut before d/c home)
-Encourage use of IS
-Wean off of O2 as tolerated
-OOB into chair/Ambulate
Assessment / Plan
-
Assessment:
-S/P Median sternotomy/CABG x 3 (ANKUR to LAD, GSV to D1, GSV to RPDA)/Endoscopic harvest/prep of RLE GSV, by Dr. Plummer, 04/12/24, pod#2
-Multivessel CAD
-[place]
Hx of CAD with multiple PCI's and in-stent restenosis
-S/p PCI with INA to mid LAD, 03/05/23; INA to ostial/prox RCA, 09/10/23
-Plavix washout
-LVEF 55-60% per TTE 04/04/24, LVEF 55% per intraop SERENITY
-Mild MR/MS
-Trace TR
-Mildly dilated mid asc. aorta (3.5 cm)
-Significantly calcified proximal asc. aorta
-T2DM x 20 years (hgb A1C 6.7, on insulin and oral regimen)
-Class 1 obesity (BMI 30)
-HTN (Lisinopril and Diovan allergies)
-HLD
-Chronic leukocytosis d/t smoldering myeloma diagnosed 4 years ago
-Chronic anemia
-Influenza A+ on 04/03/24
-CHB S/p Medtronic dual chamber PPM placement, 02/27/23
-S/p Repair of L humerus fx, 2012
-S/p RONNY/BSO, 1993
-Acute postop blood loss/Anemia (transfused 1u PRBC)
-Acute postop atelectasis
-Acute postop hypovolemia with subsequent hypervolemia
Subjective
Procedure
-S/P Median sternotomy/CABG x 3 (ANKUR to LAD, GSV to D1, GSV to RPDA)/Endoscopic harvest/prep of RLE GSV, by Dr. Plummer, 04/12/24
-
Date of Service: April 14, 2024
Objective Data
-
Lab Results
04/14/24 03:09
04/14/24 03:09
PT 16.8 Sec (11.4-14.6) H 04/12/24 13:00
INR 1.33 04/12/24 13:00
APTT 34.0 Sec (23.4-35.0) 04/12/24 13:00
Vital Signs
Vital Signs
Temp Pulse Resp BP Pulse Ox
98.5 F 60 14 126/43 93
04/14/24 03:04 04/13/24 23:47 04/14/24 03:04 04/13/24 23:47 04/14/24 03:04
CT Intake/Output/Weight
04/13/24 04/13/24 04/14/24
06:59 18:59 06:59
Intake Total 298.9 / 1377.0 927.2 / 1131.4 204.2 / 1131.4
Output Total 350 / 885 350 / 1265 915 / 1265
Balance -51.1 / 492.0 577.2 / -133.6 -710.8 / -133.6
SaO2: 93
Physical Exam
-
General: AOx3
Cardiovascular: Regular rate & rhythm
Respiratory: Decreased Breath Sounds
Sternum: Stable
Incision: Dressing Intact
Extremities: Edema +1
[2024-04-14] MEDS: TYLENOL 1000 MG PO ×3 (05:06→21:47)
[2024-04-14 06:02] LABS: Glucose - Point of Care 121 mg/dl (70-99)
--- NOTE | 2024-04-14 06:11 | PTCARENOTE ---
Patient reassessed. Remains AV paced on the monitor. AM hygiene care provided AM labs obtained. Good UOP noted following flexbumin and 20 IV lasix. Stable H/H noted with AM labs. Assisted patient oob to chair without incident. Patient reported mild
dizziness, but tolerated the activity. Upon reaching chair DBP noted to be low at 37 SBP is [address] PA aware[address] Per CT SUN lynn to be maintained to monitor I+Os. Given scheduled tylenol for some mild pain. Call arreola within reach.
--- NOTE | 2024-04-14 07:17 | W.PN.INTV ---
Today's Communication / Plan
Recommendations
Remains stable, off pressors
Transitioning off insulin gtt
Chest tubes discontinued
OOB/PT, ambulated today
Transfer to tele once off insulin gtt, we will sign off upon transfer
Assessment
-
Patient is a 78-year-old female with previous history of hypertension, iron deficiency anemia, chronic leukocytosis, AVB status post PPM, presenting to ER with chest pain radiating to the left jaw. Was admitted on 04/03/2024 for unstable angina.
She has a prior history of cardiac stents underwent catheterization on 04/04/2024 with in-stent restenosis of RCA. CT surgery was consulted, with plan for tentative surgery date on 04/12/2024.
Underwent CABG x 3 on 04/12/2024 and postoperatively transferred to CVICU for further management.
MVCAD s/p CAB x 3 04/12/24
Perioperative mechanical ventilation
Postop anemia
Hyponatremia, mild
Hyperglycemia
Leukocytosis
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
Heart block s/p PPM 02/25/23
Hypercholesteremia
Anxiety and depression
Diabetes
Hypertension
RONNY/BSO - fibroids -1993
Cataract - bilateral
Arm fracture w/ plate - left - 2012
Plan
S/p MVCAD POD #2
Titrated off pressors per protocol
ECHO reviewed with normal function
Management of chest tubes per primary service--discontinued
Pain control
RASS goal of 0 to -1
Intubated for procedure, extubated and doing well
ABG(s) reviewed/adequate
CXR with stable postop changes
Maintain supplement oxygen as needed
No prior history of pulmonary disease, nonsmoker
No prior PFTs for review
Can add nebulizers if needed
Aspiration precautions
Encouraged incentive spirometry, OOB/ambulation/early mobility
Advance diet as tolerated following extubation
GI prophylaxis if indicated for mechanical ventilation >48 hours
Monitor critical I/O's
Juarez/chest tube output
Hb/platelets postoperatively stable
Trend CBC for now
Can transfuse if indicated for Hb <7, plt <50 in surgical patients
DVT prophylaxis including SCDs
Insulin protocol initiated -- transitioning off per team
Diagnostic Data
Chest X-Ray: 04/12/24- Mild left lower lobe atelectasis. Mild cardiomegaly.
CT Scan: CHEST 04/05/24- 1. Mediastinal and bilateral axillary lymphadenopathy for which clinical correlation is recommended.
2. Severe coronary artery calcifications.
3. Moderate calcifications of the aortic valve and thoracic aorta.
Echo: 04/12/24- Overall LVEF is approximately 55% with no RWMA. Mild concentric left ventricular hypertrophy. Stage I Diastolic dysfunction. Moderately dilated left atrium. Mild mitral regurgitation. MV annulus is calcified, especially posterior.
MV leaflets are calcified with mildly restricted motion. Mild mitral stenosis. Mean MV gradient measures 2 mmHg. Trace tricuspid regurgitation. Aortic sclerosis without stenosis. CHARLOTTE calculates to 2.3 cm2 by continuity equation. Mid ascending
aorta is mildly dilated measuring 3.5 cm at the level of the RPA. Moderate calcified sessile atheroma seen in the distal aortic arch. Mild sessile atheroma seen in the descending aorta.
Proximal ascending aorta is significantly calcified from the AV to barely above the ST junction.
PFT's:
Reports and relevant images were personally reviewed.
Critical Care time 31 mins -- The patient is admitted for acute critical illness for the treatment of vital organ failure and/or prevention of further life-threatening conditions. Total care includes time spent in review of history, physical exam,
medications, hemodynamic/ventilator parameters, laboratory data, imaging and discussion with house staff, pharmacy, respiratory therapy, steel plate printer, and nursing.
Subjective Dataa
Subjective Data
Date of Service:
Date of Service: April 14, 2024
Chief Complaint: Store Lead Follow Up
Subjective:
Doing well, off pressors
Remains on insulin gtt
Objective Data
Data Reviewed
Vital Signs / I&O / Oxygen:
Vital Signs
Temp Pulse Resp BP Pulse Ox
99.5 F 60 18 121/37 91
04/14/24 06:04 04/14/24 06:00 04/14/24 06:04 04/14/24 06:00 04/14/24 06:04
Intake and Output
04/13/24 04/14/24 04/15/24
06:59 06:59 06:59
Intake Total 1377.0 / 1377.0 1643.8 / 1643.8
Output Total 885 / 885 1525 / 1525
Balance 492.0 / 492.0 118.8 / 118.8
SaO2 [CPAP] 99
SaO2 [SIMV] 100
SaO2 91
Nasal Cannula flow liters per 3
minute
Physical Exam
General: Comfortable and Other (NAD)
HEENT: Normocephalic, Anicteric and Moist Mucous Membranes
Cardiovascular: S1-S2 and Regular Rhythm
Respiratory: Clear and Non-Labored Respirations
GI: Soft, Non Distended and Non Tender
Neurology: Awake, Alert, Oriented and No Motor Deficits
Skin: Warm, Dry and Good Color
Labs/Micro/Reports
Lab Data
04/14/24 03:09
04/14/24 03:09
Microbiology
04/12/24 07:00 Urine Urine Culture - Final
NO GROWTH
--- NOTE | 2024-04-14 08:00 | PTCARENOTE ---
Assumed care of patient. Walking rounds completed with previous RN. Pt assessed while she was sitting in the chair. Pt alert and oriented x4. Pt states she feels tired. Rates sternal pain 5/10. Denies nausea & shortness of breath. ORTIZ with equal
strength throughout. AV-paced on tele with rates in the 60s via PPM. BP 110/37. Heart tones audible. Bilateral radial pulses palpable. Bilateral DP pulses present via doppler. Bilateral hand edema trace. Pt states she intermittently feels dizzy. POX
95% on 3L, titrated to 1L, POX 92%. Lungs diminished throughout. IS encouraged-500mL achieved. Left pleural chest tube to -20cm suction draining scant serosanguineous fluid. Mediastinal chest tubes x2 y-sited to 1 atrium to -20cm suction draining
serosanguineous fluid, WNL. No air leaks, tidaling, crepitus noted. Abdomen soft, round, nontender. Hypoactive BS. Juarez catheter intact draining adequate amounts of clear yellow urine. Sternal incision covered with Antibacterial dressing, CDI.
Chest tube dressing CDI. Right groin puncture site approximate, JOSE. Right SVG harvest site approximated, ARMATURE BANDER. Right IJ cordis intact. Right AC 20g PIV intact infusing insulin gtt per Critical Care Glycemic Protocol. See MAR for medication
administration. See worklist for complete nursing assessment. Plan of care reviewed and patient in agreement.
[2024-04-14 08:01] LABS: Glucose - Point of Care 115 mg/dl (70-99)
[2024-04-14] MEDS: NOVOLOG FLEXPEN 4 UNITS SC ×3 (08:14→16:50)
[2024-04-14] MEDS: LOW STRENGTH ASPIRIN 81 MG PO (08:28)
[2024-04-14] MEDS: MUCINEX 600 MG PO ×2 (08:29→20:05)
[2024-04-14] MEDS: FEOSOL 325 MG PO (08:29)
[2024-04-14] MEDS: VITAMIN C 500 MG PO (08:29)
[2024-04-14] MEDS: PLAVIX 75 MG PO (08:29)
[2024-04-14] MEDS: LASIX 20 MG IV ×2 (08:29→16:50)
[2024-04-14] MEDS: ZETIA 10 MG PO (08:29)
[2024-04-14] MEDS: ProAmatine 10 MG PO (08:29)
[2024-04-14] MEDS: MAGNESIUM OXIDE 500 MG PO (08:29)
[2024-04-14] MEDS: SENOKOT-S 1 TABLET PO ×2 (08:29→20:05)
[2024-04-14] MEDS: BACTROBAN 2% OINTMENT 1 APPLIC NASAL ×2 (08:29→20:05)
[2024-04-14] MEDS: LIDOCAINE 4% PATCH 1 PATCH TOPICAL (08:29)
[2024-04-14] MEDS: PROTONIX 40 MG PO (08:29)
[2024-04-14] MEDS: KCL 20 MEQ PO (08:29)
--- NOTE | 2024-04-14 09:05 | PN.DE.MGMTRT ---
Insulin Management
- -
04/14/2024 Diabetes Management Consult Follow up
Patient admitted 04/03 with jaw and chest pain. PMH multivessel CAD with stenting 03/18 and 09/15, HTN, HCL, type 2 diabetes, chronic leukocytosis, GERD. Prior to admission was taking novolog ss AC, Tresiba 24 units @ hs and metformin 1000 BID. A1C
on admission 6.7. Patient had Cardiac cath 04/04; OR for CABG x 3 04/12.
Patient is awake alert and oriented, out of bed in chair,able to discuss diabetes management. States she has had diabetes 20 years, follows with die mechanic routinely. Has a Martha, currently off, but has supply at home.
POD 2 patient currently on glycemic protocol insulin infusion, requiring .2 to 3 units of insulin per hour. Will continue glycemic protocol insulin infusion today and transition to home regimen with HS lantus 20 units, insulin infusion off 2
hours after lantus administered, to start novolog 3 units AC with low corrective insulin 04/15.
CM checked for pricing for SGLT2, Farxiga first script would be $462.24 due to her deductible. After her deductible has been met her co-pay would be $145.08 until she meets her $2000.00 total out of pocket. Then her medications would have a zero
co-pay. Jardiance co-pay for the first script would be $469.43 until her deductible has been met. Then her co-pay would be $152.27 a month until her $2000.00 total out of pocket has been met then it would be a zero co-pay. Discussed cost with
patient, she would like to speak to about cost.
Discussed with nurse.
Will follow
Diabetes History
- -
Type of Diabetes: 2 requiring insulin
Pre-Admission Diabetes Regimen
04/14/24
03:09
Creatinine 1.1 H
Lab Results
Hemoglobin A1c 6.7 % (4.0-5.6) H 04/03/24 13:28
Insulin Pump Settings
IP Diabetes Regimen
04/13/24 04/13/24 04/13/24
09:37 11:52 14:04
Glucose
POC Glucose 142 H 145 H 135 H
04/13/24 04/13/24 04/13/24
16:10 18:16 20:05
Glucose
POC Glucose 99 109 H 114 H
04/13/24 04/14/24 04/14/24
22:13 00:05 02:09
Glucose
POC Glucose 84 112 H 92
04/14/24 04/14/24 04/14/24
03:09 04:09 06:00
Glucose 87
POC Glucose 97 121 H
04/14/24
07:55
Glucose
POC Glucose 115 H
Meal type: Breakfast
Patient Education
[2024-04-14 09:59] LABS: Glucose - Point of Care 141 mg/dl (70-99)
--- NOTE | 2024-04-14 10:14 | W.PN.CARDCBS ---
Today's Communication / Plan
-
Continue usual postop care
Wean midodrine as able which she is on for low blood pressures and dizziness which are in part attributed to deconditioning
Continue to follow telemetry which remains stable. EKG stable.
Impression / Plan
-
PCP: Dr. Park Marley
Primary Floor Associate: Dr. Stapleton
Impression:
Recurrent chest and jaw pain 04/03/24
Influenza A
CAD
s/p 3 mm Xience to mid LAD 03/05/23
s/p 3.5 mm Ventura DS to prox RCA 09/10/23
cath with prox RCA in-stent restenosis treated with shockwave and 3.5 mm Xience INA with postdilation up to 24 hanna and excellent angiographic result at end of case 12/30/23
recurrent in-stent restenosis of ostial to proximal RCA 04/04/24
s/p CABG x 3 (TRIPATHI-LAD, SVG-D1, SVG-RPDA) 04/12/2024
s/p Medtronic DC PPM for complete heart block 02/27/23
HTN, multidrug resistant
ORALIA/ARB allergy
Lisinopril caused itching, Diovan caused her to hallucinate seeing clocks running up the wall
Dyslipidemia
Type 2 diabetes mellitus on insulin and metformin with freestyle noelle CGM
Chronic elevated white blood cell count, followed by Dr. Garrison, oncology
ECHO 01/01/23: EF 55-60%, stage 2 diastolic dysfunction, mod cLVH, MAC, mild MR, dilated LA, aortic sclerosis, normal right heart with mild pulm HTN
Echo 09/09/23: EF 55-60%, mild cLVH, no RWMA, mild MR, mild AI
Echo 04/04/24: EF 55 to 60%, mild MS with peak/mean 9/4 mmHg and MVA 2.3 cm SQ, trace MR, aortic sclerosis without stenosis, trace AR
Postop SERENITY 04/12/2024: EF 55% with no new regional wall motion abnormality. Normal RV and LV function. Mild TR.
Plan:
Patient currently sitting in chair using incentive spirometer. Feels fatigued and tired. Progressing postop
-CABG with TRIPATHI-LAD, SVG-D1, SVG-RPDA 04/12/24. Postop day #2
-Cont aspirin 81 mg daily
-Outpatient dose of Plavix was held for surgery, but resumed 04/13/24 due to RCA PCI 12/30/23
-Midodrine 10 mg TID ordered 04/13/24. Wean as tolerates. Previously low blood pressures with dizziness which is more related to deconditioning.
-Telemetry stable amiodarone noted. EKG stable. Pacemaker in place.
-Outpatient dose of Toprol XL 100 mg daily is on hold postop.
-Outpatient dose of amlodipine 5 mg BID was stopped 04/10/24
-Outpatient dose of Imdur ER has been stopped.
-Outpatient dose of hydralazine 75 mg TID is on hold
-Outpatient dose of spironolactone 12.5 mg daily is on hold
-Outpatient dose of Lasix 20 mg PO daily is on hold and volume status appears fairly stable.
-Patient with previous allergies to lisinopril and Diovan.
-Direct LDL is less than 30. TG of 383. Outpatient doses of atorvastatin 80 mg daily and Zetia 10 mg daily continued. Consider stopping Zetia and starting Vascepa.
-Hgb A1c 6.7%. Metformin on hold. Insulin continued. Resume once cleared by CT surgery
Continue to work on conditioning. Continue incentive spirometer.
HPI: 78-year-old woman past medical history of CAD with multiple stents in the past who presents with jaw and chest discomfort which she identifies as being similar to her prior episodes of angina and cardiology is consulted for further evaluation.
Patient reports intermittent jaw pain over the last few days to weeks which she identifies as her anginal equivalent. Then earlier today she developed substernal chest pressure. This came on at rest and she took sublingual nitroglycerin at home
and chest pressure resolved. She subsequently came to [place] emergency department for evaluation. Tells me she had recurrence of symptoms but they were more mild and she was treated with Nitropaste. Symptoms she is currently resting chest and
jaw pain-free. Tells me her breathing has been comfortable. No lower extremity edema. Initial troponin was undetectable. ECG is difficult to interpret given paced rhythm but not overtly ischemic. Chest x-ray was clear.
Progress Note - Floor Associate
Subjective
Date of Service: April 14, 2024
She is weak and tired but using incentive spirometer.
Objective
Labs:
04/14/24 03:09
04/14/24 03:09
Labs
Hgb 8.1 g/dL (12.0-16.0) L 04/14/24 03:09
Hct 24.4 % (37.0-47.0) L 04/14/24 03:09
Plt Count 150 10^3/uL (130-400) 04/14/24 03:09
PT 16.8 Sec (11.4-14.6) H 04/12/24 13:00
INR 1.33 04/12/24 13:00
APTT 34.0 Sec (23.4-35.0) 04/12/24 13:00
Sodium 133 mmol/L (135-145) L 04/14/24 03:09
Potassium 4.0 mmol/L (3.5-5.1) 04/14/24 03:09
BUN 28 mg/dl (7-17) H 04/14/24 03:09
Creatinine 1.1 mg/dL (0.6-1.0) H 04/14/24 03:09
Glucose 87 mg/dl (70-99) 04/14/24 03:09
Vital Signs and I&O:
Vital Signs
Temp Pulse Resp BP Pulse Ox
98.3 F 75 16 139/76 82
04/14/24 08:00 04/14/24 10:01 04/14/24 08:00 04/14/24 10:01 04/14/24 10:01
Vital Signs
Temp Pulse Resp BP Pulse Ox
98.3 F 75 16 139/76 82
04/14/24 08:00 04/14/24 10:01 04/14/24 08:00 04/14/24 10:01 04/14/24 10:01
Intake & Output
04/12/24 04/13/24 04/14/24 04/15/24
06:59 06:59 06:59 06:59
Intake Total 629.5 / 629.5 1377.0 / 1377.0 1643.8 / 1643.8 37.6 / 37.6
Output Total 885 / 885 1525 / 1525 410 / 410
Balance 609.5 / 609.5 492.0 / 492.0 118.8 / 118.8 -372.4 / -372.4
Physical Exam
Physical Exam
General: Sitting in chair
Neck: Right IJ cordis
Heart: Distant heart sounds
Lungs: Normal inspiration/expiration with decreased breath sounds left base. Chest tubes in place
Extremities: No clubbing, cyanosis or edema bilaterally.
Neuro: Grossly nonfocal, awake, alert
--- NOTE | 2024-04-14 11:00 | PTCARENOTE ---
Pt assisted back to bed with cardiac rehab. Chest tubes x3 d/c per orders, sutures tied, new dressing applied. Juarez d/c per orders, due to void 1700. Pt tolerated. Pt's son at bedside.
[2024-04-14] MEDS: NSS 500 IV (12:07)
[2024-04-14 12:11] LABS: Glucose - Point of Care 85 mg/dl (70-99)
--- NOTE | 2024-04-14 12:25 | CM ---
Reviewed chart. Met with and Mrs. Carter to review discharge plans. She states she is feeling well but tired. We reviewed the co-pays for Jocelyn and Tin. She is okay with co-pay with [facility]. Placed the one month free coupon in her
red discharge folder. She states prior to admission she resides with her spouse in a two story home with six steps to enter. She states she has a full flight of steps to get to bedroom/full bathroom. She states she has a powder room on the first
floor. She states prior to admission she was independent with ambulation and adls. She states she does not have any DME in the home. She has a prescription plan. We reviewed a home visit by the Transitional Care Nurse. She is agreeable to a home
visit. Medical work-up in progress. The discharge plan is to return home with her spouse and a home by the Transitional Care Nurse when medically stable.
--- NOTE | 2024-04-14 12:35 | PTCARENOTE ---
Pt reassessed. Assisted from bed to the chair. Pt tolerated. Remains AV paced via PPM. POX 92% on 2L NC. Pt assisted to the bathroom to void 350ml clear yellow urine since lynn removal. Insulin continues to infuse via Glycemic Protocol. No other
acute changes.
[2024-04-14 14:15] LABS: Glucose - Point of Care 139 mg/dl (70-99)
--- NOTE | 2024-04-14 16:00 | PTCARENOTE ---
Pt reassessed. AV paced on tele with rates in the 60s. BP 148/51. POX 92% on RA. Pt ambulated to the bathroom, voiding clear yellow urine. Pt ambulated in the shine 200'. Tolerated. Surgical sites stable. Cordis and PIV intact.
[2024-04-14 16:05] LABS: Glucose - Point of Care 124 mg/dl (70-99)
[2024-04-14] MEDS: ROXICODONE 2.5 MG PO ×2 (16:15→23:37)
[2024-04-14] MEDS: GLUCOPHAGE 1000 MG PO (16:50)
[2024-04-14] MEDS: LIPITOR 80 MG PO (16:50)
--- NOTE | 2024-04-14 19:15 | PTCARENOTE ---
Received pt from [facility]. Walking rounds completed. Pt assessment completed in bed. Pt is AAOx4. No neuro deficits noted. 100% paced rhythm on monitor. HR 70's B/P 112/39. + pulses, bi-lateral lower extremity trace edema. Lungs clear, diminished in
bases. I/S: 500-750. Pt encouraged to use 10X per hour while awake. Occasional cough producing clear, white secretion. Normal bowel sounds. Pt denies nausea. Pt voiding in bathroom, clear, yellow fluid WNL. Sternal chest antibacterial dressing
C/D/I. 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 All surgical sites intact. R cordis to KVO, R 20g intact and flushes. discussed plan of care with pt. Pt agrees with plan. Will continue to monitor pt needs.
[2024-04-14] MEDS: MAGNESIUM OXIDE PO (20:08)
[2024-04-14] MEDS: ProAmatine 5 MG PO (20:12)
[2024-04-14 21:15] LABS: Glucose - Point of Care 101 mg/dl (70-99)
[2024-04-14 21:15] LABS: Glucose - Point of Care 176 mg/dl (70-99)
[2024-04-14 21:15] LABS: Glucose - Point of Care 146 mg/dl (70-99)
[2024-04-14] MEDS: MIRAPEX, GENERIC 0.5 MG PO (21:47)
[2024-04-14] MEDS: LANTUS 0.2 UNITS SC (21:48)
[2024-04-14 21:50] LABS: Glucose - Point of Care 138 mg/dl (70-99)
[2024-04-14] MEDS: MELATONIN 5 MG PO (22:35)
[2024-04-14 23:54] LABS: Glucose - Point of Care 74 mg/dl (70-99)
[2024-04-15] VITALS (17 sets, daily range): BP systolic 112–161; BP diastolic 35–75; PULSE 70; O2SAT 95–98; BMI 29.9
--- NOTE | 2024-04-15 | PTCARENOTE ---
VSS, 100% paced rhythm on monitor. HR 62, B/P 116/66. POX 91% 2L NC. Critical glycemic index d/c'ed. PM care provided. Pt resting in bed. Will continue to monitor pt needs.
[2024-04-15 00:41] LABS: Glucose - Point of Care 66 mg/dl (70-99)
[2024-04-15 01:46] LABS: Glucose - Point of Care 128 mg/dl (70-99)
[2024-04-15 03:18] LABS: Glucose - Point of Care 126 mg/dl (70-99)
[2024-04-15 04:19] LABS: Hematocrit 24.5 % (37.0-47.0); Hemoglobin 8.2 g/dL (12.0-16.0); Mean Corp Hgb Conc. 33.5 g/dL (33.0-37.0); Mean Corpuscular Hgb 29.7 pg (27.0-31.0); Mean Corpuscular Volume 88.8 fL (81.0-99.0); Mean Platelet Volume 11.4 fL (7.4-10.4); Platelet Count 173 10^3/uL (130-400); Red Blood Cell Count 2.76 10^6/uL (4.20-5.40); Red Cell Dist. Width 16.1 % (11.5-14.5); White Blood Cell Count 16.2 10^3/uL (4.8-10.8)
[2024-04-15 04:34] LABS: Blood Urea Nitrogen 21 mg/dl (7-17); Carbon Dioxide 29 mmol/L (22-30); Chloride 98 mmol/L (98-107); Estimated Creatinine Clearance 52 ml/min; Glucose 114 mg/dl (70-99); Potassium 3.6 mmol/L (3.5-5.1); Sodium 133 mmol/L (135-145); eGFR > 60.00
--- NOTE | 2024-04-15 04:55 | PTCARENOTE ---
VSS. 100% A-V paced on monitor. HR 68, B/P 150/57. Morning labs obtained and sent. Pt resting in bed. Will continue to monitor pt needs.
[2024-04-15] MEDS: TYLENOL 1000 MG PO ×3 (06:06→21:53)
[2024-04-15] MEDS: ROXICODONE 2.5 MG PO (06:31)
[2024-04-15] MEDS: NOVOLOG FLEXPEN SC ×2 (07:15→12:06)
[2024-04-15] MEDS: NOVOLOG FLEXPEN-LOW RESISTANCE 1 UNITS SC (07:16)
[2024-04-15] MEDS: NOVOLOG FLEXPEN 3 UNITS SC ×3 (07:16→16:51)
[2024-04-15 07:18] LABS: Glucose - Point of Care 162 mg/dl (70-99)
--- NOTE | 2024-04-15 07:40 | PN.DE.MGMTRT ---
Insulin Management
- -
04/15/2024 Diabetes Management Follow up
Patient admitted 04/03 with jaw and chest pain. PMH multivessel CAD with stenting 03/18 and 09/15, HTN, HCL, type 2 diabetes, chronic leukocytosis, GERD. Prior to admission was taking NovoLog ss AC, Tresiba 24 units @ hs and metformin 1000 BID. A1C
on admission 6.7. Patient had Cardiac cath 04/04; OR for CABG x 3 04/12. States she has had diabetes 20 years, follows with Endo- Dr. Ding in [place]. Has a Martha, currently off, but has supply at home.
Patient is awake alert, oriented, sitting up in chair, offers no complaints, able to discuss diabetes management. at bedside.
POD #3. Transitioned off glycemic protocol insulin infusion, to home regimen with HS Lantus 20 units and NovoLog 3 units AC with low corrective insulin
Glucose has remained stable and in range with 1 episode of hypoglycemia to 66 at MN. Otherwise, FBG was 114(V), 162 POC this AM.
Will make no changes to current regimen: Lantus 20 units @ HS, NovoLog 3 units AC and Metformin 1000mg BID with low corrective.
Will cont to follow and make further adjustments if necessary. Discussed with nurse.
CM checked for pricing for SGLT2, Farxiga first script would be $462.24 due to her deductible. After her deductible has been met her co-pay would be $145.08 until she meets her $2000.00 total out of pocket. Then her medications would have a zero
co-pay. Jardiance co-pay for the first script would be $469.43 until her deductible has been met. Then her co-pay would be $152.27 a month until her $2000.00 total out of pocket has been met then it would be a zero co-pay. Discussed cost with
patient and again and they would like to continue thinking about it.
Diabetes History
- -
Type of Diabetes: 2 requiring insulin
Pre-Admission Diabetes Regimen
04/15/24
03:55
Creatinine 0.8
Lab Results
Hemoglobin A1c 6.7 % (4.0-5.6) H 04/03/24 13:28
Insulin Pump Settings
IP Diabetes Regimen
04/14/24 04/14/24 04/14/24
07:55 09:57 12:10
Glucose
POC Glucose 115 H 141 H 85
04/14/24 04/14/24 04/14/24
14:14 16:03 16:48
Glucose
POC Glucose 139 H 124 H 101 H
04/14/24 04/14/24 04/14/24
19:03 21:00 21:49
Glucose
POC Glucose 176 H 146 H 138 H
04/14/24 04/15/24 04/15/24
23:52 00:40 01:44
Glucose
POC Glucose 74 66 L 128 H
04/15/24 04/15/24 04/15/24
03:16 03:55 07:13
Glucose 114 H
POC Glucose 126 H 162 H
Meal type: Breakfast
Amount consumed: 100%
Patient Education
--- NOTE | 2024-04-15 08:13 | W.PN.CT ---
Today's Communication / Plan
-
-pod #3
-no issues overnight
-cough overnight- started acapella, continue chest PT, IS
-diuresed with 20 iv bid Lasix on 04/14
-Cr improved - 0.8 today (1.1 on 04/14)
-wean off O2 as tolerated- pOx 96 on 2L
-encourage IS, OOB
Assessment / Plan
-
Assessment:
-S/P Median sternotomy/CABG x 3 (ANKUR to LAD, GSV to D1, GSV to RPDA)/Endoscopic harvest/prep of RLE GSV, by Dr. Plummer, 04/12/24, pod#3
-Multivessel CAD
-[place]
Hx of CAD with multiple PCI's and in-stent restenosis
-S/p PCI with INA to mid LAD, 03/05/23; INA to ostial/prox RCA, 09/10/23
-Plavix washout
-LVEF 55-60% per TTE 04/04/24, LVEF 55% per intraop SERENITY
-Mild MR/MS
-Trace TR
-Mildly dilated mid asc. aorta (3.5 cm)
-Significantly calcified proximal asc. aorta
-T2DM x 20 years (hgb A1C 6.7, on insulin and oral regimen)
-Class 1 obesity (BMI 30)
-HTN (Lisinopril and Diovan allergies)
-HLD
-Chronic leukocytosis d/t smoldering myeloma diagnosed 4 years ago
-Chronic anemia
-Influenza A+ on 04/03/24
-CHB S/p Medtronic dual chamber PPM placement, 02/27/23
-S/p Repair of L humerus fx, 2012
-S/p RONNY/BSO, 1993
-Acute postop blood loss/Anemia (transfused 1u PRBC)
-Acute postop atelectasis
-Acute postop hypovolemia with subsequent hypervolemia
Discussed patient care with: Nursing
Subjective
Procedure
-S/P Median sternotomy/CABG x 3 (ANKUR to LAD, GSV to D1, GSV to RPDA)/Endoscopic harvest/prep of RLE GSV, by Dr. Plummer, 04/12/24
-
Date of Service: April 15, 2024
Objective Data
-
Lab Results
04/15/24 03:55
04/15/24 03:55
PT 16.8 Sec (11.4-14.6) H 04/12/24 13:00
INR 1.33 04/12/24 13:00
APTT 34.0 Sec (23.4-35.0) 04/12/24 13:00
Vital Signs
Vital Signs
Temp Pulse Resp BP Pulse Ox
98.5 F 72 18 157/50 96
04/14/24 19:30 04/15/24 06:00 04/14/24 19:30 04/15/24 06:00 04/15/24 05:00
CT Intake/Output/Weight
04/14/24 04/15/24 04/15/24
18:59 06:59 18:59
Intake Total 364.6 / 375.9 11.3 / 375.9
Output Total 1635 / 2485 850 / 2485
Balance -1270.4 / -2109.1 -838.7 / -2109.1
SaO2: 96
Physical Exam
-
General: Awake and AOx3
Cardiovascular: Regular rate & rhythm, No Murmurs and No Rub
Respiratory: Decreased Breath Sounds
Sternum: Stable
Incision: Clean, Dry and Intact
Extremities: Edema +1
Abdomen: soft, nontender, + bowel sounds
Data Reviewed
-
Lab Results: Results Reviewed
Medications: Active Meds Reviewed
Chest X-Ray: Report Reviewed and Image Reviewed
ECG: Report Reviewed and Image Reviewed
--- NOTE | 2024-04-15 08:43 | W.PN.INTV ---
Today's Communication / Plan
Recommendations
Off insulin, pressors--doing well
Stable on RA, ambulating well
Chest tubes are discontinued
Likely to d/c tomorrow, can transfer to [facility] per team
We will sign off upon transfer
Assessment
-
Patient is a 78-year-old female with previous history of hypertension, iron deficiency anemia, chronic leukocytosis, AVB status post PPM, presenting to ER with chest pain radiating to the left jaw. Was admitted on 04/03/2024 for unstable angina.
She has a prior history of cardiac stents underwent catheterization on 04/04/2024 with in-stent restenosis of RCA. CT surgery was consulted, with plan for tentative surgery date on 04/12/2024.
Underwent CABG x 3 on 04/12/2024 and postoperatively transferred to CVICU for further management.
MVCAD s/p CAB x 3 04/12/24
Perioperative mechanical ventilation
Postop anemia
Hyponatremia, mild
Hyperglycemia
Leukocytosis
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
Heart block s/p PPM 02/25/23
Hypercholesteremia
Anxiety and depression
Diabetes
Hypertension
RONNY/BSO - fibroids -1993
Cataract - bilateral
Arm fracture w/ plate - left - 2012
Plan
S/p MVCAD POD #3
Titrated off pressors per protocol
ECHO reviewed with normal function
Management of chest tubes per primary service--discontinued
Pain control
RASS goal of 0 to -1
Intubated for procedure, extubated and doing well
ABG(s) reviewed/adequate
CXR with stable postop changes
Maintain supplement oxygen as needed
No prior history of pulmonary disease, nonsmoker
No prior PFTs for review
Can add nebulizers if needed
Aspiration precautions
Encouraged incentive spirometry, OOB/ambulation/early mobility
Advance diet as tolerated following extubation
GI prophylaxis if indicated for mechanical ventilation >48 hours
Monitor critical I/O's
Juarez/chest tube output
Hb/platelets postoperatively stable
Trend CBC for now
Can transfuse if indicated for Hb <7, plt <50 in surgical patients
DVT prophylaxis including SCDs
Insulin protocol initiated -- transitioning off per team
Off now, doing well
Diagnostic Data
Chest X-Ray: 04/12/24- Mild left lower lobe atelectasis. Mild cardiomegaly.
CT Scan: CHEST 04/05/24- 1. Mediastinal and bilateral axillary lymphadenopathy for which clinical correlation is recommended.
2. Severe coronary artery calcifications.
3. Moderate calcifications of the aortic valve and thoracic aorta.
Echo: 04/12/24- Overall LVEF is approximately 55% with no RWMA. Mild concentric left ventricular hypertrophy. Stage I Diastolic dysfunction. Moderately dilated left atrium. Mild mitral regurgitation. MV annulus is calcified, especially posterior.
MV leaflets are calcified with mildly restricted motion. Mild mitral stenosis. Mean MV gradient measures 2 mmHg. Trace tricuspid regurgitation. Aortic sclerosis without stenosis. [place]TE calculates to 2.3 cm2 by continuity equation. Mid ascending
aorta is mildly dilated measuring 3.5 cm at the level of the RPA. Moderate calcified sessile atheroma seen in the distal aortic arch. Mild sessile atheroma seen in the descending aorta.
Proximal ascending aorta is significantly calcified from the AV to barely above the ST junction.
PFT's:
Reports and relevant images were personally reviewed.
Critical Care time 31 mins -- The patient is admitted for acute critical illness for the treatment of vital organ failure and/or prevention of further life-threatening conditions. Total care includes time spent in review of history, physical exam,
medications, hemodynamic/ventilator parameters, laboratory data, imaging and discussion with house staff, pharmacy, respiratory therapy, life sciences director, and nursing.
Subjective Dataa
Subjective Data
Date of Service:
Date of Service: April 15, 2024
Chief Complaint: Communication Professor Follow Up
Subjective:
Doing well, no events ON
Off insulin gtt
Objective Data
Data Reviewed
Vital Signs / I&O / Oxygen:
Vital Signs
Temp Pulse Resp BP Pulse Ox
98.5 F 72 18 157/50 96
04/14/24 19:30 04/15/24 06:00 04/14/24 19:30 04/15/24 06:00 04/15/24 08:18
Intake and Output
04/14/24 04/15/24 04/16/24
06:59 06:59 06:59
Intake Total 1643.8 / 1643.8 375.9 / 375.9
Output Total 1525 / 1525 2485 / 2485
Balance 118.8 / 118.8 -2109.1 / -2109.1
SaO2 [CPAP] 99
SaO2 [SIMV] 100
SaO2 96
Nasal Cannula flow liters per 2
minute
Physical Exam
General: Comfortable and Other (NAD)
HEENT: Normocephalic, Anicteric and Moist Mucous Membranes
Cardiovascular: S1-S2 and Regular Rhythm
Respiratory: Clear and Non-Labored Respirations
GI: Soft, Non Distended and Non Tender
Neurology: Awake, Alert, Oriented and No Motor Deficits
Skin: Warm, Dry and Good Color
Labs/Micro/Reports
Lab Data
04/15/24 03:55
04/15/24 03:55
Microbiology
04/12/24 07:00 Urine Urine Culture - Final
NO GROWTH
--- NOTE | 2024-04-15 08:45 | PTCARENOTE ---
Resumed care of patient. Walking rounds completed with previous RN. Pt assessed while she was sitting in the chair. Pt alert and oriented x4. Rates sternal pain 1/10. Denies nausea and shortness of breath. ORTIZ with equal strength throughout.
Ambulates in the room and shine with standby assist. V-paced on tele with rates in the 70s via PPM. BP 112/73. Heart tones audible. Bilateral radial pulses palpable. bilateral DP pulses present via doppler. No edema noted. POX 95% on RA. Lungs
diminished in the bases. IS encouraged-1000ml achieved. Acapella encouraged. +Productive cough with clear sputum. Abdomen soft, round, nontender. +BS. +BM this morning. Voiding simeon urine in the toilet. Sternal incision covered with Antibacterial
dressing, CDI. Old chest tube sites covered, dressing CDI. Right groin puncture site approximated, MOLD CLEANER. Right SVG harvest site approximated, JOSE. Right IJ cordis intact infusing NSS KVO. Right AC 20g PIV kinked, d/c. See MAR for medication
administration. See worklist for complete nursing assessment. Plan of care reviewed and pt in agreement.
[2024-04-15] MEDS: MUCINEX 600 MG PO ×2 (08:48→19:29)
[2024-04-15] MEDS: LIDOCAINE 4% PATCH 1 PATCH TOPICAL (08:48)
[2024-04-15] MEDS: PLAVIX 75 MG PO (08:48)
[2024-04-15] MEDS: PROTONIX 40 MG PO (08:48)
[2024-04-15] MEDS: ZETIA 10 MG PO (08:49)
[2024-04-15] MEDS: FEOSOL 325 MG PO (08:49)
[2024-04-15] MEDS: MAGNESIUM OXIDE 500 MG PO ×2 (08:49→19:32)
[2024-04-15] MEDS: LOW STRENGTH ASPIRIN 81 MG PO (08:49)
[2024-04-15] MEDS: KCL 40 MEQ PO (08:49)
[2024-04-15] MEDS: VITAMIN C 500 MG PO (08:49)
[2024-04-15] MEDS: GLUCOPHAGE 1000 MG PO ×2 (08:49→17:26)
[2024-04-15] MEDS: BACTROBAN 2% OINTMENT 1 APPLIC NASAL ×2 (08:50→19:26)
[2024-04-15] MEDS: SENOKOT-S PO ×2 (08:50→19:30)
--- NOTE | 2024-04-15 10:25 | W.PN.CARDCBS ---
Today's Communication / Plan
-
Postoperative care per CT surgery
Resume goal-directed medical therapy as tolerated, off midodrine, BP stable
Follow on telemetry EKG stable
Impression / Plan
-
PCP: Dr. Park Marley
Primary Golf Club Repairer: Dr. Stapleton
Impression:
Recurrent chest and jaw pain 04/03/24
Influenza A
CAD
s/p 3 mm Xience to mid LAD 03/05/23
s/p 3.5 mm [place] DS to prox RCA 09/10/23
cath with prox RCA in-stent restenosis treated with shockwave and 3.5 mm Xience INA with postdilation up to 24 hanna and excellent angiographic result at end of case 12/30/23
recurrent in-stent restenosis of ostial to proximal RCA 04/04/24
s/p CABG x 3 (TRIPATHI-LAD, SVG-D1, SVG-RPDA) 04/12/2024
s/p Medtronic DC PPM for complete heart block 02/27/23
HTN, multidrug resistant
ORALIA/ARB allergy
Lisinopril caused itching, Diovan caused her to hallucinate seeing clocks running up the wall
Dyslipidemia
Type 2 diabetes mellitus on insulin and metformin with freestyle noelle CGM
Chronic elevated white blood cell count, followed by Dr. Garrison, oncology
ECHO 01/01/23: EF 55-60%, stage 2 diastolic dysfunction, mod cLVH, MAC, mild MR, dilated LA, aortic sclerosis, normal right heart with mild pulm HTN
Echo 09/09/23: EF 55-60%, mild cLVH, no RWMA, mild MR, mild AI
Echo 04/04/24: EF 55 to 60%, mild MS with peak/mean 9/4 mmHg and MVA 2.3 cm SQ, trace MR, aortic sclerosis without stenosis, trace AR
Postop SERENITY 04/12/2024: EF 55% with no new regional wall motion abnormality. Normal RV and LV function. Mild TR.
Plan:
Patient currently sitting in chair using incentive spirometer. Feels fatigued and tired. Progressing postop
-CABG with TRIPATHI-LAD, SVG-D1, SVG-RPDA 04/12/24.
-Cont aspirin 81 mg daily, atorvastatin 80, zetia 10
-Outpatient dose of Plavix was held for surgery, but resumed 04/13/24 due to RCA PCI 12/30/23
-Midodrine 10 mg TID ordered 04/13/24. Wean as tolerates. Previously low blood pressures with dizziness which is more related to deconditioning.; discontinued, last dose 04/14
-Telemetry stable amiodarone noted. EKG stable. Pacemaker in place.
-Outpatient dose of Toprol XL 100 mg daily is on hold postop. -> currently on metoprolol tartrate 12.5 mg BID, transition to long acting prior to DC
-Outpatient dose of amlodipine 5 mg BID was stopped 04/10/24
-Outpatient dose of Imdur ER has been stopped.
-Outpatient dose of hydralazine 75 mg TID is on hold
-Outpatient dose of spironolactone 12.5 mg daily is on hold
-Outpatient dose of Lasix 20 mg PO daily is on hold and volume status appears fairly stable.
-Plan to resume GDMT slowly, with LH/dizziness/hypotension, medical therapy currently on hold.
-Patient with previous allergies to lisinopril and Diovan.
-Direct LDL is less than 30. TG of 383. Outpatient doses of atorvastatin 80 mg daily and Zetia 10 mg daily continued. Consider stopping Zetia and starting Vascepa.
-Hgb A1c 6.7%. Metformin resumed by CT surgery
-Continue to work on conditioning. Continue incentive spirometer.
HPI: 78-year-old woman past medical history of CAD with multiple stents in the past who presents with jaw and chest discomfort which she identifies as being similar to her prior episodes of angina and cardiology is consulted for further evaluation.
Patient reports intermittent jaw pain over the last few days to weeks which she identifies as her anginal equivalent. Then earlier today she developed substernal chest pressure. This came on at rest and she took sublingual nitroglycerin at home
and chest pressure resolved. She subsequently came to [place] emergency department for evaluation. Tells me she had recurrence of symptoms but they were more mild and she was treated with Nitropaste. Symptoms she is currently resting chest and
jaw pain-free. Tells me her breathing has been comfortable. No lower extremity edema. Initial troponin was undetectable. ECG is difficult to interpret given paced rhythm but not overtly ischemic. Chest x-ray was clear.
Progress Note - Golf Club Repairer
Subjective
Date of Service: April 15, 2024
Patient seen and examined's morning. No acute events overnight. Patient reports overall feeling improved. Roughly 2 L urine output. BP stable. No recent use of midodrine, discontinued by CT surgery. Telemetry demonstrating a sensed V paced,
PVC, a paced V pace. Notes incisional discomfort. Denies other chest pain, shortness of breath, near-syncope, syncope. Notes mild lightheadedness but improved overall.
Objective
Labs:
04/15/24 03:55
04/15/24 03:55
Labs
Hgb 8.2 g/dL (12.0-16.0) L 04/15/24 03:55
Hct 24.5 % (37.0-47.0) L 04/15/24 03:55
Plt Count 173 10^3/uL (130-400) 04/15/24 03:55
PT 16.8 Sec (11.4-14.6) H 04/12/24 13:00
INR 1.33 04/12/24 13:00
APTT 34.0 Sec (23.4-35.0) 04/12/24 13:00
Sodium 133 mmol/L (135-145) L 04/15/24 03:55
Potassium 3.6 mmol/L (3.5-5.1) 04/15/24 03:55
BUN 21 mg/dl (7-17) H 04/15/24 03:55
Creatinine 0.8 mg/dL (0.6-1.0) 04/15/24 03:55
Glucose 114 mg/dl (70-99) H 04/15/24 03:55
Vital Signs and I&O:
Vital Signs
Temp Pulse Resp BP Pulse Ox
98.5 F 73 16 112/73 95
04/15/24 08:00 04/15/24 08:36 04/15/24 08:00 04/15/24 08:36 04/15/24 08:45
Vital Signs
Temp Pulse Resp BP Pulse Ox
98.5 F 73 16 112/73 95
04/15/24 08:00 04/15/24 08:36 04/15/24 08:00 04/15/24 08:36 04/15/24 08:45
Intake & Output
04/13/24 04/14/24 04/15/24 04/16/24
06:59 06:59 06:59 06:59
Intake Total 1377.0 / 1377.0 1643.8 / 1643.8 375.9 / 375.9 250 / 250
Output Total 885 / 885 1525 / 1525 2485 / 2485
Balance 492.0 / 492.0 118.8 / 118.8 -2109.1 / -2109.1 250 / 250
Physical Exam
Physical Exam
General: Sitting in chair
Neck: Right IJ cordis
Heart: Distant heart sounds , regular rate and rhythm
Lungs: Normal inspiration/expiration with decreased breath sounds left base
Extremities: No clubbing, cyanosis or edema bilaterally.
Neuro: Grossly nonfocal, awake, alert
[2024-04-15] MEDS: NSS IV (11:43)
--- NOTE | 2024-04-15 11:46 | CM ---
Reviewed chart. Met with Mrs. Carter to review discharge plans. She states she is feeling much better and maybe able to go home soon. She staes she ambulated in the hallway today. We reviewed a home visit by the Transitional Care Nurse. She is
agreeable to home visit. Prior to admission she resides with her spouse in a two story home with six steps to enter. She has a full flight of steps to get to bedroom/full bathroom. She has a powder room on the first floor. Prior to admission she
was independent with ambulation and adls. She does not have any DME in the home. She has a prescription plan. She states her spouse will be home to assist in her care if needed. She states she has two sons who reside locally and are supportive.
Medical work-up in progress. The discharge plan is to return home with her spouse and a home visit by the Transitional Care Nurse when medically stable.
[2024-04-15] MEDS: NOVOLOG FLEXPEN-LOW RESISTANCE 2 UNITS SC ×2 (11:50→16:51)
[2024-04-15 11:52] LABS: Glucose - Point of Care 203 mg/dl (70-99)
--- NOTE | 2024-04-15 12:00 | PTCARENOTE ---
Pt reassessed. AV/V paced on tele with rates in the 70s. BP 161/59. POX 95% on RA. Surgical sites stable. Pt ambulating in the room and shine independently. Pt tolerating.
--- NOTE | 2024-04-15 14:30 | PTCARENOTE ---
Pt assisted back to bed. IV team RN at bedside to place PIV. Right IJ cordis d/c. Pt tolerated. Dressing applied.
--- NOTE | 2024-04-15 16:00 | PTCARENOTE ---
Pt reassessed. 100% v-paced BP 140/35. POX 95% on RA. Surgical sites stable. Right hand 22g PIV intact. Pt assisted to the bathroom, voiding independently. Ambulating in the halls independently. Pt tolerating.
[2024-04-15] MEDS: PACERONE 200 MG PO ×2 (16:06→21:54)
[2024-04-15 16:51] LABS: Glucose - Point of Care 207 mg/dl (70-99)
[2024-04-15] MEDS: LIPITOR 80 MG PO (17:26)
--- NOTE | 2024-04-15 19:15 | PTCARENOTE ---
Received pt from [facility]. Walking rounds completed. pt assessment completed in bed. AAOx4. No neuro deficits noted. Pt reports pain level 2/10. Pt 110% paced on monitor. HR 67, B/P 151/75. Pulses palpable, bilateral lower extremities trace edema.
Lungs clear, diminished in bases. POX 96% RA. I/S 750. Pt voiding yellow urine in bathroom. NBS. Abdomen soft, round, nontender. Pt denies nausea. Sternal aquacel C/D/I. R groin and R saphenous sites stable. 18g PVA right hand intact and flushes.
Discussed plan of care with pt. Pt agrees with plan. Will continue to monitor pt needs.
[2024-04-15] MEDS: LOPRESSOR 12.5 MG PO (19:27)
[2024-04-15 21:52] LABS: Glucose - Point of Care 148 mg/dl (70-99)
[2024-04-15] MEDS: LANTUS 0.2 UNITS SC (21:53)
[2024-04-15] MEDS: MIRAPEX, GENERIC 0.5 MG PO (21:57)
--- NOTE | 2024-04-15 23:08 | PTCARENOTE ---
VSS. Pt in 100% paced rhythm on monitor. HR 63, B/P 125/63. PM care provided. Pt resting in bed. Will continue to monitor pt needs.
[2024-04-16] MEDS: MELATONIN 5 MG PO (00:01)
[2024-04-16] MEDS: TYLENOL 650 MG PO (01:50)
[2024-04-16 04:28] VITALS: BMI 29.7
[2024-04-16 04:32] LABS: Hematocrit 25.5 % (37.0-47.0); Hemoglobin 8.4 g/dL (12.0-16.0); Mean Corp Hgb Conc. 32.9 g/dL (33.0-37.0); Mean Corpuscular Volume 91.1 fL (81.0-99.0); Mean Platelet Volume 11.1 fL (7.4-10.4); Platelet Count 202 10^3/uL (130-400); Red Cell Dist. Width 15.6 % (11.5-14.5); White Blood Cell Count 15.4 10^3/uL (4.8-10.8)
[2024-04-16 04:59] LABS: Blood Urea Nitrogen 14 mg/dl (7-17); Calcium 8.8 mg/dl (8.4-10.2); Carbon Dioxide 27 mmol/L (22-30); Chloride 99 mmol/L (98-107); Estimated Creatinine Clearance 51 ml/min; Glucose 124 mg/dl (70-99); Magnesium 2.2 mg/dl (1.6-2.3); Potassium 4.3 mmol/L (3.5-5.1); Sodium 133 mmol/L (135-145); eGFR > 60.00
--- NOTE | 2024-04-16 05:27 | W.PN.CT ---
Addendum entered and electronically signed by Celso Plummer MD 04/16/24 09:19:
I saw and examined the patient.
The PA's note was reviewed and I agree with the note.
Comment:
POD#4 s/p CABG, doing very well
Check 2v CXR
D/C home
Original Note:
Today's Communication / Plan
-
-pod #4
-no significant issues overnight, ambulates without problems
-BP improved, Midodrine stopped 04/15. Lopressor and Amio restarted 04/15
-Cr stable - 0.8
-weaned off O2 - pOx 92-96% on RA
-follow 2v-CXR today
-encourage IS, OOB
-possible d/c
Assessment / Plan
-
Assessment:
-S/P Median sternotomy/CABG x 3 (ANKUR to LAD, GSV to D1, GSV to RPDA)/Endoscopic harvest/prep of RLE GSV, by Dr. Plummer, 04/12/24, pod#4
-Multivessel CAD
-[place]
Hx of CAD with multiple PCI's and in-stent restenosis
-S/p PCI with INA to mid LAD, 03/05/23; INA to ostial/prox RCA, 09/10/23
-Plavix washout
-LVEF 55-60% per TTE 04/04/24, LVEF 55% per intraop SERENITY
-Mild MR/MS
-Trace TR
-Mildly dilated mid asc. aorta (3.5 cm)
-Significantly calcified proximal asc. aorta
-T2DM x 20 years (hgb A1C 6.7, on insulin and oral regimen)
-Class 1 obesity (BMI 30)
-HTN (Lisinopril and Diovan allergies)
-HLD
-Chronic leukocytosis d/t smoldering myeloma diagnosed 4 years ago
-Chronic anemia
-Influenza A+ on 04/03/24
-CHB S/p Medtronic dual chamber PPM placement, 02/27/23
-S/p Repair of L humerus fx, 2012
-S/p RONNY/BSO, 1993
-Acute postop blood loss/Anemia (transfused 1u PRBC)
-Acute postop atelectasis
-Acute postop hypovolemia with subsequent hypervolemia
Discussed patient care with: Nursing and Care Team
Subjective
Procedure
-S/P Median sternotomy/CABG x 3 (ANKUR to LAD, GSV to D1, GSV to RPDA)/Endoscopic harvest/prep of RLE GSV, by Dr. Plummer, 04/12/24
-
Date of Service: April 16, 2024
Objective Data
-
Lab Results
04/16/24 04:19
04/16/24 04:19
PT 16.8 Sec (11.4-14.6) H 04/12/24 13:00
INR 1.33 04/12/24 13:00
APTT 34.0 Sec (23.4-35.0) 04/12/24 13:00
Vital Signs
Vital Signs
Temp Pulse Resp BP Pulse Ox
98.5 F 61 18 125/63 92
04/15/24 23:00 04/16/24 02:00 04/15/24 23:00 04/15/24 22:59 04/16/24 02:00
CT Intake/Output/Weight
04/15/24 04/15/24 04/16/24
06:59 18:59 06:59
Intake Total 11.3 / 375.9 770 / 770
Output Total 850 / 2485 550 / 1850 1300 / 1850
Balance -838.7 / -2109.1 220 / -1080 -1300 / -1080
SaO2: 92
Physical Exam
-
General: Awake and AOx3
Cardiovascular: Regular rate & rhythm, No Murmurs and No Rub
Respiratory: Decreased Breath Sounds
Sternum: Stable
Incision: Clean, Dry and Intact
Abdomen: soft, nontender, + bowel sounds
Extremities: Edema trace
Data Reviewed
-
Lab Results: Results Reviewed
Medications: Active Meds Reviewed
Chest X-Ray: Report Reviewed and Image Reviewed
ECG: Report Reviewed and Image Reviewed
--- NOTE | 2024-04-16 05:36 | PTCARENOTE ---
VSS. 100% AV paced on monitor. Morning labs obtained and sent. Weight obtained. Morning care provided. Pt resting in chair. Will continue to monitor pt needs.
[2024-04-16] MEDS: TYLENOL 1000 MG PO (06:06)
[2024-04-16] MEDS: NOVOLOG FLEXPEN 3 UNITS SC (07:41)
[2024-04-16] MEDS: NOVOLOG FLEXPEN-LOW RESISTANCE 1 UNITS SC (07:42)
[2024-04-16 07:44] LABS: Glucose - Point of Care 162 mg/dl (70-99)
[2024-04-16] MEDS: LIDOCAINE 4% PATCH TOPICAL (07:56)
[2024-04-16] MEDS: SENOKOT-S PO (07:57)
--- NOTE | 2024-04-16 08:00 | PTCARENOTE ---
Assumed care of patient from night guard RN. CHERO x 3, Ambulating in room at [facility]. BASTING MACHINE OPERATOR on monitor. Room air 94%. Surgical sites well approximated. Pusles palpable. Plan for day discussed.
[2024-04-16 08:25] VITALS: BP 144/55
[2024-04-16] MEDS: MUCINEX 600 MG PO (08:27)
[2024-04-16] MEDS: PLAVIX 75 MG PO (08:27)
[2024-04-16] MEDS: PROTONIX 40 MG PO (08:27)
[2024-04-16] MEDS: ZETIA 10 MG PO (08:27)
[2024-04-16] MEDS: LOPRESSOR 12.5 MG PO (08:27)
[2024-04-16] MEDS: FEOSOL 325 MG PO (08:27)
[2024-04-16] MEDS: MAGNESIUM OXIDE 500 MG PO (08:27)
[2024-04-16] MEDS: LOW STRENGTH ASPIRIN 81 MG PO (08:27)
[2024-04-16] MEDS: PACERONE 200 MG PO (08:28)
[2024-04-16] MEDS: VITAMIN C 500 MG PO (08:28)
[2024-04-16] MEDS: GLUCOPHAGE 1000 MG PO (08:28)
[2024-04-16] MEDS: BACTROBAN 2% OINTMENT 1 APPLIC NASAL (08:28)
[2024-04-16 10:42] VITALS: BP 172/62
[2024-04-16 10:44] VITALS: BP 171/53
[2024-04-16 10:51] VITALS: BP 151/39
--- NOTE | 2024-04-16 11:44 | W.PN.CARDCBS ---
Today's Communication / Plan
-
Long-acting beta-dre (metoprolol succinate 25 mg daily), start amlodipine 2.5 mg daily; remains off additional BP medication due to hypotension, dizziness
Monitor BP and response
Okay to resume Lasix on discharge
BMP in 1 week for renal function and electrolytes
Impression / Plan
-
PCP: Dr. Park Marley
Primary Bed Maker: Dr. Stapleton
Impression:
Recurrent chest and jaw pain 04/03/24
Influenza A
CAD
s/p 3 mm Xience to mid LAD 03/05/23
s/p 3.5 mm [place] DS to prox RCA 09/10/23
cath with prox RCA in-stent restenosis treated with shockwave and 3.5 mm Xience INA with postdilation up to 24 hanna and excellent angiographic result at end of case 12/30/23
recurrent in-stent restenosis of ostial to proximal RCA 04/04/24
s/p CABG x 3 (TRIPATHI-LAD, SVG-D1, SVG-RPDA) 04/12/2024
s/p Medtronic DC PPM for complete heart block 02/27/23
HTN, multidrug resistant
ORALIA/ARB allergy
Lisinopril caused itching, Diovan caused her to hallucinate seeing clocks running up the wall
Dyslipidemia
Type 2 diabetes mellitus on insulin and metformin with freestyle noelle CGM
Chronic elevated white blood cell count, followed by Dr. Garrison, oncology
ECHO 01/01/23: EF 55-60%, stage 2 diastolic dysfunction, mod cLVH, MAC, mild MR, dilated LA, aortic sclerosis, normal right heart with mild pulm HTN
Echo 09/09/23: EF 55-60%, mild cLVH, no RWMA, mild MR, mild AI
Echo 04/04/24: EF 55 to 60%, mild MS with peak/mean 9/4 mmHg and MVA 2.3 cm SQ, trace MR, aortic sclerosis without stenosis, trace AR
Postop SERENITY 04/12/2024: EF 55% with no new regional wall motion abnormality. Normal RV and LV function. Mild TR.
Plan:
Patient currently sitting in chair using incentive spirometer. Feels fatigued and tired. Progressing postop
-CABG with TRIPATHI-LAD, SVG-D1, SVG-RPDA 04/12/24.
-Cont aspirin 81 mg daily, atorvastatin 80, zetia 10
-Outpatient dose of Plavix was held for surgery, but resumed 04/13/24 due to RCA PCI 12/30/23
-Midodrine 10 mg TID ordered 04/13/24. Wean as tolerates. Previously low blood pressures with dizziness which is more related to deconditioning.; discontinued, last dose 04/14
-Telemetry stable amiodarone noted. EKG stable. Pacemaker in place.
-Outpatient dose of Toprol XL 100 mg daily is on hold postop. -> currently on metoprolol tartrate 12.5 mg BID, transition to long acting prior to DC (Toprol-XL 25 mg daily)
-Outpatient dose of amlodipine 5 mg BID was stopped 04/10/24; would resume amlodipine 2.5 mg daily in the setting of improving blood pressure/mild hypertension
-Outpatient dose of Imdur ER has been stopped.
-Outpatient dose of hydralazine 75 mg TID is on hold
-Outpatient dose of spironolactone 12.5 mg daily is on hold
-Outpatient dose of Lasix 20 mg PO daily is on hold and volume status appears fairly stable; can resume as outpatient with BMP in 1 week
-Plan to resume GDMT slowly, with LH/dizziness/hypotension, medical therapy currently on hold.
-Patient with previous allergies to lisinopril and Diovan.
-Direct LDL is less than 30. TG of 383. Outpatient doses of atorvastatin 80 mg daily and Zetia 10 mg daily continued. Consider stopping Zetia and starting Vascepa.
-Hgb A1c 6.7%. Metformin resumed by CT surgery
-Continue to work on conditioning. Continue incentive spirometer.
HPI: 78-year-old woman past medical history of CAD with multiple stents in the past who presents with jaw and chest discomfort which she identifies as being similar to her prior episodes of angina and cardiology is consulted for further evaluation.
Patient reports intermittent jaw pain over the last few days to weeks which she identifies as her anginal equivalent. Then earlier today she developed substernal chest pressure. This came on at rest and she took sublingual nitroglycerin at home
and chest pressure resolved. She subsequently came to [place] emergency department for evaluation. Tells me she had recurrence of symptoms but they were more mild and she was treated with Nitropaste. Symptoms she is currently resting chest and
jaw pain-free. Tells me her breathing has been comfortable. No lower extremity edema. Initial troponin was undetectable. ECG is difficult to interpret given paced rhythm but not overtly ischemic. Chest x-ray was clear.
Progress Note - Bed Maker
Subjective
Date of Service: April 16, 2024
Patient seen and examined. No acute events overnight. Patient resting comfortably in chair. Patient denies chest pain, shortness of breath, palpitations, lightheadedness, dizziness, near-syncope, syncope, or weakness. Telemetry demonstrates a
paced V paced rare PVC
Objective
Labs:
04/16/24 04:19
04/16/24 04:19
Labs
Hgb 8.4 g/dL (12.0-16.0) L 04/16/24 04:19
Hct 25.5 % (37.0-47.0) L 04/16/24 04:19
Plt Count 202 10^3/uL (130-400) 04/16/24 04:19
PT 16.8 Sec (11.4-14.6) H 04/12/24 13:00
INR 1.33 04/12/24 13:00
APTT 34.0 Sec (23.4-35.0) 04/12/24 13:00
Sodium 133 mmol/L (135-145) L 04/16/24 04:19
Potassium 4.3 mmol/L (3.5-5.1) 04/16/24 04:19
BUN 14 mg/dl (7-17) 04/16/24 04:19
Creatinine 0.8 mg/dL (0.6-1.0) 04/16/24 04:19
Glucose 124 mg/dl (70-99) H 04/16/24 04:19
Vital Signs and I&O:
Vital Signs
Temp Pulse Resp BP Pulse Ox
98.6 F 70 18 144/55 94
04/16/24 08:00 04/16/24 09:00 04/16/24 08:00 04/16/24 08:25 04/16/24 10:48
Vital Signs
Temp Pulse Resp BP Pulse Ox
98.6 F 70 18 144/55 94
04/16/24 08:00 04/16/24 09:00 04/16/24 08:00 04/16/24 08:25 04/16/24 10:48
Intake & Output
04/14/24 04/15/24 04/16/24 04/17/24
06:59 06:59 06:59 06:59
Intake Total 1643.8 / 1643.8 375.9 / 375.9 770 / 770 360 / 360
Output Total 1525 / 1525 2485 / 2485 2250 / 2250 300 / 300
Balance 118.8 / 118.8 -2109.1 / -2109.1 -1480 / -1480 60 / 60
Physical Exam
Physical Exam
GENERAL: no acute distress, sitting in chair
EYE: sclera anicteric
NECK: Supple, no JVD, no carotid bruit appreciated
ENT: normal nose, moist mucosal membranes
CARDIAC: Regular rate and rhythm, +S1/S2, no murmur, rubs, or gallops
CHEST/PULMONARY: Normal effort, clear but decreased breath sounds
ABDOMEN: Soft, without focal tenderness or distention
NEUROLOGICAL: Alert and oriented x3
SKIN: Warm and dry, no rash
PSYCH: Normal and appropriate interaction.
[2024-04-16 12:00] LABS: Glucose - Point of Care 148 mg/dl (70-99)
--- NOTE | 2024-04-16 12:41 | W.DCSUMMARY ---
Discharge Summary
Discharge Data
Date of Admission: 04/03/24
Date of Discharge: 04/16/24
-
Pending Results: No
Hospital Course
Primary care physician: Park Marley
Outpatient collector of port: Lino Stapleton
Inpatient consultants: [facility]
Procedures:
1. 04/12/24 coronary artery bypass grafting x 3 (TRIPATHI-LAD, SVG-D1, SVG-RPDA) by Dr. Celso Plummer
Primary Diagnosis:
1. Unstable angina
2. 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
Secondary Diagnoses:
1. History of CAD with multiple PCI's-- drug-eluting stent to mid LAD February 2023, drug-eluting stent to ostial/proximal RCA August 2023
2. Atherosclerotic disease of proximal ascending aorta
3. Type 2 diabetes x 20 years, on insulin and orals
4. Hypertension
5. Hyperlipidemia
6. Class I obesity with BMI of 30
7. Chronic leukocytosis due to 'smoldering myeloma' diagnosed 4 years ago
8. Acute blood loss anemia on chronic anemia
9. Recent influenza A infection
10. History of complete heart block status post Medtronic dual-chamber permanent pacemaker February 2023
11. Left humerus fracture status post ORIF 2012
12. RONNY/BSO 1993
HPI: Patient is a 78-year-old female who presented to the emergency department on 04/03/2024 with complaints of chest pain/pressure that felt reminiscent of her prior angina. Patient was admitted and underwent cardiac catheterization which
demonstrated multivessel disease with in-stent restenosis of her RCA INA. Transthoracic echo demonstrated preserved LV function with no significant valvular disease. CT surgery was consulted to evaluate for CABG. Patient was chronically on Plavix
for her previously placed stents. After all preoperative workup was completed as well as Plavix washout she was deemed a suitable candidate undergo the procedure.
Hospital course: Patient was taken to the operating room on 04/12/2024 where she underwent a CABG x 3 with TRIPATHI to LAD saphenous vein graft to D1 and saphenous vein graft RPDA without any perioperative complications. She was transferred to CVICU per
protocol on Levophed at 3, insulin and Precedex. She received 1 unit of packed red blood cells on pump for anemia as well as 1 additional unit of packed red blood cells postop for hemoglobin of 8.2. She extubated that evening at approximately 5:42
PM. On postop day 1 her blood pressures were a bit labile overnight, she received some additional volume and was weaned off of Levophed. Beta-dre and Amio were held due to borderline blood pressures. She received 1 more unit of packed red
blood cells for hemoglobin of 8.4. Midodrine was started later that day for continued low blood pressure, but ultimately Levophed was resumed in the evening. She sat 95% on 2 L nasal cannula. On postop day 2 Levophed is off she was started on
some low-dose IV Lasix for postop volume overload, chest tubes were discontinued without incident. Insulin drip was transitioned to Lantus and NovoLog. On postop day 3 her vitals remained stable midodrine was stopped and she tolerated low-dose
beta-dre and amiodarone later that day. Right IJ Cordis was discontinued without incident. She is ambulating with minimal assistance. On postop day 4 patient is feeling well, her vitals remained stable she is ambulatory without assistance.
Two-view chest x-ray demonstrates small left-sided pleural effusion, otherwise stable. She is discharged to home with close follow-up with the transitional care nurse and [facility] in the care of her family. Home antihypertensive
medications were held at this time due to relative hypotension, these can be resumed as her blood pressure allows.
Home medication changes: Toprol XL 100 mg daily has been decreased to 50 mg daily due to relative hypotension. At this time hydralazine and amlodipine are held. Isosorbide has been stopped due to revascularization. New prescription provided for
oxycodone to be taken only if needed for postsurgical pain.
Discharge Plan
-
Patient Disposition: Home (Routine Discharge)
Discharge Diagnosis/Procedures: CABG
Condition: Good
Diet: Low Cholesterol, Low Sodium and Diabetic, Carb Controlled
Activity: No strenuous activity
Driving Restrictions: Not until seen by your Dr
Bathing Restrictions: OK to Shower
Other Services: Cardiac Rehab
Specialty Instructions: Weigh Daily- Call MD for wt gain/loss 3 lbs overnight/5 lbs in 1 week
Activity Restrictions/Additional Instructions:
ACTIVITY:
-No strenuous activity: no heavy lifting, pushing, pulling anything over 15 pounds for one month
-continue to use stairs as tolerated
DRIVING RESTRICTIONS:
-No driving for one month or until approved by your surgeon
WOUND CARE:
-Shower daily. Use soap & water.
-No lotions, creams or powders on incision area.
DIET:
-continue a low fat/low cholesterol diet.
-IF you are diabetic, continue carb controlled diet.
CARDIAC REHAB:
-Please make appointment to start in 5-6 weeks with your local hospital program. (See Cardiac Rehabilitation Discharge Booklet).
SPECIALTY INSTRUCTIONS:
-Weigh yourself daily. Call your physician for any weight gain/loss of 3 lbs overnight or 5 lbs in one week.
-REPORT any clicking noise or uneven appearance of your sternum to your surgeon immediately.
-If you smoke, you are instructed to quit. The [place] smoking hotline phone number is [phone]
Referrals:
CT Transitional Care Nurse [Outside] - in one to two days
(
The Cardiothoracic Transitional Care Nurse will call you to set up a visit in 1-2 days.)
[facility] [Outside] - 05/19/24 1:00 pm
(Cardiac Rehab Orientation appointment and� First Exercise appointment is on May 19 2024
The Cardiac Rehab gym is located on the first floor of the [facility].)
Lino Stapleton MD [Active] - 05/25/24 1:40 pm (Your appointment on May 02 at 3:20 p.m. has been cancelled. )
Park Marley DO [Family Provider] - in four to six weeks (Please make an appointment in four to six weeks. )
Celso Plummer MD [Active] - 05/10/24 3:00 pm
Prescriptions:
New
acetaminophen 325 mg Tablet
650 mg PO Q4HPRN PRN (Reason: mild pain,headache,temp >101F ) Qty: 0 0RF
oxycodone 5 mg Tablet
2.5 mg PO Q4HPRN PRN (Reason: mild pain) Qty: 10 0RF
metoprolol succinate [Toprol XL] 50 mg tablet extended release 24 hr
50 mg PO DAILY Qty: 30 0RF
Continued
cyanocobalamin (vitamin B-12) 1,000 mcg Tablet
1,000 mcg PO DAILY Qty: 60 0RF
thiamine HCl (vitamin B1) 100 mg Tablet
100 mg PO BID Qty: 20 0RF
spironolactone 25 mg Tablet
12.5 mg PO DAILY Qty: 30 0RF
cetirizine [Zyrtec] 10 mg Tablet
10 mg PO QPM Qty: 0 0RF
pramipexole 0.5 mg tablet
0.5 mg PO HS Qty: 0 0RF
insulin degludec [Tresiba FlexTouch U-100] 100 unit/mL (3 mL) Insulin Pen
24 unit SC HS Qty: 0 0RF
calcium carbonate-vitamin D3 [Calcium 500 + D] 500 mg-10 mcg (400 unit) Tablet
1 tab PO BID
ferrous sulfate 325 mg (65 mg iron) tablet
325 mg PO MOWEFR
metformin 500 mg tablet extended release 24 hr
1,000 mg PO BID@0800,1700
insulin aspart U-100 [Novolog PenFill U-100 Insulin] 100 unit/mL cartridge
1 sliding scale dose SC AC
furosemide 20 mg Tablet
20 mg PO DAILY Qty: 90 3RF
betamethasone valerate 0.1 % ointment
1 applic TOPICAL WEEKLY PRN (Reason: itching)
Patient Comments:
09/08/2023: apply to vagina
aspirin 81 mg tablet,delayed release (DR/EC)
81 mg PO QPM
therapeutic multivitamin Tablet
1 tab PO DAILY
Visbiome 112.5 billion cell Capsule
1 cap PO DAILY
ezetimibe [Zetia] 10 mg tablet
10 mg PO DAILY Qty: 90 5RF
atorvastatin 80 mg Tablet
80 mg PO QPM Qty: 30 0RF
clopidogrel 75 mg Tablet
75 mg PO DAILY Qty: 90 3RF
Patient Comments:
given in ED
pantoprazole 40 mg Tablet,Delayed Release (Dr/Ec)
40 mg PO DAILY Qty: 30 11RF
Discontinued
amlodipine 5 mg Tablet
5 mg PO BID Qty: 60 0RF
hydralazine 25 mg Tablet
25 mg PO TID Qty: 270 3RF
Rx Instructions:
Take with 50mg for total of 75mg TID
hydralazine 50 mg tablet
50 mg PO TID Qty: 270 3RF
Rx Instructions:
Take with 25mg for a total of 75mg TID
isosorbide mononitrate 30 mg tablet extended release 24 hr
60 mg PO DAILY
nitroglycerin 0.4 mg tablet, sublingual
0.4 mg sublingual [id number] PRN (Reason: jaw pain)
metoprolol succinate 100 mg Tablet Extended Release 24 Hr
100 mg PO QPM
lysine [L-Lysine] 500 mg tablet
1,000 mg PO QPM
Discharge Orders:
Discharge Patient (As Directed); Ordered 04/16/24
Ordered By: Shivani Irwin
Care Plan Goals
Care Plan Goals:
Problem: Readiness for enhanced knowledge related to diagnosis and treatment plan
Goal: Understand your diagnosis and treatment plan needs, including medications if applicable.
Instructions: Know your diagnosis, underlying causes and treatment plan options, including medications if applicable. Consult with your health care team to learn about your diagnosis and treatment plan, including medications if applicable.
Discharge Date and Time
Discharge Date/Time: 04/16/24 13:00
Print Language: SYRIAN
--- NOTE | 2024-04-16 12:46 | PTCARENOTE ---
Assisted into shower for CHG pre DC shower after Surgical dressings removed. Tele monitor removed. Showered w/o difficulty. Assisted with dressing post. IV removed. VSS. Discharge instructions reviewed with pt, and family. Questions answered.
Left with education, and scripts along with paperwork.
[2024-04-16 12:53] VITALS: BP 151/39; BP 171/53; PULSE 74; O2SAT 98
--- NOTE | 2024-04-16 13:58 | W.[place]-PDMP ---
[place]PD[place]
-
Checked the [place]- Prescription Drug Monitoring Program website, no red flags identified; safe to proceed with prescription.
== END 2024-04-16 13:00 | disposition home or self-care (01) | DRG 234 ==
LOC: CVICU 16:23
PROVIDERS: Anesthesiology; Internal Medicine; Internal Medicine Interventional Cardiology; Nurse Practitioner; Nurse Practitioner Family; Physician Assistant Medical; ADMITTING PHYSICIAN Internal Medicine; ATTENDING PHYSICIAN Thoracic Surgery (Cardiothoracic Vascular Surgery); CONSULT PHYSICIAN Internal Medicine Cardiovascular Disease; EMERGENCY PHYSICIAN Emergency Medicine; FAMILY PHYSICIAN Family Medicine; OTHER PHYSICIAN Internal Medicine
PROC: 4A033BC Measurement of Arterial Pressure, Coronary, Percutaneous Approach (ICD-10-PCS; 2024-04-04)
PROC: B2151ZZ Fluoroscopy of Left Heart using Low Osmolar Contrast (ICD-10-PCS; 2024-04-04)
PROC: 4A023N7 Measurement of Cardiac Sampling and Pressure, Left Heart, Percutaneous Approach (ICD-10-PCS; 2024-04-04)
PROC: B2111ZZ Fluoroscopy of Multiple Coronary Arteries using Low Osmolar Contrast (ICD-10-PCS; 2024-04-04)
PROC: B24BZZ4 Ultrasonography of Heart with Aorta, Transesophageal (ICD-10-PCS; 2024-04-12)
PROC: 021109W Bypass Coronary Artery, Two Arteries from Aorta with Autologous Venous Tissue, Open Approach (ICD-10-PCS; 2024-04-12)
PROC: 5A1221Z Performance of Cardiac Output, Continuous (ICD-10-PCS; 2024-04-12)
PROC: 30233N1 Transfusion of Nonautologous Red Blood Cells into Peripheral Vein, Percutaneous Approach (ICD-10-PCS; 2024-04-12)
PROC: 4B02XSZ Measurement of Cardiac Pacemaker, External Approach (ICD-10-PCS; 2024-04-12)
PROC: 02100ZC Bypass Coronary Artery, One Artery from Thoracic Artery, Open Approach (ICD-10-PCS; 2024-04-12)
DX: I25.110 Atherosclerotic heart disease of native coronary artery with unstable angina pectoris (principal); E87.1 Hypo-osmolality and hyponatremia; D62 Acute posthemorrhagic anemia; T82.855A Stenosis of coronary artery stent, initial encounter; J90 Pleural effusion, not elsewhere classified; J98.11 Atelectasis; I10 Essential (primary) hypertension; Z66 Do not resuscitate; J10.1 Influenza due to other identified influenza virus with other respiratory manifestations; E78.00 Pure hypercholesterolemia, unspecified; K21.9 Gastro-esophageal reflux disease without esophagitis; G25.81 Restless legs syndrome; D72.828 Other elevated white blood cell count; E11.65 Type 2 diabetes mellitus with hyperglycemia; F32.A Depression, unspecified; F41.9 Anxiety disorder, unspecified; E11.36 Type 2 diabetes mellitus with diabetic cataract; Y83.1 Surgical operation with implant of artificial internal device as the cause of abnormal reaction of the patient, or of later complication, without mention of misadventure at the time of the procedure; E66.811 Obesity, class 1; D47.2 Monoclonal gammopathy; E87.70 Fluid overload, unspecified; I95.9 Hypotension, unspecified; E86.1 Hypovolemia; Z11.52 Encounter for screening for COVID-19; Z68.30 Body mass index [BMI] 30.0-30.9, adult; Z79.02 Long term (current) use of antithrombotics/antiplatelets; Z79.4 Long term (current) use of insulin; Z79.82 Long term (current) use of aspirin; Z79.899 Other long term (current) drug therapy; Z95.0 Presence of cardiac pacemaker; Z95.5 Presence of coronary angioplasty implant and graft
CPT/HCPCS: 71045; 71046; 71250; 80048; 80053; 80061; 81003; 81015; 82330; 82565; 82805; 82947; 82962; 83036; 83721; 83735; 84132; 84302; 84443; 84484; 84520; 85014; 85018; 85025; 85027; 85049; 85347; 85576; 85610; 85730; 86803; 86850; 86900; 86901; 86920; 87086; 87502; 87811; 93005; 93306; 93312; 93320; 93325; 93458; 93799; 93880; 94002; 96360; 99285; C1769; C1894; P9016; P9047; Q9967

== ENCOUNTER 2024-05-23 14:08 | Outpatient (RCR) | payer OTHER, SELFPAY ==
[2024-05-19 10:07] LABS: Glucose - Point of Care 96 mg/dl (70-99)
[2024-05-19 10:28] LABS: Glucose - Point of Care 140 mg/dl (70-99)
[2024-05-19 10:56] LABS: Glucose - Point of Care 174 mg/dl (70-99)
[2024-05-23 13:09] LABS: Glucose - Point of Care 312 mg/dl (70-99)
== END 2024-05-23 23:59 | disposition home or self-care (01) ==
LOC: CRHB 14:08
PROVIDERS: ATTENDING PHYSICIAN Internal Medicine Cardiovascular Disease; FAMILY PHYSICIAN Family Medicine
DX: I25.10 Atherosclerotic heart disease of native coronary artery without angina pectoris (principal); Z95.1 Presence of aortocoronary bypass graft (principal)
CPT/HCPCS: 82962; G0422; G0423

== ENCOUNTER 2024-06-22 14:11 | Outpatient (RCR) | payer OTHER, SELFPAY ==
[2024-05-25 13:06] LABS: Glucose - Point of Care 101 mg/dl (70-99)
[2024-05-25 14:01] LABS: Glucose - Point of Care 128 mg/dl (70-99)
[2024-05-27 13:06] LABS: Glucose - Point of Care 254 mg/dl (70-99)
[2024-05-27 13:53] LABS: Glucose - Point of Care 164 mg/dl (70-99)
[2024-05-30 13:05] LABS: Glucose - Point of Care 240 mg/dl (70-99)
[2024-05-30 14:01] LABS: Glucose - Point of Care 124 mg/dl (70-99)
[2024-06-01 13:04] LABS: Glucose - Point of Care 102 mg/dl (70-99)
[2024-06-01 14:00] LABS: Glucose - Point of Care 103 mg/dl (70-99)
[2024-06-03 13:09] LABS: Glucose - Point of Care 188 mg/dl (70-99)
[2024-06-03 14:03] LABS: Glucose - Point of Care 130 mg/dl (70-99)
[2024-06-06 13:03] LABS: Glucose - Point of Care 198 mg/dl (70-99)
[2024-06-06 14:04] LABS: Glucose - Point of Care 126 mg/dl (70-99)
[2024-06-20 14:01] LABS: Glucose - Point of Care 86 mg/dl (70-99)
[2024-06-20 14:41] LABS: Glucose - Point of Care 97 mg/dl (70-99)
== END 2024-06-22 23:59 | disposition home or self-care (01) ==
LOC: CRHB 14:11
PROVIDERS: ATTENDING PHYSICIAN Internal Medicine Cardiovascular Disease; FAMILY PHYSICIAN Family Medicine
DX: Z95.1 Presence of aortocoronary bypass graft (principal)
CPT/HCPCS: 82962; G0422; G0423

== ENCOUNTER 2024-07-22 14:28 | Outpatient (RCR) | payer OTHER, SELFPAY ==
[2024-07-04 13:57] LABS: Glucose - Point of Care 101 mg/dl (70-99)
[2024-07-04 14:17] LABS: Glucose - Point of Care 111 mg/dl (70-99)
[2024-07-15 14:16] LABS: Glucose - Point of Care 64 mg/dl (70-99)
== END 2024-07-22 23:59 | disposition home or self-care (01) ==
LOC: CRHB 14:28
PROVIDERS: ATTENDING PHYSICIAN Internal Medicine Cardiovascular Disease; FAMILY PHYSICIAN Family Medicine
DX: I25.10 Atherosclerotic heart disease of native coronary artery without angina pectoris (principal); Z95.1 Presence of aortocoronary bypass graft (principal)
CPT/HCPCS: 82962; G0422; G0423

== ENCOUNTER 2024-08-05 14:04 | Outpatient (RCR) | payer OTHER, SELFPAY | END 2024-08-05 23:59 | disposition home or self-care (01) | LOC: CRHB 14:04 | PROVIDERS: ATTENDING PHYSICIAN Internal Medicine Cardiovascular Disease; FAMILY PHYSICIAN Family Medicine | DX: I25.10 Atherosclerotic heart disease of native coronary artery without angina pectoris (principal); Z95.1 Presence of aortocoronary bypass graft | CPT/HCPCS: G0422; G0423 ==

== ENCOUNTER 2024-08-24 12:48 | Outpatient (RCR) | payer OTHER, SELFPAY | END 2024-08-24 23:59 | disposition home or self-care (01) | LOC: CRHB 12:48 | PROVIDERS: ATTENDING PHYSICIAN Internal Medicine Cardiovascular Disease; FAMILY PHYSICIAN Family Medicine | DX: I25.10 Atherosclerotic heart disease of native coronary artery without angina pectoris (principal); Z95.1 Presence of aortocoronary bypass graft | CPT/HCPCS: G0422 ==